=== PATIENT | female | born 1970 | race Caucasian/White ===

== ENCOUNTER 2016-09-27 13:03 | Emergency (ER) | payer MEDICAID, OTHER ==
[~2016-09-27] VITALS: Ht 180.3 cm; Wt 100.0 kg
[~2016-09-27 13:03] MED LIST: ATOM10 PO; BETH5 PO; CEPH500 PO; LEVE250T55 PO; LEVO25TA9 PO; LURA40 PO; MUPI22O TP; OXCA300T PO; PROP10 PO; QUET300T2 PO; VITAD50000 PO
[2016-09-27 14:31] LABS: BASOPHILS # (AUTO) 0.06 K/uL (0.00-0.20); BASOPHILS % (AUTO) 0.6 % (0.0-2.0); EOSINOPHILS # (AUTO) 0.15 K/uL (0.00-0.70); EOSINOPHILS % (AUTO) 1.42 % (1.0-6.0); HEMATOCRIT 40.9 % (36-46); HEMOGLOBIN 13.5 g/dL (12.0-16.0); LYMPHOCYTES # (AUTO) 2.3 K/uL (1.0-4.8); MEAN CORPUSCULAR HEMOGLOBIN 29.5 pg (26.0-34.0); MEAN CORPUSCULAR VOLUME 89 fL (80-100); MONOCYTES % (AUTO) 8.7 % (2.0-9.0); NEUTROPHILS # (AUTO) 7.4 K/uL (1.8-7.7); NEUTROPHILS % (AUTO) 68.3 % (40.0-70.0); PLATELET COUNT (AUTO) 396 K/uL (150-450); RED BLOOD CELL COUNT(AUTO) 4.57 MIL/uL (4.00-5.20); RED CELL DISTRIBUTION WIDTH 13.7 % (11.5-14.5); WHITE BLOOD COUNT (AUTO) 10.9 K/uL (4.5-11.0)
[2016-09-27 14:37] LABS: ANION GAP 12 mmol/L (8-16); CALCIUM, TOTAL 9.2 mg/dL (8.8-10.5); CARBON DIOXIDE 24 mmol/L (22-29); CHLORIDE 105 mmol/L (98-107); CREATININE 1.05 mg/dL (0.60-1.30); GLOMERULAR FILTR. RATE CALC 57 mL/min (>60); POTASSIUM 3.3 mmol/L (3.5-5.1); SODIUM SERUM 141 mmol/L (136-145); UREA NITROGEN, BLOOD 9 mg/dL (7-18)
[2016-09-27 14:43] LABS: ALANINE AMINOTRANSFERASE 38 U/L (12-78); ALBUMIN 3.6 g/dL (3.4-5.0); ASPARTATE AMINOTRANSFERASE 37 U/L (15-37); BILIRUBIN,TOTAL 0.3 mg/dL (0.1-1.0); TOTAL PROTEIN, SERUM 7.7 g/dL (6.4-8.2)
[2016-09-27] MEDS ORDERED: LORazepam 1 MG TABLET PO ONE (16:30)
[2016-09-27 16:40] VITALS: BP 138/90
[2016-09-30] MEDS ORDERED: PARO20TA24 PO (13:42)
[2016-09-30] MEDS ORDERED: TRAZ150 PO (13:42)
[2016-09-30] MEDS ORDERED: VENL50TA44 PO (13:42)
[2016-09-30] MEDS ORDERED: PROP10 PO (13:42)
[2016-09-30] MEDS ORDERED: MIRT15 PO (13:42)
[2016-09-30] MEDS ORDERED: IBUP-2070 PO (13:42)
== END 2016-09-27 18:22 | disposition home or self-care (01) ==
LOC: EMS 13:05 → EEVIPCON 13:05 → EMS 18:22
DX: F20.0 Paranoid schizophrenia (principal); E78.00 Pure hypercholesterolemia, unspecified; F17.210 Nicotine dependence, cigarettes, uncomplicated; F31.9 Bipolar disorder, unspecified; Z88.8 Allergy status to other drugs, medicaments and biological substances
CPT/HCPCS: 36415; 80053; 80307; 85025; 99284; G0480

== ENCOUNTER 2016-11-13 10:05 | Inpatient (IN) | payer MEDICAID ==
[~2016-11-13] VITALS: Ht 177.8 cm; Wt 97.2 kg
[~2016-11-13 10:05] MED LIST changes: -ATOM10 PO; -BETH5 PO; -CEPH500 PO; +CHOL200016 PO; +DOCU250C91 PO; -LEVE250T55 PO; -LEVO25TA9 PO; +LITH300C3 PO; -LURA40 PO; -MUPI22O TP; +MVITFE PO; -OXCA300T PO; +PARO20TA24 PO; -PROP10 PO; -QUET300T2 PO; +RISP1 PO; +SIMV-261 PO; -VITAD50000 PO
[2016-11-13 10:39] LABS: BASOPHILS % (AUTO) 0.5 % (0.0-2.0); EOSINOPHILS % (AUTO) 0.8 % (1.0-6.0); HEMATOCRIT 38.5 % (36-46); HEMOGLOBIN 13.1 g/dL (12.0-16.0); LYMPHOCYTES # (AUTO) 1.9 K/uL (1.0-4.8); LYMPHOCYTES % (AUTO) 18.8 % (22.0-44.0); MEAN CORPUSCULAR HEMOGLOBIN 30.1 pg (26.0-34.0); MEAN CORPUSCULAR HGB CONC 34.1 G/dL (31.0-37.0); MEAN CORPUSCULAR VOLUME 88 fL (80-100); MONOCYTES # (AUTO) 0.6 K/uL (0.1-1.0); MONOCYTES % (AUTO) 6.5 % (2.0-9.0); NEUTROPHILS # (AUTO) 7.3 K/uL (1.8-7.7); NEUTROPHILS % (AUTO) 73.4 % (40.0-70.0); PLATELET COUNT (AUTO) 390 K/uL (150-450); RED BLOOD CELL COUNT(AUTO) 4.36 MIL/uL (4.00-5.20); RED CELL DISTRIBUTION WIDTH 13.9 % (11.5-14.5); WHITE BLOOD COUNT (AUTO) 9.9 K/uL (4.5-11.0)
[2016-11-13] MEDS ORDERED: BACITRACIN 0.9 GM PACKET OINTMENT TP ONE (10:45)
[2016-11-13 10:50] LABS: ANION GAP 10 mmol/L (8-16); CARBON DIOXIDE 27 mmol/L (22-29); CHLORIDE 104 mmol/L (98-107); GLOMERULAR FILTR. RATE CALC > 60 mL/min (>60); POTASSIUM 3.9 mmol/L (3.5-5.1); SODIUM SERUM 141 mmol/L (136-145); UREA NITROGEN, BLOOD 16 mg/dL (7-18)
[2016-11-13 10:56] LABS: ALANINE AMINOTRANSFERASE 86 U/L (12-78); ALBUMIN 3.4 g/dL (3.4-5.0); ASPARTATE AMINOTRANSFERASE 43 U/L (15-37); BILIRUBIN,TOTAL 0.2 mg/dL (0.1-1.0); TOTAL PROTEIN, SERUM 7.6 g/dL (6.4-8.2)
[2016-11-13] MEDS ORDERED: LORazepam 2 MG/ML VIAL IM ONE (11:00)
[2016-11-13] MEDS ORDERED: DiphenhydrAMINE HCL 50 MG/ML VIAL IM ONE (11:00)
[2016-11-13] MEDS ORDERED: HALOPERIDOL LACTATE 5 MG/ML VIAL IM ONE (11:00)
[2016-11-13] MEDS: RisperiDONE 1 MG TABLET PO SCH (21:31)
[2016-11-13] MEDS: PARoxetine HCL 20 MG TABLET PO SCH (21:31)
[2016-11-14 00:28] VITALS: BP 136/83
[2016-11-14] MEDS ORDERED: -PHARMACY VACCINE NOTE- MISC ONE ×2 (01:00)
[2016-11-14] MEDS ORDERED: PNEUMOCOCCAL VACCINE POLYVALENT 0.5 ML VIAL [PPSV23] IM ONE (01:00)
[2016-11-14 08:00] VITALS: BP 131/84
[2016-11-14] MEDS: LORazepam 2 MG TABLET PO PRN ×2 (08:02→14:55)
[2016-11-14] MEDS: RisperiDONE 1 MG TABLET PO SCH ×2 (08:03→09:00)
[2016-11-14] MEDS: PARoxetine HCL 20 MG TABLET PO SCH ×2 (08:03→17:00)
[2016-11-14] MEDS: HALOPERIDOL 5 MG TABLET PO PRN ×2 (10:15→14:54)
[2016-11-14 16:30] VITALS: BP 119/76
[2016-11-14] MEDS: ZOLPIDEM TARTRATE 10 MG TABLET PO PRN (21:13)
[2016-11-15 08:16] VITALS: BP 112/58
[2016-11-15] MEDS: PARoxetine HCL 20 MG TABLET PO SCH ×2 (08:42→16:14)
[2016-11-15] MEDS: RisperiDONE 1 MG TABLET PO SCH (08:42)
[2016-11-15] MEDS: LORazepam 2 MG TABLET PO PRN ×2 (09:00→13:15)
[2016-11-15] MEDS: HALOPERIDOL 5 MG TABLET PO PRN ×2 (09:00→13:15)
[2016-11-15 16:44] VITALS: BP 117/70
[2016-11-15] MEDS: OLANZapine 7.5 MG TABLET PO SCH (21:25)
[2016-11-15] MEDS: ZOLPIDEM TARTRATE 10 MG TABLET PO PRN (21:26)
[2016-11-16 08:34] VITALS: BP 124/63
[2016-11-16] MEDS: PARoxetine HCL 20 MG TABLET PO SCH ×2 (08:34→16:06)
[2016-11-16] MEDS: MUPIROCIN CALCIUM 2% 22 GM OINTMENT NASAL SCH (08:35)
[2016-11-16] MEDS: LORazepam 2 MG TABLET PO PRN ×2 (11:45→15:53)
[2016-11-16] MEDS: HALOPERIDOL 5 MG TABLET PO PRN (11:45)
[2016-11-16] MEDS: NICOTINE 21 MG/24 HOUR PATCH TD SCH (12:17)
[2016-11-16 17:31] VITALS: BP 130/83
[2016-11-16] MEDS: ZOLPIDEM TARTRATE 10 MG TABLET PO PRN (20:14)
[2016-11-16] MEDS: OLANZapine 7.5 MG TABLET PO SCH (20:14)
[2016-11-17 08:05] VITALS: BP 112/63
[2016-11-17] MEDS: PARoxetine HCL 20 MG TABLET PO SCH ×2 (09:00→16:00)
[2016-11-17] MEDS: CHOLECALCIFEROL (VIT D3) 1,000 UNITS TABLET PO SCH (09:00)
[2016-11-17] MEDS: NICOTINE 21 MG/24 HOUR PATCH TD SCH (09:00)
[2016-11-17] MEDS: MUPIROCIN CALCIUM 2% 22 GM OINTMENT NASAL SCH (09:01)
[2016-11-17] MEDS: MUPIROCIN CALCIUM 2% 15 GM CREAM TP SCH (09:26)
[2016-11-17 16:00] VITALS: BP 116/70
[2016-11-17] MEDS: LORazepam 2 MG TABLET PO PRN (16:00)
[2016-11-17] MEDS: HALOPERIDOL 5 MG TABLET PO PRN (16:00)
[2016-11-17] MEDS: OLANZapine 7.5 MG TABLET PO SCH (22:45)
[2016-11-18 08:00] VITALS: BP 118/76
[2016-11-18] MEDS: MUPIROCIN CALCIUM 2% 22 GM OINTMENT NASAL SCH (09:12)
[2016-11-18] MEDS: MUPIROCIN CALCIUM 2% 15 GM CREAM TP SCH (09:13)
[2016-11-18] MEDS: NICOTINE 21 MG/24 HOUR PATCH TD SCH (09:15)
[2016-11-18] MEDS: LORazepam 2 MG TABLET PO PRN ×2 (09:16→14:43)
[2016-11-18] MEDS: CHOLECALCIFEROL (VIT D3) 1,000 UNITS TABLET PO SCH (09:16)
[2016-11-18] MEDS: PARoxetine HCL 20 MG TABLET PO SCH ×2 (09:16→17:38)
[2016-11-18] MEDS: HALOPERIDOL 5 MG TABLET PO PRN ×2 (09:17→14:43)
[2016-11-18 16:12] VITALS: BP 115/71
[2016-11-18] MEDS: OLANZapine 7.5 MG TABLET PO SCH (20:14)
[2016-11-18] MEDS: ZOLPIDEM TARTRATE 10 MG TABLET PO PRN (20:15)
[2016-11-19 08:00] VITALS: BP 116/60
[2016-11-19] MEDS ORDERED: PARoxetine HCL 20 MG TABLET PO SCH (09:00)
[2016-11-19] MEDS: HALOPERIDOL 5 MG TABLET PO PRN ×2 (10:18→14:21)
[2016-11-19] MEDS: LORazepam 2 MG TABLET PO PRN ×2 (10:18→14:21)
[2016-11-19] MEDS: CHOLECALCIFEROL (VIT D3) 1,000 UNITS TABLET PO SCH (10:19)
[2016-11-19] MEDS: NICOTINE 21 MG/24 HOUR PATCH TD SCH (10:20)
[2016-11-19] MEDS: MUPIROCIN CALCIUM 2% 22 GM OINTMENT NASAL SCH (10:32)
[2016-11-19] MEDS: MUPIROCIN CALCIUM 2% 15 GM CREAM TP SCH (10:33)
[2016-11-19] MEDS ORDERED: HALOPERIDOL LACTATE 5 MG/ML VIAL IM ONE (16:45)
[2016-11-19] MEDS ORDERED: LORazepam 2 MG/ML VIAL IM ONE (16:45)
[2016-11-19] MEDS: OLANZapine 7.5 MG TABLET PO SCH (20:59)
[2016-11-19] MEDS: PARoxetine HCL 20 MG TABLET PO SCH (20:59)
[2016-11-19 21:15] VITALS: BP 128/77
[2016-11-20 08:00] VITALS: BP 119/75
[2016-11-20] MEDS: HALOPERIDOL 5 MG TABLET PO PRN ×2 (10:03→15:33)
[2016-11-20] MEDS: CHOLECALCIFEROL (VIT D3) 1,000 UNITS TABLET PO SCH (10:03)
[2016-11-20] MEDS: LORazepam 2 MG TABLET PO PRN ×2 (10:03→15:33)
[2016-11-20] MEDS: MUPIROCIN CALCIUM 2% 22 GM OINTMENT NASAL SCH (10:08)
[2016-11-20] MEDS: MUPIROCIN CALCIUM 2% 15 GM CREAM TP SCH (10:08)
[2016-11-20] MEDS: NICOTINE 21 MG/24 HOUR PATCH TD SCH (10:08)
[2016-11-20 16:25] VITALS: BP 148/90
[2016-11-20] MEDS: OLANZapine 7.5 MG TABLET PO SCH (20:13)
[2016-11-20] MEDS: PARoxetine HCL 20 MG TABLET PO SCH (20:15)
[2016-11-20] MEDS: ZOLPIDEM TARTRATE 10 MG TABLET PO PRN (20:26)
[2016-11-21 08:05] VITALS: BP 119/68
[2016-11-21] MEDS: CHOLECALCIFEROL (VIT D3) 1,000 UNITS TABLET PO SCH (11:21)
[2016-11-21] MEDS: MUPIROCIN CALCIUM 2% 15 GM CREAM TP SCH (11:22)
[2016-11-21] MEDS: NICOTINE 21 MG/24 HOUR PATCH TD SCH (11:22)
[2016-11-21] MEDS: MUPIROCIN CALCIUM 2% 22 GM OINTMENT NASAL SCH (11:23)
[2016-11-21] MEDS: LORazepam 2 MG TABLET PO PRN ×2 (12:30→17:17)
[2016-11-21] MEDS: HALOPERIDOL 5 MG TABLET PO PRN ×2 (12:30→17:17)
[2016-11-21 17:13] VITALS: BP 124/86
[2016-11-21] MEDS: OLANZapine 7.5 MG TABLET PO SCH (20:05)
[2016-11-21] MEDS: PARoxetine HCL 20 MG TABLET PO SCH (20:05)
[2016-11-21] MEDS: ZOLPIDEM TARTRATE 10 MG TABLET PO PRN (20:05)
[2016-11-22 08:00] VITALS: BP 115/59
[2016-11-22] MEDS: LORazepam 2 MG TABLET PO PRN ×2 (11:31→15:41)
[2016-11-22] MEDS: HALOPERIDOL 5 MG TABLET PO PRN ×2 (11:31→15:41)
[2016-11-22] MEDS: CHOLECALCIFEROL (VIT D3) 1,000 UNITS TABLET PO SCH (11:34)
[2016-11-22] MEDS: NICOTINE 21 MG/24 HOUR PATCH TD SCH (11:35)
[2016-11-22] MEDS: MUPIROCIN CALCIUM 2% 15 GM CREAM TP SCH (11:36)
[2016-11-22 17:14] VITALS: BP 121/60
[2016-11-22] MEDS: PARoxetine HCL 20 MG TABLET PO SCH (20:02)
[2016-11-22] MEDS: OLANZapine 7.5 MG TABLET PO SCH (20:02)
[2016-11-22] MEDS: ZOLPIDEM TARTRATE 10 MG TABLET PO PRN (20:25)
[2016-11-23 08:27] VITALS: BP 132/88
[2016-11-23] MEDS: CHOLECALCIFEROL (VIT D3) 1,000 UNITS TABLET PO SCH (09:46)
[2016-11-23] MEDS: NICOTINE 21 MG/24 HOUR PATCH TD SCH (09:46)
[2016-11-23] MEDS: MUPIROCIN CALCIUM 2% 15 GM CREAM TP SCH (09:47)
[2016-11-23] MEDS ORDERED: MUPI1OIN5 TP (10:32)
[2016-11-23] MEDS ORDERED: NICO-650 TD (10:32)
[2016-11-23] MEDS: LORazepam 2 MG TABLET PO PRN (11:10)
[2016-11-23] MEDS ORDERED: OLAN7.5T2 PO (11:24)
== END 2016-11-23 13:45 | disposition home or self-care (01) | DRG 750 ==
LOC: EMS 10:07 → 3EC 23:20
PROVIDERS: ADMIT Psychiatry & Neurology Psychiatry; ATTEND Psychiatry & Neurology Psychiatry
DX: F25.9 Schizoaffective disorder, unspecified (principal); R45.851 Suicidal ideations; Z78.1 Physical restraint status; F22 Delusional disorders; F17.200 Nicotine dependence, unspecified, uncomplicated; E78.00 Pure hypercholesterolemia, unspecified; F41.9 Anxiety disorder, unspecified; T22.012A Burn of unspecified degree of left forearm, initial encounter; Z88.1 Allergy status to other antibiotic agents; Z28.21 Immunization not carried out because of patient refusal
CPT/HCPCS: 87081; 96372; 99285; G0480; J1200; J1630; J2060

== ENCOUNTER 2017-01-02 13:00 | Inpatient (IN) | payer MEDICAID, OTHER ==
[~2017-01-02] VITALS: Ht 177.8 cm; Wt 95.2 kg
[~2017-01-02 13:00] MED LIST changes: -DOCU250C91 PO; -LITH300C3 PO; +MUPI1OIN5 TP; -MVITFE PO; +NICO-650 TD; +OLAN7.5T2 PO; -RISP1 PO; -SIMV-261 PO
[2017-01-02] MEDS ORDERED: SODIUM CHLORIDE 0.9% 1,000 ML IV ONE (13:45)
[2017-01-02] MEDS ORDERED: CHLO100T24 PO (13:50)
[2017-01-02] MEDS ORDERED: DIVA500T35 PO (13:50)
[2017-01-02 14:05] LABS: BASOPHILS # (AUTO) 0.06 K/uL (0.00-0.20); BASOPHILS % (AUTO) 0.4 % (0.0-2.0); EOSINOPHILS # (AUTO) 0.03 K/uL (0.00-0.70); HEMATOCRIT 40.8 % (36-46); HEMOGLOBIN 13.1 g/dL (12.0-16.0); MEAN CORPUSCULAR HEMOGLOBIN 28.8 pg (26.0-34.0); MEAN CORPUSCULAR HGB CONC 32.1 G/dL (31.0-37.0); MEAN CORPUSCULAR VOLUME 90 fL (80-100); MONOCYTES # (AUTO) 0.9 K/uL (0.1-1.0); MONOCYTES % (AUTO) 6.9 % (2.0-9.0); NEUTROPHILS # (AUTO) 11.6 K/uL (1.8-7.7); NEUTROPHILS % (AUTO) 85.4 % (40.0-70.0); PLATELET COUNT (AUTO) 327 K/uL (150-450); RED BLOOD CELL COUNT(AUTO) 4.54 MIL/uL (4.00-5.20); RED CELL DISTRIBUTION WIDTH 14.4 % (11.5-14.5); WHITE BLOOD COUNT (AUTO) 13.6 K/uL (4.5-11.0)
[2017-01-02 14:28] LABS: SALICYLATE 6.3 mg/dL (2.8-20.0)
[2017-01-02 14:30] LABS: ALANINE AMINOTRANSFERASE 47 U/L (12-78); ALBUMIN 3.7 g/dL (3.4-5.0); ANION GAP 12 mmol/L (8-16); ASPARTATE AMINOTRANSFERASE 42 U/L (15-37); BILIRUBIN,TOTAL 0.4 mg/dL (0.1-1.0); CALCIUM, TOTAL 10.4 mg/dL (8.8-10.5); CARBON DIOXIDE 21 mmol/L (22-29); CHLORIDE 102 mmol/L (98-107); CREATININE 1.09 mg/dL (0.60-1.30); GLOMERULAR FILTR. RATE CALC 54 mL/min (>60); SODIUM SERUM 135 mmol/L (136-145); TOTAL PROTEIN, SERUM 7.4 g/dL (6.4-8.2); UREA NITROGEN, BLOOD 8 mg/dL (7-18)
[2017-01-02 14:32] LABS: POTASSIUM 2.5 mmol/L (3.5-5.1)
[2017-01-02 15:48] LABS: ACETAMINOPHEN < 2 mcg/mL (10-30)
[2017-01-02] MEDS ORDERED: NICO-704 TD (16:24)
[2017-01-02] MEDS ORDERED: POTASSIUM CHLORIDE 20 MEQ ER TABLET PO ONE (16:30)
[2017-01-02] MEDS ORDERED: LORazepam 2 MG/ML VIAL IM ONE (17:00)
[2017-01-02] MEDS ORDERED: HALOPERIDOL LACTATE 5 MG/ML VIAL IM ONE (17:00)
[2017-01-02] MEDS ORDERED: DiphenhydrAMINE HCL 50 MG/ML VIAL IM ONE (17:00)
[2017-01-02] MEDS ORDERED: ZOLPIDEM TARTRATE 10 MG TABLET PO PRN (17:30)
[2017-01-02] MEDS ORDERED: POTASSIUM CHL 10 MEQ/WATER 50 ML IV ONE (21:01)
[2017-01-02] MEDS: POTASSIUM CHL 10 MEQ/WATER 50 ML IV SCH ×3 (21:09→23:09)
[2017-01-03] MEDS: POTASSIUM CHL 10 MEQ/WATER 50 ML IV SCH (00:06)
[2017-01-03 04:00] VITALS: BP 112/72
[2017-01-03 06:27] LABS: BASOPHILS % (AUTO) 0.4 % (0.0-2.0); EOSINOPHILS % (AUTO) 1.8 % (1.0-6.0); HEMATOCRIT 34.1 % (36-46); HEMOGLOBIN 11.5 g/dL (12.0-16.0); LYMPHOCYTES % (AUTO) 21.7 % (22.0-44.0); MEAN CORPUSCULAR HEMOGLOBIN 30.1 pg (26.0-34.0); MEAN CORPUSCULAR HGB CONC 33.8 G/dL (31.0-37.0); MEAN CORPUSCULAR VOLUME 89 fL (80-100); MONOCYTES # (AUTO) 0.8 K/uL (0.1-1.0); MONOCYTES % (AUTO) 8.2 % (2.0-9.0); NEUTROPHILS # (AUTO) 6.2 K/uL (1.8-7.7); NEUTROPHILS % (AUTO) 67.9 % (40.0-70.0); PLATELET COUNT (AUTO) 301 K/uL (150-450); RED BLOOD CELL COUNT(AUTO) 3.84 MIL/uL (4.00-5.20); RED CELL DISTRIBUTION WIDTH 14.3 % (11.5-14.5); WHITE BLOOD COUNT (AUTO) 9.2 K/uL (4.5-11.0)
[2017-01-03 06:45] LABS: ALBUMIN 3.1 g/dL (3.4-5.0); BILIRUBIN,TOTAL 0.3 mg/dL (0.1-1.0); CALCIUM, TOTAL 7.8 mg/dL (8.8-10.5); CREATININE 1.03 mg/dL (0.60-1.30); POTASSIUM 3.2 mmol/L (3.5-5.1); THYROID STIMULATING HORMONE 3.22 uIU/mL (0.36-3.74); TOTAL PROTEIN, SERUM 6.2 g/dL (6.4-8.2)
[2017-01-03] MEDS ORDERED: POTASSIUM CHLORIDE 20 MEQ ER TABLET PO ONE (07:30)
[2017-01-03] MEDS: LORazepam 2 MG TABLET PO PRN (08:10)
[2017-01-03] MEDS: HALOPERIDOL 5 MG TABLET PO PRN (08:10)
[2017-01-03] MEDS: DIVALPROEX SODIUM 500 MG DR TABLET PO SCH ×2 (09:00→17:00)
[2017-01-03] MEDS: ChlorproMAZINE HCL 100 MG TABLET PO SCH ×2 (09:00→21:04)
[2017-01-03] MEDS ORDERED: LOPERAMIDE HCL 2 MG CAPSULE PO PRN (09:30)
[2017-01-03 09:59] VITALS: BP 121/73
[2017-01-03] MEDS ORDERED: DIPHENOXYLATE/ATROP 2.5-0.025 MG TABLET PO PRN (10:30)
[2017-01-03 16:42] LABS: ANION GAP 6 mmol/L (8-16); CALCIUM, TOTAL 7.9 mg/dL (8.8-10.5); CARBON DIOXIDE 22 mmol/L (22-29); CHLORIDE 112 mmol/L (98-107); CREATININE 1.11 mg/dL (0.60-1.30); GLOMERULAR FILTR. RATE CALC 53 mL/min (>60); SODIUM SERUM 140 mmol/L (136-145); UREA NITROGEN, BLOOD 7 mg/dL (7-18)
[2017-01-03 16:59] LABS: VALPROIC ACID < 3 mcg/mL (50-100)
[2017-01-03] MEDS: OLANZapine 7.5 MG TABLET PO SCH (21:00)
[2017-01-03] MEDS: PARoxetine HCL 20 MG TABLET PO SCH (21:03)
[2017-01-03 21:16] VITALS: BP 130/78
[2017-01-04 04:40] VITALS: BP 127/71
[2017-01-04] MEDS: LORazepam 2 MG TABLET PO PRN ×3 (04:43→16:33)
[2017-01-04 07:00] LABS: ALBUMIN 2.8 g/dL (3.4-5.0); BILIRUBIN,TOTAL 0.2 mg/dL (0.1-1.0); CALCIUM, TOTAL 7.7 mg/dL (8.8-10.5); CREATININE 1.17 mg/dL (0.60-1.30); POTASSIUM 3.4 mmol/L (3.5-5.1); TOTAL PROTEIN, SERUM 5.6 g/dL (6.4-8.2)
[2017-01-04] MEDS: ATORVASTATIN CALCIUM 20 MG TABLET PO SCH (09:00)
[2017-01-04] MEDS: DIVALPROEX SODIUM 500 MG DR TABLET PO SCH ×3 (09:00→17:00)
[2017-01-04] MEDS: ChlorproMAZINE HCL 100 MG TABLET PO SCH ×2 (09:42→22:09)
[2017-01-04] MEDS: CHOLECALCIFEROL (VIT D3) 1,000 UNITS TABLET PO SCH (09:43)
[2017-01-04 09:56] VITALS: BP 124/88
[2017-01-04 18:30] VITALS: BP 143/74
[2017-01-04] MEDS: OLANZapine 7.5 MG TABLET PO SCH (21:00)
[2017-01-04] MEDS: PARoxetine HCL 20 MG TABLET PO SCH (22:10)
[2017-01-05] MEDS: LORazepam 2 MG TABLET PO PRN (08:15)
[2017-01-05] MEDS: ATORVASTATIN CALCIUM 20 MG TABLET PO SCH (08:15)
[2017-01-05] MEDS: HALOPERIDOL 5 MG TABLET PO PRN (08:15)
[2017-01-05] MEDS: DIVALPROEX SODIUM 500 MG DR TABLET PO SCH (08:15)
[2017-01-05] MEDS: CHOLECALCIFEROL (VIT D3) 1,000 UNITS TABLET PO SCH (08:15)
[2017-01-05] MEDS: ChlorproMAZINE HCL 100 MG TABLET PO SCH (08:15)
[2017-01-05 10:09] VITALS: BP 93/61
[2017-01-05] MEDS ORDERED: ATOR20TA86 PO (12:18)
== END 2017-01-05 16:20 | disposition home or self-care (01) | DRG 750 ==
LOC: EMS 13:00 → UNDOADMIN 22:01 → B3A 22:01 → 3EI 01-03 02:18
PROVIDERS: ADMIT Psychiatry & Neurology Child & Adolescent Psychiatry; ATTEND Psychiatry & Neurology Child & Adolescent Psychiatry
DX: F20.0 Paranoid schizophrenia (principal); F17.200 Nicotine dependence, unspecified, uncomplicated; K52.9 Noninfective gastroenteritis and colitis, unspecified; Z88.1 Allergy status to other antibiotic agents; Z90.49 Acquired absence of other specified parts of digestive tract; E78.00 Pure hypercholesterolemia, unspecified; T43.3X1A Poisoning by phenothiazine antipsychotics and neuroleptics, accidental (unintentional), initial encounter
CPT/HCPCS: 82306; 84132; 84439; 84443; 87081; 93005; 96360; 96361; 96372; 99285; G0480; G0481; J1200; J1630; J2060; J3480; J7030

== ENCOUNTER 2017-03-08 13:26 | Emergency (ER) | payer MEDICAID, OTHER ==
[~2017-03-08] VITALS: Ht 172.7 cm; Wt 99.0 kg
[~2017-03-08 13:26] MED LIST changes: +ATOR20TA86 PO; +CHLO100T24 PO; +DIVA500T35 PO; -MUPI1OIN5 TP; -NICO-650 TD
[2017-03-08] MEDS ORDERED: ATOM25 PO (13:44)
[2017-03-08] MEDS ORDERED: KETOROLAC TROMETHAMINE 60 MG/2 ML VIAL IM ONE (14:30)
[2017-03-08] MEDS ORDERED: AZITHROMYCIN 250 MG TABLET PO ONE (15:45)
[2017-03-08 15:49] VITALS: BP 123/64
== END 2017-03-08 15:56 | disposition home or self-care (01) ==
LOC: EMS 13:29
DX: J18.9 Pneumonia, unspecified organism (principal); E78.00 Pure hypercholesterolemia, unspecified; F17.210 Nicotine dependence, cigarettes, uncomplicated; Z88.8 Allergy status to other drugs, medicaments and biological substances
CPT/HCPCS: 71046; 96372; 99284; 99406; J1885

== ENCOUNTER 2017-03-14 16:01 | Emergency (ER) | payer OTHER ==
[~2017-03-14] VITALS: Ht 180.3 cm; Wt 100.0 kg
[~2017-03-14 16:01] MED LIST changes: +ATOM25 PO
[2017-03-14] MEDS ORDERED: 0.9% SODIUM CHLORIDE 10 ML SYRINGE IVP PRN (16:45)
[2017-03-14] MEDS ORDERED: LEVOFLOXACIN 500 MG/D5% WATER 100 ML IV ONE (16:45)
[2017-03-14] MEDS ORDERED: ALBUTEROL SULFATE 2.5 MG/0.5 ML NEB SOLUTION NEB ONE (16:45)
[2017-03-14 17:20] LABS: BASOPHILS # (AUTO) 0.08 K/uL (0.00-0.20); BASOPHILS % (AUTO) 1.2 % (0.0-2.0); EOSINOPHILS # (AUTO) 0.15 K/uL (0.00-0.70); EOSINOPHILS % (AUTO) 2.07 % (1.0-6.0); HEMATOCRIT 36.4 % (36-46); HEMOGLOBIN 11.8 g/dL (12.0-16.0); LYMPHOCYTES # (AUTO) 1.7 K/uL (1.0-4.8); LYMPHOCYTES % (AUTO) 23.5 % (22.0-44.0); MEAN CORPUSCULAR HEMOGLOBIN 28.2 pg (26.0-34.0); MEAN CORPUSCULAR HGB CONC 32.4 G/dL (31.0-37.0); MEAN CORPUSCULAR VOLUME 87 fL (80-100); MONOCYTES # (AUTO) 0.4 K/uL (0.1-1.0); MONOCYTES % (AUTO) 5.2 % (2.0-9.0); NEUTROPHILS # (AUTO) 4.9 K/uL (1.8-7.7); PLATELET COUNT (AUTO) 624 K/uL (150-450); RED CELL DISTRIBUTION WIDTH 16.4 % (11.5-14.5)
[2017-03-14 17:30] LABS: CALCIUM, TOTAL 9.3 mg/dL (8.8-10.5); CREATININE 1.06 mg/dL (0.60-1.30); POTASSIUM 3.5 mmol/L (3.5-5.1)
[2017-03-14 17:38] LABS: LACTIC ACID 1.6 mmol/L (0.4-2.0)
[2017-03-14 17:47] LABS: ALBUMIN 3.1 g/dL (3.4-5.0); BILIRUBIN,TOTAL 0.2 mg/dL (0.1-1.0); TOTAL PROTEIN, SERUM 8.1 g/dL (6.4-8.2)
[2017-03-14] MEDS ORDERED: LORazepam 2 MG/ML VIAL IVP ONE (18:15)
[2017-03-14 18:37] VITALS: BP 122/80
== END 2017-03-14 19:14 | disposition home or self-care (01) ==
LOC: EMS 16:04
DX: J18.9 Pneumonia, unspecified organism (principal); E78.00 Pure hypercholesterolemia, unspecified; F17.210 Nicotine dependence, cigarettes, uncomplicated; Z88.8 Allergy status to other drugs, medicaments and biological substances
CPT/HCPCS: 36415; 71046; 80053; 83605; 85025; 87040; 94640; 96374; 99285; J1956; J7613

== ENCOUNTER 2017-04-26 12:18 | Inpatient (IN) | payer OTHER ==
[~2017-04-26] VITALS: Ht 177.8 cm; Wt 93.0 kg
[2017-04-26] MEDS ORDERED: ZIPR60CA2 PO (13:43)
[2017-04-26] MEDS ORDERED: ATOM40 PO (13:43)
[2017-04-26] MEDS ORDERED: SODIUM CHLORIDE 0.9% 1,000 ML IV ONE ×2 (14:15→16:00)
[2017-04-26 14:18] LABS: BASOPHILS % (AUTO) 1.1 % (0.0-2.0); EOSINOPHILS % (AUTO) 0.6 % (1.0-6.0); HEMATOCRIT 40.1 % (36-46); HEMOGLOBIN 13.5 g/dL (12.0-16.0); LYMPHOCYTES # (AUTO) 2.9 K/uL (1.0-4.8); LYMPHOCYTES % (AUTO) 26.7 % (22.0-44.0); MEAN CORPUSCULAR HEMOGLOBIN 28.8 pg (26.0-34.0); MEAN CORPUSCULAR HGB CONC 33.7 G/dL (31.0-37.0); MEAN CORPUSCULAR VOLUME 85 fL (80-100); MONOCYTES # (AUTO) 0.8 K/uL (0.1-1.0); MONOCYTES % (AUTO) 7.5 % (2.0-9.0); NEUTROPHILS # (AUTO) 6.9 K/uL (1.8-7.7); NEUTROPHILS % (AUTO) 64.1 % (40.0-70.0); PLATELET COUNT (AUTO) 333 K/uL (150-450); RED BLOOD CELL COUNT(AUTO) 4.69 MIL/uL (4.00-5.20); RED CELL DISTRIBUTION WIDTH 17.1 % (11.5-14.5)
[2017-04-26 14:23] LABS: ANION GAP 9 mmol/L (8-16); CALCIUM, TOTAL 8.9 mg/dL (8.8-10.5); CARBON DIOXIDE 29 mmol/L (22-29); CHLORIDE 101 mmol/L (98-107); CREATININE 0.81 mg/dL (0.60-1.30); GLOMERULAR FILTR. RATE CALC > 60 mL/min (>60); GLUCOSE,RANDOM 89 mg/dL (70-110); POTASSIUM 3.4 mmol/L (3.5-5.1); SODIUM SERUM 139 mmol/L (136-145); UREA NITROGEN, BLOOD 7 mg/dL (7-18)
[2017-04-26] MEDS ORDERED: LORazepam 2 MG/ML VIAL IM ONE (14:30)
[2017-04-26] MEDS ORDERED: DiphenhydrAMINE HCL 50 MG/ML VIAL IM ONE (14:30)
[2017-04-26] MEDS ORDERED: HALOPERIDOL LACTATE 5 MG/ML VIAL IM ONE (14:30)
[2017-04-26 14:32] LABS: SALICYLATE 3.2 mg/dL (2.8-20.0)
[2017-04-26 14:48] LABS: AMPHET/METH SCREEN,URINE POSITIVE (NEGATIVE); BARBITURATE SCREEN, URINE NEGATIVE (NEGATIVE); BENZODIAZEPINES SCREEN,URINE NEGATIVE (NEGATIVE); CANNABINOID SCREEN,URINE NEGATIVE (NEGATIVE); COCAINE SCREEN,URINE NEGATIVE (NEGATIVE); METHADONE SCREEN, URINE NEGATIVE (NEGATIVE); OPIATE SCREEN,URINE NEGATIVE (NEGATIVE); PHENCYCLIDINE SCREEN,URINE NEGATIVE (NEGATIVE)
[2017-04-26 14:48] LABS: ALANINE AMINOTRANSFERASE 23 U/L (12-78); ALBUMIN 3.7 g/dL (3.4-5.0); ALKALINE PHOSPHATASE 71 U/L (46-116); ASPARTATE AMINOTRANSFERASE 19 U/L (15-37); BILIRUBIN,TOTAL 0.2 mg/dL (0.1-1.0); TOTAL PROTEIN, SERUM 7.5 g/dL (6.4-8.2)
[2017-04-26 14:50] LABS: ACETAMINOPHEN < 2 mcg/mL (10-30); VALPROIC ACID 189 mcg/mL (50-100)
[2017-04-26] MEDS ORDERED: PROMETHAZINE HCL 25 MG TABLET PO PRN (15:45)
[2017-04-26] MEDS ORDERED: OLANZapine 5 MG RAPDIS TABLET PO PRN (15:45)
[2017-04-26] MEDS ORDERED: GuaiFENesin/D-METHORPHAN [SUGAR-FREE] 200-20MG/10 ML SYRUP UDCUP PO PRN (15:45)
[2017-04-26] MEDS ORDERED: TUBERCULIN, PURIFIED PROTEIN DERIVATIVE 5 TU/0.1 ML SYG ID ONE (15:45)
[2017-04-26] MEDS ORDERED: HydrOXYzine PAMOATE 50 MG CAPSULE PO PRN (15:45)
[2017-04-26] MEDS ORDERED: 0.9% SODIUM CHLORIDE 10 ML SYRINGE IVP PRN (16:00)
[2017-04-26] MEDS ORDERED: ONDANSETRON HCL 4 MG/2 ML VIAL IVP PRN ×2 (16:00→18:45)
[2017-04-26] MEDS ORDERED: ACETAMINOPHEN 325 MG TABLET PO PRN ×2 (16:00→18:45)
[2017-04-26 16:48] LABS: APPEARANCE,URINE CLOUDY (CLEAR); BILIRUBIN,URINE NEGATIVE (NEGATIVE); GLUCOSE, URINE (UA) NEGATIVE (NEGATIVE); KETONES,URINE NEGATIVE (NEGATIVE); LEUKOCYTE ESTERASE ,URINE NEGATIVE (NEGATIVE); NITRATE,URINE NEGATIVE (NEGATIVE); OCCULT BLOOD,URINE NEGATIVE (NEGATIVE); PROTEIN,URINE NEGATIVE (NEGATIVE); UROBILINOGEN,URINE 0.2 mg/dL (<=1.0)
[2017-04-26] MEDS ORDERED: IPRATROPIUM BROMIDE 0.5 MG/2.5 ML NEB SOLUTION NEB PRN (18:45)
[2017-04-26] MEDS ORDERED: ALBUTEROL SULFATE 2.5 MG/0.5 ML NEB SOLUTION NEB PRN (18:45)
[2017-04-26] MEDS ORDERED: MAGNESIUM HYDROXIDE SUSPENSION 30 ML UDCUP PO PRN (18:45)
[2017-04-26] MEDS ORDERED: BISACODYL 10 MG RECTAL RECTAL SUPPOSITORY PR PRN (18:45)
[2017-04-26 20:00] VITALS: BP 118/72
[2017-04-26] MEDS: OLANZapine 5 MG RAPDIS TABLET PO SCH (21:00)
[2017-04-26] MEDS: THIAMINE HCL 100 MG TABLET PO SCH (21:00)
[2017-04-26] MEDS: DIVALPROEX SODIUM 500 MG ER TABLET PO SCH (21:00)
[2017-04-26] MEDS: DOCUSATE SODIUM 100 MG CAPSULE PO SCH (21:00)
[2017-04-26] MEDS ORDERED: PEG 3350/NA SULF,BICARB,CL/KCL 4000 ML SOLUTION PO ONE (22:00)
[2017-04-26] MEDS: HEPARIN SODIUM,PORCINE 5,000 UNITS/ML VIAL SQ SCH (23:47)
[2017-04-27] VITALS: BP 126/84
[2017-04-27] MEDS ORDERED: LevOCARNitine 200 MG/ML 5 ML VIAL IV ONE (01:15)
[2017-04-27] MEDS ORDERED: LevOCARNitine 200 MG/ML 5 ML VIAL IV SCH (02:00)
[2017-04-27] MEDS ORDERED: LEVOCARNITINE IV ONE (03:00)
[2017-04-27] MEDS ORDERED: SODIUM CHLORIDE 0.9% IV ONE (03:00)
[2017-04-27 04:00] VITALS: BP 125/74
[2017-04-27] MEDS ORDERED: PEG 3350/NA SULF,BICARB,CL/KCL 4000 ML SOLUTION PO ONE (07:15)
[2017-04-27 08:00] VITALS: BP 133/67
[2017-04-27] MEDS: HEPARIN SODIUM,PORCINE 5,000 UNITS/ML VIAL SQ SCH ×3 (09:04→23:35)
[2017-04-27] MEDS: PANTOPRAZOLE SODIUM 40 MG/VIAL IVP SCH (09:04)
[2017-04-27] MEDS: THIAMINE HCL 100 MG TABLET PO SCH ×3 (09:05→21:00)
[2017-04-27] MEDS: MULTIVITAMINS WITH MINERALS, THERAPEUTIC TABLET PO SCH (09:05)
[2017-04-27] MEDS: FLUoxetine HCL 20 MG CAPSULE PO SCH (09:05)
[2017-04-27] MEDS: DOCUSATE SODIUM 100 MG CAPSULE PO SCH ×3 (09:05→21:00)
[2017-04-27] MEDS: FOLIC ACID 1 MG TABLET PO SCH (09:05)
[2017-04-27 10:06] LABS: BASOPHILS % (AUTO) 0.9 % (0.0-2.0); EOSINOPHILS % (AUTO) 0.1 % (1.0-6.0); HEMATOCRIT 37.7 % (36-46); HEMOGLOBIN 12.5 g/dL (12.0-16.0); LYMPHOCYTES # (AUTO) 1.9 K/uL (1.0-4.8); LYMPHOCYTES % (AUTO) 22.4 % (22.0-44.0); MEAN CORPUSCULAR HEMOGLOBIN 28.4 pg (26.0-34.0); MEAN CORPUSCULAR HGB CONC 33.1 G/dL (31.0-37.0); MEAN CORPUSCULAR VOLUME 86 fL (80-100); MONOCYTES # (AUTO) 0.2 K/uL (0.1-1.0); MONOCYTES % (AUTO) 2.4 % (2.0-9.0); NEUTROPHILS # (AUTO) 6.3 K/uL (1.8-7.7); NEUTROPHILS % (AUTO) 74.2 % (40.0-70.0); PLATELET COUNT (AUTO) 301 K/uL (150-450); RED BLOOD CELL COUNT(AUTO) 4.39 MIL/uL (4.00-5.20); RED CELL DISTRIBUTION WIDTH 17.6 % (11.5-14.5)
[2017-04-27 10:19] LABS: HEMOGLOBIN A1C 5.6 % (4.5-6.2)
[2017-04-27 10:37] LABS: ALANINE AMINOTRANSFERASE 24 U/L (12-78); ALBUMIN 2.9 g/dL (3.4-5.0); ALKALINE PHOSPHATASE 59 U/L (46-116); ANION GAP 8 mmol/L (8-16); ASPARTATE AMINOTRANSFERASE 24 U/L (15-37); BILIRUBIN,TOTAL 0.3 mg/dL (0.1-1.0); CALCIUM, TOTAL 7.5 mg/dL (8.8-10.5); CARBON DIOXIDE 28 mmol/L (22-29); CHLORIDE 105 mmol/L (98-107); CHOL/HDL RATIO 2.8 (3.9-5.7); CHOLESTEROL 127 mg/dL (131-200); GLOMERULAR FILTR. RATE CALC > 60 mL/min (>60); GLUCOSE,RANDOM 104 mg/dL (70-110); HCG,QUANTITATIVE < 1 mIU/mL (0-6); HDL CHOLESTEROL 45 mg/dL (40-60); LDL CHOL (CALC.) 75 mg/dL (0-130); POTASSIUM 3.5 mmol/L (3.5-5.1); SODIUM SERUM 141 mmol/L (136-145); THYROID STIMULATING HORMONE 1.57 uIU/mL (0.36-3.74); TOTAL PROTEIN, SERUM 6.2 g/dL (6.4-8.2); TRIGLYCERIDES 35 mg/dL (15-150); UREA NITROGEN, BLOOD 6 mg/dL (7-18)
[2017-04-27 10:49] LABS: VALPROIC ACID 193 mcg/mL (50-100)
[2017-04-27] MEDS ORDERED: SODIUM CHLORIDE 0.9% 250 ML IV ONE (11:40)
[2017-04-27 12:00] VITALS: BP 140/83
[2017-04-27 16:09] VITALS: BP 121/74
[2017-04-27 19:32] VITALS: BP 140/69
[2017-04-27] MEDS: DIVALPROEX SODIUM 500 MG ER TABLET PO SCH (20:21)
[2017-04-27] MEDS: OLANZapine 5 MG RAPDIS TABLET PO SCH (20:22)
[2017-04-28 00:04] VITALS: BP 138/76
[2017-04-28 04:00] VITALS: BP 140/64
[2017-04-28 07:21] VITALS: BP 141/82
[2017-04-28] MEDS: HEPARIN SODIUM,PORCINE 5,000 UNITS/ML VIAL SQ SCH ×3 (07:35→23:16)
[2017-04-28] MEDS: MULTIVITAMINS WITH MINERALS, THERAPEUTIC TABLET PO SCH (07:42)
[2017-04-28] MEDS: THIAMINE HCL 100 MG TABLET PO SCH ×2 (07:42→20:49)
[2017-04-28] MEDS: PANTOPRAZOLE SODIUM 40 MG/VIAL IVP SCH (07:43)
[2017-04-28] MEDS: FLUoxetine HCL 20 MG CAPSULE PO SCH (07:43)
[2017-04-28] MEDS: FOLIC ACID 1 MG TABLET PO SCH (07:43)
[2017-04-28] MEDS: DOCUSATE SODIUM 100 MG CAPSULE PO SCH ×2 (07:54→20:49)
[2017-04-28 11:36] VITALS: BP 146/92
[2017-04-28 15:07] VITALS: BP 136/88
[2017-04-28 20:00] VITALS: BP 122/75
[2017-04-28] MEDS: OLANZapine 5 MG RAPDIS TABLET PO SCH (21:00)
[2017-04-28] MEDS: DIVALPROEX SODIUM 500 MG ER TABLET PO SCH (21:00)
[2017-04-28] MEDS: ZOLPIDEM TARTRATE 5 MG TABLET PO PRN (21:14)
[2017-04-29] VITALS (7 sets, daily range): BP systolic 120–134; BP diastolic 66–83
[2017-04-29] MEDS: HEPARIN SODIUM,PORCINE 5,000 UNITS/ML VIAL SQ SCH ×2 (08:00→16:00)
[2017-04-29] MEDS: MULTIVITAMINS WITH MINERALS, THERAPEUTIC TABLET PO SCH (08:04)
[2017-04-29] MEDS: PANTOPRAZOLE SODIUM 40 MG/VIAL IVP SCH (08:04)
[2017-04-29] MEDS: DOCUSATE SODIUM 100 MG CAPSULE PO SCH ×2 (08:05→20:05)
[2017-04-29] MEDS: THIAMINE HCL 100 MG TABLET PO SCH ×2 (08:05→20:05)
[2017-04-29] MEDS: FOLIC ACID 1 MG TABLET PO SCH (08:05)
[2017-04-29] MEDS: FLUoxetine HCL 20 MG CAPSULE PO SCH (08:20)
[2017-04-29] MEDS ORDERED: FLUO-191 PO (09:36)
[2017-04-29] MEDS ORDERED: FOLI1 PO (09:37)
[2017-04-29] MEDS ORDERED: MULT-723 PO (09:38)
[2017-04-29] MEDS ORDERED: THIA100 PO (09:39)
[2017-04-29] MEDS ORDERED: ACET-2247 PO (09:39)
[2017-04-29] MEDS: OLANZapine 5 MG RAPDIS TABLET PO SCH (20:05)
[2017-04-29] MEDS: DIVALPROEX SODIUM 500 MG ER TABLET PO SCH (20:09)
[2017-04-29] MEDS: ZOLPIDEM TARTRATE 5 MG TABLET PO PRN (21:29)
[2017-04-30 04:22] VITALS: BP 113/70
[2017-04-30 08:00] VITALS: BP 103/79
[2017-04-30] MEDS: HEPARIN SODIUM,PORCINE 5,000 UNITS/ML VIAL SQ SCH ×4 (08:00→23:44)
[2017-04-30] MEDS: MULTIVITAMINS WITH MINERALS, THERAPEUTIC TABLET PO SCH (08:25)
[2017-04-30] MEDS: FOLIC ACID 1 MG TABLET PO SCH (08:25)
[2017-04-30] MEDS: FLUoxetine HCL 20 MG CAPSULE PO SCH (08:26)
[2017-04-30] MEDS: THIAMINE HCL 100 MG TABLET PO SCH ×2 (08:26→20:44)
[2017-04-30] MEDS: PANTOPRAZOLE SODIUM 40 MG/VIAL IVP SCH (08:30)
[2017-04-30] MEDS: DOCUSATE SODIUM 100 MG CAPSULE PO SCH ×2 (08:43→20:44)
[2017-04-30 11:36] VITALS: BP 112/70
[2017-04-30 19:49] VITALS: BP 112/69
[2017-04-30] MEDS: OLANZapine 5 MG RAPDIS TABLET PO SCH (20:44)
[2017-04-30] MEDS: ZOLPIDEM TARTRATE 5 MG TABLET PO PRN (20:44)
[2017-04-30] MEDS: DIVALPROEX SODIUM 500 MG ER TABLET PO SCH (20:44)
[2017-04-30 23:31] VITALS: BP 117/58
[2017-05-01 04:38] VITALS: BP 112/67
[2017-05-01 07:30] VITALS: BP 120/71
[2017-05-01] MEDS: HEPARIN SODIUM,PORCINE 5,000 UNITS/ML VIAL SQ SCH ×3 (08:00→23:01)
[2017-05-01] MEDS: PANTOPRAZOLE SODIUM 40 MG/VIAL IVP SCH (09:00)
[2017-05-01] MEDS: DOCUSATE SODIUM 100 MG CAPSULE PO SCH ×3 (09:00→21:02)
[2017-05-01] MEDS: MULTIVITAMINS WITH MINERALS, THERAPEUTIC TABLET PO SCH (09:11)
[2017-05-01] MEDS: FOLIC ACID 1 MG TABLET PO SCH (09:11)
[2017-05-01] MEDS: FLUoxetine HCL 20 MG CAPSULE PO SCH (09:11)
[2017-05-01] MEDS: THIAMINE HCL 100 MG TABLET PO SCH ×2 (09:12→21:30)
[2017-05-01 11:45] VITALS: BP 135/77
[2017-05-01 15:22] VITALS: BP 135/80
[2017-05-01 19:29] VITALS: BP 107/58
[2017-05-01 20:58] VITALS: BP 111/72
[2017-05-01] MEDS: DIVALPROEX SODIUM 500 MG ER TABLET PO SCH (21:00)
[2017-05-01] MEDS: ZOLPIDEM TARTRATE 5 MG TABLET PO PRN (21:02)
[2017-05-01] MEDS: OLANZapine 5 MG RAPDIS TABLET PO SCH (21:04)
[2017-05-02 00:18] VITALS: BP 116/73
[2017-05-02 05:40] VITALS: BP 116/65
[2017-05-02 07:16] VITALS: BP 92/54
[2017-05-02] MEDS: HEPARIN SODIUM,PORCINE 5,000 UNITS/ML VIAL SQ SCH ×3 (08:00→23:29)
[2017-05-02] MEDS: PANTOPRAZOLE SODIUM 40 MG/VIAL IVP SCH (08:48)
[2017-05-02] MEDS: FLUoxetine HCL 20 MG CAPSULE PO SCH (08:48)
[2017-05-02] MEDS: FOLIC ACID 1 MG TABLET PO SCH (08:49)
[2017-05-02] MEDS: MULTIVITAMINS WITH MINERALS, THERAPEUTIC TABLET PO SCH (08:49)
[2017-05-02] MEDS: DOCUSATE SODIUM 100 MG CAPSULE PO SCH ×2 (08:49→19:56)
[2017-05-02] MEDS: THIAMINE HCL 100 MG TABLET PO SCH ×2 (08:49→19:53)
[2017-05-02 11:27] VITALS: BP 119/78
[2017-05-02 16:10] VITALS: BP 103/58
[2017-05-02 19:45] VITALS: BP 105/63
[2017-05-02] MEDS: OLANZapine 5 MG RAPDIS TABLET PO SCH (19:53)
[2017-05-02] MEDS: DIVALPROEX SODIUM 500 MG ER TABLET PO SCH (19:56)
[2017-05-02] MEDS: ZOLPIDEM TARTRATE 5 MG TABLET PO PRN (20:48)
[2017-05-03 00:06] VITALS: BP 106/65
[2017-05-03 05:00] VITALS: BP 121/62
[2017-05-03 07:54] VITALS: BP 101/59
[2017-05-03] MEDS: HEPARIN SODIUM,PORCINE 5,000 UNITS/ML VIAL SQ SCH ×2 (08:00→16:00)
[2017-05-03] MEDS: DOCUSATE SODIUM 100 MG CAPSULE PO SCH ×2 (09:00→20:09)
[2017-05-03] MEDS: PANTOPRAZOLE SODIUM 40 MG/VIAL IVP SCH (09:00)
[2017-05-03] MEDS: FOLIC ACID 1 MG TABLET PO SCH (09:19)
[2017-05-03] MEDS: FLUoxetine HCL 20 MG CAPSULE PO SCH (09:20)
[2017-05-03] MEDS: MULTIVITAMINS WITH MINERALS, THERAPEUTIC TABLET PO SCH (09:20)
[2017-05-03] MEDS: THIAMINE HCL 100 MG TABLET PO SCH ×2 (09:20→20:10)
[2017-05-03 11:32] VITALS: BP 112/70
[2017-05-03 15:39] VITALS: BP 118/74
[2017-05-03] MEDS ORDERED: QUEtiapine FUMARATE 100 MG TABLET PO PRN (18:00)
[2017-05-03] MEDS ORDERED: QUEtiapine FUMARATE 100 MG TABLET PO ONE (18:00)
[2017-05-03 19:40] VITALS: BP 111/66
[2017-05-03] MEDS: DIVALPROEX SODIUM 500 MG ER TABLET PO SCH (20:09)
[2017-05-03] MEDS: ZOLPIDEM TARTRATE 5 MG TABLET PO PRN (20:11)
[2017-05-03] MEDS ORDERED: QUEtiapine FUMARATE 200 MG TABLET PO SCH (21:00)
[2017-05-04 05:55] VITALS: BP 106/68
[2017-05-04 07:47] VITALS: BP 114/71
[2017-05-04] MEDS: DOCUSATE SODIUM 100 MG CAPSULE PO SCH (08:39)
[2017-05-04] MEDS: PANTOPRAZOLE SODIUM 40 MG/VIAL IVP SCH (08:39)
[2017-05-04] MEDS: FOLIC ACID 1 MG TABLET PO SCH (08:39)
[2017-05-04] MEDS: THIAMINE HCL 100 MG TABLET PO SCH (08:39)
[2017-05-04] MEDS: MULTIVITAMINS WITH MINERALS, THERAPEUTIC TABLET PO SCH (08:39)
[2017-05-04] MEDS: HEPARIN SODIUM,PORCINE 5,000 UNITS/ML VIAL SQ SCH ×2 (08:40)
[2017-05-04] MEDS ORDERED: OLAN5TAB40 PO (12:20)
[2017-05-04 12:27] VITALS: BP 116/94
== END 2017-05-04 13:12 | disposition home or self-care (01) | DRG 812 ==
LOC: EMS 12:20 → ICU 15:54 → 5N 04-27 09:54 → 4E 05-01 20:51
PROVIDERS: ADMIT Hospitalist; ATTEND Hospitalist
DX: T42.6X1A Poisoning by other antiepileptic and sedative-hypnotic drugs, accidental (unintentional), initial encounter (principal); R45.851 Suicidal ideations; F20.0 Paranoid schizophrenia; E78.5 Hyperlipidemia, unspecified; F31.9 Bipolar disorder, unspecified; E78.00 Pure hypercholesterolemia, unspecified; F17.210 Nicotine dependence, cigarettes, uncomplicated; F60.3 Borderline personality disorder; G40.909 Epilepsy, unspecified, not intractable, without status epilepticus; G89.29 Other chronic pain; Z90.49 Acquired absence of other specified parts of digestive tract; Z91.14 Patient's other noncompliance with medication regimen; Z88.8 Allergy status to other drugs, medicaments and biological substances; Y92.89 Other specified places as the place of occurrence of the external cause
CPT/HCPCS: 83036; 84439; 84443; 86592; 87081; 93005; 96360; 96372; 99291; C9113; G0480; G0481; J1200; J1630; J1644; J1955; J2060; J7030; J7040; J7050

== ENCOUNTER 2017-05-28 17:30 | Inpatient (IN) | payer MEDICAID ==
[~2017-05-28] VITALS: Ht 177.8 cm; Wt 95.3 kg
[~2017-05-28 17:30] MED LIST changes: +ACET-2247 PO; -ATOM25 PO; -ATOR20TA86 PO; +AUD NEB; +BISA10S PR; -CHLO100T24 PO; -CHOL200016 PO; +ENOX40DI9 SQ; +FLUO-191 PO; +FOLI1 PO; +HALO5 PO; +IBUP-1506 PO; +IPRNEB IH; +LORA2TAB2 PO; +MULT-723 PO; +OLAN5TAB40 PO; -OLAN7.5T2 PO; +ONDA4 PO; +PANT40TA25 PO; -PARO20TA24 PO; +THIA100 PO; +ZOLP10TA7 PO
[2017-05-28 18:55] VITALS: BP 138/97
[2017-05-28] MEDS: ZOLPIDEM TARTRATE 10 MG TABLET PO PRN (20:21)
[2017-05-28] MEDS ORDERED: MIRTAZAPINE 30 MG TABLET PO SCH (21:00)
[2017-05-29] MEDS ORDERED: LOPERAMIDE HCL 2 MG CAPSULE PO PRN (09:00)
[2017-05-29] MEDS ORDERED: MAG HYDROX/AL HYDROX/SIMETH ES 30 ML SUSPENSION UDCUP PO PRN (09:00)
[2017-05-29] MEDS ORDERED: IBUPROFEN 600 MG TABLET PO PRN (09:00)
[2017-05-29] MEDS ORDERED: ONDANSETRON HCL 4 MG TABLET PO PRN (09:00)
[2017-05-29] MEDS ORDERED: ARIPiprazole 10 MG TABLET PO SCH (09:00)
[2017-05-29] MEDS ORDERED: MAGNESIUM HYDROXIDE SUSPENSION 30 ML UDCUP PO PRN (09:00)
[2017-05-29] MEDS ORDERED: ACETAMINOPHEN 325 MG TABLET PO PRN (09:00)
[2017-05-29] MEDS ORDERED: CloNIDine HCL 0.1 MG TABLET PO PRN (09:00)
[2017-05-29] MEDS ORDERED: BENZOCAINE/MENTHOL LOZENGE [8 LOZENGES/PACKET] MM PRN (09:00)
[2017-05-29] MEDS ORDERED: BACITRACIN 28.4 GM OINTMENT TP PRN (09:00)
[2017-05-29] MEDS ORDERED: ALBUTEROL SULFATE HFA 90 MCG/PUFF 8 GM INHALER IH PRN (09:00)
[2017-05-29] MEDS ORDERED: PETROLATUM,WHITE 71 GM JELLY TP PRN (09:00)
[2017-05-29 09:03] VITALS: BP 116/58
[2017-05-29] MEDS: CHLORHEXIDINE GLUCONATE 0.12% 15 ML UDCUP ORAL RINSE PO SCH ×2 (10:23→16:19)
[2017-05-29] MEDS: OMEGA-3/DHA/EPA/FISH OIL 1,000 MG CAPSULE PO SCH (10:23)
[2017-05-29] MEDS: FOLIC ACID 1 MG TABLET PO SCH (10:25)
[2017-05-29] MEDS: NICOTINE 21 MG/24 HOUR PATCH TD SCH (10:25)
[2017-05-29] MEDS: MULTIVITAMINS, THERAPEUTIC TABLET PO SCH (10:26)
[2017-05-29] MEDS: CHOLECALCIFEROL (VIT D3) 1,000 UNITS TABLET PO SCH (10:26)
[2017-05-29] MEDS: DIVALPROEX SODIUM 500 MG DR TABLET PO SCH (10:26)
[2017-05-29] MEDS: PANTOPRAZOLE SODIUM 40 MG DR TABLET PO SCH (10:26)
[2017-05-29] MEDS: THIAMINE HCL 100 MG TABLET PO SCH (10:26)
[2017-05-29] MEDS: HALOPERIDOL 5 MG TABLET PO PRN ×2 (10:29→16:21)
[2017-05-29] MEDS: LORazepam 2 MG TABLET PO PRN ×2 (10:30→16:21)
[2017-05-29] MEDS: MIRTAZAPINE 30 MG TABLET PO SCH (20:48)
[2017-05-30 06:42] LABS: BASOPHILS % (AUTO) 0.8 % (0.0-2.0); EOSINOPHILS % (AUTO) 3.2 % (1.0-6.0); HEMATOCRIT 35.2 % (36-46); LYMPHOCYTES # (AUTO) 1.7 K/uL (1.0-4.8); LYMPHOCYTES % (AUTO) 25.5 % (22.0-44.0); MEAN CORPUSCULAR HEMOGLOBIN 29.6 pg (26.0-34.0); MEAN CORPUSCULAR VOLUME 87 fL (80-100); MONOCYTES # (AUTO) 0.6 K/uL (0.1-1.0); NEUTROPHILS % (AUTO) 61.5 % (40.0-70.0); PLATELET COUNT (AUTO) 389 K/uL (150-450); RED BLOOD CELL COUNT(AUTO) 4.04 MIL/uL (4.00-5.20); RED CELL DISTRIBUTION WIDTH 16.2 % (11.5-14.5)
[2017-05-30 07:13] LABS: ALANINE AMINOTRANSFERASE 30 U/L (12-78); ALBUMIN 2.7 g/dL (3.4-5.0); ANION GAP 6 mmol/L (8-16); ASPARTATE AMINOTRANSFERASE 19 U/L (15-37); BILIRUBIN,TOTAL 0.2 mg/dL (0.1-1.0); CALCIUM, TOTAL 8.6 mg/dL (8.8-10.5); CARBON DIOXIDE 30 mmol/L (22-29); CHLORIDE 105 mmol/L (98-107); CREATININE 0.68 mg/dL (0.60-1.30); GLOMERULAR FILTR. RATE CALC > 60 mL/min (>60); GLUCOSE,RANDOM 97 mg/dL (70-110); POTASSIUM 3.8 mmol/L (3.5-5.1); SODIUM SERUM 141 mmol/L (136-145); TOTAL PROTEIN, SERUM 6.5 g/dL (6.4-8.2); UREA NITROGEN, BLOOD 15 mg/dL (7-18)
[2017-05-30 07:38] LABS: ALKALINE PHOSPHATASE 58 U/L (46-116)
[2017-05-30] MEDS: PANTOPRAZOLE SODIUM 40 MG DR TABLET PO SCH (09:03)
[2017-05-30] MEDS: CHOLECALCIFEROL (VIT D3) 1,000 UNITS TABLET PO SCH (09:03)
[2017-05-30] MEDS: DIVALPROEX SODIUM 500 MG DR TABLET PO SCH (09:03)
[2017-05-30] MEDS: THIAMINE HCL 100 MG TABLET PO SCH ×2 (09:03→09:06)
[2017-05-30] MEDS: ARIPiprazole 15 MG TABLET PO SCH (09:03)
[2017-05-30] MEDS: FOLIC ACID 1 MG TABLET PO SCH (09:03)
[2017-05-30] MEDS: CHLORHEXIDINE GLUCONATE 0.12% 15 ML UDCUP ORAL RINSE PO SCH ×2 (09:04→17:06)
[2017-05-30] MEDS: OMEGA-3/DHA/EPA/FISH OIL 1,000 MG CAPSULE PO SCH (09:04)
[2017-05-30] MEDS: NICOTINE 21 MG/24 HOUR PATCH TD SCH (09:04)
[2017-05-30] MEDS: LORazepam 2 MG TABLET PO PRN ×2 (09:07→13:34)
[2017-05-30] MEDS: MULTIVITAMINS, THERAPEUTIC TABLET PO SCH (09:08)
[2017-05-30] MEDS: HALOPERIDOL 5 MG TABLET PO PRN (09:08)
[2017-05-30 10:19] VITALS: BP 139/75
[2017-05-30] MEDS: MIRTAZAPINE 30 MG TABLET PO SCH (20:55)
[2017-05-31 05:06] VITALS: BP 104/65
[2017-05-31] MEDS: LORazepam 2 MG TABLET PO PRN ×3 (07:00→15:19)
[2017-05-31] MEDS: FOLIC ACID 1 MG TABLET PO SCH (09:33)
[2017-05-31] MEDS: PANTOPRAZOLE SODIUM 40 MG DR TABLET PO SCH (09:33)
[2017-05-31] MEDS: MULTIVITAMINS, THERAPEUTIC TABLET PO SCH (09:33)
[2017-05-31] MEDS: DIVALPROEX SODIUM 500 MG DR TABLET PO SCH (09:34)
[2017-05-31] MEDS: OMEGA-3/DHA/EPA/FISH OIL 1,000 MG CAPSULE PO SCH (09:34)
[2017-05-31] MEDS: ARIPiprazole 15 MG TABLET PO SCH (09:34)
[2017-05-31] MEDS: CHLORHEXIDINE GLUCONATE 0.12% 15 ML UDCUP ORAL RINSE PO SCH ×2 (09:35→15:58)
[2017-05-31] MEDS: CHOLECALCIFEROL (VIT D3) 1,000 UNITS TABLET PO SCH (09:35)
[2017-05-31] MEDS: THIAMINE HCL 100 MG TABLET PO SCH (09:35)
[2017-05-31] MEDS: NICOTINE 21 MG/24 HOUR PATCH TD SCH (09:36)
[2017-05-31 09:44] VITALS: BP 120/74
[2017-05-31] MEDS: HALOPERIDOL 5 MG TABLET PO PRN ×2 (11:18→16:16)
[2017-05-31 17:16] VITALS: BP 130/81
[2017-05-31] MEDS: MIRTAZAPINE 30 MG TABLET PO SCH (20:24)
[2017-05-31] MEDS: ZOLPIDEM TARTRATE 10 MG TABLET PO PRN (20:37)
[2017-06-01 06:04] VITALS: BP 113/83
[2017-06-01] MEDS: LORazepam 2 MG TABLET PO PRN ×3 (06:24→15:15)
[2017-06-01 09:02] VITALS: BP 101/67
[2017-06-01] MEDS: FOLIC ACID 1 MG TABLET PO SCH (09:02)
[2017-06-01] MEDS: DIVALPROEX SODIUM 500 MG DR TABLET PO SCH (09:02)
[2017-06-01] MEDS: ARIPiprazole 15 MG TABLET PO SCH (09:03)
[2017-06-01] MEDS: MULTIVITAMINS, THERAPEUTIC TABLET PO SCH (09:03)
[2017-06-01] MEDS: THIAMINE HCL 100 MG TABLET PO SCH (09:03)
[2017-06-01] MEDS: OMEGA-3/DHA/EPA/FISH OIL 1,000 MG CAPSULE PO SCH (09:03)
[2017-06-01] MEDS: PANTOPRAZOLE SODIUM 40 MG DR TABLET PO SCH (09:03)
[2017-06-01] MEDS: CHOLECALCIFEROL (VIT D3) 1,000 UNITS TABLET PO SCH (09:03)
[2017-06-01] MEDS: CHLORHEXIDINE GLUCONATE 0.12% 15 ML UDCUP ORAL RINSE PO SCH ×2 (09:05→17:00)
[2017-06-01] MEDS: NICOTINE 21 MG/24 HOUR PATCH TD SCH (09:05)
[2017-06-01] MEDS: HALOPERIDOL 5 MG TABLET PO PRN (17:45)
[2017-06-01] MEDS: ZOLPIDEM TARTRATE 10 MG TABLET PO PRN (20:33)
[2017-06-01] MEDS: MIRTAZAPINE 30 MG TABLET PO SCH (20:33)
[2017-06-02] MEDS: LORazepam 2 MG TABLET PO PRN ×4 (06:21→19:30)
[2017-06-02] MEDS: HALOPERIDOL 5 MG TABLET PO PRN ×3 (06:21→14:22)
[2017-06-02 08:34] VITALS: BP 119/63
[2017-06-02] MEDS: CHOLECALCIFEROL (VIT D3) 1,000 UNITS TABLET PO SCH (09:04)
[2017-06-02] MEDS: FOLIC ACID 1 MG TABLET PO SCH (09:04)
[2017-06-02] MEDS: OMEGA-3/DHA/EPA/FISH OIL 1,000 MG CAPSULE PO SCH (09:05)
[2017-06-02] MEDS: DIVALPROEX SODIUM 500 MG DR TABLET PO SCH (09:05)
[2017-06-02] MEDS: MULTIVITAMINS, THERAPEUTIC TABLET PO SCH (09:05)
[2017-06-02] MEDS: NICOTINE 21 MG/24 HOUR PATCH TD SCH (09:05)
[2017-06-02] MEDS: ARIPiprazole 15 MG TABLET PO SCH (09:05)
[2017-06-02] MEDS: THIAMINE HCL 100 MG TABLET PO SCH (09:05)
[2017-06-02] MEDS: CHLORHEXIDINE GLUCONATE 0.12% 15 ML UDCUP ORAL RINSE PO SCH ×2 (09:05→16:05)
[2017-06-02] MEDS: PANTOPRAZOLE SODIUM 40 MG DR TABLET PO SCH (09:06)
[2017-06-02] MEDS ORDERED: HALOPERIDOL LACTATE 5 MG/ML VIAL ONE (14:16)
[2017-06-02] MEDS ORDERED: DiphenhydrAMINE HCL 50 MG/ML VIAL ONE (14:16)
[2017-06-02] MEDS ORDERED: DiphenhydrAMINE HCL 50 MG/ML VIAL IM ONE (14:45)
[2017-06-02] MEDS ORDERED: HALOPERIDOL LACTATE 5 MG/ML VIAL IM ONE (14:45)
[2017-06-02 17:35] VITALS: BP 105/67
[2017-06-02] MEDS: MIRTAZAPINE 30 MG TABLET PO SCH (20:08)
[2017-06-03] MEDS: LORazepam 2 MG TABLET PO PRN ×4 (06:24→17:08)
[2017-06-03 08:59] VITALS: BP 124/94
[2017-06-03] MEDS: CHOLECALCIFEROL (VIT D3) 1,000 UNITS TABLET PO SCH (08:59)
[2017-06-03] MEDS: OMEGA-3/DHA/EPA/FISH OIL 1,000 MG CAPSULE PO SCH (08:59)
[2017-06-03] MEDS: DIVALPROEX SODIUM 500 MG DR TABLET PO SCH (08:59)
[2017-06-03] MEDS: MULTIVITAMINS, THERAPEUTIC TABLET PO SCH (08:59)
[2017-06-03] MEDS: ARIPiprazole 15 MG TABLET PO SCH (08:59)
[2017-06-03] MEDS: FOLIC ACID 1 MG TABLET PO SCH (08:59)
[2017-06-03] MEDS: THIAMINE HCL 100 MG TABLET PO SCH (08:59)
[2017-06-03] MEDS: CHLORHEXIDINE GLUCONATE 0.12% 15 ML UDCUP ORAL RINSE PO SCH ×2 (09:00→16:23)
[2017-06-03] MEDS: PANTOPRAZOLE SODIUM 40 MG DR TABLET PO SCH (09:00)
[2017-06-03] MEDS: NICOTINE 21 MG/24 HOUR PATCH TD SCH (09:01)
[2017-06-03] MEDS: HALOPERIDOL 5 MG TABLET PO PRN ×2 (10:27→14:30)
[2017-06-03] MEDS ORDERED: HALOPERIDOL LACTATE 5 MG/ML VIAL IM ONE (17:15)
[2017-06-03] MEDS ORDERED: DiphenhydrAMINE HCL 50 MG/ML VIAL IM ONE (17:15)
[2017-06-03 19:37] VITALS: BP 121/75
[2017-06-03] MEDS: MIRTAZAPINE 30 MG TABLET PO SCH (20:30)
[2017-06-03] MEDS ORDERED: DiphenhydrAMINE HCL 25 MG CAPSULE PO SCH (21:00)
[2017-06-03] MEDS: ZOLPIDEM TARTRATE 10 MG TABLET PO PRN (21:15)
[2017-06-04] MEDS: HALOPERIDOL 5 MG TABLET PO PRN (07:24)
[2017-06-04] MEDS: CHLORHEXIDINE GLUCONATE 0.12% 15 ML UDCUP ORAL RINSE PO SCH (07:24)
[2017-06-04] MEDS: THIAMINE HCL 100 MG TABLET PO SCH (07:24)
[2017-06-04] MEDS: NICOTINE 21 MG/24 HOUR PATCH TD SCH (07:24)
[2017-06-04] MEDS: MULTIVITAMINS, THERAPEUTIC TABLET PO SCH (07:24)
[2017-06-04] MEDS: CHOLECALCIFEROL (VIT D3) 1,000 UNITS TABLET PO SCH (07:24)
[2017-06-04] MEDS: FOLIC ACID 1 MG TABLET PO SCH (07:25)
[2017-06-04] MEDS: OMEGA-3/DHA/EPA/FISH OIL 1,000 MG CAPSULE PO SCH (07:25)
[2017-06-04] MEDS: LORazepam 2 MG TABLET PO PRN (07:25)
[2017-06-04] MEDS: PANTOPRAZOLE SODIUM 40 MG DR TABLET PO SCH (07:25)
[2017-06-04] MEDS: DIVALPROEX SODIUM 500 MG DR TABLET PO SCH (07:25)
[2017-06-04] MEDS ORDERED: ARIP10TA8 PO (08:37)
[2017-06-04] MEDS ORDERED: MIRT15 PO (08:37)
[2017-06-04] MEDS ORDERED: PANT40TA25 PO (08:45)
[2017-06-04] MEDS ORDERED: OMEG-135 PO (08:45)
[2017-06-04] MEDS ORDERED: VITAD1000 PO (08:45)
[2017-06-04 09:00] VITALS: BP 124/77
[2017-06-04] MEDS ORDERED: ARIPiprazole 10 MG TABLET PO SCH (09:00)
[2017-06-04] MEDS ORDERED: DIPH50 PO (09:13)
== END 2017-06-04 10:00 | disposition home or self-care (01) | DRG 751 ==
LOC: 3EI 17:30 → 3EC 06-01 16:30
PROVIDERS: ADMIT Psychiatry & Neurology Psychiatry; ATTEND Psychiatry & Neurology Psychiatry
DX: F33.2 Major depressive disorder, recurrent severe without psychotic features (principal); E43 Unspecified severe protein-calorie malnutrition; R45.851 Suicidal ideations; F60.3 Borderline personality disorder; D64.9 Anemia, unspecified; E78.5 Hyperlipidemia, unspecified; G40.909 Epilepsy, unspecified, not intractable, without status epilepticus; F15.90 Other stimulant use, unspecified, uncomplicated; R45.87 Impulsiveness; F17.200 Nicotine dependence, unspecified, uncomplicated; Z91.19 Patient's noncompliance with other medical treatment and regimen; Z79.899 Other long term (current) drug therapy; Z88.8 Allergy status to other drugs, medicaments and biological substances; Z91.5 Personal history of self-harm; Z68.30 Body mass index [BMI] 30.0-30.9, adult; Z71.6 Tobacco abuse counseling
CPT/HCPCS: 87081; J1200; J1630

== ENCOUNTER 2017-09-25 15:56 | Inpatient (IN) | payer MEDICAID, OTHER ==
[~2017-09-25] VITALS: Ht 180.3 cm; Wt 89.0 kg
[~2017-09-25 15:56] MED LIST changes: -ACET-2247 PO; +ARIP10TA8 PO; -AUD NEB; -BISA10S PR; +DIPH50 PO; +DIVA-78 PO; -DIVA500T35 PO; -ENOX40DI9 SQ; -FLUO-191 PO; -HALO5 PO; -IBUP-1506 PO; -IPRNEB IH; -LORA2TAB2 PO; +MIRT15 PO; -OLAN5TAB40 PO; +OMEG-135 PO; -ONDA4 PO; -THIA100 PO; +THIA100T67 PO; +VITAD1000 PO; -ZOLP10TA7 PO
[2017-09-25 18:34] LABS: BASOPHILS % (AUTO) 1.4 % (0.0-2.0); EOSINOPHILS % (AUTO) 0.7 % (1.0-6.0); HEMATOCRIT 46.8 % (36-46); HEMOGLOBIN 15.7 g/dL (12.0-16.0); LYMPHOCYTES # (AUTO) 2.5 K/uL (1.0-4.8); LYMPHOCYTES % (AUTO) 26.9 % (22.0-44.0); MEAN CORPUSCULAR HEMOGLOBIN 30.3 pg (26.0-34.0); MEAN CORPUSCULAR HGB CONC 33.5 G/dL (31.0-37.0); MEAN CORPUSCULAR VOLUME 90 fL (80-100); MONOCYTES # (AUTO) 0.4 K/uL (0.1-1.0); MONOCYTES % (AUTO) 4.6 % (2.0-9.0); NEUTROPHILS # (AUTO) 6.2 K/uL (1.8-7.7); NEUTROPHILS % (AUTO) 66.4 % (40.0-70.0); PLATELET COUNT (AUTO) 426 K/uL (150-450); RED BLOOD CELL COUNT(AUTO) 5.18 MIL/uL (4.00-5.20); RED CELL DISTRIBUTION WIDTH 15.1 % (11.5-14.5)
[2017-09-25 18:41] LABS: ANION GAP 10 mmol/L (8-16); CALCIUM, TOTAL 9.6 mg/dL (8.8-10.5); CARBON DIOXIDE 28 mmol/L (22-29); CHLORIDE 105 mmol/L (98-107); CREATININE 0.87 mg/dL (0.60-1.30); GLOMERULAR FILTR. RATE CALC > 60 mL/min (>60); GLUCOSE,RANDOM 88 mg/dL (70-110); POTASSIUM 3.6 mmol/L (3.5-5.1); SODIUM SERUM 143 mmol/L (136-145); UREA NITROGEN, BLOOD 11 mg/dL (7-18)
[2017-09-25 18:47] LABS: ALANINE AMINOTRANSFERASE 28 U/L (12-78); ALBUMIN 3.7 g/dL (3.4-5.0); ALKALINE PHOSPHATASE 102 U/L (46-116); ASPARTATE AMINOTRANSFERASE 21 U/L (15-37); BILIRUBIN,TOTAL 0.2 mg/dL (0.1-1.0); TOTAL PROTEIN, SERUM 8.2 g/dL (6.4-8.2); VALPROIC ACID < 3 mcg/mL (50-100)
[2017-09-25 18:48] LABS: ACETAMINOPHEN < 2 mcg/mL (10-30)
[2017-09-25 18:50] LABS: AMPHET/METH SCREEN,URINE NEGATIVE (NEGATIVE); BARBITURATE SCREEN, URINE NEGATIVE (NEGATIVE); BENZODIAZEPINES SCREEN,URINE NEGATIVE (NEGATIVE); CANNABINOID SCREEN,URINE NEGATIVE (NEGATIVE); COCAINE SCREEN,URINE NEGATIVE (NEGATIVE); METHADONE SCREEN, URINE NEGATIVE (NEGATIVE); OPIATE SCREEN,URINE NEGATIVE (NEGATIVE); PHENCYCLIDINE SCREEN,URINE NEGATIVE (NEGATIVE)
[2017-09-25 18:53] LABS: SALICYLATE 4.2 mg/dL (2.8-20.0)
[2017-09-25] MEDS ORDERED: HALOPERIDOL 5 MG TABLET PO ONE (20:15)
[2017-09-25] MEDS ORDERED: LORazepam 2 MG TABLET PO ONE (20:15)
[2017-09-25] MEDS ORDERED: DiphenhydrAMINE HCL 25 MG CAPSULE PO ONE (20:15)
[2017-09-25 22:17] VITALS: BP 140/79
[2017-09-25 22:30] VITALS: BP 140/79
[2017-09-25] MEDS ORDERED: IBUPROFEN 400 MG TABLET PO PRN (22:30)
[2017-09-25] MEDS ORDERED: ACETAMINOPHEN 325 MG TABLET PO PRN (22:30)
[2017-09-25] MEDS ORDERED: ONDANSETRON HCL 4 MG TABLET PO PRN (22:30)
[2017-09-25] MEDS ORDERED: LOPERAMIDE HCL 2 MG CAPSULE PO PRN (22:30)
[2017-09-25] MEDS ORDERED: DOCUSATE SODIUM 100 MG CAPSULE PO PRN (22:30)
[2017-09-25] MEDS ORDERED: CloNIDine HCL 0.1 MG TABLET PO PRN (22:30)
[2017-09-25] MEDS ORDERED: MAGNESIUM HYDROXIDE SUSPENSION 30 ML UDCUP PO PRN (22:30)
[2017-09-25] MEDS ORDERED: ALBUTEROL SULFATE HFA 90 MCG/PUFF 8 GM INHALER IH PRN (22:30)
[2017-09-25] MEDS ORDERED: PETROLATUM,WHITE 71 GM JELLY TP PRN (22:30)
[2017-09-25] MEDS ORDERED: MAG HYDROX/AL HYDROX/SIMETH ES 30 ML SUSPENSION UDCUP PO PRN (22:30)
[2017-09-25] MEDS: ZOLPIDEM TARTRATE 10 MG TABLET PO PRN (22:34)
[2017-09-26] VITALS (10 sets, daily range): BP systolic 107–136; BP diastolic 60–90
[2017-09-26] MEDS: NICOTINE 14 MG/24 HOUR PATCH TD SCH (08:49)
[2017-09-26] MEDS: LORazepam 2 MG TABLET PO PRN ×2 (08:49→15:47)
[2017-09-26] MEDS: HALOPERIDOL 5 MG TABLET PO PRN (16:40)
[2017-09-26] MEDS: MIRTAZAPINE 15 MG TABLET PO SCH (21:07)
[2017-09-27] VITALS (10 sets, daily range): BP systolic 108–134; BP diastolic 63–81
[2017-09-27] MEDS: LORazepam 2 MG TABLET PO PRN (08:32)
[2017-09-27] MEDS: ARIPiprazole 10 MG TABLET PO SCH (08:32)
[2017-09-27] MEDS: NICOTINE 14 MG/24 HOUR PATCH TD SCH (08:33)
[2017-09-27] MEDS: HALOPERIDOL 5 MG TABLET PO PRN ×2 (10:49→16:44)
[2017-09-27] MEDS ORDERED: ChlordiazePOXIDE HCL 25 MG CAPSULE PO PRN (12:15)
[2017-09-27] MEDS: ChlordiazePOXIDE HCL 25 MG CAPSULE PO SCH ×3 (13:06→20:44)
[2017-09-27] MEDS ORDERED: HALOPERIDOL LACTATE 5 MG/ML VIAL IM ONE (17:30)
[2017-09-27] MEDS: ZOLPIDEM TARTRATE 10 MG TABLET PO PRN (20:44)
[2017-09-27] MEDS: MIRTAZAPINE 15 MG TABLET PO SCH (20:44)
[2017-09-28] MEDS: ARIPiprazole 10 MG TABLET PO SCH (08:01)
[2017-09-28] MEDS: ChlordiazePOXIDE HCL 25 MG CAPSULE PO SCH ×4 (08:01→20:19)
[2017-09-28 08:33] VITALS: BP 116/81
[2017-09-28] MEDS: NICOTINE 14 MG/24 HOUR PATCH TD SCH (09:14)
[2017-09-28] MEDS ORDERED: HALOPERIDOL LACTATE 5 MG/ML VIAL ONE ×2 (10:33→10:35)
[2017-09-28] MEDS ORDERED: LORazepam 2 MG/ML VIAL ONE ×2 (10:35→10:36)
[2017-09-28] MEDS ORDERED: DiphenhydrAMINE HCL 50 MG/ML VIAL ONE (10:35)
[2017-09-28] MEDS ORDERED: DiphenhydrAMINE HCL 50 MG/ML VIAL IM ONE ×2 (10:45→18:15)
[2017-09-28] MEDS ORDERED: HALOPERIDOL LACTATE 5 MG/ML VIAL IM ONE ×2 (10:45→18:15)
[2017-09-28] MEDS ORDERED: LORazepam 2 MG/ML VIAL IM ONE (10:45)
[2017-09-28 16:43] VITALS: BP 102/60
[2017-09-28] MEDS: HALOPERIDOL 5 MG TABLET PO PRN (16:48)
[2017-09-28] MEDS: ZOLPIDEM TARTRATE 10 MG TABLET PO PRN (20:19)
[2017-09-28] MEDS: MIRTAZAPINE 15 MG TABLET PO SCH (20:19)
[2017-09-29] MEDS ORDERED: ChlordiazePOXIDE HCL 10 MG CAPSULE PO PRN (07:00)
[2017-09-29 08:45] VITALS: BP 124/82
[2017-09-29] MEDS: ChlordiazePOXIDE HCL 10 MG CAPSULE PO SCH ×4 (09:20→20:22)
[2017-09-29] MEDS: ARIPiprazole 15 MG TABLET PO SCH (09:20)
[2017-09-29] MEDS: NICOTINE 14 MG/24 HOUR PATCH TD SCH (09:20)
[2017-09-29] MEDS ORDERED: HALOPERIDOL LACTATE 5 MG/ML VIAL IM ONE ×2 (10:45→17:00)
[2017-09-29] MEDS ORDERED: DiphenhydrAMINE HCL 50 MG/ML VIAL IM ONE ×2 (10:45→17:00)
[2017-09-29] MEDS ORDERED: DiphenhydrAMINE HCL 50 MG/ML VIAL ONE (10:45)
[2017-09-29 12:00] VITALS: BP 115/61
[2017-09-29 16:09] VITALS: BP 134/70
[2017-09-29 20:20] VITALS: BP 130/72
[2017-09-29] MEDS: ZOLPIDEM TARTRATE 10 MG TABLET PO PRN (21:25)
[2017-09-30 04:59] VITALS: BP 125/68
[2017-09-30 05:01] VITALS: BP 125/60
[2017-09-30] MEDS: ChlordiazePOXIDE HCL 10 MG CAPSULE PO PRN ×3 (07:07→20:05)
[2017-09-30] MEDS: ARIPiprazole 15 MG TABLET PO SCH (09:05)
[2017-09-30] MEDS: FLUoxetine HCL 20 MG CAPSULE PO SCH (09:05)
[2017-09-30] MEDS: NICOTINE 14 MG/24 HOUR PATCH TD SCH (09:06)
[2017-09-30] MEDS ORDERED: HALOPERIDOL LACTATE 5 MG/ML VIAL IM ONE ×2 (10:30→17:45)
[2017-09-30] MEDS ORDERED: LORazepam 2 MG/ML VIAL IM ONE ×2 (10:30→17:45)
[2017-09-30] MEDS ORDERED: DiphenhydrAMINE HCL 50 MG/ML VIAL IM ONE ×2 (10:30→17:45)
[2017-09-30 16:00] VITALS: BP 111/68
[2017-09-30 18:45] VITALS: BP 114/72
[2017-09-30] MEDS: ZOLPIDEM TARTRATE 10 MG TABLET PO PRN (20:05)
[2017-10-01] MEDS: ARIPiprazole 15 MG TABLET PO SCH (08:32)
[2017-10-01] MEDS: FLUoxetine HCL 20 MG CAPSULE PO SCH (08:32)
[2017-10-01] MEDS: NICOTINE 14 MG/24 HOUR PATCH TD SCH (08:33)
[2017-10-01] MEDS: DIVALPROEX SODIUM 500 MG DR TABLET PO SCH ×2 (09:30→20:50)
[2017-10-01] MEDS: DiphenhydrAMINE HCL 25 MG CAPSULE PO PRN (14:35)
[2017-10-01 16:00] VITALS: BP 177/80
[2017-10-01 16:03] VITALS: BP 117/80
[2017-10-01] MEDS: HALOPERIDOL 5 MG TABLET PO PRN (16:03)
[2017-10-02] MEDS: HALOPERIDOL 5 MG TABLET PO PRN ×2 (07:13→16:13)
[2017-10-02] MEDS: DiphenhydrAMINE HCL 25 MG CAPSULE PO PRN ×2 (07:13→16:13)
[2017-10-02 08:07] VITALS: BP 126/81
[2017-10-02] MEDS: NICOTINE 14 MG/24 HOUR PATCH TD SCH (08:57)
[2017-10-02] MEDS: FLUoxetine HCL 20 MG CAPSULE PO SCH (08:58)
[2017-10-02] MEDS: ARIPiprazole 15 MG TABLET PO SCH (08:58)
[2017-10-02] MEDS: DIVALPROEX SODIUM 500 MG DR TABLET PO SCH ×2 (08:58→20:42)
[2017-10-02 16:03] VITALS: BP 111/90
[2017-10-02] MEDS: ZOLPIDEM TARTRATE 10 MG TABLET PO PRN (20:41)
[2017-10-03 07:16] VITALS: BP 123/68
[2017-10-03] MEDS: HALOPERIDOL 5 MG TABLET PO PRN ×2 (07:16→14:40)
[2017-10-03] MEDS: DiphenhydrAMINE HCL 25 MG CAPSULE PO PRN ×2 (07:16→14:40)
[2017-10-03] MEDS: DIVALPROEX SODIUM 500 MG DR TABLET PO SCH ×2 (08:48→20:14)
[2017-10-03] MEDS: FLUoxetine HCL 20 MG CAPSULE PO SCH (08:49)
[2017-10-03] MEDS: NICOTINE 14 MG/24 HOUR PATCH TD SCH (08:49)
[2017-10-03] MEDS: ARIPiprazole 15 MG TABLET PO SCH (08:49)
[2017-10-03 17:19] VITALS: BP 110/82
[2017-10-03] MEDS: ZOLPIDEM TARTRATE 10 MG TABLET PO PRN (20:20)
[2017-10-04 06:47] VITALS: BP 102/60
[2017-10-04] MEDS: ARIPiprazole 15 MG TABLET PO SCH (09:47)
[2017-10-04] MEDS: DIVALPROEX SODIUM 500 MG DR TABLET PO SCH ×2 (09:47→20:40)
[2017-10-04] MEDS: FLUoxetine HCL 20 MG CAPSULE PO SCH (09:47)
[2017-10-04] MEDS: NICOTINE 14 MG/24 HOUR PATCH TD SCH (09:48)
[2017-10-04] MEDS: HALOPERIDOL 5 MG TABLET PO PRN (12:25)
[2017-10-04] MEDS: DiphenhydrAMINE HCL 25 MG CAPSULE PO PRN (12:25)
[2017-10-04] MEDS ORDERED: DiphenhydrAMINE HCL 50 MG/ML VIAL IM ONE (13:45)
[2017-10-04] MEDS ORDERED: HALOPERIDOL LACTATE 5 MG/ML VIAL IM ONE (13:45)
[2017-10-04 16:00] VITALS: BP 108/65
[2017-10-04] MEDS: ZOLPIDEM TARTRATE 10 MG TABLET PO PRN (21:14)
[2017-10-05 06:27] VITALS: BP 125/61
[2017-10-05] MEDS: DiphenhydrAMINE HCL 25 MG CAPSULE PO PRN (07:23)
[2017-10-05] MEDS: HALOPERIDOL 5 MG TABLET PO PRN (07:23)
[2017-10-05] MEDS: FLUoxetine HCL 20 MG CAPSULE PO SCH (08:08)
[2017-10-05] MEDS: NICOTINE 14 MG/24 HOUR PATCH TD SCH (08:08)
[2017-10-05] MEDS: DIVALPROEX SODIUM 500 MG DR TABLET PO SCH (08:08)
[2017-10-05] MEDS: ARIPiprazole 15 MG TABLET PO SCH (08:09)
[2017-10-05 08:12] VITALS: BP 103/56
== END 2017-10-05 13:25 | disposition home or self-care (01) | DRG 750 ==
LOC: EMS 15:57 → B3A 20:30
PROVIDERS: ADMIT Psychiatry & Neurology Psychiatry; ATTEND Psychiatry & Neurology Psychiatry
DX: F25.0 Schizoaffective disorder, bipolar type (principal); R45.851 Suicidal ideations; G40.909 Epilepsy, unspecified, not intractable, without status epilepticus; Z91.19 Patient's noncompliance with other medical treatment and regimen; E03.9 Hypothyroidism, unspecified; E55.9 Vitamin D deficiency, unspecified; E78.00 Pure hypercholesterolemia, unspecified; F15.90 Other stimulant use, unspecified, uncomplicated; J44.9 Chronic obstructive pulmonary disease, unspecified; K21.9 Gastro-esophageal reflux disease without esophagitis; F17.210 Nicotine dependence, cigarettes, uncomplicated; F41.9 Anxiety disorder, unspecified; F60.3 Borderline personality disorder; F10.20 Alcohol dependence, uncomplicated; Z88.8 Allergy status to other drugs, medicaments and biological substances; Z71.41 Alcohol abuse counseling and surveillance of alcoholic; Z76.5 Malingerer [conscious simulation]; Z91.5 Personal history of self-harm; Z90.49 Acquired absence of other specified parts of digestive tract
CPT/HCPCS: 99285; G0480; G0481; J1200; J1630; J2060

== ENCOUNTER 2017-11-22 15:28 | Inpatient (IN) | payer MEDICAID, OTHER ==
[~2017-11-22] VITALS: Ht 180.3 cm; Wt 88.0 kg
[~2017-11-22 15:28] MED LIST changes: -ARIP10TA8 PO; +ARIP15TA2 PO; -DIPH50 PO; -DIVA-78 PO; +FLUO40CA7 PO; -FOLI1 PO; +LEVE500T53 PO; +LITH450CRT PO; -MIRT15 PO; -MULT-723 PO; -OMEG-135 PO; -PANT40TA25 PO; -THIA100T67 PO; -VITAD1000 PO
[2017-11-22] MEDS ORDERED: [UNRECOGNIZED DRUG - OTHER] PO (15:43)
[2017-11-22] MEDS ORDERED: HALO1 PO (15:43)
[2017-11-22] MEDS ORDERED: SERT50TA12 PO (15:43)
[2017-11-22] MEDS ORDERED: DIPH50CA35 PO (15:43)
[2017-11-22] MEDS ORDERED: RISP2 PO (15:43)
[2017-11-22] MEDS ORDERED: ACTIVATED CHARCOAL 50 GM/240 ML SUSPENSION PO ONE (16:00)
[2017-11-22 16:05] LABS: AMPHET/METH SCREEN,URINE NEGATIVE (NEGATIVE); BARBITURATE SCREEN, URINE NEGATIVE (NEGATIVE); BENZODIAZEPINES SCREEN,URINE POSITIVE (NEGATIVE); CANNABINOID SCREEN,URINE NEGATIVE (NEGATIVE); COCAINE SCREEN,URINE NEGATIVE (NEGATIVE); METHADONE SCREEN, URINE NEGATIVE (NEGATIVE); OPIATE SCREEN,URINE NEGATIVE (NEGATIVE); PHENCYCLIDINE SCREEN,URINE NEGATIVE (NEGATIVE)
[2017-11-22 16:06] LABS: BASOPHILS % (AUTO) 1.1 % (0.0-2.0); EOSINOPHILS % (AUTO) 0.6 % (1.0-6.0); HEMATOCRIT 36.7 % (36-46); HEMOGLOBIN 12.2 g/dL (12.0-16.0); LYMPHOCYTES # (AUTO) 1.5 K/uL (1.0-4.8); LYMPHOCYTES % (AUTO) 24.9 % (22.0-44.0); MEAN CORPUSCULAR HEMOGLOBIN 29.6 pg (26.0-34.0); MEAN CORPUSCULAR HGB CONC 33.3 G/dL (31.0-37.0); MEAN CORPUSCULAR VOLUME 89 fL (80-100); MONOCYTES # (AUTO) 0.5 K/uL (0.1-1.0); MONOCYTES % (AUTO) 8.5 % (2.0-9.0); NEUTROPHILS % (AUTO) 64.9 % (40.0-70.0); PLATELET COUNT (AUTO) 299 K/uL (150-450); RED BLOOD CELL COUNT(AUTO) 4.12 MIL/uL (4.00-5.20); RED CELL DISTRIBUTION WIDTH 13.7 % (11.5-14.5)
[2017-11-22 16:07] LABS: APPEARANCE,URINE CLOUDY (CLEAR); BILIRUBIN,URINE NEGATIVE (NEGATIVE); GLUCOSE, URINE (UA) NEGATIVE (NEGATIVE); KETONES,URINE NEGATIVE (NEGATIVE); LEUKOCYTE ESTERASE ,URINE TRACE (NEGATIVE); NITRATE,URINE NEGATIVE (NEGATIVE); OCCULT BLOOD,URINE TRACE (NEGATIVE); PH,URINE 6.5 (5.0-8.0); PROTEIN,URINE NEGATIVE (NEGATIVE); UROBILINOGEN,URINE 0.2 mg/dL (<=1.0)
[2017-11-22 16:26] LABS: RBC,URINE 0-2 /HPF (0-2)
[2017-11-22 16:26] LABS: ANION GAP 6 mmol/L (8-16); CALCIUM, TOTAL 8.4 mg/dL (8.8-10.5); CARBON DIOXIDE 28 mmol/L (22-29); CHLORIDE 108 mmol/L (98-107); CREATININE 0.85 mg/dL (0.60-1.30); GLOMERULAR FILTR. RATE CALC > 60 mL/min (>60); GLUCOSE,RANDOM 80 mg/dL (70-110); POTASSIUM 3.6 mmol/L (3.5-5.1); SODIUM SERUM 142 mmol/L (136-145); UREA NITROGEN, BLOOD 10 mg/dL (7-18)
[2017-11-22 16:27] LABS: BACTERIA,URINE Many /HPF (None Seen); SQUAMOUS EPITHELIAL CELL,UR Few /LPF (None Seen); WBC,URINE 0-2 /HPF (0-5)
[2017-11-22 16:32] LABS: ALANINE AMINOTRANSFERASE 36 U/L (12-78); ALBUMIN 3.1 g/dL (3.4-5.0); ALKALINE PHOSPHATASE 74 U/L (46-116); ASPARTATE AMINOTRANSFERASE 24 U/L (15-37); BILIRUBIN,TOTAL 0.1 mg/dL (0.1-1.0); LIPASE 326 U/L (73-393); TOTAL PROTEIN, SERUM 6.8 g/dL (6.4-8.2)
[2017-11-22 16:35] LABS: SALICYLATE 3.5 mg/dL (2.8-20.0)
[2017-11-22 16:50] LABS: ACETAMINOPHEN < 2 mcg/mL (10-30)
[2017-11-22] MEDS ORDERED: SODIUM CHLORIDE 0.9% 1,000 ML IV ONE (17:00)
[2017-11-22] MEDS ORDERED: ONDANSETRON HCL 4 MG/2 ML VIAL IVP ONE (20:15)
[2017-11-22] MEDS ORDERED: ONDANSETRON HCL 4 MG/2 ML VIAL IM ONE (20:30)
[2017-11-22 21:38] VITALS: BP 122/78
[2017-11-22 21:47] VITALS: BP 122/78
[2017-11-22] MEDS ORDERED: GuaiFENesin/D-METHORPHAN [SUGAR-FREE] 200-20MG/10 ML SYRUP UDCUP PO PRN (22:15)
[2017-11-22] MEDS ORDERED: DOCUSATE SODIUM 100 MG CAPSULE PO PRN (22:15)
[2017-11-22] MEDS ORDERED: MAGNESIUM HYDROXIDE SUSPENSION 30 ML UDCUP PO PRN (22:15)
[2017-11-22] MEDS ORDERED: PETROLATUM,WHITE 71 GM JELLY TP PRN (22:15)
[2017-11-22] MEDS ORDERED: CloNIDine HCL 0.1 MG TABLET PO PRN (22:15)
[2017-11-22] MEDS ORDERED: MAG HYDROX/AL HYDROX/SIMETH ES 30 ML SUSPENSION UDCUP PO PRN (22:15)
[2017-11-22] MEDS ORDERED: ACETAMINOPHEN 325 MG TABLET PO PRN (22:15)
[2017-11-22] MEDS ORDERED: ALBUTEROL SULFATE HFA 90 MCG/PUFF 8 GM INHALER IH PRN (22:15)
[2017-11-22 22:30] VITALS: BP 128/74
[2017-11-22] MEDS: LOPERAMIDE HCL 2 MG CAPSULE PO PRN (22:39)
[2017-11-22 23:30] VITALS: BP 126/76
[2017-11-23] VITALS (7 sets, daily range): BP systolic 119–126; BP diastolic 71–78
[2017-11-23] MEDS: ONDANSETRON HCL 4 MG TABLET PO PRN ×2 (06:12→12:37)
[2017-11-23] MEDS: LORazepam 2 MG TABLET PO PRN ×3 (06:12→17:08)
[2017-11-23] MEDS: LevETIRAcetam 500 MG TABLET PO SCH ×2 (08:32→17:07)
[2017-11-23] MEDS: LOPERAMIDE HCL 2 MG CAPSULE PO PRN ×2 (08:32→16:24)
[2017-11-23] MEDS: IBUPROFEN 400 MG TABLET PO PRN (12:37)
[2017-11-23] MEDS: LITHIUM CARBONATE 300 MG TABLET PO SCH (17:00)
[2017-11-24 05:46] VITALS: BP 110/72
[2017-11-24 05:47] VITALS: BP 110/72
[2017-11-24 08:10] VITALS: BP 105/64
[2017-11-24] MEDS: LevETIRAcetam 500 MG TABLET PO SCH ×2 (08:34→18:46)
[2017-11-24] MEDS: LITHIUM CARBONATE 300 MG TABLET PO SCH ×2 (08:34→18:46)
[2017-11-24] MEDS: ARIPiprazole 15 MG TABLET PO SCH (08:34)
[2017-11-24] MEDS: FLUoxetine HCL 20 MG CAPSULE PO SCH (08:36)
[2017-11-24] MEDS: LORazepam 2 MG TABLET PO PRN ×3 (08:40→18:50)
[2017-11-24] MEDS: LOPERAMIDE HCL 2 MG CAPSULE PO PRN (09:26)
[2017-11-24] MEDS: ONDANSETRON HCL 4 MG TABLET PO PRN (09:26)
[2017-11-24 14:00] VITALS: BP 120/74
[2017-11-24 18:46] VITALS: BP 118/80
[2017-11-24 18:47] VITALS: BP 118/83
[2017-11-25 02:25] VITALS: BP 123/74
[2017-11-25 08:00] VITALS: BP 105/60
[2017-11-25 08:14] VITALS: BP 102/56
[2017-11-25] MEDS: LevETIRAcetam 500 MG TABLET PO SCH ×2 (08:33→16:38)
[2017-11-25] MEDS: ARIPiprazole 15 MG TABLET PO SCH (08:33)
[2017-11-25] MEDS: FLUoxetine HCL 20 MG CAPSULE PO SCH (08:34)
[2017-11-25] MEDS: LITHIUM CARBONATE 300 MG TABLET PO SCH ×2 (08:35→16:41)
[2017-11-25] MEDS: LORazepam 2 MG TABLET PO PRN ×3 (08:37→17:12)
[2017-11-25] MEDS: ONDANSETRON HCL 4 MG TABLET PO PRN (13:22)
[2017-11-25 16:20] VITALS: BP 105/71
[2017-11-25 17:21] VITALS: BP 105/71
[2017-11-25] MEDS: IBUPROFEN 400 MG TABLET PO PRN (19:30)
[2017-11-25] MEDS: ZOLPIDEM TARTRATE 10 MG TABLET PO PRN (21:39)
[2017-11-26 07:03] VITALS: BP 110/62
[2017-11-26] MEDS: LORazepam 2 MG TABLET PO PRN ×3 (08:37→17:16)
[2017-11-26] MEDS: FLUoxetine HCL 20 MG CAPSULE PO SCH (08:37)
[2017-11-26] MEDS: ARIPiprazole 15 MG TABLET PO SCH (08:37)
[2017-11-26] MEDS: LevETIRAcetam 500 MG TABLET PO SCH ×2 (08:37→16:11)
[2017-11-26] MEDS: LITHIUM CARBONATE 300 MG TABLET PO SCH ×3 (08:39→16:11)
[2017-11-26 13:17] VITALS: BP 125/99
[2017-11-26 18:00] VITALS: BP 118/95
[2017-11-26] MEDS: ZOLPIDEM TARTRATE 10 MG TABLET PO PRN (21:30)
[2017-11-27] MEDS: LORazepam 2 MG TABLET PO PRN ×3 (07:16→16:19)
[2017-11-27 08:11] VITALS: BP 146/76
[2017-11-27] MEDS: LITHIUM CARBONATE 450 MG ER TABLET PO SCH ×2 (08:16→16:21)
[2017-11-27] MEDS: ARIPiprazole 15 MG TABLET PO SCH (08:16)
[2017-11-27] MEDS: LevETIRAcetam 500 MG TABLET PO SCH ×2 (08:16→16:19)
[2017-11-27] MEDS: FLUoxetine HCL 20 MG CAPSULE PO SCH (08:16)
[2017-11-27] MEDS: ONDANSETRON HCL 4 MG TABLET PO PRN (10:38)
[2017-11-27 16:17] VITALS: BP 114/80
[2017-11-27] MEDS: HALOPERIDOL 5 MG TABLET PO PRN (16:19)
[2017-11-27] MEDS: ZOLPIDEM TARTRATE 10 MG TABLET PO PRN (20:44)
[2017-11-27 20:56] VITALS: BP 136/82
[2017-11-28 00:43] VITALS: BP 124/92
[2017-11-28] MEDS: ARIPiprazole 15 MG TABLET PO SCH (08:51)
[2017-11-28] MEDS: LevETIRAcetam 500 MG TABLET PO SCH ×2 (08:51→16:13)
[2017-11-28] MEDS: LITHIUM CARBONATE 450 MG ER TABLET PO SCH ×2 (08:52→16:13)
[2017-11-28] MEDS: FLUoxetine HCL 20 MG CAPSULE PO SCH (08:52)
[2017-11-28] MEDS: LORazepam 2 MG TABLET PO PRN ×2 (08:55→14:01)
[2017-11-28 16:05] VITALS: BP 123/76
[2017-11-28] MEDS ORDERED: DiphenhydrAMINE HCL 50 MG/ML VIAL IM ONE (16:30)
[2017-11-28] MEDS: ZOLPIDEM TARTRATE 10 MG TABLET PO PRN (20:11)
[2017-11-29] MEDS: LITHIUM CARBONATE 450 MG ER TABLET PO SCH ×2 (08:30→17:34)
[2017-11-29] MEDS: LORazepam 2 MG TABLET PO PRN ×2 (08:31→16:00)
[2017-11-29] MEDS: HALOPERIDOL 5 MG TABLET PO PRN (08:31)
[2017-11-29] MEDS: FLUoxetine HCL 20 MG CAPSULE PO SCH (08:31)
[2017-11-29] MEDS: LevETIRAcetam 500 MG TABLET PO SCH ×2 (08:31→17:34)
[2017-11-29] MEDS: ARIPiprazole 15 MG TABLET PO SCH (08:31)
[2017-11-29 08:36] VITALS: BP 136/72
[2017-11-29 16:08] VITALS: BP 112/69
[2017-11-29] MEDS: NICOTINE 14 MG/24 HOUR PATCH TD PRN (18:03)
[2017-11-29] MEDS: ZOLPIDEM TARTRATE 10 MG TABLET PO PRN (21:29)
[2017-11-30 06:09] VITALS: BP 128/79
[2017-11-30] MEDS: LORazepam 2 MG TABLET PO PRN ×2 (09:39→14:55)
[2017-11-30] MEDS: LevETIRAcetam 500 MG TABLET PO SCH ×2 (09:39→16:40)
[2017-11-30] MEDS: ARIPiprazole 15 MG TABLET PO SCH (09:39)
[2017-11-30] MEDS: LITHIUM CARBONATE 450 MG ER TABLET PO SCH ×2 (09:40→16:40)
[2017-11-30] MEDS: FLUoxetine HCL 20 MG CAPSULE PO SCH (09:40)
[2017-11-30 16:21] VITALS: BP 110/72
[2017-12-01 06:48] VITALS: BP 104/73
[2017-12-01] MEDS: LevETIRAcetam 500 MG TABLET PO SCH ×2 (08:32→16:04)
[2017-12-01] MEDS: ARIPiprazole 15 MG TABLET PO SCH (08:32)
[2017-12-01] MEDS: FLUoxetine HCL 20 MG CAPSULE PO SCH (08:32)
[2017-12-01] MEDS: LITHIUM CARBONATE 450 MG ER TABLET PO SCH ×2 (08:34→16:04)
[2017-12-01] MEDS: LORazepam 2 MG TABLET PO PRN (14:09)
[2017-12-01 16:18] VITALS: BP 116/63
[2017-12-02 07:00] VITALS: BP 125/72
[2017-12-02] MEDS: ARIPiprazole 15 MG TABLET PO SCH (08:16)
[2017-12-02] MEDS: LITHIUM CARBONATE 450 MG ER TABLET PO SCH ×2 (08:17→16:12)
[2017-12-02] MEDS: FLUoxetine HCL 20 MG CAPSULE PO SCH (08:17)
[2017-12-02] MEDS: LevETIRAcetam 500 MG TABLET PO SCH ×2 (08:18→16:12)
[2017-12-02] MEDS: LORazepam 2 MG TABLET PO PRN ×2 (10:27→15:10)
[2017-12-02] MEDS ORDERED: TUBERCULIN, PURIFIED PROTEIN DERIVATIVE 5 TU/0.1 ML SYG ID ONE (13:00)
[2017-12-02] MEDS: HALOPERIDOL 5 MG TABLET PO PRN (13:24)
[2017-12-02 16:05] VITALS: BP 109/67
[2017-12-02] MEDS ORDERED: LORazepam 2 MG/ML VIAL IM PRN (19:15)
[2017-12-02] MEDS: ZOLPIDEM TARTRATE 10 MG TABLET PO PRN (20:10)
[2017-12-03 06:01] VITALS: BP 117/72
[2017-12-03] MEDS: LevETIRAcetam 500 MG TABLET PO SCH ×2 (08:26→16:00)
[2017-12-03] MEDS: ARIPiprazole 15 MG TABLET PO SCH (08:26)
[2017-12-03] MEDS: FLUoxetine HCL 20 MG CAPSULE PO SCH (08:26)
[2017-12-03] MEDS: LITHIUM CARBONATE 450 MG ER TABLET PO SCH ×2 (08:26→16:00)
[2017-12-03 08:57] VITALS: BP 106/61
[2017-12-03] MEDS: HALOPERIDOL 5 MG TABLET PO PRN ×2 (11:09→15:23)
[2017-12-03] MEDS: LORazepam 2 MG TABLET PO PRN ×2 (11:09→15:23)
[2017-12-03 16:31] VITALS: BP 108/59
[2017-12-04 06:14] VITALS: BP 107/66
[2017-12-04] MEDS: LORazepam 2 MG TABLET PO PRN ×3 (06:55→15:41)
[2017-12-04 08:32] VITALS: BP 104/59
[2017-12-04] MEDS: ARIPiprazole 15 MG TABLET PO SCH (09:44)
[2017-12-04] MEDS: FLUoxetine HCL 20 MG CAPSULE PO SCH (09:45)
[2017-12-04] MEDS: LITHIUM CARBONATE 450 MG ER TABLET PO SCH (09:46)
[2017-12-04] MEDS: LevETIRAcetam 500 MG TABLET PO SCH ×2 (09:47→16:00)
[2017-12-04] MEDS: NICOTINE 14 MG/24 HOUR PATCH TD PRN (11:42)
[2017-12-04] MEDS: LITHIUM CARBONATE 300 MG ER TABLET PO SCH (16:00)
[2017-12-04 16:09] VITALS: BP 112/61
[2017-12-04] MEDS: HALOPERIDOL 5 MG TABLET PO PRN (16:22)
[2017-12-05 06:46] VITALS: BP 114/62
[2017-12-05] MEDS: LORazepam 2 MG TABLET PO PRN ×3 (06:51→17:09)
[2017-12-05 08:13] VITALS: BP 110/61
[2017-12-05] MEDS: LevETIRAcetam 500 MG TABLET PO SCH ×2 (08:32→17:09)
[2017-12-05] MEDS: FLUoxetine HCL 20 MG CAPSULE PO SCH (08:32)
[2017-12-05] MEDS: LITHIUM CARBONATE 300 MG ER TABLET PO SCH ×2 (08:32→17:09)
[2017-12-05] MEDS: ARIPiprazole 15 MG TABLET PO SCH (08:33)
[2017-12-05] MEDS: HALOPERIDOL 5 MG TABLET PO PRN ×2 (10:16→17:09)
[2017-12-05 16:12] VITALS: BP 105/63
[2017-12-05] MEDS: ZOLPIDEM TARTRATE 10 MG TABLET PO PRN (20:53)
[2017-12-06 06:18] VITALS: BP 108/68
[2017-12-06] MEDS: LORazepam 2 MG TABLET PO PRN ×3 (07:02→15:06)
[2017-12-06 08:21] VITALS: BP 100/66
[2017-12-06] MEDS: FLUoxetine HCL 20 MG CAPSULE PO SCH (08:27)
[2017-12-06] MEDS: LevETIRAcetam 500 MG TABLET PO SCH ×2 (08:27→16:09)
[2017-12-06] MEDS: ARIPiprazole 15 MG TABLET PO SCH (08:28)
[2017-12-06] MEDS: LITHIUM CARBONATE 300 MG ER TABLET PO SCH ×2 (08:28→16:09)
[2017-12-06] MEDS ORDERED: TUBERCULIN, PURIFIED PROTEIN DERIVATIVE 5 TU/0.1 ML SYG ID ONE (11:30)
[2017-12-06] MEDS: HALOPERIDOL 5 MG TABLET PO PRN (12:32)
[2017-12-06 16:25] VITALS: BP 116/72
[2017-12-07 01:27] VITALS: BP 119/71
[2017-12-07 08:00] VITALS: BP 100/65
[2017-12-07] MEDS: LORazepam 2 MG TABLET PO PRN ×3 (08:09→20:39)
[2017-12-07] MEDS: ARIPiprazole 15 MG TABLET PO SCH (08:09)
[2017-12-07] MEDS: FLUoxetine HCL 20 MG CAPSULE PO SCH (08:10)
[2017-12-07] MEDS: LITHIUM CARBONATE 300 MG ER TABLET PO SCH ×2 (08:10→16:18)
[2017-12-07] MEDS: LevETIRAcetam 500 MG TABLET PO SCH ×2 (08:10→16:18)
[2017-12-07] MEDS: HALOPERIDOL 5 MG TABLET PO PRN (10:41)
[2017-12-07] MEDS: NICOTINE 14 MG/24 HOUR PATCH TD PRN (16:18)
[2017-12-07 16:27] VITALS: BP 107/70
[2017-12-07] MEDS: ZOLPIDEM TARTRATE 10 MG TABLET PO PRN (20:39)
[2017-12-08 00:55] VITALS: BP 100/59
[2017-12-08] MEDS: LevETIRAcetam 500 MG TABLET PO SCH ×2 (08:06→16:14)
[2017-12-08] MEDS: ARIPiprazole 15 MG TABLET PO SCH (08:06)
[2017-12-08] MEDS: FLUoxetine HCL 20 MG CAPSULE PO SCH (08:07)
[2017-12-08] MEDS: LITHIUM CARBONATE 300 MG ER TABLET PO SCH ×2 (08:07→16:14)
[2017-12-08] MEDS: LORazepam 2 MG TABLET PO PRN ×2 (08:08→14:40)
[2017-12-08 08:18] VITALS: BP 104/62
[2017-12-08] MEDS: HALOPERIDOL 5 MG TABLET PO PRN ×2 (10:51→17:03)
[2017-12-08 16:00] VITALS: BP 110/66
[2017-12-09] MEDS: ARIPiprazole 15 MG TABLET PO SCH (08:01)
[2017-12-09] MEDS: FLUoxetine HCL 20 MG CAPSULE PO SCH (08:01)
[2017-12-09] MEDS: LITHIUM CARBONATE 300 MG ER TABLET PO SCH ×2 (08:01→17:12)
[2017-12-09] MEDS: LevETIRAcetam 500 MG TABLET PO SCH ×2 (08:01→17:12)
[2017-12-09] MEDS: NICOTINE 14 MG/24 HOUR PATCH TD PRN (08:15)
[2017-12-09 08:16] VITALS: BP 116/70
[2017-12-09] MEDS: HALOPERIDOL 5 MG TABLET PO PRN (09:02)
[2017-12-09] MEDS: LORazepam 2 MG TABLET PO PRN ×2 (09:02→14:50)
[2017-12-09 16:45] VITALS: BP 110/64
[2017-12-10 06:39] VITALS: BP 102/66
[2017-12-10] MEDS: LORazepam 2 MG TABLET PO PRN ×3 (07:18→16:59)
[2017-12-10 08:11] VITALS: BP 120/71
[2017-12-10] MEDS: FLUoxetine HCL 20 MG CAPSULE PO SCH (08:39)
[2017-12-10] MEDS: LevETIRAcetam 500 MG TABLET PO SCH ×2 (08:39→16:59)
[2017-12-10] MEDS: ARIPiprazole 15 MG TABLET PO SCH (08:39)
[2017-12-10] MEDS: LITHIUM CARBONATE 300 MG ER TABLET PO SCH ×2 (08:41→16:59)
[2017-12-10] MEDS: HALOPERIDOL 5 MG TABLET PO PRN ×2 (09:26→16:59)
[2017-12-10] MEDS: NICOTINE 14 MG/24 HOUR PATCH TD PRN (09:57)
[2017-12-10] MEDS: IBUPROFEN 400 MG TABLET PO PRN (10:08)
[2017-12-10 16:00] VITALS: BP 107/70
[2017-12-10] MEDS: ZOLPIDEM TARTRATE 10 MG TABLET PO PRN (21:29)
[2017-12-11 06:34] VITALS: BP 112/66
[2017-12-11 08:09] VITALS: BP 113/83
[2017-12-11] MEDS: ARIPiprazole 15 MG TABLET PO SCH (09:18)
[2017-12-11] MEDS: FLUoxetine HCL 20 MG CAPSULE PO SCH (09:18)
[2017-12-11] MEDS: LITHIUM CARBONATE 300 MG ER TABLET PO SCH ×2 (09:18→16:42)
[2017-12-11] MEDS: LORazepam 2 MG TABLET PO PRN ×2 (09:19→14:17)
[2017-12-11] MEDS: LevETIRAcetam 500 MG TABLET PO SCH ×2 (09:19→16:42)
[2017-12-11] MEDS: HALOPERIDOL 5 MG TABLET PO PRN (14:17)
[2017-12-11 16:26] VITALS: BP 104/60
[2017-12-12 05:11] VITALS: BP 116/67
[2017-12-12] MEDS: LORazepam 2 MG TABLET PO PRN ×3 (06:19→16:39)
[2017-12-12] MEDS: FLUoxetine HCL 20 MG CAPSULE PO SCH (08:14)
[2017-12-12] MEDS: ARIPiprazole 15 MG TABLET PO SCH (08:14)
[2017-12-12] MEDS: LevETIRAcetam 500 MG TABLET PO SCH ×2 (08:14→16:38)
[2017-12-12] MEDS: LITHIUM CARBONATE 300 MG ER TABLET PO SCH ×2 (08:14→16:38)
[2017-12-12 08:18] VITALS: BP 104/70
[2017-12-12] MEDS: NICOTINE 14 MG/24 HOUR PATCH TD PRN (09:56)
[2017-12-12 16:20] VITALS: BP 111/68
[2017-12-13 05:03] VITALS: BP 105/67
[2017-12-13] MEDS: LORazepam 2 MG TABLET PO PRN ×3 (07:16→17:37)
[2017-12-13 08:07] VITALS: BP 131/81
[2017-12-13] MEDS: FLUoxetine HCL 20 MG CAPSULE PO SCH (09:09)
[2017-12-13] MEDS: LITHIUM CARBONATE 300 MG ER TABLET PO SCH ×2 (09:10→16:37)
[2017-12-13] MEDS: ARIPiprazole 15 MG TABLET PO SCH (09:10)
[2017-12-13] MEDS: LevETIRAcetam 500 MG TABLET PO SCH ×2 (09:10→16:37)
[2017-12-13] MEDS: HALOPERIDOL 5 MG TABLET PO PRN (12:46)
[2017-12-13 16:08] VITALS: BP 109/69
[2017-12-14 06:02] VITALS: BP 115/75
[2017-12-14] MEDS: LORazepam 2 MG TABLET PO PRN ×3 (06:13→15:03)
[2017-12-14 08:27] VITALS: BP 111/71
[2017-12-14] MEDS: ARIPiprazole 15 MG TABLET PO SCH (08:53)
[2017-12-14] MEDS: HALOPERIDOL 5 MG TABLET PO PRN ×2 (08:53→16:21)
[2017-12-14] MEDS: FLUoxetine HCL 20 MG CAPSULE PO SCH (08:53)
[2017-12-14] MEDS: LITHIUM CARBONATE 300 MG ER TABLET PO SCH ×2 (08:53→16:21)
[2017-12-14] MEDS: LevETIRAcetam 500 MG TABLET PO SCH ×2 (08:53→16:21)
[2017-12-14] MEDS: NICOTINE 14 MG/24 HOUR PATCH TD PRN (10:12)
[2017-12-14 16:20] VITALS: BP 116/68
[2017-12-15 06:34] VITALS: BP 126/72
[2017-12-15] MEDS: LORazepam 2 MG TABLET PO PRN ×3 (07:03→17:28)
[2017-12-15] MEDS: ARIPiprazole 15 MG TABLET PO SCH (08:21)
[2017-12-15] MEDS: LevETIRAcetam 500 MG TABLET PO SCH ×2 (08:21→16:25)
[2017-12-15] MEDS: FLUoxetine HCL 20 MG CAPSULE PO SCH (08:21)
[2017-12-15] MEDS: LITHIUM CARBONATE 300 MG ER TABLET PO SCH ×2 (08:22→16:27)
[2017-12-15] MEDS: NICOTINE 14 MG/24 HOUR PATCH TD PRN (08:24)
[2017-12-15 08:31] VITALS: BP 108/62
[2017-12-15] MEDS: HALOPERIDOL 5 MG TABLET PO PRN (09:57)
[2017-12-15 16:13] VITALS: BP 103/64
[2017-12-16 06:15] VITALS: BP 102/77
[2017-12-16] MEDS: LORazepam 2 MG TABLET PO PRN ×4 (06:59→20:33)
[2017-12-16] MEDS: ARIPiprazole 15 MG TABLET PO SCH (08:05)
[2017-12-16] MEDS: FLUoxetine HCL 20 MG CAPSULE PO SCH (08:05)
[2017-12-16] MEDS: LevETIRAcetam 500 MG TABLET PO SCH ×2 (08:05→16:40)
[2017-12-16] MEDS: LITHIUM CARBONATE 300 MG ER TABLET PO SCH ×2 (08:05→16:39)
[2017-12-16 08:22] VITALS: BP 110/76
[2017-12-16] MEDS: NICOTINE 14 MG/24 HOUR PATCH TD PRN (10:18)
[2017-12-16] MEDS: HALOPERIDOL 5 MG TABLET PO PRN (16:39)
[2017-12-16 17:15] VITALS: BP 113/64
[2017-12-16] MEDS: ZOLPIDEM TARTRATE 10 MG TABLET PO PRN (21:49)
[2017-12-17 06:38] VITALS: BP 122/75
[2017-12-17] MEDS: LORazepam 2 MG TABLET PO PRN ×3 (06:40→16:43)
[2017-12-17] MEDS: ARIPiprazole 15 MG TABLET PO SCH (08:23)
[2017-12-17] MEDS: FLUoxetine HCL 20 MG CAPSULE PO SCH (08:24)
[2017-12-17] MEDS: LevETIRAcetam 500 MG TABLET PO SCH ×2 (08:24→16:15)
[2017-12-17] MEDS: LITHIUM CARBONATE 300 MG ER TABLET PO SCH ×2 (08:24→16:15)
[2017-12-17 08:45] VITALS: BP 113/82
[2017-12-17] MEDS: NICOTINE 14 MG/24 HOUR PATCH TD PRN (09:32)
[2017-12-17] MEDS: HALOPERIDOL 5 MG TABLET PO PRN ×2 (12:28→16:43)
[2017-12-17 16:48] VITALS: BP 121/73
[2017-12-17] MEDS: ZOLPIDEM TARTRATE 10 MG TABLET PO PRN (21:05)
[2017-12-18 06:17] VITALS: BP 103/64
[2017-12-18] MEDS: ARIPiprazole 15 MG TABLET PO SCH (08:16)
[2017-12-18] MEDS: FLUoxetine HCL 20 MG CAPSULE PO SCH (08:16)
[2017-12-18] MEDS: LevETIRAcetam 500 MG TABLET PO SCH ×2 (08:16→16:23)
[2017-12-18] MEDS: LORazepam 2 MG TABLET PO PRN ×3 (08:17→16:23)
[2017-12-18] MEDS: LITHIUM CARBONATE 300 MG ER TABLET PO SCH ×2 (08:17→16:23)
[2017-12-18 08:25] VITALS: BP 108/65
[2017-12-18] MEDS: NICOTINE 14 MG/24 HOUR PATCH TD PRN (10:56)
[2017-12-18] MEDS: HALOPERIDOL 5 MG TABLET PO PRN ×2 (12:21→16:23)
[2017-12-18 16:12] VITALS: BP 110/75
[2017-12-18] MEDS: ZOLPIDEM TARTRATE 10 MG TABLET PO PRN (20:56)
[2017-12-19] MEDS: LORazepam 2 MG TABLET PO PRN ×3 (07:18→16:55)
[2017-12-19] MEDS: ARIPiprazole 15 MG TABLET PO SCH (08:26)
[2017-12-19] MEDS: HALOPERIDOL 5 MG TABLET PO PRN ×2 (08:29→17:34)
[2017-12-19] MEDS: LITHIUM CARBONATE 300 MG ER TABLET PO SCH ×2 (08:29→16:39)
[2017-12-19] MEDS: FLUoxetine HCL 20 MG CAPSULE PO SCH (08:29)
[2017-12-19] MEDS: LevETIRAcetam 500 MG TABLET PO SCH ×2 (08:29→16:39)
[2017-12-19 08:35] VITALS: BP 111/71
[2017-12-19] MEDS: NICOTINE 14 MG/24 HOUR PATCH TD PRN (09:43)
[2017-12-19 16:08] VITALS: BP 116/64
[2017-12-19] MEDS: ZOLPIDEM TARTRATE 10 MG TABLET PO PRN (21:21)
[2017-12-20 06:40] VITALS: BP 123/83
[2017-12-20] MEDS: LORazepam 2 MG TABLET PO PRN ×3 (07:04→16:19)
[2017-12-20] MEDS: FLUoxetine HCL 20 MG CAPSULE PO SCH (08:05)
[2017-12-20] MEDS: LITHIUM CARBONATE 300 MG ER TABLET PO SCH ×2 (08:05→16:18)
[2017-12-20] MEDS: LevETIRAcetam 500 MG TABLET PO SCH ×2 (08:06→16:18)
[2017-12-20] MEDS: ARIPiprazole 15 MG TABLET PO SCH (08:06)
[2017-12-20 08:12] VITALS: BP 114/70
[2017-12-20] MEDS: HALOPERIDOL 5 MG TABLET PO PRN ×2 (09:28→16:19)
[2017-12-20 16:00] VITALS: BP 116/70
[2017-12-21 06:03] VITALS: BP 109/68
[2017-12-21] MEDS: LORazepam 2 MG TABLET PO PRN ×3 (07:01→16:08)
[2017-12-21] MEDS: LevETIRAcetam 500 MG TABLET PO SCH ×2 (08:28→16:09)
[2017-12-21] MEDS: FLUoxetine HCL 20 MG CAPSULE PO SCH (08:28)
[2017-12-21] MEDS: ARIPiprazole 15 MG TABLET PO SCH (08:28)
[2017-12-21] MEDS: LITHIUM CARBONATE 300 MG ER TABLET PO SCH ×2 (08:29→16:09)
[2017-12-21] MEDS: NICOTINE 14 MG/24 HOUR PATCH TD PRN (08:37)
[2017-12-21 08:43] VITALS: BP 125/72
[2017-12-21 16:00] VITALS: BP 114/70
[2017-12-21] MEDS: ZOLPIDEM TARTRATE 10 MG TABLET PO PRN (21:28)
[2017-12-22 06:29] VITALS: BP 130/70
[2017-12-22] MEDS: LORazepam 2 MG TABLET PO PRN ×3 (06:42→16:50)
[2017-12-22 08:15] VITALS: BP 120/88
[2017-12-22] MEDS: NICOTINE 14 MG/24 HOUR PATCH TD PRN (08:18)
[2017-12-22] MEDS: ARIPiprazole 15 MG TABLET PO SCH (08:18)
[2017-12-22] MEDS: LevETIRAcetam 500 MG TABLET PO SCH ×2 (08:19→16:50)
[2017-12-22] MEDS: FLUoxetine HCL 20 MG CAPSULE PO SCH (08:19)
[2017-12-22] MEDS: LITHIUM CARBONATE 300 MG ER TABLET PO SCH ×2 (08:19→16:50)
[2017-12-22] MEDS: HALOPERIDOL 5 MG TABLET PO PRN ×2 (09:36→15:04)
[2017-12-22 16:34] VITALS: BP 111/68
[2017-12-22] MEDS: ZOLPIDEM TARTRATE 10 MG TABLET PO PRN (20:56)
[2017-12-23 07:00] VITALS: BP 122/90
[2017-12-23] MEDS: LORazepam 2 MG TABLET PO PRN ×2 (08:03→12:16)
[2017-12-23] MEDS: LITHIUM CARBONATE 300 MG ER TABLET PO SCH ×2 (08:03→16:05)
[2017-12-23] MEDS: LevETIRAcetam 500 MG TABLET PO SCH ×2 (08:03→16:04)
[2017-12-23] MEDS: ARIPiprazole 15 MG TABLET PO SCH (08:03)
[2017-12-23] MEDS: FLUoxetine HCL 20 MG CAPSULE PO SCH (08:04)
[2017-12-23 08:37] VITALS: BP 125/69
[2017-12-23] MEDS: NICOTINE 14 MG/24 HOUR PATCH TD PRN (08:44)
[2017-12-23] MEDS: HALOPERIDOL 5 MG TABLET PO PRN ×2 (09:36→14:51)
[2017-12-23 16:05] VITALS: BP 129/73
[2017-12-23] MEDS: ZOLPIDEM TARTRATE 10 MG TABLET PO PRN (21:24)
[2017-12-24 06:19] VITALS: BP 104/63
[2017-12-24] MEDS: LORazepam 2 MG TABLET PO PRN ×3 (06:38→17:03)
[2017-12-24 08:19] VITALS: BP 121/75
[2017-12-24] MEDS: LITHIUM CARBONATE 300 MG ER TABLET PO SCH ×2 (08:23→17:03)
[2017-12-24] MEDS: LevETIRAcetam 500 MG TABLET PO SCH ×2 (08:23→17:03)
[2017-12-24] MEDS: FLUoxetine HCL 20 MG CAPSULE PO SCH (08:24)
[2017-12-24] MEDS: ARIPiprazole 15 MG TABLET PO SCH (08:24)
[2017-12-24] MEDS: HALOPERIDOL 5 MG TABLET PO PRN (17:03)
[2017-12-24 17:55] VITALS: BP 128/92
[2017-12-25 05:51] VITALS: BP 122/75
[2017-12-25] MEDS: LORazepam 2 MG TABLET PO PRN ×3 (06:41→16:05)
[2017-12-25] MEDS: LevETIRAcetam 500 MG TABLET PO SCH ×2 (08:08→16:05)
[2017-12-25] MEDS: LITHIUM CARBONATE 300 MG ER TABLET PO SCH ×2 (08:08→16:05)
[2017-12-25] MEDS: FLUoxetine HCL 20 MG CAPSULE PO SCH (08:08)
[2017-12-25] MEDS: ARIPiprazole 15 MG TABLET PO SCH (08:14)
[2017-12-25 08:28] VITALS: BP 113/72
[2017-12-25 16:07] VITALS: BP 109/68
[2017-12-25] MEDS: ZOLPIDEM TARTRATE 10 MG TABLET PO PRN (21:34)
[2017-12-26 05:42] VITALS: BP 110/72
[2017-12-26 08:00] VITALS: BP 134/85
[2017-12-26] MEDS: LITHIUM CARBONATE 300 MG ER TABLET PO SCH ×2 (08:34→16:56)
[2017-12-26] MEDS: LevETIRAcetam 500 MG TABLET PO SCH ×2 (08:34→16:56)
[2017-12-26] MEDS: FLUoxetine HCL 20 MG CAPSULE PO SCH (08:34)
[2017-12-26] MEDS: LORazepam 2 MG TABLET PO PRN ×2 (08:34→12:25)
[2017-12-26] MEDS: ARIPiprazole 15 MG TABLET PO SCH (08:34)
[2017-12-26] MEDS: HALOPERIDOL 5 MG TABLET PO PRN (09:42)
[2017-12-26 17:02] VITALS: BP 105/64
[2017-12-27 05:41] VITALS: BP 120/72
[2017-12-27] MEDS: LORazepam 2 MG TABLET PO PRN ×3 (05:41→21:03)
[2017-12-27] MEDS: LITHIUM CARBONATE 300 MG ER TABLET PO SCH ×2 (08:17→17:14)
[2017-12-27] MEDS: LevETIRAcetam 500 MG TABLET PO SCH ×2 (08:18→17:14)
[2017-12-27] MEDS: FLUoxetine HCL 20 MG CAPSULE PO SCH (08:18)
[2017-12-27] MEDS: ARIPiprazole 15 MG TABLET PO SCH (08:18)
[2017-12-27] MEDS: NICOTINE 14 MG/24 HOUR PATCH TD PRN (08:20)
[2017-12-27 08:30] VITALS: BP 105/65
[2017-12-27 16:28] VITALS: BP 118/80
[2017-12-27] MEDS: HALOPERIDOL 5 MG TABLET PO PRN (17:15)
[2017-12-27] MEDS: ZOLPIDEM TARTRATE 10 MG TABLET PO PRN (21:03)
[2017-12-28 05:25] VITALS: BP 109/74
[2017-12-28] MEDS: LORazepam 2 MG TABLET PO PRN ×3 (05:26→14:43)
[2017-12-28] MEDS: HALOPERIDOL 5 MG TABLET PO PRN ×3 (05:52→14:42)
[2017-12-28] MEDS: NICOTINE 14 MG/24 HOUR PATCH TD PRN (07:59)
[2017-12-28] MEDS: LITHIUM CARBONATE 300 MG ER TABLET PO SCH ×2 (08:00→16:54)
[2017-12-28] MEDS: FLUoxetine HCL 20 MG CAPSULE PO SCH (08:00)
[2017-12-28] MEDS: ARIPiprazole 15 MG TABLET PO SCH (08:00)
[2017-12-28] MEDS: LevETIRAcetam 500 MG TABLET PO SCH ×2 (08:00→16:55)
[2017-12-28 08:12] VITALS: BP 114/65
[2017-12-28 16:20] VITALS: BP 126/72
[2017-12-28] MEDS: ZOLPIDEM TARTRATE 10 MG TABLET PO PRN (20:45)
[2017-12-29 05:33] VITALS: BP 110/88
[2017-12-29] MEDS: LORazepam 2 MG TABLET PO PRN ×3 (05:47→14:42)
[2017-12-29] MEDS: HALOPERIDOL 5 MG TABLET PO PRN ×2 (05:47→11:41)
[2017-12-29] MEDS: NICOTINE 14 MG/24 HOUR PATCH TD PRN (08:16)
[2017-12-29] MEDS: ARIPiprazole 15 MG TABLET PO SCH (08:17)
[2017-12-29] MEDS: FLUoxetine HCL 20 MG CAPSULE PO SCH (08:17)
[2017-12-29] MEDS: LITHIUM CARBONATE 300 MG ER TABLET PO SCH ×2 (08:17→16:40)
[2017-12-29] MEDS: LevETIRAcetam 500 MG TABLET PO SCH ×2 (08:17→16:40)
[2017-12-29 08:29] VITALS: BP 108/87
[2017-12-29] MEDS: BuPROPion HCL XL 150 MG ER TABLET PO SCH (10:26)
[2017-12-29 16:26] VITALS: BP 118/67
[2017-12-29] MEDS: ZOLPIDEM TARTRATE 10 MG TABLET PO PRN (21:15)
[2017-12-30] MEDS: LORazepam 2 MG TABLET PO PRN ×3 (06:00→17:18)
[2017-12-30 06:10] VITALS: BP 116/71
[2017-12-30 08:18] VITALS: BP 110/81
[2017-12-30] MEDS: BuPROPion HCL XL 150 MG ER TABLET PO SCH (08:24)
[2017-12-30] MEDS: ARIPiprazole 15 MG TABLET PO SCH (08:24)
[2017-12-30] MEDS: LevETIRAcetam 500 MG TABLET PO SCH ×2 (08:24→17:18)
[2017-12-30] MEDS: LITHIUM CARBONATE 300 MG ER TABLET PO SCH (08:24)
[2017-12-30] MEDS: FLUoxetine HCL 20 MG CAPSULE PO SCH (08:24)
[2017-12-30] MEDS: NICOTINE 14 MG/24 HOUR PATCH TD PRN (08:25)
[2017-12-30 16:19] VITALS: BP 117/71
[2017-12-30] MEDS: HALOPERIDOL 5 MG TABLET PO PRN (17:18)
[2017-12-30] MEDS: LITHIUM CARBONATE 450 MG ER TABLET PO SCH (17:18)
[2017-12-30] MEDS: ZOLPIDEM TARTRATE 10 MG TABLET PO PRN (20:47)
[2017-12-31 05:18] VITALS: BP 109/78
[2017-12-31] MEDS: HALOPERIDOL 5 MG TABLET PO PRN ×2 (05:24→05:25)
[2017-12-31] MEDS: LORazepam 2 MG TABLET PO PRN ×2 (05:25→16:33)
[2017-12-31 08:15] VITALS: BP 100/61
[2017-12-31] MEDS: ARIPiprazole 15 MG TABLET PO SCH ×2 (09:18→09:33)
[2017-12-31] MEDS: LevETIRAcetam 500 MG TABLET PO SCH ×2 (09:19→09:32)
[2017-12-31] MEDS: LITHIUM CARBONATE 450 MG ER TABLET PO SCH ×2 (09:31→16:32)
[2017-12-31] MEDS: BuPROPion HCL XL 150 MG ER TABLET PO SCH (09:32)
[2017-12-31] MEDS: FLUoxetine HCL 20 MG CAPSULE PO SCH (09:32)
[2017-12-31] MEDS ORDERED: ZOLPIDEM TARTRATE 10 MG TABLET PO PRN (12:00)
[2017-12-31 16:09] VITALS: BP 113/64
[2018-01-01 05:22] VITALS: BP 110/73
[2018-01-01] MEDS: LORazepam 2 MG TABLET PO PRN ×2 (07:18→11:38)
[2018-01-01] MEDS: LITHIUM CARBONATE 450 MG ER TABLET PO SCH (08:11)
[2018-01-01] MEDS: LevETIRAcetam 500 MG TABLET PO SCH (08:12)
[2018-01-01] MEDS: FLUoxetine HCL 20 MG CAPSULE PO SCH (08:13)
[2018-01-01] MEDS: BuPROPion HCL XL 150 MG ER TABLET PO SCH (08:14)
[2018-01-01 08:16] VITALS: BP 131/93
[2018-01-01] MEDS: NICOTINE 14 MG/24 HOUR PATCH TD PRN (08:16)
[2018-01-01] MEDS ORDERED: BUPR-93 PO (13:17)
[2018-01-01] MEDS ORDERED: LITH450CRT PO (13:17)
== END 2018-01-01 14:05 | disposition home or self-care (01) | DRG 751 ==
LOC: EMS 15:33 → B3A 19:07
PROVIDERS: ADMIT Psychiatry & Neurology Psychiatry; ATTEND Psychiatry & Neurology Psychiatry
DX: F33.3 Major depressive disorder, recurrent, severe with psychotic symptoms (principal); G40.909 Epilepsy, unspecified, not intractable, without status epilepticus; E03.9 Hypothyroidism, unspecified; E78.00 Pure hypercholesterolemia, unspecified; E78.5 Hyperlipidemia, unspecified; F10.10 Alcohol abuse, uncomplicated; F14.10 Cocaine abuse, uncomplicated; F15.90 Other stimulant use, unspecified, uncomplicated; F17.200 Nicotine dependence, unspecified, uncomplicated; F19.20 Other psychoactive substance dependence, uncomplicated; R19.7 Diarrhea, unspecified; F41.9 Anxiety disorder, unspecified; F60.3 Borderline personality disorder; I10 Essential (primary) hypertension; J44.9 Chronic obstructive pulmonary disease, unspecified; K21.9 Gastro-esophageal reflux disease without esophagitis; Z59.0 Homelessness; Z91.19 Patient's noncompliance with other medical treatment and regimen; Z91.5 Personal history of self-harm; Z90.49 Acquired absence of other specified parts of digestive tract; Z79.899 Other long term (current) drug therapy; Z71.6 Tobacco abuse counseling; Z71.41 Alcohol abuse counseling and surveillance of alcoholic; Z71.51 Drug abuse counseling and surveillance of drug abuser; Z88.8 Allergy status to other drugs, medicaments and biological substances; Z28.21 Immunization not carried out because of patient refusal
CPT/HCPCS: 70450; 82948; 83735; 87081; 87086; 90686; 93005; 96360; G0480; G0481; J1200; J2405; J3230; J7030; Q0162

== ENCOUNTER 2017-11-24 16:54 | Emergency (ER) | payer MEDICAID, OTHER ==
[~2017-11-24] VITALS: Ht 177.8 cm; Wt 90.9 kg
[~2017-11-24 16:54] MED LIST changes: +DIPH50CA35 PO; +HALO1 PO; +RISP2 PO; +SERT50TA12 PO; +[UNRECOGNIZED DRUG - OTHER] PO
[2017-11-24 17:48] VITALS: BP 118/62
== END 2017-11-24 19:01 | disposition other institution (70) ==
LOC: EMS 16:55
DX: H57.02 Anisocoria (principal); R11.10 Vomiting, unspecified; R19.7 Diarrhea, unspecified; F31.9 Bipolar disorder, unspecified; E78.00 Pure hypercholesterolemia, unspecified; F20.9 Schizophrenia, unspecified; F17.210 Nicotine dependence, cigarettes, uncomplicated; Z90.49 Acquired absence of other specified parts of digestive tract; Z88.8 Allergy status to other drugs, medicaments and biological substances
CPT/HCPCS: 99285

== ENCOUNTER 2018-02-25 22:51 | Inpatient (IN) | payer MEDICAID, OTHER ==
[~2018-02-25] VITALS: Ht 177.8 cm; Wt 84.8 kg
[~2018-02-25 22:51] MED LIST changes: +BUPR-93 PO; -DIPH50CA35 PO; -HALO1 PO; -RISP2 PO; -SERT50TA12 PO; -[UNRECOGNIZED DRUG - OTHER] PO
[2018-02-26] VITALS (7 sets, daily range): BP systolic 109–156; BP diastolic 55–68
[2018-02-26 00:29] LABS: BASOPHILS % (AUTO) 0.6 % (0.0-2.0); EOSINOPHILS % (AUTO) 0.1 % (1.0-6.0); HEMATOCRIT 34.5 % (36-46); HEMOGLOBIN 11.7 g/dL (12.0-16.0); LYMPHOCYTES # (AUTO) 1.1 K/uL (1.0-4.8); LYMPHOCYTES % (AUTO) 10.6 % (22.0-44.0); MEAN CORPUSCULAR HEMOGLOBIN 29.9 pg (26.0-34.0); MEAN CORPUSCULAR VOLUME 88 fL (80-100); MONOCYTES # (AUTO) 1.3 K/uL (0.1-1.0); MONOCYTES % (AUTO) 12.4 % (2.0-9.0); NEUTROPHILS # (AUTO) 7.7 K/uL (1.8-7.7); NEUTROPHILS % (AUTO) 76.3 % (40.0-70.0); PLATELET COUNT (AUTO) 281 K/uL (150-450); RED BLOOD CELL COUNT(AUTO) 3.91 MIL/uL (4.00-5.20); RED CELL DISTRIBUTION WIDTH 13.8 % (11.5-14.5)
[2018-02-26 00:41] LABS: ANION GAP 8 mmol/L (8-16); CALCIUM, TOTAL 8.3 mg/dL (8.8-10.5); CARBON DIOXIDE 28 mmol/L (22-29); CHLORIDE 95 mmol/L (98-107); GLOMERULAR FILTR. RATE CALC 53 mL/min (>60); GLUCOSE,RANDOM 95 mg/dL (70-110); POTASSIUM 3.1 mmol/L (3.5-5.1); SODIUM SERUM 131 mmol/L (136-145); UREA NITROGEN, BLOOD 18 mg/dL (7-18)
[2018-02-26 00:52] LABS: ALANINE AMINOTRANSFERASE 260 U/L (12-78); ALBUMIN 3.5 g/dL (3.4-5.0); ALKALINE PHOSPHATASE 81 U/L (46-116); ASPARTATE AMINOTRANSFERASE 680 U/L (15-37); BILIRUBIN,TOTAL 0.3 mg/dL (0.1-1.0); HCG,QUANTITATIVE < 1 mIU/mL (0-6); TOTAL PROTEIN, SERUM 6.9 g/dL (6.4-8.2)
[2018-02-26] MEDS ORDERED: LORazepam 2 MG TABLET PO ONE (04:30)
[2018-02-26] MEDS ORDERED: POTASSIUM CHLORIDE 10% 40 MEQ/30 ML LIQUID UDCUP PO ONE (04:30)
[2018-02-26] MEDS ORDERED: DiphenhydrAMINE HCL 25 MG CAPSULE PO ONE (04:30)
[2018-02-26] MEDS ORDERED: HALOPERIDOL 5 MG TABLET PO ONE (04:30)
[2018-02-26] MEDS ORDERED: IBUPROFEN 400 MG TABLET PO PRN (12:30)
[2018-02-26] MEDS ORDERED: PETROLATUM,WHITE 71 GM JELLY TP PRN (12:30)
[2018-02-26] MEDS ORDERED: ONDANSETRON HCL 4 MG TABLET PO PRN (12:30)
[2018-02-26] MEDS ORDERED: NICOTINE 14 MG/24 HOUR PATCH TD PRN (12:30)
[2018-02-26] MEDS ORDERED: MAG HYDROX/AL HYDROX/SIMETH ES 30 ML SUSPENSION UDCUP PO PRN (12:30)
[2018-02-26] MEDS ORDERED: CloNIDine HCL 0.1 MG TABLET PO PRN (12:30)
[2018-02-26] MEDS ORDERED: LOPERAMIDE HCL 2 MG CAPSULE PO PRN (12:30)
[2018-02-26] MEDS ORDERED: MAGNESIUM HYDROXIDE SUSPENSION 30 ML UDCUP PO PRN (12:30)
[2018-02-26] MEDS ORDERED: DOCUSATE SODIUM 100 MG CAPSULE PO PRN (12:30)
[2018-02-26] MEDS ORDERED: POTASSIUM CHLORIDE 20 MEQ ER TABLET PO ONE (13:00)
[2018-02-26] MEDS: ACETAMINOPHEN 325 MG TABLET PO PRN (13:39)
[2018-02-26] MEDS: GuaiFENesin/D-METHORPHAN [SUGAR-FREE] 200-20MG/10 ML SYRUP UDCUP PO PRN (13:40)
[2018-02-26 14:31] LABS: AMPHET/METH SCREEN,URINE POSITIVE (NEGATIVE); BARBITURATE SCREEN, URINE NEGATIVE (NEGATIVE); BENZODIAZEPINES SCREEN,URINE NEGATIVE (NEGATIVE); CANNABINOID SCREEN,URINE NEGATIVE (NEGATIVE); COCAINE SCREEN,URINE NEGATIVE (NEGATIVE); METHADONE SCREEN, URINE NEGATIVE (NEGATIVE); OPIATE SCREEN,URINE POSITIVE (NEGATIVE); PHENCYCLIDINE SCREEN,URINE NEGATIVE (NEGATIVE)
[2018-02-26] MEDS: LITHIUM CARBONATE 300 MG CAPSULE PO SCH (16:14)
[2018-02-26] MEDS: LEVOFLOXACIN 250 MG TABLET PO SCH (16:14)
[2018-02-26] MEDS: IBUPROFEN 400 MG TABLET PO PRN (21:17)
[2018-02-26] MEDS: LORazepam 2 MG TABLET PO PRN (21:17)
[2018-02-26] MEDS: ZOLPIDEM TARTRATE 10 MG TABLET PO PRN (21:17)
[2018-02-27 03:31] VITALS: BP 128/80
[2018-02-27 08:10] VITALS: BP 102/56
[2018-02-27] MEDS: LITHIUM CARBONATE 300 MG CAPSULE PO SCH ×2 (08:35→16:37)
[2018-02-27] MEDS: FLUoxetine HCL 20 MG CAPSULE PO SCH (08:36)
[2018-02-27] MEDS: ARIPiprazole 15 MG TABLET PO SCH (08:36)
[2018-02-27] MEDS: BuPROPion HCL XL 150 MG ER TABLET PO SCH (08:36)
[2018-02-27] MEDS: OSELTAMIVIR PHOSPHATE 75 MG CAPSULE PO SCH ×2 (08:37→16:16)
[2018-02-27] MEDS: LEVOFLOXACIN 250 MG TABLET PO SCH (08:38)
[2018-02-27 16:00] VITALS: BP 100/60
[2018-02-27] MEDS: BENZONATATE 100 MG CAPSULE PO SCH (16:16)
[2018-02-27] MEDS: LevETIRAcetam 500 MG TABLET PO SCH (16:37)
[2018-02-27 18:44] VITALS: BP 102/65
[2018-02-27] MEDS: ACETAMINOPHEN 325 MG TABLET PO PRN (18:44)
[2018-02-28 03:50] VITALS: BP 111/65
[2018-02-28] MEDS: LORazepam 2 MG TABLET PO PRN ×3 (06:24→20:14)
[2018-02-28] MEDS: IBUPROFEN 400 MG TABLET PO PRN (06:24)
[2018-02-28] MEDS: GuaiFENesin/D-METHORPHAN [SUGAR-FREE] 200-20MG/10 ML SYRUP UDCUP PO PRN ×3 (06:24→20:14)
[2018-02-28 08:00] VITALS: BP 119/78
[2018-02-28 08:38] LABS: APPEARANCE,URINE CLEAR (CLEAR); BILIRUBIN,URINE NEGATIVE (NEGATIVE); GLUCOSE, URINE (UA) NEGATIVE (NEGATIVE); KETONES,URINE NEGATIVE (NEGATIVE); LEUKOCYTE ESTERASE ,URINE NEGATIVE (NEGATIVE); NITRATE,URINE NEGATIVE (NEGATIVE); OCCULT BLOOD,URINE NEGATIVE (NEGATIVE); PROTEIN,URINE NEGATIVE (NEGATIVE); UROBILINOGEN,URINE 0.2 mg/dL (<=1.0)
[2018-02-28 08:45] LABS: AMPHET/METH SCREEN,URINE NEGATIVE (NEGATIVE); BARBITURATE SCREEN, URINE NEGATIVE (NEGATIVE); BENZODIAZEPINES SCREEN,URINE NEGATIVE (NEGATIVE); CANNABINOID SCREEN,URINE NEGATIVE (NEGATIVE); COCAINE SCREEN,URINE NEGATIVE (NEGATIVE); METHADONE SCREEN, URINE NEGATIVE (NEGATIVE); OPIATE SCREEN,URINE NEGATIVE (NEGATIVE)
[2018-02-28 08:47] LABS: PHENCYCLIDINE SCREEN,URINE NEGATIVE (NEGATIVE)
[2018-02-28] MEDS: LevETIRAcetam 500 MG TABLET PO SCH ×2 (09:01→16:01)
[2018-02-28] MEDS: BuPROPion HCL XL 150 MG ER TABLET PO SCH (09:02)
[2018-02-28] MEDS: ARIPiprazole 15 MG TABLET PO SCH (09:03)
[2018-02-28] MEDS: FLUoxetine HCL 20 MG CAPSULE PO SCH (09:03)
[2018-02-28] MEDS: LITHIUM CARBONATE 300 MG CAPSULE PO SCH ×2 (09:03→16:01)
[2018-02-28] MEDS: BENZONATATE 100 MG CAPSULE PO SCH ×2 (09:04→16:02)
[2018-02-28] MEDS: OSELTAMIVIR PHOSPHATE 75 MG CAPSULE PO SCH ×2 (09:04→16:01)
[2018-02-28] MEDS: LEVOFLOXACIN 250 MG TABLET PO SCH (09:04)
[2018-02-28 12:52] LABS: BACTERIA,URINE Rare /HPF (None Seen); RBC,URINE None Seen /HPF (0-2); SQUAMOUS EPITHELIAL CELL,UR Few /LPF (None Seen); WBC,URINE 0-2 /HPF (0-5)
[2018-02-28 16:00] VITALS: BP 106/62
[2018-02-28] MEDS: PARoxetine HCL 20 MG TABLET PO SCH (20:15)
[2018-02-28] MEDS: ZOLPIDEM TARTRATE 10 MG TABLET PO PRN (23:06)
[2018-03-01 00:22] VITALS: BP 105/66
[2018-03-01] MEDS: BENZOCAINE 20% 11.9 GM GEL TP PRN ×2 (06:54→11:39)
[2018-03-01 08:09] VITALS: BP 123/61
[2018-03-01] MEDS: LITHIUM CARBONATE 300 MG CAPSULE PO SCH ×2 (08:36→16:47)
[2018-03-01] MEDS: BuPROPion HCL XL 150 MG ER TABLET PO SCH (08:37)
[2018-03-01] MEDS: ARIPiprazole 15 MG TABLET PO SCH (08:37)
[2018-03-01] MEDS: LevETIRAcetam 500 MG TABLET PO SCH ×2 (08:37→16:46)
[2018-03-01] MEDS: LEVOFLOXACIN 250 MG TABLET PO SCH (08:37)
[2018-03-01] MEDS: OSELTAMIVIR PHOSPHATE 75 MG CAPSULE PO SCH ×2 (08:40→16:46)
[2018-03-01] MEDS: BENZONATATE 100 MG CAPSULE PO SCH ×2 (08:42→16:46)
[2018-03-01] MEDS: GuaiFENesin/D-METHORPHAN [SUGAR-FREE] 200-20MG/10 ML SYRUP UDCUP PO PRN (08:48)
[2018-03-01] MEDS: LORazepam 2 MG TABLET PO PRN ×2 (08:48→16:47)
[2018-03-01] MEDS: IBUPROFEN 400 MG TABLET PO PRN ×2 (08:49→16:47)
[2018-03-01 16:45] VITALS: BP 109/67
[2018-03-01] MEDS: ZOLPIDEM TARTRATE 10 MG TABLET PO PRN (20:17)
[2018-03-01] MEDS: PARoxetine HCL 20 MG TABLET PO SCH (20:17)
[2018-03-02 00:19] VITALS: BP 119/73
[2018-03-02] MEDS: BENZOCAINE 20% 11.9 GM GEL TP PRN ×2 (06:52→10:54)
[2018-03-02] MEDS: ARIPiprazole 15 MG TABLET PO SCH (08:16)
[2018-03-02] MEDS: LITHIUM CARBONATE 300 MG CAPSULE PO SCH ×2 (08:16→16:14)
[2018-03-02] MEDS: LevETIRAcetam 500 MG TABLET PO SCH ×2 (08:16→16:14)
[2018-03-02] MEDS: BENZONATATE 100 MG CAPSULE PO SCH ×2 (08:16→16:14)
[2018-03-02] MEDS: BuPROPion HCL XL 150 MG ER TABLET PO SCH (08:16)
[2018-03-02] MEDS: LEVOFLOXACIN 250 MG TABLET PO SCH (08:17)
[2018-03-02] MEDS: OSELTAMIVIR PHOSPHATE 75 MG CAPSULE PO SCH ×2 (08:17→16:14)
[2018-03-02] MEDS: GuaiFENesin/D-METHORPHAN [SUGAR-FREE] 200-20MG/10 ML SYRUP UDCUP PO PRN (08:18)
[2018-03-02] MEDS: LORazepam 2 MG TABLET PO PRN ×3 (08:24→22:45)
[2018-03-02 08:37] VITALS: BP 121/64
[2018-03-02] MEDS: ALBUTEROL SULFATE HFA 90 MCG/PUFF 8 GM INHALER IH PRN (10:54)
[2018-03-02 16:28] VITALS: BP 113/64
[2018-03-02] MEDS: PARoxetine HCL 20 MG TABLET PO SCH (20:16)
[2018-03-02] MEDS: ZOLPIDEM TARTRATE 10 MG TABLET PO PRN (21:15)
[2018-03-03 08:32] VITALS: BP 109/59
[2018-03-03] MEDS: LEVOFLOXACIN 250 MG TABLET PO SCH (08:44)
[2018-03-03] MEDS: LevETIRAcetam 500 MG TABLET PO SCH ×2 (08:44→17:23)
[2018-03-03] MEDS: OSELTAMIVIR PHOSPHATE 75 MG CAPSULE PO SCH ×2 (08:44→17:24)
[2018-03-03] MEDS: BuPROPion HCL XL 150 MG ER TABLET PO SCH (08:44)
[2018-03-03] MEDS: BENZONATATE 100 MG CAPSULE PO SCH ×2 (08:44→17:24)
[2018-03-03] MEDS: ARIPiprazole 15 MG TABLET PO SCH (08:45)
[2018-03-03] MEDS: LITHIUM CARBONATE 300 MG CAPSULE PO SCH ×2 (08:46→17:23)
[2018-03-03] MEDS: LORazepam 2 MG TABLET PO PRN ×2 (08:50→13:37)
[2018-03-03] MEDS: ALBUTEROL SULFATE HFA 90 MCG/PUFF 8 GM INHALER IH PRN (08:51)
[2018-03-03] MEDS ORDERED: BACITRACIN 28.4 GM OINTMENT TP PRN (10:15)
[2018-03-03] MEDS: GuaiFENesin/D-METHORPHAN [SUGAR-FREE] 200-20MG/10 ML SYRUP UDCUP PO PRN (10:44)
[2018-03-03] MEDS: IBUPROFEN 400 MG TABLET PO PRN (13:37)
[2018-03-03 16:04] VITALS: BP 109/68
[2018-03-03 17:05] VITALS: BP 125/72
[2018-03-03] MEDS: ZOLPIDEM TARTRATE 10 MG TABLET PO PRN (20:50)
[2018-03-03] MEDS: PARoxetine HCL 20 MG TABLET PO SCH (20:50)
[2018-03-04 04:46] VITALS: BP 128/70
[2018-03-04 08:11] VITALS: BP 100/57
[2018-03-04] MEDS: LITHIUM CARBONATE 600 MG CAPSULE PO SCH ×2 (08:36→16:21)
[2018-03-04] MEDS: BENZONATATE 100 MG CAPSULE PO SCH ×2 (08:36→16:22)
[2018-03-04] MEDS: LEVOFLOXACIN 250 MG TABLET PO SCH (08:36)
[2018-03-04] MEDS: LevETIRAcetam 500 MG TABLET PO SCH ×2 (08:36→16:21)
[2018-03-04] MEDS: ARIPiprazole 15 MG TABLET PO SCH (08:37)
[2018-03-04] MEDS: BuPROPion HCL XL 150 MG ER TABLET PO SCH (08:37)
[2018-03-04 09:30] VITALS: BP 110/72
[2018-03-04] MEDS: ALBUTEROL SULFATE HFA 90 MCG/PUFF 8 GM INHALER IH PRN (09:39)
[2018-03-04] MEDS: LORazepam 2 MG TABLET PO PRN ×2 (09:39→16:22)
[2018-03-04] MEDS: GuaiFENesin/D-METHORPHAN [SUGAR-FREE] 200-20MG/10 ML SYRUP UDCUP PO PRN ×2 (09:39→20:12)
[2018-03-04 17:22] VITALS: BP 106/72
[2018-03-04] MEDS: PARoxetine HCL 20 MG TABLET PO SCH (20:05)
[2018-03-04] MEDS: ZOLPIDEM TARTRATE 10 MG TABLET PO PRN (20:33)
[2018-03-05] MEDS: LORazepam 2 MG TABLET PO PRN ×2 (07:00→17:32)
[2018-03-05 07:18] VITALS: BP 110/80
[2018-03-05 08:09] VITALS: BP 100/61
[2018-03-05 08:48] LABS: LITHIUM 0.67 mmol/L (0.60-1.20)
[2018-03-05] MEDS: LITHIUM CARBONATE 600 MG CAPSULE PO SCH ×2 (08:48→17:32)
[2018-03-05] MEDS: BuPROPion HCL XL 150 MG ER TABLET PO SCH (08:48)
[2018-03-05] MEDS: ARIPiprazole 15 MG TABLET PO SCH (08:48)
[2018-03-05] MEDS: LevETIRAcetam 500 MG TABLET PO SCH ×2 (08:48→17:32)
[2018-03-05 08:50] LABS: ALANINE AMINOTRANSFERASE 101 U/L (12-78); ALBUMIN 3.1 g/dL (3.4-5.0); ALKALINE PHOSPHATASE 60 U/L (46-116); ANION GAP 7 mmol/L (8-16); ASPARTATE AMINOTRANSFERASE 40 U/L (15-37); BILIRUBIN,TOTAL 0.2 mg/dL (0.1-1.0); CARBON DIOXIDE 27 mmol/L (22-29); CHLORIDE 107 mmol/L (98-107); CHOL/HDL RATIO 7.1 (3.9-5.7); CHOLESTEROL 177 mg/dL (131-200); CREATININE 0.81 mg/dL (0.60-1.30); GLOMERULAR FILTR. RATE CALC > 60 mL/min (>60); GLUCOSE,RANDOM 89 mg/dL (70-110); HDL CHOLESTEROL 25 mg/dL (40-60); LDL CHOL (CALC.) 103 mg/dL (0-130); POTASSIUM 4.1 mmol/L (3.5-5.1); SODIUM SERUM 141 mmol/L (136-145); THYROID STIMULATING HORMONE 3.56 uIU/mL (0.36-3.74); TOTAL PROTEIN, SERUM 6.5 g/dL (6.4-8.2); TRIGLYCERIDES 247 mg/dL (15-150); UREA NITROGEN, BLOOD 12 mg/dL (7-18)
[2018-03-05] MEDS: BENZONATATE 100 MG CAPSULE PO SCH ×2 (08:51→17:32)
[2018-03-05] MEDS: LEVOFLOXACIN 250 MG TABLET PO SCH (08:51)
[2018-03-05] MEDS: GuaiFENesin/D-METHORPHAN [SUGAR-FREE] 200-20MG/10 ML SYRUP UDCUP PO PRN (10:00)
[2018-03-05] MEDS: HALOPERIDOL 5 MG TABLET PO PRN (17:32)
[2018-03-05 18:58] VITALS: BP 100/68
[2018-03-05] MEDS: PARoxetine HCL 20 MG TABLET PO SCH (20:51)
[2018-03-05] MEDS: ZOLPIDEM TARTRATE 10 MG TABLET PO PRN (23:03)
[2018-03-06 03:59] VITALS: BP 114/78
[2018-03-06 08:54] VITALS: BP 103/70
[2018-03-06] MEDS: BuPROPion HCL XL 150 MG ER TABLET PO SCH (09:01)
[2018-03-06] MEDS: LevETIRAcetam 500 MG TABLET PO SCH ×2 (09:01→16:41)
[2018-03-06] MEDS: LITHIUM CARBONATE 600 MG CAPSULE PO SCH ×2 (09:01→16:42)
[2018-03-06] MEDS: ARIPiprazole 15 MG TABLET PO SCH (09:02)
[2018-03-06] MEDS: LEVOFLOXACIN 250 MG TABLET PO SCH (09:02)
[2018-03-06] MEDS: BENZONATATE 100 MG CAPSULE PO SCH ×2 (09:02→16:41)
[2018-03-06] MEDS: GuaiFENesin/D-METHORPHAN [SUGAR-FREE] 200-20MG/10 ML SYRUP UDCUP PO PRN (09:42)
[2018-03-06] MEDS: LORazepam 2 MG TABLET PO PRN ×2 (09:42→16:41)
[2018-03-06] MEDS: ALBUTEROL SULFATE HFA 90 MCG/PUFF 8 GM INHALER IH PRN (09:43)
[2018-03-06] MEDS: IBUPROFEN 400 MG TABLET PO PRN (12:28)
[2018-03-06] MEDS: HALOPERIDOL 5 MG TABLET PO PRN (16:41)
[2018-03-06 18:51] VITALS: BP 123/90
[2018-03-06] MEDS: PARoxetine HCL 20 MG TABLET PO SCH (20:25)
[2018-03-06] MEDS: ZOLPIDEM TARTRATE 10 MG TABLET PO PRN (20:30)
[2018-03-07 00:07] VITALS: BP 136/92
[2018-03-07] MEDS: IBUPROFEN 400 MG TABLET PO PRN ×2 (00:11→15:12)
[2018-03-07] MEDS: GuaiFENesin/D-METHORPHAN [SUGAR-FREE] 200-20MG/10 ML SYRUP UDCUP PO PRN (04:04)
[2018-03-07] MEDS: LORazepam 2 MG TABLET PO PRN ×3 (04:19→13:30)
[2018-03-07 08:14] VITALS: BP 127/84
[2018-03-07] MEDS: BENZONATATE 100 MG CAPSULE PO SCH ×2 (08:53→17:17)
[2018-03-07] MEDS: LEVOFLOXACIN 250 MG TABLET PO SCH (08:54)
[2018-03-07] MEDS: LevETIRAcetam 500 MG TABLET PO SCH ×2 (08:54→16:23)
[2018-03-07] MEDS: LITHIUM CARBONATE 600 MG CAPSULE PO SCH ×2 (08:55→16:22)
[2018-03-07] MEDS: ARIPiprazole 15 MG TABLET PO SCH (08:55)
[2018-03-07] MEDS: HALOPERIDOL 5 MG TABLET PO PRN ×2 (09:28→13:04)
[2018-03-07] MEDS: BuPROPion HCL XL 150 MG ER TABLET PO SCH (09:36)
[2018-03-07 15:00] VITALS: BP 125/85
[2018-03-07 16:00] VITALS: BP 109/69
[2018-03-07] MEDS: CYPROHEPTADINE HCL 4 MG TABLET PO SCH ×2 (16:22→20:09)
[2018-03-07] MEDS: PARoxetine HCL 20 MG TABLET PO SCH (20:09)
[2018-03-07] MEDS: ZOLPIDEM TARTRATE 10 MG TABLET PO PRN (21:08)
[2018-03-08 05:46] VITALS: BP 112/71
[2018-03-08 08:18] VITALS: BP 106/57
[2018-03-08] MEDS: BENZONATATE 100 MG CAPSULE PO SCH ×2 (08:39→16:37)
[2018-03-08] MEDS: LITHIUM CARBONATE 600 MG CAPSULE PO SCH ×2 (08:39→16:38)
[2018-03-08] MEDS: CYPROHEPTADINE HCL 4 MG TABLET PO SCH ×4 (08:39→21:06)
[2018-03-08] MEDS: ARIPiprazole 15 MG TABLET PO SCH (08:40)
[2018-03-08] MEDS: LevETIRAcetam 500 MG TABLET PO SCH ×2 (08:40→16:37)
[2018-03-08] MEDS: OMEGA-3/DHA/EPA/FISH OIL 1,000 MG CAPSULE PO SCH (08:40)
[2018-03-08] MEDS: BuPROPion HCL XL 150 MG ER TABLET PO SCH (08:40)
[2018-03-08 16:30] VITALS: BP 110/62
[2018-03-08] MEDS: PARoxetine HCL 20 MG TABLET PO SCH (20:56)
[2018-03-08] MEDS ORDERED: ZOLPIDEM TARTRATE 10 MG TABLET PO SCH (21:00)
[2018-03-08] MEDS ORDERED: ZOLPIDEM TARTRATE 10 MG TABLET PO PRN (21:15)
[2018-03-08] MEDS: LORazepam 2 MG TABLET PO PRN (21:31)
[2018-03-09 05:40] VITALS: BP 112/69
[2018-03-09 08:17] VITALS: BP 100/70
[2018-03-09] MEDS: BENZONATATE 100 MG CAPSULE PO SCH ×2 (08:48→16:56)
[2018-03-09] MEDS: LevETIRAcetam 500 MG TABLET PO SCH ×2 (08:48→16:55)
[2018-03-09] MEDS: LITHIUM CARBONATE 600 MG CAPSULE PO SCH ×2 (08:48→16:55)
[2018-03-09] MEDS: ARIPiprazole 15 MG TABLET PO SCH (08:48)
[2018-03-09] MEDS: CYPROHEPTADINE HCL 4 MG TABLET PO SCH ×4 (08:48→20:54)
[2018-03-09] MEDS: OMEGA-3/DHA/EPA/FISH OIL 1,000 MG CAPSULE PO SCH (08:48)
[2018-03-09] MEDS: BuPROPion HCL XL 150 MG ER TABLET PO SCH (08:48)
[2018-03-09] MEDS: LORazepam 2 MG TABLET PO PRN ×2 (08:49→16:56)
[2018-03-09 17:31] VITALS: BP 109/63
[2018-03-09] MEDS: PARoxetine HCL 20 MG TABLET PO SCH (20:54)
[2018-03-10 06:16] VITALS: BP 104/68
[2018-03-10 08:18] VITALS: BP 110/58
[2018-03-10] MEDS: CYPROHEPTADINE HCL 4 MG TABLET PO SCH ×4 (08:30→21:00)
[2018-03-10] MEDS: LITHIUM CARBONATE 600 MG CAPSULE PO SCH ×2 (08:30→16:47)
[2018-03-10] MEDS: ARIPiprazole 15 MG TABLET PO SCH (08:30)
[2018-03-10] MEDS: BuPROPion HCL XL 150 MG ER TABLET PO SCH (08:30)
[2018-03-10] MEDS: BENZONATATE 100 MG CAPSULE PO SCH ×2 (08:30→16:49)
[2018-03-10] MEDS: OMEGA-3/DHA/EPA/FISH OIL 1,000 MG CAPSULE PO SCH (08:31)
[2018-03-10] MEDS: LevETIRAcetam 500 MG TABLET PO SCH ×2 (08:31→16:48)
[2018-03-10] MEDS: LORazepam 2 MG TABLET PO PRN (09:45)
[2018-03-10 17:03] VITALS: BP 112/63
[2018-03-10] MEDS: PARoxetine HCL 20 MG TABLET PO SCH (20:59)
[2018-03-11 06:45] VITALS: BP 109/65
[2018-03-11 08:00] VITALS: BP 109/65
[2018-03-11] MEDS ORDERED: LITH600 PO (08:17)
[2018-03-11] MEDS ORDERED: PARO20TA24 PO (08:19)
[2018-03-11] MEDS ORDERED: BENZ-51 PO (08:19)
[2018-03-11] MEDS ORDERED: OMEG-135 PO (08:21)
[2018-03-11] MEDS: LITHIUM CARBONATE 600 MG CAPSULE PO SCH (09:03)
[2018-03-11] MEDS: CYPROHEPTADINE HCL 4 MG TABLET PO SCH ×2 (09:03→12:42)
[2018-03-11] MEDS: ARIPiprazole 15 MG TABLET PO SCH (09:03)
[2018-03-11] MEDS: LevETIRAcetam 500 MG TABLET PO SCH (09:04)
[2018-03-11] MEDS: OMEGA-3/DHA/EPA/FISH OIL 1,000 MG CAPSULE PO SCH (09:04)
[2018-03-11] MEDS: BuPROPion HCL XL 150 MG ER TABLET PO SCH (09:04)
[2018-03-11] MEDS: BENZONATATE 100 MG CAPSULE PO SCH (09:07)
== END 2018-03-11 13:00 | disposition home or self-care (01) | DRG 750 ==
LOC: EMS 22:52 → B3A 02-26 05:24
PROVIDERS: ADMIT Psychiatry & Neurology Psychiatry; ATTEND Psychiatry & Neurology Psychiatry
DX: F25.1 Schizoaffective disorder, depressive type (principal); R45.851 Suicidal ideations; E87.1 Hypo-osmolality and hyponatremia; D64.9 Anemia, unspecified; D72.819 Decreased white blood cell count, unspecified; E03.9 Hypothyroidism, unspecified; E78.00 Pure hypercholesterolemia, unspecified; E78.5 Hyperlipidemia, unspecified; E87.6 Hypokalemia; F15.10 Other stimulant abuse, uncomplicated; F41.9 Anxiety disorder, unspecified; G40.909 Epilepsy, unspecified, not intractable, without status epilepticus; I10 Essential (primary) hypertension; J44.9 Chronic obstructive pulmonary disease, unspecified; F17.210 Nicotine dependence, cigarettes, uncomplicated; K21.9 Gastro-esophageal reflux disease without esophagitis; Z71.6 Tobacco abuse counseling; Z86.73 Personal history of transient ischemic attack (TIA), and cerebral infarction without residual deficits; Z91.19 Patient's noncompliance with other medical treatment and regimen; Z91.5 Personal history of self-harm; Z88.8 Allergy status to other drugs, medicaments and biological substances
CPT/HCPCS: 72040; 80074; 80307; 84443; 87081; 90686; G0480; J3535

== ENCOUNTER 2018-03-30 22:59 | Inpatient (IN) | payer MEDICAID ==
[~2018-03-30] VITALS: Ht 175.3 cm; Wt 81.6 kg
[~2018-03-30 22:59] MED LIST changes: +BENZ-51 PO; -FLUO40CA7 PO; -LITH450CRT PO; +LITH600 PO; +OMEG-135 PO; +PARO20TA24 PO
[2018-03-30 23:28] LABS: EOSINOPHILS % (AUTO) 2.4 % (1.0-6.0); HEMATOCRIT 29.7 % (36-46); HEMOGLOBIN 10.2 g/dL (12.0-16.0); LYMPHOCYTES # (AUTO) 1.7 K/uL (1.0-4.8); LYMPHOCYTES % (AUTO) 24.9 % (22.0-44.0); MEAN CORPUSCULAR HEMOGLOBIN 30.4 pg (26.0-34.0); MEAN CORPUSCULAR HGB CONC 34.3 G/dL (31.0-37.0); MEAN CORPUSCULAR VOLUME 89 fL (80-100); MONOCYTES # (AUTO) 0.7 K/uL (0.1-1.0); MONOCYTES % (AUTO) 10.5 % (2.0-9.0); NEUTROPHILS # (AUTO) 4.2 K/uL (1.8-7.7); NEUTROPHILS % (AUTO) 61.2 % (40.0-70.0); PLATELET COUNT (AUTO) 228 K/uL (150-450); RED BLOOD CELL COUNT(AUTO) 3.36 MIL/uL (4.00-5.20); RED CELL DISTRIBUTION WIDTH 14.1 % (11.5-14.5)
[2018-03-30 23:36] LABS: ANION GAP 10 mmol/L (8-16); CALCIUM, TOTAL 8.8 mg/dL (8.8-10.5); CARBON DIOXIDE 27 mmol/L (22-29); CHLORIDE 104 mmol/L (98-107); CREATININE 0.85 mg/dL (0.60-1.30); GLOMERULAR FILTR. RATE CALC > 60 mL/min (>60); GLUCOSE,RANDOM 87 mg/dL (70-110); POTASSIUM 3.1 mmol/L (3.5-5.1); SODIUM SERUM 141 mmol/L (136-145); UREA NITROGEN, BLOOD 9 mg/dL (7-18)
[2018-03-30 23:48] LABS: ALANINE AMINOTRANSFERASE 29 U/L (12-78); ALKALINE PHOSPHATASE 65 U/L (46-116); ASPARTATE AMINOTRANSFERASE 32 U/L (15-37); BILIRUBIN,TOTAL 0.4 mg/dL (0.1-1.0); HCG,QUANTITATIVE < 1 mIU/mL (0-6); TOTAL PROTEIN, SERUM 6.2 g/dL (6.4-8.2)
[2018-03-30 23:53] LABS: LITHIUM < 0.20 mmol/L (0.60-1.20)
[2018-03-31] MEDS ORDERED: LORazepam 2 MG/ML VIAL IM ONE
[2018-03-31] MEDS ORDERED: DiphenhydrAMINE HCL 50 MG/ML VIAL IM ONE
[2018-03-31 00:19] LABS: AMPHET/METH SCREEN,URINE POSITIVE (NEGATIVE); BARBITURATE SCREEN, URINE NEGATIVE (NEGATIVE); BENZODIAZEPINES SCREEN,URINE NEGATIVE (NEGATIVE); CANNABINOID SCREEN,URINE NEGATIVE (NEGATIVE); COCAINE SCREEN,URINE NEGATIVE (NEGATIVE); METHADONE SCREEN, URINE NEGATIVE (NEGATIVE); OPIATE SCREEN,URINE NEGATIVE (NEGATIVE); PHENCYCLIDINE SCREEN,URINE NEGATIVE (NEGATIVE)
[2018-03-31] MEDS ORDERED: POTASSIUM CHLORIDE 20 MEQ ER TABLET PO ONE (01:00)
[2018-03-31] MEDS ORDERED: CloNIDine HCL 0.1 MG TABLET PO PRN (07:00)
[2018-03-31] MEDS ORDERED: DOCUSATE SODIUM 100 MG CAPSULE PO PRN (07:00)
[2018-03-31] MEDS ORDERED: LOPERAMIDE HCL 2 MG CAPSULE PO PRN (07:00)
[2018-03-31] MEDS ORDERED: NICOTINE 14 MG/24 HOUR PATCH TD PRN (07:00)
[2018-03-31] MEDS ORDERED: ALBUTEROL SULFATE HFA 90 MCG/PUFF 8 GM INHALER IH PRN (07:00)
[2018-03-31] MEDS ORDERED: ONDANSETRON HCL 4 MG TABLET PO PRN (07:00)
[2018-03-31] MEDS ORDERED: PETROLATUM,WHITE 71 GM JELLY TP PRN (07:00)
[2018-03-31] MEDS ORDERED: IBUPROFEN 400 MG TABLET PO PRN (07:00)
[2018-03-31] MEDS ORDERED: MAG HYDROX/AL HYDROX/SIMETH ES 30 ML SUSPENSION UDCUP PO PRN (07:00)
[2018-03-31] MEDS ORDERED: MAGNESIUM HYDROXIDE SUSPENSION 30 ML UDCUP PO PRN (07:00)
[2018-03-31 08:04] VITALS: BP 106/61
[2018-03-31 12:10] VITALS: BP 110/70
[2018-03-31] MEDS: LORazepam 2 MG TABLET PO PRN ×2 (12:12→16:22)
[2018-03-31 16:09] VITALS: BP 107/64
[2018-03-31] MEDS: LITHIUM CARBONATE 300 MG CAPSULE PO SCH (16:21)
[2018-03-31] MEDS: HALOPERIDOL 5 MG TABLET PO PRN (16:22)
[2018-03-31] MEDS ORDERED: LITHIUM CARBONATE 600 MG CAPSULE PO SCH (17:00)
[2018-03-31] MEDS ORDERED: LITHIUM CARBONATE 300 MG CAPSULE PO SCH (17:00)
[2018-04-01 00:35] VITALS: BP 111/66
[2018-04-01] MEDS: ZOLPIDEM TARTRATE 10 MG TABLET PO PRN (00:35)
[2018-04-01] MEDS: LORazepam 2 MG TABLET PO PRN ×3 (00:53→16:58)
[2018-04-01 02:28] VITALS: BP 109/66
[2018-04-01 08:06] VITALS: BP 109/57
[2018-04-01] MEDS: PARoxetine HCL 20 MG TABLET PO SCH (08:21)
[2018-04-01] MEDS: LITHIUM CARBONATE 300 MG CAPSULE PO SCH ×2 (08:30→16:58)
[2018-04-01] MEDS: BuPROPion HCL XL 150 MG ER TABLET PO SCH (08:30)
[2018-04-01] MEDS: ARIPiprazole 15 MG TABLET PO SCH (08:30)
[2018-04-01] MEDS: HALOPERIDOL 5 MG TABLET PO PRN ×2 (10:34→16:58)
[2018-04-01] MEDS: FERROUS SULFATE 325 MG EC TABLET PO SCH ×2 (13:05→16:58)
[2018-04-02 05:52] VITALS: BP 108/70
[2018-04-02] MEDS: LORazepam 2 MG TABLET PO PRN ×3 (06:29→16:46)
[2018-04-02] MEDS: FERROUS SULFATE 325 MG EC TABLET PO SCH ×3 (06:57→16:47)
[2018-04-02 07:50] LABS: BASOPHILS % (AUTO) 0.5 % (0.0-2.0); EOSINOPHILS % (AUTO) 2.2 % (1.0-6.0); HEMATOCRIT 35.2 % (36-46); HEMOGLOBIN 11.7 g/dL (12.0-16.0); LYMPHOCYTES # (AUTO) 1.4 K/uL (1.0-4.8); LYMPHOCYTES % (AUTO) 15.1 % (22.0-44.0); MEAN CORPUSCULAR HEMOGLOBIN 29.9 pg (26.0-34.0); MEAN CORPUSCULAR HGB CONC 33.2 G/dL (31.0-37.0); MEAN CORPUSCULAR VOLUME 90 fL (80-100); MONOCYTES # (AUTO) 0.9 K/uL (0.1-1.0); MONOCYTES % (AUTO) 9.3 % (2.0-9.0); NEUTROPHILS # (AUTO) 6.8 K/uL (1.8-7.7); NEUTROPHILS % (AUTO) 72.9 % (40.0-70.0); PLATELET COUNT (AUTO) 328 K/uL (150-450); RED BLOOD CELL COUNT(AUTO) 3.92 MIL/uL (4.00-5.20); RED CELL DISTRIBUTION WIDTH 14.4 % (11.5-14.5)
[2018-04-02] MEDS: LITHIUM CARBONATE 300 MG CAPSULE PO SCH ×2 (08:03→16:47)
[2018-04-02] MEDS: BuPROPion HCL XL 150 MG ER TABLET PO SCH (08:04)
[2018-04-02] MEDS: PARoxetine HCL 20 MG TABLET PO SCH (08:04)
[2018-04-02] MEDS: ARIPiprazole 15 MG TABLET PO SCH (08:04)
[2018-04-02 08:33] LABS: ALANINE AMINOTRANSFERASE 24 U/L (12-78); ALBUMIN 3.2 g/dL (3.4-5.0); ALKALINE PHOSPHATASE 61 U/L (46-116); ANION GAP 7 mmol/L (8-16); ASPARTATE AMINOTRANSFERASE 18 U/L (15-37); BILIRUBIN,TOTAL 0.2 mg/dL (0.1-1.0); CALCIUM, TOTAL 9.4 mg/dL (8.8-10.5); CARBON DIOXIDE 27 mmol/L (22-29); CHLORIDE 104 mmol/L (98-107); CHOL/HDL RATIO 3.9 (3.9-5.7); CHOLESTEROL 170 mg/dL (131-200); CREATININE 0.97 mg/dL (0.60-1.30); GLOMERULAR FILTR. RATE CALC > 60 mL/min (>60); GLUCOSE,RANDOM 77 mg/dL (70-110); HDL CHOLESTEROL 44 mg/dL (40-60); LDL CHOL (CALC.) 103 mg/dL (0-130); POTASSIUM 4.2 mmol/L (3.5-5.1); SODIUM SERUM 138 mmol/L (136-145); THYROID STIMULATING HORMONE 0.87 uIU/mL (0.36-3.74); TOTAL PROTEIN, SERUM 6.6 g/dL (6.4-8.2); TRIGLYCERIDES 116 mg/dL (15-150); UREA NITROGEN, BLOOD 15 mg/dL (7-18)
[2018-04-02 08:35] LABS: HEMOGLOBIN A1C 5.5 % (4.5-6.2)
[2018-04-02] MEDS: HALOPERIDOL 5 MG TABLET PO PRN (10:48)
[2018-04-02 16:01] VITALS: BP 118/72
[2018-04-03 01:52] VITALS: BP 117/69
[2018-04-03 05:15] VITALS: BP 119/69
[2018-04-03] MEDS: LORazepam 2 MG TABLET PO PRN ×2 (05:15→09:48)
[2018-04-03] MEDS: ACETAMINOPHEN 325 MG TABLET PO PRN (05:22)
[2018-04-03] MEDS: GuaiFENesin/D-METHORPHAN [SUGAR-FREE] 200-20MG/10 ML SYRUP UDCUP PO PRN ×2 (05:22→16:54)
[2018-04-03] MEDS: FERROUS SULFATE 325 MG EC TABLET PO SCH ×3 (06:49→16:21)
[2018-04-03 08:00] VITALS: BP 98/70
[2018-04-03] MEDS: LITHIUM CARBONATE 300 MG CAPSULE PO SCH ×2 (08:18→16:21)
[2018-04-03] MEDS: BuPROPion HCL XL 150 MG ER TABLET PO SCH (08:18)
[2018-04-03] MEDS: ARIPiprazole 15 MG TABLET PO SCH (08:18)
[2018-04-03] MEDS: PARoxetine HCL 20 MG TABLET PO SCH (08:19)
[2018-04-03 16:01] VITALS: BP 112/63
[2018-04-04] MEDS: GuaiFENesin/D-METHORPHAN [SUGAR-FREE] 200-20MG/10 ML SYRUP UDCUP PO PRN ×2 (05:14→15:07)
[2018-04-04] MEDS: LORazepam 2 MG TABLET PO PRN ×3 (05:14→16:00)
[2018-04-04 05:17] VITALS: BP 120/80
[2018-04-04] MEDS: FERROUS SULFATE 325 MG EC TABLET PO SCH ×3 (06:37→16:00)
[2018-04-04 08:11] VITALS: BP 126/74
[2018-04-04] MEDS: BuPROPion HCL XL 150 MG ER TABLET PO SCH (08:17)
[2018-04-04] MEDS: PARoxetine HCL 20 MG TABLET PO SCH (08:17)
[2018-04-04] MEDS: LITHIUM CARBONATE 300 MG CAPSULE PO SCH ×2 (08:17→16:00)
[2018-04-04] MEDS: ARIPiprazole 15 MG TABLET PO SCH (08:17)
[2018-04-04 16:01] VITALS: BP 133/85
[2018-04-04] MEDS: ZOLPIDEM TARTRATE 10 MG TABLET PO PRN (20:07)
[2018-04-05] MEDS: LORazepam 2 MG TABLET PO PRN ×3 (02:55→16:00)
[2018-04-05 03:38] VITALS: BP 119/85
[2018-04-05] MEDS: GuaiFENesin/D-METHORPHAN [SUGAR-FREE] 200-20MG/10 ML SYRUP UDCUP PO PRN (06:17)
[2018-04-05] MEDS: FERROUS SULFATE 325 MG EC TABLET PO SCH ×3 (06:45→16:30)
[2018-04-05 08:07] VITALS: BP 115/64
[2018-04-05] MEDS: ARIPiprazole 15 MG TABLET PO SCH (09:05)
[2018-04-05] MEDS: LITHIUM CARBONATE 300 MG CAPSULE PO SCH ×2 (09:06→16:30)
[2018-04-05] MEDS: PARoxetine HCL 20 MG TABLET PO SCH (09:07)
[2018-04-05] MEDS: BuPROPion HCL XL 150 MG ER TABLET PO SCH (09:08)
[2018-04-05 16:00] VITALS: BP 119/73
[2018-04-05] MEDS: HALOPERIDOL 5 MG TABLET PO PRN (16:00)
[2018-04-06 04:43] VITALS: BP 121/90
[2018-04-06] MEDS: LORazepam 2 MG TABLET PO PRN ×2 (04:45→09:40)
[2018-04-06] MEDS: ACETAMINOPHEN 325 MG TABLET PO PRN (04:46)
[2018-04-06] MEDS: GuaiFENesin/D-METHORPHAN [SUGAR-FREE] 200-20MG/10 ML SYRUP UDCUP PO PRN (04:46)
[2018-04-06] MEDS: FERROUS SULFATE 325 MG EC TABLET PO SCH ×2 (06:44→12:52)
[2018-04-06 08:02] VITALS: BP 100/59
[2018-04-06 09:00] VITALS: BP 124/72
[2018-04-06] MEDS: BuPROPion HCL XL 150 MG ER TABLET PO SCH (09:06)
[2018-04-06] MEDS: LITHIUM CARBONATE 300 MG CAPSULE PO SCH (09:06)
[2018-04-06] MEDS: PARoxetine HCL 20 MG TABLET PO SCH (09:06)
[2018-04-06] MEDS: ARIPiprazole 15 MG TABLET PO SCH (09:07)
[2018-04-06] MEDS ORDERED: LITH300C3 PO (13:30)
[2018-04-06] MEDS ORDERED: FERR-89 PO (13:49)
[2018-04-06] MEDS ORDERED: LEVE500T53 PO (13:49)
== END 2018-04-06 14:15 | disposition home or self-care (01) | DRG 750 ==
LOC: EMS 23:01 → B3A 03-31 00:30
PROVIDERS: ADMIT Psychiatry & Neurology Psychiatry; ATTEND Psychiatry & Neurology Psychiatry
DX: F25.1 Schizoaffective disorder, depressive type (principal); G40.909 Epilepsy, unspecified, not intractable, without status epilepticus; R45.851 Suicidal ideations; D64.9 Anemia, unspecified; F41.9 Anxiety disorder, unspecified; I10 Essential (primary) hypertension; J44.9 Chronic obstructive pulmonary disease, unspecified; K21.9 Gastro-esophageal reflux disease without esophagitis; E03.9 Hypothyroidism, unspecified; R74.0 Nonspecific elevation of levels of transaminase and lactic acid dehydrogenase [LDH]; E78.00 Pure hypercholesterolemia, unspecified; E78.5 Hyperlipidemia, unspecified; E87.6 Hypokalemia; F15.90 Other stimulant use, unspecified, uncomplicated; F17.210 Nicotine dependence, cigarettes, uncomplicated; Z71.6 Tobacco abuse counseling; Z79.899 Other long term (current) drug therapy; Z79.890 Hormone replacement therapy; Z86.73 Personal history of transient ischemic attack (TIA), and cerebral infarction without residual deficits; Z91.19 Patient's noncompliance with other medical treatment and regimen; Z91.5 Personal history of self-harm; Z88.8 Allergy status to other drugs, medicaments and biological substances; Z90.49 Acquired absence of other specified parts of digestive tract; Z71.41 Alcohol abuse counseling and surveillance of alcoholic; Z71.51 Drug abuse counseling and surveillance of drug abuser
CPT/HCPCS: 83036; 84443; 87081; 96372; G0480; J1200; J2060

== ENCOUNTER 2018-04-11 01:13 | Inpatient (IN) | payer MEDICAID ==
[~2018-04-11] VITALS: Ht 177.8 cm; Wt 86.7 kg
[~2018-04-11 01:13] MED LIST changes: -BENZ-51 PO; +FERR-89 PO; +LITH300C3 PO; -LITH600 PO; -OMEG-135 PO
[2018-04-11 02:43] LABS: BASOPHILS % (AUTO) 0.6 % (0.0-2.0); EOSINOPHILS % (AUTO) 2.3 % (1.0-6.0); HEMATOCRIT 39.2 % (36-46); HEMOGLOBIN 12.9 g/dL (12.0-16.0); LYMPHOCYTES # (AUTO) 2.2 K/uL (1.0-4.8); MEAN CORPUSCULAR HEMOGLOBIN 29.5 pg (26.0-34.0); MEAN CORPUSCULAR VOLUME 89 fL (80-100); MONOCYTES # (AUTO) 0.7 K/uL (0.1-1.0); MONOCYTES % (AUTO) 7.7 % (2.0-9.0); NEUTROPHILS # (AUTO) 6.3 K/uL (1.8-7.7); NEUTROPHILS % (AUTO) 66.4 % (40.0-70.0); PLATELET COUNT (AUTO) 486 K/uL (150-450); RED BLOOD CELL COUNT(AUTO) 4.39 MIL/uL (4.00-5.20)
[2018-04-11 02:50] LABS: AMPHET/METH SCREEN,URINE POSITIVE (NEGATIVE); BARBITURATE SCREEN, URINE NEGATIVE (NEGATIVE); BENZODIAZEPINES SCREEN,URINE NEGATIVE (NEGATIVE); CANNABINOID SCREEN,URINE NEGATIVE (NEGATIVE); COCAINE SCREEN,URINE NEGATIVE (NEGATIVE); METHADONE SCREEN, URINE NEGATIVE (NEGATIVE); OPIATE SCREEN,URINE NEGATIVE (NEGATIVE)
[2018-04-11 02:52] LABS: PHENCYCLIDINE SCREEN,URINE NEGATIVE (NEGATIVE)
[2018-04-11] MEDS ORDERED: DiphenhydrAMINE HCL 50 MG/ML VIAL IM ONE (03:00)
[2018-04-11] MEDS ORDERED: LORazepam 2 MG/ML VIAL IM ONE (03:00)
[2018-04-11 03:05] LABS: LITHIUM < 0.20 mmol/L (0.60-1.20)
[2018-04-11 03:08] LABS: ALANINE AMINOTRANSFERASE 22 U/L (12-78); ALBUMIN 3.7 g/dL (3.4-5.0); ALKALINE PHOSPHATASE 85 U/L (46-116); ANION GAP 7 mmol/L (8-16); ASPARTATE AMINOTRANSFERASE 21 U/L (15-37); BILIRUBIN,TOTAL 0.6 mg/dL (0.1-1.0); CARBON DIOXIDE 28 mmol/L (22-29); CHLORIDE 104 mmol/L (98-107); CREATININE 0.96 mg/dL (0.60-1.30); GLOMERULAR FILTR. RATE CALC > 60 mL/min (>60); GLUCOSE,RANDOM 90 mg/dL (70-110); HCG,QUANTITATIVE < 1 mIU/mL (0-6); SODIUM SERUM 139 mmol/L (136-145); TOTAL PROTEIN, SERUM 7.6 g/dL (6.4-8.2); UREA NITROGEN, BLOOD 14 mg/dL (7-18)
[2018-04-11 03:09] LABS: POTASSIUM 2.8 mmol/L (3.5-5.1)
[2018-04-11] MEDS ORDERED: POTASSIUM CHLORIDE 20 MEQ ER TABLET PO ONE (03:15)
[2018-04-11 16:25] VITALS: BP 133/89
[2018-04-11] MEDS ORDERED: ACETAMINOPHEN 325 MG TABLET PO PRN (17:30)
[2018-04-11] MEDS ORDERED: ALBUTEROL SULFATE HFA 90 MCG/PUFF 8 GM INHALER IH PRN (17:30)
[2018-04-11] MEDS ORDERED: ONDANSETRON HCL 4 MG TABLET PO PRN (17:30)
[2018-04-11] MEDS ORDERED: MAGNESIUM HYDROXIDE SUSPENSION 30 ML UDCUP PO PRN (17:30)
[2018-04-11] MEDS ORDERED: LOPERAMIDE HCL 2 MG CAPSULE PO PRN (17:30)
[2018-04-11] MEDS ORDERED: PETROLATUM,WHITE 71 GM JELLY TP PRN (17:30)
[2018-04-11] MEDS ORDERED: MAG HYDROX/AL HYDROX/SIMETH ES 30 ML SUSPENSION UDCUP PO PRN (17:30)
[2018-04-11] MEDS ORDERED: IBUPROFEN 400 MG TABLET PO PRN (17:30)
[2018-04-11] MEDS ORDERED: CloNIDine HCL 0.1 MG TABLET PO PRN (17:30)
[2018-04-11] MEDS: LORazepam 2 MG TABLET PO PRN (17:32)
[2018-04-11] MEDS: LevETIRAcetam 500 MG TABLET PO SCH (18:52)
[2018-04-12 05:12] VITALS: BP 127/77
[2018-04-12] MEDS: LORazepam 2 MG TABLET PO PRN ×3 (07:19→17:47)
[2018-04-12 08:14] LABS: CHOL/HDL RATIO 4.1 (3.9-5.7); POTASSIUM 4.1 mmol/L (3.5-5.1)
[2018-04-12 08:19] VITALS: BP 95/63
[2018-04-12] MEDS: LevETIRAcetam 500 MG TABLET PO SCH ×2 (09:04→16:41)
[2018-04-12] MEDS: BuPROPion HCL XL 150 MG ER TABLET PO SCH (13:06)
[2018-04-12] MEDS: HALOPERIDOL 5 MG TABLET PO PRN ×2 (13:07→17:47)
[2018-04-12] MEDS: GuaiFENesin/D-METHORPHAN [SUGAR-FREE] 200-20MG/10 ML SYRUP UDCUP PO PRN (15:38)
[2018-04-12 16:15] VITALS: BP 130/82
[2018-04-12 16:41] VITALS: BP 130/82
[2018-04-12] MEDS: LITHIUM CARBONATE 300 MG CAPSULE PO SCH (16:42)
[2018-04-12] MEDS: ARIPiprazole 15 MG TABLET PO SCH (20:39)
[2018-04-12] MEDS ORDERED: PARoxetine HCL 20 MG TABLET PO SCH (21:00)
[2018-04-13 06:08] VITALS: BP 128/79
[2018-04-13 06:09] VITALS: BP 125/75
[2018-04-13] MEDS: LORazepam 2 MG TABLET PO PRN ×3 (07:02→16:47)
[2018-04-13 08:35] VITALS: BP 109/72
[2018-04-13] MEDS: BuPROPion HCL XL 150 MG ER TABLET PO SCH (09:22)
[2018-04-13] MEDS: LevETIRAcetam 500 MG TABLET PO SCH ×2 (09:22→16:38)
[2018-04-13] MEDS: LITHIUM CARBONATE 300 MG CAPSULE PO SCH ×2 (09:22→16:38)
[2018-04-13] MEDS: HALOPERIDOL 5 MG TABLET PO PRN (11:04)
[2018-04-13] MEDS: GuaiFENesin/D-METHORPHAN [SUGAR-FREE] 200-20MG/10 ML SYRUP UDCUP PO PRN (11:05)
[2018-04-13 16:31] VITALS: BP 102/90
[2018-04-13] MEDS: ARIPiprazole 15 MG TABLET PO SCH (21:28)
[2018-04-13] MEDS: PARoxetine HCL 20 MG TABLET PO SCH (21:28)
[2018-04-13] MEDS: ZOLPIDEM TARTRATE 10 MG TABLET PO PRN (21:50)
[2018-04-14] MEDS: LORazepam 2 MG TABLET PO PRN ×3 (05:54→16:21)
[2018-04-14 06:34] VITALS: BP 115/70
[2018-04-14 08:36] VITALS: BP 115/70
[2018-04-14] MEDS: LevETIRAcetam 500 MG TABLET PO SCH ×2 (08:50→17:04)
[2018-04-14] MEDS: BuPROPion HCL XL 150 MG ER TABLET PO SCH (08:50)
[2018-04-14] MEDS: LITHIUM CARBONATE 300 MG CAPSULE PO SCH ×2 (08:51→17:04)
[2018-04-14] MEDS: HALOPERIDOL 5 MG TABLET PO PRN ×2 (09:57→16:21)
[2018-04-14 16:23] VITALS: BP 100/78
[2018-04-14] MEDS: PARoxetine HCL 20 MG TABLET PO SCH (20:56)
[2018-04-14] MEDS: ARIPiprazole 15 MG TABLET PO SCH (20:56)
[2018-04-14] MEDS: ZOLPIDEM TARTRATE 10 MG TABLET PO PRN (21:18)
[2018-04-15 06:50] VITALS: BP 110/72
[2018-04-15] MEDS: LORazepam 2 MG TABLET PO PRN ×3 (06:51→16:55)
[2018-04-15] MEDS: LITHIUM CARBONATE 300 MG CAPSULE PO SCH ×3 (09:00→16:54)
[2018-04-15] MEDS: LevETIRAcetam 500 MG TABLET PO SCH ×3 (09:00→16:55)
[2018-04-15] MEDS: BuPROPion HCL XL 150 MG ER TABLET PO SCH ×2 (09:00→12:32)
[2018-04-15 14:23] VITALS: BP 122/78
[2018-04-15 16:33] VITALS: BP 106/61
[2018-04-15] MEDS: HALOPERIDOL 5 MG TABLET PO PRN (16:55)
[2018-04-15] MEDS: ZOLPIDEM TARTRATE 10 MG TABLET PO PRN (20:42)
[2018-04-15] MEDS: PARoxetine HCL 20 MG TABLET PO SCH (20:42)
[2018-04-15] MEDS: ARIPiprazole 15 MG TABLET PO SCH (20:42)
[2018-04-16 06:34] VITALS: BP 111/69
[2018-04-16 08:25] VITALS: BP 106/63
[2018-04-16] MEDS: LITHIUM CARBONATE 300 MG CAPSULE PO SCH ×2 (09:08→16:24)
[2018-04-16] MEDS: LevETIRAcetam 500 MG TABLET PO SCH ×2 (09:08→16:23)
[2018-04-16] MEDS: HALOPERIDOL 5 MG TABLET PO PRN (09:09)
[2018-04-16] MEDS: NICOTINE 14 MG/24 HOUR PATCH TD PRN (09:09)
[2018-04-16] MEDS: BuPROPion HCL XL 150 MG ER TABLET PO SCH (09:09)
[2018-04-16] MEDS: LORazepam 2 MG TABLET PO PRN ×2 (09:09→16:26)
[2018-04-16 16:11] VITALS: BP 116/72
[2018-04-16] MEDS: PARoxetine HCL 20 MG TABLET PO SCH (20:38)
[2018-04-16] MEDS: ARIPiprazole 15 MG TABLET PO SCH (20:39)
[2018-04-17 02:16] VITALS: BP 134/84
[2018-04-17 08:22] VITALS: BP 102/60
[2018-04-17] MEDS: LORazepam 2 MG TABLET PO PRN ×2 (08:39→17:55)
[2018-04-17] MEDS: HALOPERIDOL 5 MG TABLET PO PRN ×2 (08:39→17:56)
[2018-04-17] MEDS: NICOTINE 14 MG/24 HOUR PATCH TD PRN (08:39)
[2018-04-17] MEDS: LevETIRAcetam 500 MG TABLET PO SCH ×2 (08:41→17:56)
[2018-04-17] MEDS: BuPROPion HCL XL 150 MG ER TABLET PO SCH (08:41)
[2018-04-17] MEDS: LITHIUM CARBONATE 300 MG CAPSULE PO SCH ×2 (08:41→17:55)
[2018-04-17 16:35] VITALS: BP 113/70
[2018-04-17] MEDS: PARoxetine HCL 20 MG TABLET PO SCH (20:12)
[2018-04-17] MEDS: ARIPiprazole 15 MG TABLET PO SCH (20:12)
[2018-04-18 06:13] VITALS: BP 128/60
[2018-04-18] MEDS: LORazepam 2 MG TABLET PO PRN (06:47)
[2018-04-18] MEDS: HALOPERIDOL 5 MG TABLET PO PRN (06:47)
[2018-04-18 08:35] VITALS: BP 118/62
[2018-04-18] MEDS: BuPROPion HCL XL 150 MG ER TABLET PO SCH (08:39)
[2018-04-18] MEDS: LITHIUM CARBONATE 300 MG CAPSULE PO SCH ×2 (08:39→16:45)
[2018-04-18] MEDS: LevETIRAcetam 500 MG TABLET PO SCH ×2 (08:39→16:46)
[2018-04-18 16:10] VITALS: BP 110/58
[2018-04-18] MEDS: ZOLPIDEM TARTRATE 10 MG TABLET PO PRN (20:27)
[2018-04-18] MEDS: ARIPiprazole 15 MG TABLET PO SCH (20:27)
[2018-04-18] MEDS: PARoxetine HCL 20 MG TABLET PO SCH (20:27)
[2018-04-19 01:15] VITALS: BP 116/82
[2018-04-19] MEDS: LORazepam 2 MG TABLET PO PRN ×2 (05:59→15:15)
[2018-04-19 08:23] VITALS: BP 117/75
[2018-04-19] MEDS: LITHIUM CARBONATE 300 MG CAPSULE PO SCH ×2 (09:13→16:14)
[2018-04-19] MEDS: LevETIRAcetam 500 MG TABLET PO SCH ×2 (09:13→16:13)
[2018-04-19] MEDS: BuPROPion HCL XL 150 MG ER TABLET PO SCH (09:13)
[2018-04-19] MEDS: NICOTINE 14 MG/24 HOUR PATCH TD PRN (13:57)
[2018-04-19] MEDS: HALOPERIDOL 5 MG TABLET PO PRN (15:15)
[2018-04-19 16:34] VITALS: BP 116/75
[2018-04-19] MEDS: PARoxetine HCL 20 MG TABLET PO SCH (20:53)
[2018-04-19] MEDS: ARIPiprazole 15 MG TABLET PO SCH (20:53)
[2018-04-19] MEDS: ZOLPIDEM TARTRATE 10 MG TABLET PO PRN (21:37)
[2018-04-20] MEDS: LORazepam 2 MG TABLET PO PRN ×3 (06:32→16:57)
[2018-04-20] MEDS: HALOPERIDOL 5 MG TABLET PO PRN ×2 (06:32→16:57)
[2018-04-20 06:45] VITALS: BP 118/62
[2018-04-20 08:24] VITALS: BP 108/61
[2018-04-20] MEDS: LevETIRAcetam 500 MG TABLET PO SCH ×2 (08:45→16:56)
[2018-04-20] MEDS: LITHIUM CARBONATE 300 MG CAPSULE PO SCH ×2 (08:45→16:56)
[2018-04-20] MEDS: BuPROPion HCL XL 150 MG ER TABLET PO SCH (08:47)
[2018-04-20] MEDS: DOCUSATE SODIUM 100 MG CAPSULE PO PRN (10:18)
[2018-04-20 16:44] VITALS: BP 120/64
[2018-04-20] MEDS: ARIPiprazole 15 MG TABLET PO SCH (20:58)
[2018-04-20] MEDS: PARoxetine HCL 20 MG TABLET PO SCH (20:58)
[2018-04-20] MEDS: ZOLPIDEM TARTRATE 10 MG TABLET PO PRN (20:58)
[2018-04-21 00:11] VITALS: BP 104/60
[2018-04-21] MEDS: LORazepam 2 MG TABLET PO PRN ×3 (06:23→17:33)
[2018-04-21 08:20] VITALS: BP 100/59
[2018-04-21] MEDS: LITHIUM CARBONATE 300 MG CAPSULE PO SCH ×2 (08:49→16:41)
[2018-04-21] MEDS: BuPROPion HCL XL 150 MG ER TABLET PO SCH (08:49)
[2018-04-21] MEDS: LevETIRAcetam 500 MG TABLET PO SCH ×2 (08:49→16:41)
[2018-04-21] MEDS: NICOTINE 14 MG/24 HOUR PATCH TD PRN (09:50)
[2018-04-21] MEDS: HALOPERIDOL 5 MG TABLET PO PRN (16:41)
[2018-04-21 16:46] VITALS: BP 119/64
[2018-04-21] MEDS: PARoxetine HCL 20 MG TABLET PO SCH (20:12)
[2018-04-21] MEDS: ZOLPIDEM TARTRATE 10 MG TABLET PO PRN (20:13)
[2018-04-21] MEDS: ARIPiprazole 15 MG TABLET PO SCH (20:13)
[2018-04-22 06:37] VITALS: BP 116/70
[2018-04-22 08:12] VITALS: BP 102/53
[2018-04-22] MEDS: BuPROPion HCL XL 150 MG ER TABLET PO SCH (09:09)
[2018-04-22] MEDS: LevETIRAcetam 500 MG TABLET PO SCH ×2 (09:09→16:13)
[2018-04-22] MEDS: LORazepam 2 MG TABLET PO PRN ×2 (09:09→16:12)
[2018-04-22] MEDS: LITHIUM CARBONATE 300 MG CAPSULE PO SCH ×2 (09:09→16:13)
[2018-04-22 16:11] VITALS: BP 107/77
[2018-04-22] MEDS: PARoxetine HCL 20 MG TABLET PO SCH (16:12)
[2018-04-22] MEDS: ARIPiprazole 15 MG TABLET PO SCH (16:12)
[2018-04-23 06:17] VITALS: BP 106/67
[2018-04-23 08:31] VITALS: BP 102/58
[2018-04-23] MEDS: LevETIRAcetam 500 MG TABLET PO SCH ×2 (08:40→18:09)
[2018-04-23] MEDS: LORazepam 2 MG TABLET PO PRN ×2 (08:40→13:35)
[2018-04-23] MEDS: BuPROPion HCL XL 150 MG ER TABLET PO SCH (08:40)
[2018-04-23] MEDS: LITHIUM CARBONATE 300 MG CAPSULE PO SCH ×2 (08:41→18:08)
[2018-04-23 16:23] VITALS: BP 113/62
[2018-04-23] MEDS: ARIPiprazole 15 MG TABLET PO SCH (20:52)
[2018-04-23] MEDS: PARoxetine HCL 20 MG TABLET PO SCH (20:52)
[2018-04-23] MEDS: ZOLPIDEM TARTRATE 10 MG TABLET PO PRN (20:53)
[2018-04-24 06:26] VITALS: BP 123/76
[2018-04-24 08:09] VITALS: BP 123/72
[2018-04-24] MEDS: LITHIUM CARBONATE 300 MG CAPSULE PO SCH ×2 (08:43→17:05)
[2018-04-24] MEDS: BuPROPion HCL XL 150 MG ER TABLET PO SCH (08:43)
[2018-04-24] MEDS: LevETIRAcetam 500 MG TABLET PO SCH ×2 (08:44→17:04)
[2018-04-24] MEDS: NICOTINE 14 MG/24 HOUR PATCH TD PRN (09:16)
[2018-04-24] MEDS: LORazepam 2 MG TABLET PO PRN ×2 (09:16→16:08)
[2018-04-24] MEDS: HALOPERIDOL 5 MG TABLET PO PRN ×2 (09:16→16:08)
[2018-04-24 16:51] VITALS: BP 112/71
[2018-04-24] MEDS: ARIPiprazole 15 MG TABLET PO SCH (20:17)
[2018-04-24] MEDS: PARoxetine HCL 20 MG TABLET PO SCH (20:17)
[2018-04-24] MEDS: ZOLPIDEM TARTRATE 10 MG TABLET PO PRN (21:04)
[2018-04-25 06:25] VITALS: BP 109/67
[2018-04-25] MEDS: BuPROPion HCL XL 150 MG ER TABLET PO SCH (08:05)
[2018-04-25] MEDS: LevETIRAcetam 500 MG TABLET PO SCH ×2 (08:05→16:43)
[2018-04-25] MEDS: LITHIUM CARBONATE 300 MG CAPSULE PO SCH ×2 (08:06→16:43)
[2018-04-25 08:30] VITALS: BP 122/70
[2018-04-25] MEDS: LORazepam 2 MG TABLET PO PRN ×2 (08:31→14:33)
[2018-04-25 08:36] VITALS: BP 105/61
[2018-04-25 16:09] VITALS: BP 105/66
[2018-04-25] MEDS: ARIPiprazole 15 MG TABLET PO SCH (20:23)
[2018-04-25] MEDS: PARoxetine HCL 20 MG TABLET PO SCH (20:23)
[2018-04-25] MEDS: ZOLPIDEM TARTRATE 10 MG TABLET PO PRN (21:10)
[2018-04-26 07:10] VITALS: BP 119/70
[2018-04-26] MEDS: LORazepam 2 MG TABLET PO PRN ×2 (07:19→14:53)
[2018-04-26 08:18] VITALS: BP 107/60
[2018-04-26] MEDS: HALOPERIDOL 5 MG TABLET PO PRN ×2 (09:31→14:53)
[2018-04-26] MEDS: LITHIUM CARBONATE 300 MG CAPSULE PO SCH ×2 (09:31→16:36)
[2018-04-26] MEDS: BuPROPion HCL XL 150 MG ER TABLET PO SCH (09:31)
[2018-04-26] MEDS: LevETIRAcetam 500 MG TABLET PO SCH ×2 (09:32→16:36)
[2018-04-26 16:12] VITALS: BP 111/61
[2018-04-26] MEDS: DOCUSATE SODIUM 100 MG CAPSULE PO PRN (16:36)
[2018-04-26] MEDS: PARoxetine HCL 20 MG TABLET PO SCH (20:19)
[2018-04-26] MEDS: ARIPiprazole 15 MG TABLET PO SCH (20:19)
[2018-04-26] MEDS: ZOLPIDEM TARTRATE 10 MG TABLET PO PRN (21:10)
[2018-04-27 04:08] VITALS: BP 128/76
[2018-04-27 08:09] VITALS: BP 98/60
[2018-04-27] MEDS: LITHIUM CARBONATE 300 MG CAPSULE PO SCH ×2 (08:14→16:08)
[2018-04-27] MEDS: BuPROPion HCL XL 150 MG ER TABLET PO SCH (08:15)
[2018-04-27] MEDS: LevETIRAcetam 500 MG TABLET PO SCH ×2 (08:15→16:08)
[2018-04-27] MEDS: HALOPERIDOL 5 MG TABLET PO PRN (08:15)
[2018-04-27 08:30] VITALS: BP 108/68
[2018-04-27] MEDS: LORazepam 2 MG TABLET PO PRN ×2 (08:32→14:57)
[2018-04-27] MEDS: NICOTINE 14 MG/24 HOUR PATCH TD PRN (09:23)
[2018-04-27 15:54] VITALS: BP 113/66
[2018-04-27 16:59] VITALS: BP 113/66
[2018-04-27] MEDS: ARIPiprazole 15 MG TABLET PO SCH (20:20)
[2018-04-27] MEDS: PARoxetine HCL 20 MG TABLET PO SCH (20:22)
[2018-04-27] MEDS: ZOLPIDEM TARTRATE 10 MG TABLET PO PRN (21:14)
[2018-04-28 05:39] VITALS: BP 107/86
[2018-04-28 08:00] VITALS: BP 114/76
[2018-04-28] MEDS: LITHIUM CARBONATE 300 MG CAPSULE PO SCH ×2 (08:42→16:56)
[2018-04-28] MEDS: LevETIRAcetam 500 MG TABLET PO SCH ×2 (08:42→16:56)
[2018-04-28] MEDS: BuPROPion HCL XL 150 MG ER TABLET PO SCH (08:42)
[2018-04-28] MEDS: LORazepam 2 MG TABLET PO PRN ×2 (08:43→16:00)
[2018-04-28] MEDS: NICOTINE 14 MG/24 HOUR PATCH TD PRN (09:30)
[2018-04-28] MEDS: DOCUSATE SODIUM 100 MG CAPSULE PO PRN (14:12)
[2018-04-28 16:00] VITALS: BP 112/68
[2018-04-28] MEDS: ARIPiprazole 15 MG TABLET PO SCH (20:40)
[2018-04-28] MEDS: PARoxetine HCL 20 MG TABLET PO SCH (20:40)
[2018-04-28] MEDS: ZOLPIDEM TARTRATE 10 MG TABLET PO PRN (21:34)
[2018-04-29] MEDS: LORazepam 2 MG TABLET PO PRN (05:54)
[2018-04-29 05:56] VITALS: BP 110/67
[2018-04-29 08:15] VITALS: BP 111/63
[2018-04-29] MEDS: BuPROPion HCL XL 150 MG ER TABLET PO SCH (08:20)
[2018-04-29] MEDS: NICOTINE 14 MG/24 HOUR PATCH TD PRN (08:21)
[2018-04-29] MEDS: LITHIUM CARBONATE 300 MG CAPSULE PO SCH (08:21)
[2018-04-29] MEDS: LevETIRAcetam 500 MG TABLET PO SCH (08:21)
== END 2018-04-29 10:00 | disposition home or self-care (01) | DRG 750 ==
LOC: EMS 01:14 → B3A 14:56 → UNDOADMIN 14:56 → B3A 04-12 08:49
PROVIDERS: ATTEND Psychiatry & Neurology Psychiatry
DX: F25.1 Schizoaffective disorder, depressive type (principal); G40.909 Epilepsy, unspecified, not intractable, without status epilepticus; D64.9 Anemia, unspecified; E78.00 Pure hypercholesterolemia, unspecified; E03.9 Hypothyroidism, unspecified; G47.00 Insomnia, unspecified; K21.9 Gastro-esophageal reflux disease without esophagitis; I10 Essential (primary) hypertension; F17.200 Nicotine dependence, unspecified, uncomplicated; E87.6 Hypokalemia; S00.31XA Abrasion of nose, initial encounter; S00.81XA Abrasion of other part of head, initial encounter; J44.9 Chronic obstructive pulmonary disease, unspecified; F41.9 Anxiety disorder, unspecified; F19.90 Other psychoactive substance use, unspecified, uncomplicated; E78.5 Hyperlipidemia, unspecified; Z91.14 Patient's other noncompliance with medication regimen; Z86.73 Personal history of transient ischemic attack (TIA), and cerebral infarction without residual deficits; Z59.0 Homelessness; X58.XXXA Exposure to other specified factors, initial encounter; Y93.89 Activity, other specified; Y92.89 Other specified places as the place of occurrence of the external cause; Y99.8 Other external cause status
CPT/HCPCS: 84132; 87081; G0480; Q0162

== ENCOUNTER 2018-05-24 17:15 | Emergency (ER) | payer MEDICAID, OTHER ==
[~2018-05-24] VITALS: Ht 180.3 cm; Wt 90.9 kg
[~2018-05-24 17:15] MED LIST changes: -FERR-89 PO
[2018-05-24 20:56] LABS: APPEARANCE,URINE CLOUDY (CLEAR); BILIRUBIN,URINE NEGATIVE (NEGATIVE); GLUCOSE, URINE (UA) NEGATIVE (NEGATIVE); KETONES,URINE NEGATIVE (NEGATIVE); LEUKOCYTE ESTERASE ,URINE LARGE (NEGATIVE); NITRATE,URINE NEGATIVE (NEGATIVE); OCCULT BLOOD,URINE MODERATE (NEGATIVE); PH,URINE 6.5 (5.0-8.0); PROTEIN,URINE SEE CONFIRM (NEGATIVE); UROBILINOGEN,URINE 0.2 mg/dL (<=1.0)
[2018-05-24 20:57] LABS: BASOPHILS % (AUTO) 0.3 % (0.0-2.0); EOSINOPHILS % (AUTO) 0.5 % (1.0-6.0); HEMATOCRIT 32.8 % (36-46); HEMOGLOBIN 10.7 g/dL (12.0-16.0); LYMPHOCYTES # (AUTO) 1.4 K/uL (1.0-4.8); LYMPHOCYTES % (AUTO) 10.6 % (22.0-44.0); MEAN CORPUSCULAR HGB CONC 32.6 G/dL (31.0-37.0); MEAN CORPUSCULAR VOLUME 89 fL (80-100); MONOCYTES # (AUTO) 1.8 K/uL (0.1-1.0); MONOCYTES % (AUTO) 13.8 % (2.0-9.0); NEUTROPHILS # (AUTO) 9.9 K/uL (1.8-7.7); NEUTROPHILS % (AUTO) 74.8 % (40.0-70.0); PLATELET COUNT (AUTO) 389 K/uL (150-450)
[2018-05-24 20:59] LABS: SULFOSALICYLIC ACID,URINE 2+ (Negative)
[2018-05-24 21:00] LABS: BACTERIA,URINE Many /HPF (None Seen); SQUAMOUS EPITHELIAL CELL,UR Many /LPF (None Seen); WBC,URINE 26-50 /HPF (0-5)
[2018-05-24 21:29] LABS: ALANINE AMINOTRANSFERASE 15 U/L (12-78); ALBUMIN 2.4 g/dL (3.4-5.0); ALKALINE PHOSPHATASE 79 U/L (46-116); ANION GAP 11 mmol/L (8-16); ASPARTATE AMINOTRANSFERASE 13 U/L (15-37); BILIRUBIN,TOTAL 0.2 mg/dL (0.1-1.0); CALCIUM, TOTAL 9.2 mg/dL (8.8-10.5); CARBON DIOXIDE 27 mmol/L (22-29); CHLORIDE 99 mmol/L (98-107); CREATININE 0.97 mg/dL (0.60-1.30); GLOMERULAR FILTR. RATE CALC > 60 mL/min (>60); GLUCOSE,RANDOM 85 mg/dL (70-110); SODIUM SERUM 137 mmol/L (136-145); TOTAL PROTEIN, SERUM 7.2 g/dL (6.4-8.2); UREA NITROGEN, BLOOD 6 mg/dL (7-18)
[2018-05-24 21:36] LABS: POTASSIUM 2.8 mmol/L (3.5-5.1)
[2018-05-24] MEDS ORDERED: CEPHALEXIN MONOHYDRATE 500 MG CAPSULE PO ONE (21:45)
[2018-05-24] MEDS ORDERED: POTASSIUM CHLORIDE 20 MEQ ER TABLET PO ONE (21:45)
[2018-05-24 22:34] VITALS: BP 121/70
== END 2018-05-24 22:39 | disposition home or self-care (01) ==
LOC: EMS 17:17
DX: N39.0 Urinary tract infection, site not specified (principal); E87.6 Hypokalemia; F31.9 Bipolar disorder, unspecified; E78.00 Pure hypercholesterolemia, unspecified; F20.9 Schizophrenia, unspecified; F17.210 Nicotine dependence, cigarettes, uncomplicated; Z90.49 Acquired absence of other specified parts of digestive tract; Z88.8 Allergy status to other drugs, medicaments and biological substances
CPT/HCPCS: 87086

== ENCOUNTER 2018-07-17 13:00 | Emergency (ER) | payer OTHER ==
[~2018-07-17] VITALS: Ht 175.3 cm; Wt 89.0 kg
[2018-07-17] MEDS ORDERED: MIRT15 PO (14:31)
[2018-07-17] MEDS ORDERED: DIVA125T32 PO (14:31)
[2018-07-17] MEDS ORDERED: CLON1 PO (14:31)
[2018-07-17] MEDS ORDERED: QUET100T PO (14:31)
[2018-07-17 15:14] LABS: EOSINOPHILS % (AUTO) 1.8 % (1.0-6.0); HEMATOCRIT 36.2 % (36-46); HEMOGLOBIN 11.9 g/dL (12.0-16.0); LYMPHOCYTES # (AUTO) 1.7 K/uL (1.0-4.8); LYMPHOCYTES % (AUTO) 22.5 % (22.0-44.0); MEAN CORPUSCULAR HEMOGLOBIN 28.9 pg (26.0-34.0); MEAN CORPUSCULAR HGB CONC 32.8 G/dL (31.0-37.0); MEAN CORPUSCULAR VOLUME 88 fL (80-100); MONOCYTES # (AUTO) 0.7 K/uL (0.1-1.0); MONOCYTES % (AUTO) 9.3 % (2.0-9.0); NEUTROPHILS # (AUTO) 4.9 K/uL (1.8-7.7); NEUTROPHILS % (AUTO) 65.4 % (40.0-70.0); PLATELET COUNT (AUTO) 494 K/uL (150-450); RED BLOOD CELL COUNT(AUTO) 4.11 MIL/uL (4.00-5.20); RED CELL DISTRIBUTION WIDTH 15.9 % (11.5-14.5)
[2018-07-17 15:30] LABS: ANION GAP 8 mmol/L (8-16); CALCIUM, TOTAL 8.9 mg/dL (8.8-10.5); CARBON DIOXIDE 29 mmol/L (22-29); CHLORIDE 106 mmol/L (98-107); CREATININE 0.98 mg/dL (0.60-1.30); GLOMERULAR FILTR. RATE CALC > 60 mL/min (>60); POTASSIUM 3.5 mmol/L (3.5-5.1); SODIUM SERUM 143 mmol/L (136-145); UREA NITROGEN, BLOOD 12 mg/dL (7-18)
[2018-07-17 15:36] LABS: ALANINE AMINOTRANSFERASE 46 U/L (12-78); ALKALINE PHOSPHATASE 88 U/L (46-116); ASPARTATE AMINOTRANSFERASE 66 U/L (15-37); BILIRUBIN,TOTAL 0.2 mg/dL (0.1-1.0)
[2018-07-17 15:38] LABS: SALICYLATE < 2.8 mg/dL (2.8-20.0)
[2018-07-17 15:53] LABS: GLUCOSE,RANDOM 105 mg/dL (70-110)
[2018-07-17 15:56] LABS: ACETAMINOPHEN < 2 mcg/mL (10-30); VALPROIC ACID < 3 mcg/mL (50-100)
[2018-07-17 16:00] VITALS: BP 133/73
== END 2018-07-17 16:30 | disposition home or self-care (01) ==
LOC: EMS 13:02
DX: F31.9 Bipolar disorder, unspecified (principal); J40 Bronchitis, not specified as acute or chronic; E78.00 Pure hypercholesterolemia, unspecified; F20.9 Schizophrenia, unspecified; F17.210 Nicotine dependence, cigarettes, uncomplicated; Z88.8 Allergy status to other drugs, medicaments and biological substances; Z79.899 Other long term (current) drug therapy
CPT/HCPCS: 36415; 71045; 80053; 80164; 85025; 99284; 99406; G0480 ×2; G0481

== ENCOUNTER 2018-07-18 12:48 | Inpatient (IN) | payer MEDICAID, OTHER ==
[~2018-07-18] VITALS: Ht 180.3 cm; Wt 84.1 kg
[~2018-07-18 12:48] MED LIST changes: -ARIP15TA2 PO; -BUPR-93 PO; +CLON1 PO; +DIVA125T32 PO; -LEVE500T53 PO; -LITH300C3 PO; +MIRT15 PO; +QUET100T PO
[2018-07-18] MEDS ORDERED: LORazepam 2 MG/ML VIAL ONE (12:52)
[2018-07-18] MEDS ORDERED: DiphenhydrAMINE HCL 50 MG/ML VIAL ONE (12:53)
[2018-07-18] MEDS ORDERED: HALOPERIDOL LACTATE 5 MG/ML VIAL ONE (12:53)
[2018-07-18] MEDS ORDERED: LORazepam 2 MG/ML VIAL IM ONE (13:00)
[2018-07-18] MEDS ORDERED: DiphenhydrAMINE HCL 50 MG/ML VIAL IM ONE (13:00)
[2018-07-18] MEDS ORDERED: HALOPERIDOL LACTATE 5 MG/ML VIAL IM ONE (13:00)
[2018-07-18 13:46] LABS: BASOPHILS % (AUTO) 1.1 % (0.0-2.0); EOSINOPHILS % (AUTO) 1.3 % (1.0-6.0); HEMATOCRIT 36.7 % (36-46); LYMPHOCYTES # (AUTO) 1.7 K/uL (1.0-4.8); LYMPHOCYTES % (AUTO) 29.7 % (22.0-44.0); MEAN CORPUSCULAR HEMOGLOBIN 29.2 pg (26.0-34.0); MEAN CORPUSCULAR HGB CONC 32.8 G/dL (31.0-37.0); MEAN CORPUSCULAR VOLUME 89 fL (80-100); MONOCYTES # (AUTO) 0.4 K/uL (0.1-1.0); MONOCYTES % (AUTO) 7.5 % (2.0-9.0); NEUTROPHILS # (AUTO) 3.5 K/uL (1.8-7.7); NEUTROPHILS % (AUTO) 60.4 % (40.0-70.0); PLATELET COUNT (AUTO) 514 K/uL (150-450); RED BLOOD CELL COUNT(AUTO) 4.13 MIL/uL (4.00-5.20); RED CELL DISTRIBUTION WIDTH 16.3 % (11.5-14.5)
[2018-07-18 14:00] LABS: ANION GAP 14 mmol/L (8-16); CALCIUM, TOTAL 8.8 mg/dL (8.8-10.5); CARBON DIOXIDE 25 mmol/L (22-29); CHLORIDE 105 mmol/L (98-107); CREATININE 1.11 mg/dL (0.60-1.30); GLOMERULAR FILTR. RATE CALC 53 mL/min (>60); GLUCOSE,RANDOM 103 mg/dL (70-110); POTASSIUM 3.5 mmol/L (3.5-5.1); SODIUM SERUM 144 mmol/L (136-145); UREA NITROGEN, BLOOD 11 mg/dL (7-18)
[2018-07-18 14:04] LABS: ALANINE AMINOTRANSFERASE 41 U/L (12-78); ALBUMIN 2.9 g/dL (3.4-5.0); ALKALINE PHOSPHATASE 85 U/L (46-116); ASPARTATE AMINOTRANSFERASE 52 U/L (15-37); BILIRUBIN,TOTAL 0.2 mg/dL (0.1-1.0)
[2018-07-18 14:07] LABS: VALPROIC ACID < 3 mcg/mL (50-100)
[2018-07-18] MEDS ORDERED: ZOLPIDEM TARTRATE 10 MG TABLET PO PRN (16:30)
[2018-07-19] MEDS ORDERED: PNEUMOCOCCAL VACCINE POLYVALENT 0.5 ML VIAL [PPSV23] IM ONE (02:45)
[2018-07-19] MEDS: LORazepam 2 MG TABLET PO PRN (10:28)
[2018-07-19] MEDS: HALOPERIDOL 5 MG TABLET PO PRN (10:28)
[2018-07-19] MEDS ORDERED: PETROLATUM,WHITE 28 GM JELLY TP PRN (10:45)
[2018-07-19] MEDS ORDERED: GuaiFENesin/D-METHORPHAN [SUGAR-FREE] 200-20MG/10 ML SYRUP UDCUP PO PRN (10:45)
[2018-07-19] MEDS ORDERED: LOPERAMIDE HCL 2 MG CAPSULE PO PRN (10:45)
[2018-07-19] MEDS ORDERED: ACETAMINOPHEN 325 MG TABLET PO PRN (10:45)
[2018-07-19] MEDS ORDERED: CloNIDine HCL 0.1 MG TABLET PO PRN (10:45)
[2018-07-19] MEDS ORDERED: MAG HYDROX/AL HYDROX/SIMETH ES 30 ML SUSPENSION UDCUP PO PRN (10:45)
[2018-07-19] MEDS ORDERED: MAGNESIUM HYDROXIDE SUSPENSION 30 ML UDCUP PO PRN (10:45)
[2018-07-19] MEDS ORDERED: DOCUSATE SODIUM 100 MG CAPSULE PO PRN (10:45)
[2018-07-19] MEDS ORDERED: ONDANSETRON HCL 4 MG TABLET PO PRN (10:45)
[2018-07-19] MEDS ORDERED: NICOTINE 14 MG/24 HOUR PATCH TD PRN (10:45)
[2018-07-19] MEDS ORDERED: ALBUTEROL SULFATE HFA 90 MCG/PUFF 8 GM INHALER IH PRN (10:45)
[2018-07-19 10:51] VITALS: BP 129/86
[2018-07-19] MEDS: IBUPROFEN 400 MG TABLET PO PRN (10:51)
[2018-07-19] MEDS: LITHIUM CARBONATE 300 MG CAPSULE PO SCH ×2 (17:13→20:55)
[2018-07-20] MEDS: BuPROPion HCL XL 150 MG ER TABLET PO SCH (07:39)
[2018-07-20] MEDS: PARoxetine HCL 20 MG TABLET PO SCH (07:39)
[2018-07-20 07:40] VITALS: BP 116/96
[2018-07-20] MEDS: DIVALPROEX SODIUM 125 MG DR TABLET PO SCH (07:40)
[2018-07-20] MEDS: ARIPiprazole 15 MG TABLET PO SCH (07:40)
[2018-07-20] MEDS: LORazepam 2 MG TABLET PO PRN ×2 (07:40→17:33)
[2018-07-20] MEDS: LITHIUM CARBONATE 300 MG CAPSULE PO SCH ×2 (07:40→17:33)
[2018-07-20] MEDS: HALOPERIDOL 5 MG TABLET PO PRN (07:40)
[2018-07-20] MEDS: IBUPROFEN 400 MG TABLET PO PRN (07:40)
[2018-07-20 10:08] VITALS: BP 116/96
[2018-07-21 08:15] VITALS: BP 125/66
[2018-07-21] MEDS: BuPROPion HCL XL 150 MG ER TABLET PO SCH (08:34)
[2018-07-21] MEDS: ARIPiprazole 15 MG TABLET PO SCH (08:34)
[2018-07-21] MEDS: LITHIUM CARBONATE 300 MG CAPSULE PO SCH ×2 (08:34→16:38)
[2018-07-21] MEDS: PARoxetine HCL 20 MG TABLET PO SCH (08:34)
[2018-07-21] MEDS: DIVALPROEX SODIUM 125 MG DR TABLET PO SCH (08:35)
[2018-07-21] MEDS: LORazepam 2 MG TABLET PO PRN ×2 (10:38→16:38)
[2018-07-21] MEDS: HALOPERIDOL 5 MG TABLET PO PRN (10:38)
[2018-07-21 17:17] VITALS: BP 127/84
[2018-07-22] MEDS: DIVALPROEX SODIUM 125 MG DR TABLET PO SCH (08:42)
[2018-07-22] MEDS: ARIPiprazole 15 MG TABLET PO SCH (08:42)
[2018-07-22] MEDS: PARoxetine HCL 20 MG TABLET PO SCH (08:42)
[2018-07-22] MEDS: LITHIUM CARBONATE 300 MG CAPSULE PO SCH ×2 (08:42→16:19)
[2018-07-22] MEDS: BuPROPion HCL XL 150 MG ER TABLET PO SCH (08:42)
[2018-07-22 08:45] VITALS: BP 118/77
[2018-07-22] MEDS: LORazepam 2 MG TABLET PO PRN ×2 (09:23→16:20)
[2018-07-22 17:45] VITALS: BP 122/78
[2018-07-23 06:26] LABS: BASOPHILS % (AUTO) 0.6 % (0.0-2.0); EOSINOPHILS % (AUTO) 2.2 % (1.0-6.0); HEMOGLOBIN 13.7 g/dL (12.0-16.0); LYMPHOCYTES # (AUTO) 1.8 K/uL (1.0-4.8); LYMPHOCYTES % (AUTO) 21.3 % (22.0-44.0); MEAN CORPUSCULAR HEMOGLOBIN 28.5 pg (26.0-34.0); MEAN CORPUSCULAR HGB CONC 32.5 G/dL (31.0-37.0); MEAN CORPUSCULAR VOLUME 88 fL (80-100); MONOCYTES # (AUTO) 0.6 K/uL (0.1-1.0); MONOCYTES % (AUTO) 7.3 % (2.0-9.0); NEUTROPHILS # (AUTO) 5.8 K/uL (1.8-7.7); NEUTROPHILS % (AUTO) 68.6 % (40.0-70.0); PLATELET COUNT (AUTO) 487 K/uL (150-450); RED CELL DISTRIBUTION WIDTH 15.9 % (11.5-14.5)
[2018-07-23 06:52] LABS: ALANINE AMINOTRANSFERASE 36 U/L (12-78); ALBUMIN 3.1 g/dL (3.4-5.0); ALKALINE PHOSPHATASE 82 U/L (46-116); ANION GAP 8 mmol/L (8-16); ASPARTATE AMINOTRANSFERASE 21 U/L (15-37); BILIRUBIN,TOTAL 0.3 mg/dL (0.1-1.0); CALCIUM, TOTAL 9.2 mg/dL (8.8-10.5); CARBON DIOXIDE 28 mmol/L (22-29); CHLORIDE 104 mmol/L (98-107); CREATININE 0.91 mg/dL (0.60-1.30); GLOMERULAR FILTR. RATE CALC > 60 mL/min (>60); GLUCOSE,RANDOM 91 mg/dL (70-110); POTASSIUM 3.9 mmol/L (3.5-5.1); SODIUM SERUM 140 mmol/L (136-145); THYROID STIMULATING HORMONE 3.75 uIU/mL (0.36-3.74); TOTAL PROTEIN, SERUM 7.2 g/dL (6.4-8.2)
[2018-07-23 06:57] LABS: UREA NITROGEN, BLOOD 15 mg/dL (7-18)
[2018-07-23 08:00] VITALS: BP 120/86
[2018-07-23] MEDS: ARIPiprazole 15 MG TABLET PO SCH (09:17)
[2018-07-23] MEDS: PARoxetine HCL 20 MG TABLET PO SCH (09:17)
[2018-07-23] MEDS: DIVALPROEX SODIUM 125 MG DR TABLET PO SCH (09:18)
[2018-07-23] MEDS: LITHIUM CARBONATE 300 MG CAPSULE PO SCH (09:18)
[2018-07-23] MEDS: BuPROPion HCL XL 150 MG ER TABLET PO SCH (09:18)
[2018-07-23] MEDS: LORazepam 2 MG TABLET PO PRN (09:18)
[2018-07-23] MEDS ORDERED: ARIP15TA2 PO (11:27)
[2018-07-23] MEDS ORDERED: BUPR-93 PO (11:27)
[2018-07-23] MEDS ORDERED: LITH300C3 PO (11:27)
== END 2018-07-23 12:40 | disposition home or self-care (01) | DRG 750 ==
LOC: EMS 12:48 → 3EC 17:03
PROVIDERS: ADMIT Psychiatry & Neurology Psychiatry; ATTEND Psychiatry & Neurology Psychiatry
PROC: 3E0234Z Introduction of Serum, Toxoid and Vaccine into Muscle, Percutaneous Approach (ICD-10-PCS; principal; 2018-07-19)
DX: F25.0 Schizoaffective disorder, bipolar type (principal); R45.851 Suicidal ideations; G40.909 Epilepsy, unspecified, not intractable, without status epilepticus; E78.00 Pure hypercholesterolemia, unspecified; Z23 Encounter for immunization; Z88.8 Allergy status to other drugs, medicaments and biological substances; Z90.49 Acquired absence of other specified parts of digestive tract; F17.210 Nicotine dependence, cigarettes, uncomplicated; F60.3 Borderline personality disorder; E78.5 Hyperlipidemia, unspecified; F15.90 Other stimulant use, unspecified, uncomplicated; F41.9 Anxiety disorder, unspecified; I10 Essential (primary) hypertension; J44.9 Chronic obstructive pulmonary disease, unspecified; Z91.19 Patient's noncompliance with other medical treatment and regimen; Z91.5 Personal history of self-harm; M54.5 Low back pain
CPT/HCPCS: 84443; 87081; 90732; 96372; 99291; G0480; J1200; J1630; J2060

== ENCOUNTER 2018-07-26 09:35 | Inpatient (IN) | payer MEDICAID, OTHER ==
[~2018-07-26] VITALS: Ht 180.3 cm; Wt 87.1 kg
[~2018-07-26 09:35] MED LIST changes: +ARIP15TA2 PO; +BUPR-93 PO; -CLON1 PO; +LITH300C3 PO; -MIRT15 PO; -QUET100T PO
[2018-07-26] MEDS ORDERED: QUET50TA15 PO (10:17)
[2018-07-26 10:24] LABS: EOSINOPHILS % (AUTO) 1.1 % (1.0-6.0); HEMATOCRIT 40.6 % (36-46); HEMOGLOBIN 13.1 g/dL (12.0-16.0); LYMPHOCYTES # (AUTO) 1.4 K/uL (1.0-4.8); LYMPHOCYTES % (AUTO) 19.4 % (22.0-44.0); MEAN CORPUSCULAR HEMOGLOBIN 28.7 pg (26.0-34.0); MEAN CORPUSCULAR HGB CONC 32.2 G/dL (31.0-37.0); MEAN CORPUSCULAR VOLUME 89 fL (80-100); MONOCYTES # (AUTO) 0.6 K/uL (0.1-1.0); MONOCYTES % (AUTO) 8.5 % (2.0-9.0); NEUTROPHILS # (AUTO) 5.1 K/uL (1.8-7.7); PLATELET COUNT (AUTO) 467 K/uL (150-450); RED BLOOD CELL COUNT(AUTO) 4.55 MIL/uL (4.00-5.20); RED CELL DISTRIBUTION WIDTH 15.9 % (11.5-14.5)
[2018-07-26 10:34] LABS: ANION GAP 10 mmol/L (8-16); CALCIUM, TOTAL 8.9 mg/dL (8.8-10.5); CARBON DIOXIDE 25 mmol/L (22-29); CHLORIDE 105 mmol/L (98-107); CREATININE 0.88 mg/dL (0.60-1.30); GLOMERULAR FILTR. RATE CALC > 60 mL/min (>60); GLUCOSE,RANDOM 105 mg/dL (70-110); POTASSIUM 3.4 mmol/L (3.5-5.1); SODIUM SERUM 140 mmol/L (136-145); UREA NITROGEN, BLOOD 11 mg/dL (7-18)
[2018-07-26 10:43] LABS: ALANINE AMINOTRANSFERASE 29 U/L (12-78); ALBUMIN 3.3 g/dL (3.4-5.0); ALKALINE PHOSPHATASE 90 U/L (46-116); ASPARTATE AMINOTRANSFERASE 17 U/L (15-37); BILIRUBIN,TOTAL 0.2 mg/dL (0.1-1.0); TOTAL PROTEIN, SERUM 7.4 g/dL (6.4-8.2)
[2018-07-26 10:45] LABS: ACETAMINOPHEN < 2 mcg/mL (10-30); VALPROIC ACID < 3 mcg/mL (50-100)
[2018-07-26 10:49] LABS: SALICYLATE 2.2 mg/dL (2.8-20.0)
[2018-07-26 11:03] LABS: AMPHET/METH SCREEN,URINE POSITIVE (NEGATIVE); BARBITURATE SCREEN, URINE NEGATIVE (NEGATIVE); BENZODIAZEPINES SCREEN,URINE NEGATIVE (NEGATIVE); CANNABINOID SCREEN,URINE NEGATIVE (NEGATIVE); COCAINE SCREEN,URINE NEGATIVE (NEGATIVE); METHADONE SCREEN, URINE NEGATIVE (NEGATIVE); OPIATE SCREEN,URINE NEGATIVE (NEGATIVE)
[2018-07-26 11:04] LABS: PHENCYCLIDINE SCREEN,URINE NEGATIVE (NEGATIVE)
[2018-07-26] MEDS ORDERED: HALOPERIDOL LACTATE 5 MG/ML VIAL IM ONE (11:15)
[2018-07-26] MEDS ORDERED: LORazepam 2 MG/ML VIAL IM ONE (11:15)
[2018-07-26] MEDS ORDERED: DiphenhydrAMINE HCL 50 MG/ML VIAL IM ONE (11:15)
[2018-07-26 11:23] LABS: LITHIUM < 0.20 mmol/L (0.60-1.20)
[2018-07-26 19:31] VITALS: BP 116/71
[2018-07-26] MEDS ORDERED: POTASSIUM CHLORIDE 20 MEQ ER TABLET PO ONE (21:30)
[2018-07-26] MEDS ORDERED: LOPERAMIDE HCL 2 MG CAPSULE PO PRN (21:30)
[2018-07-26] MEDS ORDERED: ACETAMINOPHEN 325 MG TABLET PO PRN (21:30)
[2018-07-26] MEDS ORDERED: MAGNESIUM HYDROXIDE SUSPENSION 30 ML UDCUP PO PRN (21:30)
[2018-07-26] MEDS ORDERED: NICOTINE 14 MG/24 HOUR PATCH TD PRN (21:30)
[2018-07-26] MEDS ORDERED: ONDANSETRON HCL 4 MG TABLET PO PRN (21:30)
[2018-07-26] MEDS ORDERED: ALBUTEROL SULFATE HFA 90 MCG/PUFF 8 GM INHALER IH PRN (21:30)
[2018-07-26] MEDS ORDERED: IBUPROFEN 400 MG TABLET PO PRN (21:30)
[2018-07-26] MEDS ORDERED: GuaiFENesin/D-METHORPHAN [SUGAR-FREE] 200-20MG/10 ML SYRUP UDCUP PO PRN (21:30)
[2018-07-26] MEDS ORDERED: PETROLATUM,WHITE 28 GM JELLY TP PRN (21:30)
[2018-07-26] MEDS ORDERED: CloNIDine HCL 0.1 MG TABLET PO PRN (21:30)
[2018-07-26] MEDS ORDERED: DOCUSATE SODIUM 100 MG CAPSULE PO PRN (21:30)
[2018-07-26] MEDS ORDERED: MAG HYDROX/AL HYDROX/SIMETH ES 30 ML SUSPENSION UDCUP PO PRN (21:30)
[2018-07-26] MEDS ORDERED: -PHARMACY VACCINE NOTE- MISC ONE (21:45)
[2018-07-27 04:24] VITALS: BP 125/76
[2018-07-27 08:15] VITALS: BP 118/74
[2018-07-27] MEDS: DIVALPROEX SODIUM 125 MG DR TABLET PO SCH (08:57)
[2018-07-27] MEDS: LORazepam 2 MG TABLET PO PRN ×2 (09:02→16:42)
[2018-07-27 16:27] VITALS: BP 114/66
[2018-07-27] MEDS: HALOPERIDOL 5 MG TABLET PO PRN (16:42)
[2018-07-27] MEDS: LITHIUM CARBONATE 300 MG CAPSULE PO SCH (16:42)
[2018-07-27] MEDS: ZOLPIDEM TARTRATE 10 MG TABLET PO PRN (20:43)
[2018-07-27] MEDS: PARoxetine HCL 20 MG TABLET PO SCH (20:43)
[2018-07-28 00:10] VITALS: BP 122/70
[2018-07-28 08:26] VITALS: BP 114/56
[2018-07-28] MEDS: DIVALPROEX SODIUM 125 MG DR TABLET PO SCH (08:55)
[2018-07-28] MEDS: LORazepam 2 MG TABLET PO PRN ×2 (08:55→16:47)
[2018-07-28] MEDS: ARIPiprazole 15 MG TABLET PO SCH (08:55)
[2018-07-28] MEDS: LITHIUM CARBONATE 300 MG CAPSULE PO SCH ×2 (08:55→16:47)
[2018-07-28] MEDS: BuPROPion HCL XL 150 MG ER TABLET PO SCH (08:55)
[2018-07-28] MEDS ORDERED: ARIPiprazole LAUROXIL ER SUSPENSION 882 MG/3.2 ML SYRINGE IM SCH (15:00)
[2018-07-28] MEDS: HALOPERIDOL 5 MG TABLET PO PRN (16:47)
[2018-07-28 17:06] VITALS: BP 99/68
[2018-07-28] MEDS: ZOLPIDEM TARTRATE 10 MG TABLET PO PRN (20:40)
[2018-07-28] MEDS: PARoxetine HCL 20 MG TABLET PO SCH (20:40)
[2018-07-29 01:53] VITALS: BP 103/66
[2018-07-29 08:17] VITALS: BP 107/54
[2018-07-29] MEDS: DIVALPROEX SODIUM 125 MG DR TABLET PO SCH (08:47)
[2018-07-29] MEDS: ARIPiprazole 15 MG TABLET PO SCH (08:47)
[2018-07-29] MEDS: LORazepam 2 MG TABLET PO PRN ×2 (08:47→16:31)
[2018-07-29] MEDS: LITHIUM CARBONATE 300 MG CAPSULE PO SCH ×2 (08:47→18:40)
[2018-07-29] MEDS: BuPROPion HCL XL 150 MG ER TABLET PO SCH (08:47)
[2018-07-29 16:13] VITALS: BP 123/71
[2018-07-29] MEDS: PARoxetine HCL 20 MG TABLET PO SCH (20:38)
[2018-07-29] MEDS: ZOLPIDEM TARTRATE 10 MG TABLET PO PRN (21:22)
[2018-07-30 00:43] VITALS: BP 117/74
[2018-07-30 08:17] VITALS: BP 105/60
[2018-07-30] MEDS: LITHIUM CARBONATE 300 MG CAPSULE PO SCH ×2 (10:03→17:00)
[2018-07-30] MEDS: LORazepam 2 MG TABLET PO PRN ×2 (10:03→17:04)
[2018-07-30] MEDS: ARIPiprazole 15 MG TABLET PO SCH (10:04)
[2018-07-30] MEDS: DIVALPROEX SODIUM 125 MG DR TABLET PO SCH (10:04)
[2018-07-30] MEDS: BuPROPion HCL XL 150 MG ER TABLET PO SCH (10:05)
[2018-07-30 16:31] VITALS: BP 103/74
[2018-07-30] MEDS: PARoxetine HCL 20 MG TABLET PO SCH (20:54)
[2018-07-31 05:38] VITALS: BP 112/68
[2018-07-31] MEDS: LITHIUM CARBONATE 300 MG CAPSULE PO SCH ×2 (08:41→16:13)
[2018-07-31] MEDS: ARIPiprazole 15 MG TABLET PO SCH (08:41)
[2018-07-31] MEDS: DIVALPROEX SODIUM 125 MG DR TABLET PO SCH (08:41)
[2018-07-31] MEDS: BuPROPion HCL XL 150 MG ER TABLET PO SCH (08:41)
[2018-07-31] MEDS: LORazepam 2 MG TABLET PO PRN ×2 (08:42→14:34)
[2018-07-31 08:49] VITALS: BP 112/65
[2018-07-31 16:28] VITALS: BP 118/72
[2018-07-31] MEDS: PARoxetine HCL 20 MG TABLET PO SCH (20:30)
[2018-08-01 05:08] VITALS: BP 115/70
[2018-08-01 08:24] VITALS: BP 118/64
[2018-08-01] MEDS: LITHIUM CARBONATE 300 MG CAPSULE PO SCH ×2 (08:24→16:40)
[2018-08-01] MEDS: ARIPiprazole 15 MG TABLET PO SCH (08:24)
[2018-08-01] MEDS: DIVALPROEX SODIUM 125 MG DR TABLET PO SCH (08:24)
[2018-08-01] MEDS: BuPROPion HCL XL 150 MG ER TABLET PO SCH (08:24)
[2018-08-01] MEDS: LORazepam 2 MG TABLET PO PRN ×3 (08:25→20:39)
[2018-08-01] MEDS: HALOPERIDOL 5 MG TABLET PO PRN (16:40)
[2018-08-01 16:41] VITALS: BP 119/68
[2018-08-01] MEDS: ZOLPIDEM TARTRATE 10 MG TABLET PO PRN (20:39)
[2018-08-01] MEDS: PARoxetine HCL 20 MG TABLET PO SCH (20:39)
[2018-08-02 01:36] VITALS: BP 98/63
[2018-08-02 03:35] VITALS: BP 118/64
[2018-08-02 08:19] VITALS: BP 122/67
[2018-08-02] MEDS: LITHIUM CARBONATE 300 MG CAPSULE PO SCH ×2 (08:50→16:43)
[2018-08-02] MEDS: DIVALPROEX SODIUM 125 MG DR TABLET PO SCH (08:50)
[2018-08-02] MEDS: BuPROPion HCL XL 150 MG ER TABLET PO SCH (08:50)
[2018-08-02] MEDS: ARIPiprazole 15 MG TABLET PO SCH (08:50)
[2018-08-02] MEDS: LORazepam 2 MG TABLET PO PRN ×2 (10:28→16:43)
[2018-08-02 16:18] VITALS: BP 105/60
[2018-08-02] MEDS: HALOPERIDOL 5 MG TABLET PO PRN (16:43)
[2018-08-02] MEDS: PARoxetine HCL 20 MG TABLET PO SCH (20:41)
[2018-08-02] MEDS: ZOLPIDEM TARTRATE 10 MG TABLET PO PRN (20:41)
[2018-08-03 07:04] VITALS: BP 110/72
[2018-08-03] MEDS ORDERED: ARIP882S IM (07:51)
[2018-08-03] MEDS: LORazepam 2 MG TABLET PO PRN (08:28)
[2018-08-03] MEDS: BuPROPion HCL XL 150 MG ER TABLET PO SCH (08:29)
[2018-08-03] MEDS: LITHIUM CARBONATE 300 MG CAPSULE PO SCH (08:29)
[2018-08-03] MEDS: DIVALPROEX SODIUM 125 MG DR TABLET PO SCH (08:29)
[2018-08-03 09:03] VITALS: BP 104/55
[2018-08-27] MEDS ORDERED: ARIPiprazole LAUROXIL ER SUSPENSION 882 MG/3.2 ML SYRINGE IM SCH (09:00)
== END 2018-08-03 13:45 | disposition home or self-care (01) | DRG 750 ==
LOC: EMS 09:38 → B3A 17:02
PROVIDERS: ADMIT Psychiatry & Neurology Psychiatry; ATTEND Psychiatry & Neurology Psychiatry
DX: F25.1 Schizoaffective disorder, depressive type (principal); G40.909 Epilepsy, unspecified, not intractable, without status epilepticus; R45.851 Suicidal ideations; E03.9 Hypothyroidism, unspecified; E78.00 Pure hypercholesterolemia, unspecified; E78.5 Hyperlipidemia, unspecified; E87.6 Hypokalemia; F10.20 Alcohol dependence, uncomplicated; F60.3 Borderline personality disorder; F19.20 Other psychoactive substance dependence, uncomplicated; F17.200 Nicotine dependence, unspecified, uncomplicated; F41.9 Anxiety disorder, unspecified; J44.9 Chronic obstructive pulmonary disease, unspecified; Z91.19 Patient's noncompliance with other medical treatment and regimen; Z91.5 Personal history of self-harm; Z90.49 Acquired absence of other specified parts of digestive tract
CPT/HCPCS: 99291; G0480; G0481; J1200; J1630; J2060

== ENCOUNTER 2018-08-05 12:50 | Inpatient (IN) | payer MEDICAID, OTHER ==
[~2018-08-05] VITALS: Ht 180.3 cm; Wt 84.2 kg
[~2018-08-05 12:50] MED LIST changes: -ARIP15TA2 PO; +ARIP882S IM
[2018-08-05 13:24] LABS: BASOPHILS % (AUTO) 1.2 % (0.0-2.0); EOSINOPHILS % (AUTO) 1.8 % (1.0-6.0); HEMATOCRIT 39.5 % (36-46); HEMOGLOBIN 12.8 g/dL (12.0-16.0); LYMPHOCYTES # (AUTO) 1.7 K/uL (1.0-4.8); LYMPHOCYTES % (AUTO) 29.5 % (22.0-44.0); MEAN CORPUSCULAR HEMOGLOBIN 28.9 pg (26.0-34.0); MEAN CORPUSCULAR HGB CONC 32.4 G/dL (31.0-37.0); MEAN CORPUSCULAR VOLUME 89 fL (80-100); MONOCYTES # (AUTO) 0.5 K/uL (0.1-1.0); MONOCYTES % (AUTO) 8.5 % (2.0-9.0); NEUTROPHILS # (AUTO) 3.4 K/uL (1.8-7.7); PLATELET COUNT (AUTO) 312 K/uL (150-450); RED BLOOD CELL COUNT(AUTO) 4.43 MIL/uL (4.00-5.20); RED CELL DISTRIBUTION WIDTH 15.9 % (11.5-14.5)
[2018-08-05 13:34] LABS: ANION GAP 13 mmol/L (8-16); CALCIUM, TOTAL 8.6 mg/dL (8.8-10.5); CARBON DIOXIDE 22 mmol/L (22-29); CHLORIDE 107 mmol/L (98-107); CREATININE 0.99 mg/dL (0.60-1.30); GLOMERULAR FILTR. RATE CALC 60 mL/min (>60); GLUCOSE,RANDOM 84 mg/dL (70-110); SODIUM SERUM 142 mmol/L (136-145); UREA NITROGEN, BLOOD 10 mg/dL (7-18)
[2018-08-05 13:45] LABS: ALANINE AMINOTRANSFERASE 23 U/L (12-78); ALBUMIN 3.3 g/dL (3.4-5.0); ALKALINE PHOSPHATASE 82 U/L (46-116); ASPARTATE AMINOTRANSFERASE 18 U/L (15-37); BILIRUBIN,TOTAL 0.2 mg/dL (0.1-1.0); HCG,QUANTITATIVE < 1 mIU/mL (0-6); TOTAL PROTEIN, SERUM 7.3 g/dL (6.4-8.2)
[2018-08-05 13:46] LABS: ACETAMINOPHEN < 2 mcg/mL (10-30)
[2018-08-05 13:55] LABS: SALICYLATE 2.1 mg/dL (2.8-20.0)
[2018-08-05] MEDS ORDERED: POTASSIUM CHLORIDE 20 MEQ ER TABLET PO ONE (15:30)
[2018-08-05] MEDS ORDERED: SODIUM CHLORIDE 0.9% 1,000 ML IV ONE (15:30)
[2018-08-05] MEDS ORDERED: MORPHINE SULFATE 2 MG/ML SYRINGE IVP PRN (15:45)
[2018-08-05] MEDS ORDERED: ZOLPIDEM TARTRATE 5 MG TABLET PO PRN (15:45)
[2018-08-05] MEDS ORDERED: ONDANSETRON HCL 4 MG/2 ML VIAL IVP PRN (15:45)
[2018-08-05] MEDS ORDERED: MAGNESIUM HYDROXIDE SUSPENSION 30 ML UDCUP PO PRN (15:45)
[2018-08-05] MEDS ORDERED: BISACODYL 10 MG RECTAL RECTAL SUPPOSITORY PR PRN (15:45)
[2018-08-05] MEDS ORDERED: MAGNESIUM SULFATE 2 GM, MVI, ADULT NO.1 WITH VIT K 10 ML, THIAMINE HCL 100 MG, FOLIC AC... IV ONE ×5 (15:45)
[2018-08-05] MEDS ORDERED: HYDROCODONE/ACETAMINOPHEN 5-325 MG TABLET PO PRN (15:45)
[2018-08-05 15:49] LABS: VALPROIC ACID < 3 mcg/mL (50-100)
[2018-08-05 16:19] LABS: LITHIUM 0.22 mmol/L (0.60-1.20)
[2018-08-05] MEDS: HEPARIN SODIUM,PORCINE 5,000 UNITS/ML VIAL SQ SCH ×2 (16:29→23:58)
[2018-08-05 16:39] LABS: AMPHET/METH SCREEN,URINE POSITIVE (NEGATIVE); BARBITURATE SCREEN, URINE NEGATIVE (NEGATIVE); BENZODIAZEPINES SCREEN,URINE NEGATIVE (NEGATIVE); CANNABINOID SCREEN,URINE NEGATIVE (NEGATIVE); COCAINE SCREEN,URINE NEGATIVE (NEGATIVE); METHADONE SCREEN, URINE NEGATIVE (NEGATIVE); OPIATE SCREEN,URINE NEGATIVE (NEGATIVE); PHENCYCLIDINE SCREEN,URINE NEGATIVE (NEGATIVE)
[2018-08-05] MEDS ORDERED: BENZTROPINE MESYLATE 1 MG/ML 2 ML VIAL IVP ONE (17:45)
[2018-08-05] MEDS ORDERED: DiphenhydrAMINE HCL 50 MG/ML VIAL ONE (17:48)
[2018-08-05] MEDS ORDERED: LORazepam 2 MG/ML VIAL ONE (17:58)
[2018-08-05] MEDS ORDERED: DiphenhydrAMINE HCL 50 MG/ML VIAL IVP ONE (18:00)
[2018-08-05] MEDS ORDERED: LORazepam 2 MG/ML VIAL IVP ONE (18:30)
[2018-08-05] MEDS ORDERED: PROPOFOL 1000 MG/ISO-OSM 100 ML IV PRN (19:47)
[2018-08-05 19:49] LABS: GLUCOSE,POINT OF CARE 92 MG/DL (70-110)
[2018-08-05 19:59] LABS: ANION GAP 9 mmol/L (8-16); CARBON DIOXIDE 26 mmol/L (22-29); CHLORIDE 108 mmol/L (98-107); CREATININE 0.99 mg/dL (0.60-1.30); GLOMERULAR FILTR. RATE CALC 60 mL/min (>60); GLUCOSE,RANDOM 86 mg/dL (70-110); POTASSIUM 4.7 mmol/L (3.5-5.1); SODIUM SERUM 143 mmol/L (136-145); UREA NITROGEN, BLOOD 11 mg/dL (7-18)
[2018-08-05] MEDS ORDERED: SUCCINYLCHOLINE CHLORIDE 20 MG/ML 10 ML VIAL IVP ONE (20:00)
[2018-08-05] MEDS ORDERED: ETOMIDATE 2 MG/ML 10 ML VIAL IVP ONE (20:00)
[2018-08-05 20:05] LABS: ALANINE AMINOTRANSFERASE 21 U/L (12-78); ALBUMIN 2.8 g/dL (3.4-5.0); ALKALINE PHOSPHATASE 71 U/L (46-116); ASPARTATE AMINOTRANSFERASE 29 U/L (15-37); BILIRUBIN,TOTAL 0.3 mg/dL (0.1-1.0); CREATINE KINASE, TOTAL ONLY 75 U/L (26-192); TOTAL PROTEIN, SERUM 6.5 g/dL (6.4-8.2)
[2018-08-05 20:10] LABS: LITHIUM < 0.20 mmol/L (0.60-1.20)
[2018-08-05 20:21] LABS: VALPROIC ACID < 3 mcg/mL (50-100)
[2018-08-05 20:30] LABS: LACTATE DEHYDROGENASE 347 U/L (81-234)
[2018-08-05 20:34] LABS: ABG A-A DIFF O2 59.4 mmHg (10-20.0); ABG BASE EXCESS -2.2 mmol/L (-2.0-3.0); ABG CARBOXYHEMOGLOBIN 0.9 % (0.0-1.5); ABG HCO3 22.7 mmol/L (22.0-26.0); ABG METHEMOGLOBIN 0.1 % (0.0-1.5); ABG OXYGEN CONTENT 17.8 mL/dL (15.0-23.0); ABG OXYGEN SATURATION 98.9 % (95.0-98.0); ABG OXYHEMOGLOBIN 97.9 % (94.0-100.0); ABG PCO2 43 mmHg (35-45); ABG PH 7.352 (7.35-7.450); ABG TOTAL HEMOGLOBIN 12.7 G/dL (12.0-18.0); O2 DEVICE,BLOOD GAS VENTILATOR (ROOM AIR); PEEP,BG 5 cm H2O; PO2, ARTERIAL BG 176.1 mmHg (88.0-96.0); SITE, BLOOD GAS RT RADIAL; SOURCE, BLOOD GAS ARTERIAL; TEMPERATURE, FAHRENHEIT, BG 98.6 FAHREN (96.0-98.6); VT, ABG 500 ml
[2018-08-05] MEDS: DOCUSATE SODIUM 100 MG CAPSULE PO SCH (21:00)
[2018-08-05 22:00] VITALS: BP 130/84
[2018-08-06] VITALS: BP 102/67
[2018-08-06 04:00] VITALS: BP 99/66
[2018-08-06] MEDS ORDERED: -PHARMACY VACCINE NOTE- MISC ONE (04:30)
[2018-08-06] MEDS: PROPOFOL 1000 MG/ISO-OSM 100 ML IV PRN ×5 (04:48→23:00)
[2018-08-06 05:02] LABS: BASOPHILS % (AUTO) 0.7 % (0.0-2.0); HEMATOCRIT 35.4 % (36-46); HEMOGLOBIN 11.6 g/dL (12.0-16.0); LYMPHOCYTES # (AUTO) 1.9 K/uL (1.0-4.8); MEAN CORPUSCULAR HEMOGLOBIN 29.3 pg (26.0-34.0); MEAN CORPUSCULAR HGB CONC 32.7 G/dL (31.0-37.0); MEAN CORPUSCULAR VOLUME 90 fL (80-100); MONOCYTES # (AUTO) 0.9 K/uL (0.1-1.0); MONOCYTES % (AUTO) 10.5 % (2.0-9.0); NEUTROPHILS # (AUTO) 5.3 K/uL (1.8-7.7); NEUTROPHILS % (AUTO) 63.8 % (40.0-70.0); PLATELET COUNT (AUTO) 296 K/uL (150-450); RED BLOOD CELL COUNT(AUTO) 3.95 MIL/uL (4.00-5.20); RED CELL DISTRIBUTION WIDTH 16.5 % (11.5-14.5)
[2018-08-06 05:12] LABS: CALCIUM, TOTAL 8.4 mg/dL (8.8-10.5); CREATININE 1.02 mg/dL (0.60-1.30); POTASSIUM 3.4 mmol/L (3.5-5.1)
[2018-08-06 08:00] VITALS: BP 116/75
[2018-08-06] MEDS ORDERED: POTASSIUM CHLORIDE 10% 40 MEQ/30 ML LIQUID UDCUP NG PRN (08:00)
[2018-08-06] MEDS ORDERED: POTASSIUM CHLORIDE 20 MEQ ER TABLET PO PRN (08:00)
[2018-08-06] MEDS ORDERED: POTASSIUM CHL 10 MEQ/WATER 50 ML IV PRN (08:00)
[2018-08-06] MEDS: DOCUSATE SODIUM 100 MG CAPSULE PO SCH ×2 (08:22→20:44)
[2018-08-06] MEDS: HEPARIN SODIUM,PORCINE 5,000 UNITS/ML VIAL SQ SCH ×2 (08:22→15:27)
[2018-08-06] MEDS ORDERED: PANTOPRAZOLE SODIUM 40 MG DR TABLET PO SCH (09:00)
[2018-08-06] MEDS ORDERED: FAMOTIDINE 10 MG/ML 2 ML VIAL IVP SCH (09:00)
[2018-08-06] MEDS: FAMOTIDINE 10 MG/ML 2 ML VIAL IVP SCH (09:33)
[2018-08-06 12:00] VITALS: BP 92/57
[2018-08-06 16:00] VITALS: BP 107/67
[2018-08-06] MEDS ORDERED: MAGNESIUM SULFATE 2 GM, MVI, ADULT NO.1 WITH VIT K 10 ML, THIAMINE HCL 100 MG, FOLIC AC... IV ONE ×10 (17:00→18:30)
[2018-08-06 20:00] VITALS: BP 112/69
[2018-08-07] VITALS (8 sets, daily range): BP systolic 90–127; BP diastolic 56–95
[2018-08-07] MEDS: HEPARIN SODIUM,PORCINE 5,000 UNITS/ML VIAL SQ SCH ×4 (00:17→23:52)
[2018-08-07] MEDS: PROPOFOL 1000 MG/ISO-OSM 100 ML IV PRN ×2 (02:41→06:32)
[2018-08-07 04:56] LABS: BASOPHILS % (AUTO) 1.2 % (0.0-2.0); EOSINOPHILS % (AUTO) 3.5 % (1.0-6.0); HEMATOCRIT 34.9 % (36-46); HEMOGLOBIN 11.3 g/dL (12.0-16.0); LYMPHOCYTES # (AUTO) 1.3 K/uL (1.0-4.8); MEAN CORPUSCULAR HEMOGLOBIN 29.2 pg (26.0-34.0); MEAN CORPUSCULAR HGB CONC 32.3 G/dL (31.0-37.0); MEAN CORPUSCULAR VOLUME 90 fL (80-100); MONOCYTES # (AUTO) 0.8 K/uL (0.1-1.0); MONOCYTES % (AUTO) 10.5 % (2.0-9.0); NEUTROPHILS # (AUTO) 4.8 K/uL (1.8-7.7); NEUTROPHILS % (AUTO) 66.8 % (40.0-70.0); PLATELET COUNT (AUTO) 290 K/uL (150-450); RED BLOOD CELL COUNT(AUTO) 3.87 MIL/uL (4.00-5.20); RED CELL DISTRIBUTION WIDTH 16.7 % (11.5-14.5)
[2018-08-07 05:13] LABS: CALCIUM, TOTAL 8.2 mg/dL (8.8-10.5); CREATININE 1.18 mg/dL (0.60-1.30); POTASSIUM 3.6 mmol/L (3.5-5.1)
[2018-08-07] MEDS: DOCUSATE SODIUM 100 MG CAPSULE PO SCH ×2 (08:44→21:25)
[2018-08-07] MEDS: FAMOTIDINE 10 MG/ML 2 ML VIAL IVP SCH (08:44)
[2018-08-07] MEDS ORDERED: HALOPERIDOL LACTATE 5 MG/ML VIAL IVP ONE (10:30)
[2018-08-07] MEDS ORDERED: SODIUM CHLORIDE 0.45% 1,000 ML IV ONE (12:15)
[2018-08-07] MEDS: ACETAMINOPHEN 325 MG TABLET PO PRN (14:15)
[2018-08-07] MEDS: HALOPERIDOL LACTATE 5 MG/ML VIAL IVP PRN (16:34)
[2018-08-07] MEDS ORDERED: MAGNESIUM SULFATE 2 GM, MVI, ADULT NO.1 WITH VIT K 10 ML, THIAMINE HCL 100 MG, FOLIC AC... IV SCH ×5 (19:00)
[2018-08-08 05:44] VITALS: BP 115/74
[2018-08-08 08:03] VITALS: BP 101/57
[2018-08-08 08:04] LABS: EOSINOPHILS % (AUTO) 6.2 % (1.0-6.0); HEMATOCRIT 36.2 % (36-46); HEMOGLOBIN 11.9 g/dL (12.0-16.0); LYMPHOCYTES # (AUTO) 1.4 K/uL (1.0-4.8); MEAN CORPUSCULAR HEMOGLOBIN 29.1 pg (26.0-34.0); MEAN CORPUSCULAR HGB CONC 32.8 G/dL (31.0-37.0); MEAN CORPUSCULAR VOLUME 89 fL (80-100); MONOCYTES # (AUTO) 0.5 K/uL (0.1-1.0); MONOCYTES % (AUTO) 7.4 % (2.0-9.0); NEUTROPHILS # (AUTO) 4.1 K/uL (1.8-7.7); NEUTROPHILS % (AUTO) 63.4 % (40.0-70.0); PLATELET COUNT (AUTO) 299 K/uL (150-450); RED BLOOD CELL COUNT(AUTO) 4.07 MIL/uL (4.00-5.20); RED CELL DISTRIBUTION WIDTH 16.1 % (11.5-14.5)
[2018-08-08 08:21] LABS: CALCIUM, TOTAL 8.2 mg/dL (8.8-10.5); CREATININE 1.05 mg/dL (0.60-1.30); POTASSIUM 3.9 mmol/L (3.5-5.1)
[2018-08-08] MEDS: DOCUSATE SODIUM 100 MG CAPSULE PO SCH ×2 (09:12→21:05)
[2018-08-08] MEDS: HEPARIN SODIUM,PORCINE 5,000 UNITS/ML VIAL SQ SCH ×3 (09:12→23:49)
[2018-08-08] MEDS: FAMOTIDINE 10 MG/ML 2 ML VIAL IVP SCH (09:12)
[2018-08-08 12:07] VITALS: BP 111/56
[2018-08-08 16:00] VITALS: BP 102/47
[2018-08-08] MEDS: ACETAMINOPHEN 325 MG TABLET PO PRN (16:38)
[2018-08-08 20:01] VITALS: BP 102/59
[2018-08-08] MEDS ORDERED: PARoxetine HCL 20 MG TABLET PO SCH (21:00)
[2018-08-08] MEDS: LITHIUM CARBONATE 300 MG CAPSULE PO SCH (21:06)
[2018-08-08 23:53] VITALS: BP 127/53
[2018-08-09 04:57] VITALS: BP 116/72
[2018-08-09 07:36] VITALS: BP 115/69
[2018-08-09] MEDS: HEPARIN SODIUM,PORCINE 5,000 UNITS/ML VIAL SQ SCH ×2 (08:00→15:41)
[2018-08-09] MEDS: LITHIUM CARBONATE 300 MG CAPSULE PO SCH (08:06)
[2018-08-09] MEDS: FAMOTIDINE 10 MG/ML 2 ML VIAL IVP SCH (08:06)
[2018-08-09] MEDS: DOCUSATE SODIUM 100 MG CAPSULE PO SCH (08:06)
[2018-08-09] MEDS ORDERED: BuPROPion HCL XL 150 MG ER TABLET PO SCH (09:00)
[2018-08-09] MEDS: HALOPERIDOL LACTATE 5 MG/ML VIAL IVP PRN ×2 (09:34→14:44)
[2018-08-09 12:08] VITALS: BP 111/74
[2018-08-09] MEDS ORDERED: DSS100 PO (15:12)
[2018-08-09 16:07] VITALS: BP 118/70
== END 2018-08-09 18:28 | DRG 817 ==
LOC: EMS 12:54 → ICU 20:38 → 5N 08-07 19:48 → 5S 08-07 21:09
PROVIDERS: ADMIT Internal Medicine; ATTEND Internal Medicine
PROC: 5A1945Z Respiratory Ventilation, 24-96 Consecutive Hours (ICD-10-PCS; principal; 2018-08-05)
PROC: 0BH17EZ Insertion of Endotracheal Airway into Trachea, Via Natural or Artificial Opening (ICD-10-PCS; 2018-08-05)
DX: T43.592A Poisoning by other antipsychotics and neuroleptics, intentional self-harm, initial encounter (principal); J96.00 Acute respiratory failure, unspecified whether with hypoxia or hypercapnia; E43 Unspecified severe protein-calorie malnutrition; G92 Toxic encephalopathy; E87.6 Hypokalemia; E78.00 Pure hypercholesterolemia, unspecified; F15.10 Other stimulant abuse, uncomplicated; F17.210 Nicotine dependence, cigarettes, uncomplicated; F33.2 Major depressive disorder, recurrent severe without psychotic features; F41.9 Anxiety disorder, unspecified; F25.1 Schizoaffective disorder, depressive type; Z91.5 Personal history of self-harm; Y92.89 Other specified places as the place of occurrence of the external cause; Z68.25 Body mass index [BMI] 25.0-25.9, adult
CPT/HCPCS: 31500; 36600; 51701; 70450; 82805; 83615; 84132; 87070; 87081; 87205; 93005; 94002; 94003; 96365; 96375; 99291; G0378; G0480; G0481; J0515; J1200; J1630; J1644; J2060; J2704; J3411; J3475; J3490; J7030

== ENCOUNTER 2018-08-30 16:49 | Inpatient (IN) | payer MEDICAID, OTHER ==
[~2018-08-30] VITALS: Ht 177.8 cm; Wt 81.0 kg
[~2018-08-30 16:49] MED LIST changes: -ARIP882S IM; -DIVA125T32 PO
[2018-08-30 17:59] LABS: BASOPHILS % (AUTO) 1.1 % (0.0-2.0); EOSINOPHILS % (AUTO) 4.5 % (1.0-6.0); HEMATOCRIT 36.1 % (36-46); HEMOGLOBIN 11.8 g/dL (12.0-16.0); LYMPHOCYTES # (AUTO) 2.2 K/uL (1.0-4.8); LYMPHOCYTES % (AUTO) 43.8 % (22.0-44.0); MEAN CORPUSCULAR HEMOGLOBIN 29.7 pg (26.0-34.0); MEAN CORPUSCULAR HGB CONC 32.7 G/dL (31.0-37.0); MEAN CORPUSCULAR VOLUME 91 fL (80-100); MONOCYTES # (AUTO) 0.3 K/uL (0.1-1.0); NEUTROPHILS # (AUTO) 2.2 K/uL (1.8-7.7); NEUTROPHILS % (AUTO) 44.6 % (40.0-70.0); PLATELET COUNT (AUTO) 339 K/uL (150-450); RED BLOOD CELL COUNT(AUTO) 3.97 MIL/uL (4.00-5.20); RED CELL DISTRIBUTION WIDTH 16.1 % (11.5-14.5)
[2018-08-30 18:12] LABS: ANION GAP 9 mmol/L (8-16); CALCIUM, TOTAL 8.7 mg/dL (8.8-10.5); CARBON DIOXIDE 29 mmol/L (22-29); CHLORIDE 105 mmol/L (98-107); CREATININE 1.22 mg/dL (0.60-1.30); GLOMERULAR FILTR. RATE CALC 47 mL/min (>60); GLUCOSE,RANDOM 77 mg/dL (70-110); POTASSIUM 3.3 mmol/L (3.5-5.1); SODIUM SERUM 143 mmol/L (136-145); UREA NITROGEN, BLOOD 9 mg/dL (7-18)
[2018-08-30] MEDS ORDERED: LORazepam 2 MG/ML VIAL IM ONE (18:15)
[2018-08-30] MEDS ORDERED: DiphenhydrAMINE HCL 50 MG/ML VIAL IM ONE (18:15)
[2018-08-30] MEDS ORDERED: HALOPERIDOL LACTATE 5 MG/ML VIAL IM ONE (18:15)
[2018-08-30 18:17] LABS: ALANINE AMINOTRANSFERASE 43 U/L (12-78); ALBUMIN 3.1 g/dL (3.4-5.0); ALKALINE PHOSPHATASE 74 U/L (46-116); ASPARTATE AMINOTRANSFERASE 27 U/L (15-37); BILIRUBIN,TOTAL 0.1 mg/dL (0.1-1.0); TOTAL PROTEIN, SERUM 6.9 g/dL (6.4-8.2)
[2018-08-30 18:58] LABS: LITHIUM < 0.20 mmol/L (0.60-1.20)
[2018-08-30 20:56] VITALS: BP 130/94
[2018-08-30] MEDS ORDERED: ALBUTEROL SULFATE HFA 90 MCG/PUFF 8 GM INHALER IH PRN (21:15)
[2018-08-30] MEDS ORDERED: ONDANSETRON HCL 4 MG TABLET PO PRN (21:15)
[2018-08-30] MEDS ORDERED: LOPERAMIDE HCL 2 MG CAPSULE PO PRN (21:15)
[2018-08-30] MEDS ORDERED: MAG HYDROX/AL HYDROX/SIMETH ES 30 ML SUSPENSION UDCUP PO PRN (21:15)
[2018-08-30] MEDS ORDERED: CloNIDine HCL 0.1 MG TABLET PO PRN (21:15)
[2018-08-30] MEDS ORDERED: MAGNESIUM HYDROXIDE SUSPENSION 30 ML UDCUP PO PRN (21:15)
[2018-08-30] MEDS ORDERED: GuaiFENesin/D-METHORPHAN [SUGAR-FREE] 200-20MG/10 ML SYRUP UDCUP PO PRN (21:15)
[2018-08-30] MEDS ORDERED: DOCUSATE SODIUM 100 MG CAPSULE PO PRN (21:15)
[2018-08-30] MEDS ORDERED: PETROLATUM,WHITE 28 GM JELLY TP PRN (21:15)
[2018-08-30] MEDS ORDERED: -PHARMACY VACCINE NOTE- MISC ONE (23:00)
[2018-08-31] MEDS: HALOPERIDOL 5 MG TABLET PO PRN ×2 (09:59→16:43)
[2018-08-31] MEDS: LORazepam 2 MG TABLET PO PRN ×2 (09:59→16:43)
[2018-08-31] MEDS: NICOTINE 14 MG/24 HOUR PATCH TD PRN (10:00)
[2018-08-31] MEDS: LITHIUM CARBONATE 300 MG CAPSULE PO SCH (16:46)
[2018-08-31] MEDS: PARoxetine HCL 20 MG TABLET PO SCH (21:04)
[2018-09-01 06:00] VITALS: BP 108/72
[2018-09-01] MEDS: HALOPERIDOL 5 MG TABLET PO PRN ×2 (06:06→10:31)
[2018-09-01] MEDS: LORazepam 2 MG TABLET PO PRN ×5 (06:06→19:37)
[2018-09-01 08:00] VITALS: BP 132/91
[2018-09-01] MEDS: BuPROPion HCL XL 150 MG ER TABLET PO SCH (10:29)
[2018-09-01] MEDS: LITHIUM CARBONATE 300 MG CAPSULE PO SCH ×2 (10:29→16:15)
[2018-09-01 14:39] VITALS: BP 148/105
[2018-09-01 16:00] VITALS: BP 139/88
[2018-09-01] MEDS: ACETAMINOPHEN 325 MG TABLET PO PRN (16:00)
[2018-09-01] MEDS: PARoxetine HCL 20 MG TABLET PO SCH (20:01)
[2018-09-01] MEDS: IBUPROFEN 400 MG TABLET PO PRN (20:16)
[2018-09-01 20:17] VITALS: BP 131/62
[2018-09-01 23:00] VITALS: BP 121/74
[2018-09-02] MEDS: LORazepam 2 MG TABLET PO PRN ×2 (00:02→10:05)
[2018-09-02] MEDS: ZOLPIDEM TARTRATE 10 MG TABLET PO PRN ×2 (00:03→21:42)
[2018-09-02] MEDS: ACETAMINOPHEN 325 MG TABLET PO PRN (00:57)
[2018-09-02] MEDS ORDERED: LORazepam 2 MG TABLET PO PRN (07:00)
[2018-09-02] MEDS: HALOPERIDOL 5 MG TABLET PO PRN ×2 (07:56→12:51)
[2018-09-02] MEDS: BuPROPion HCL XL 150 MG ER TABLET PO SCH (07:56)
[2018-09-02] MEDS: PARoxetine HCL 20 MG TABLET PO SCH (07:56)
[2018-09-02] MEDS: LITHIUM CARBONATE 300 MG CAPSULE PO SCH ×2 (07:57→16:30)
[2018-09-02] MEDS: LORazepam 2 MG TABLET PO SCH ×4 (07:57→20:46)
[2018-09-02 08:01] VITALS: BP 106/70
[2018-09-02] MEDS: IBUPROFEN 400 MG TABLET PO PRN (10:05)
[2018-09-02 12:00] VITALS: BP 111/69
[2018-09-02 16:00] VITALS: BP 132/88
[2018-09-03 10:02] VITALS: BP 125/76
[2018-09-03] MEDS: BuPROPion HCL XL 150 MG ER TABLET PO SCH (11:19)
[2018-09-03] MEDS: LITHIUM CARBONATE 300 MG CAPSULE PO SCH ×2 (11:19→16:21)
[2018-09-03] MEDS: LORazepam 2 MG TABLET PO SCH ×4 (11:19→20:22)
[2018-09-03 16:50] VITALS: BP 126/80
[2018-09-03] MEDS: PARoxetine HCL 20 MG TABLET PO SCH (20:22)
[2018-09-04] MEDS ORDERED: LORazepam 1 MG TABLET PO PRN (07:00)
[2018-09-04] MEDS: LORazepam 1 MG TABLET PO SCH ×4 (10:25→21:28)
[2018-09-04] MEDS: BuPROPion HCL XL 150 MG ER TABLET PO SCH (10:26)
[2018-09-04] MEDS: LITHIUM CARBONATE 300 MG CAPSULE PO SCH ×2 (10:26→16:53)
[2018-09-04 12:36] VITALS: BP 113/67
[2018-09-04] MEDS: LORazepam 2 MG TABLET PO PRN ×2 (14:22→14:23)
[2018-09-04 16:00] VITALS: BP 113/69
[2018-09-04] MEDS: ZOLPIDEM TARTRATE 10 MG TABLET PO PRN (21:28)
[2018-09-04] MEDS: PARoxetine HCL 20 MG TABLET PO SCH (21:28)
[2018-09-05] MEDS ORDERED: LORazepam 1 MG TABLET PO PRN (07:00)
[2018-09-05] MEDS: BuPROPion HCL XL 150 MG ER TABLET PO SCH (09:09)
[2018-09-05] MEDS: LITHIUM CARBONATE 300 MG CAPSULE PO SCH (09:09)
[2018-09-05] MEDS: LORazepam 2 MG TABLET PO PRN (09:16)
[2018-09-05] MEDS: HALOPERIDOL 5 MG TABLET PO PRN (09:16)
[2018-09-05 09:32] VITALS: BP 117/70
[2018-09-05] MEDS: NICOTINE 14 MG/24 HOUR PATCH TD PRN (09:40)
== END 2018-09-05 13:35 | disposition home or self-care (01) | DRG 750 ==
LOC: EMS 16:51 → 3EC 19:57
PROVIDERS: ADMIT Psychiatry & Neurology Child & Adolescent Psychiatry; ATTEND Psychiatry & Neurology Psychiatry
DX: F25.9 Schizoaffective disorder, unspecified (principal); R45.851 Suicidal ideations; G40.909 Epilepsy, unspecified, not intractable, without status epilepticus; F31.9 Bipolar disorder, unspecified; E78.00 Pure hypercholesterolemia, unspecified; Z88.8 Allergy status to other drugs, medicaments and biological substances; F17.210 Nicotine dependence, cigarettes, uncomplicated; Z90.49 Acquired absence of other specified parts of digestive tract; M54.5 Low back pain; J44.9 Chronic obstructive pulmonary disease, unspecified; I10 Essential (primary) hypertension; E03.9 Hypothyroidism, unspecified; E55.9 Vitamin D deficiency, unspecified; E78.5 Hyperlipidemia, unspecified; E87.6 Hypokalemia; F10.10 Alcohol abuse, uncomplicated; Y90.6 Blood alcohol level of 120-199 mg/100 ml; F11.90 Opioid use, unspecified, uncomplicated; F12.90 Cannabis use, unspecified, uncomplicated
CPT/HCPCS: 87081; G0480; J1200; J1630; J2060

== ENCOUNTER 2018-09-08 05:57 | Inpatient (IN) | payer MEDICAID, OTHER ==
[~2018-09-08] VITALS: Ht 177.8 cm; Wt 82.2 kg
[2018-09-08 06:47] LABS: BASOPHILS % (AUTO) 1.2 % (0.0-2.0); EOSINOPHILS % (AUTO) 3.8 % (1.0-6.0); HEMATOCRIT 40.4 % (36-46); HEMOGLOBIN 13.4 g/dL (12.0-16.0); LYMPHOCYTES # (AUTO) 2.8 K/uL (1.0-4.8); LYMPHOCYTES % (AUTO) 33.4 % (22.0-44.0); MEAN CORPUSCULAR HEMOGLOBIN 29.9 pg (26.0-34.0); MEAN CORPUSCULAR VOLUME 91 fL (80-100); MONOCYTES # (AUTO) 0.8 K/uL (0.1-1.0); MONOCYTES % (AUTO) 9.3 % (2.0-9.0); NEUTROPHILS # (AUTO) 4.3 K/uL (1.8-7.7); NEUTROPHILS % (AUTO) 52.3 % (40.0-70.0); PLATELET COUNT (AUTO) 461 K/uL (150-450); RED BLOOD CELL COUNT(AUTO) 4.47 MIL/uL (4.00-5.20); RED CELL DISTRIBUTION WIDTH 15.7 % (11.5-14.5)
[2018-09-08 07:01] LABS: AMPHET/METH SCREEN,URINE POSITIVE (NEGATIVE); BARBITURATE SCREEN, URINE NEGATIVE (NEGATIVE); BENZODIAZEPINES SCREEN,URINE NEGATIVE (NEGATIVE); CANNABINOID SCREEN,URINE NEGATIVE (NEGATIVE); COCAINE SCREEN,URINE NEGATIVE (NEGATIVE); METHADONE SCREEN, URINE NEGATIVE (NEGATIVE); OPIATE SCREEN,URINE POSITIVE (NEGATIVE)
[2018-09-08 07:02] LABS: PHENCYCLIDINE SCREEN,URINE NEGATIVE (NEGATIVE)
[2018-09-08 07:07] LABS: LITHIUM 0.24 mmol/L (0.60-1.20)
[2018-09-08 07:11] LABS: ALANINE AMINOTRANSFERASE 52 U/L (12-78); ALBUMIN 3.8 g/dL (3.4-5.0); ALKALINE PHOSPHATASE 115 U/L (46-116); ANION GAP 11 mmol/L (8-16); ASPARTATE AMINOTRANSFERASE 32 U/L (15-37); BILIRUBIN,TOTAL 0.4 mg/dL (0.1-1.0); CALCIUM, TOTAL 9.4 mg/dL (8.8-10.5); CARBON DIOXIDE 28 mmol/L (22-29); CHLORIDE 101 mmol/L (98-107); CREATININE 0.97 mg/dL (0.60-1.30); GLOMERULAR FILTR. RATE CALC > 60 mL/min (>60); GLUCOSE,RANDOM 101 mg/dL (70-110); HCG,QUANTITATIVE < 1 mIU/mL (0-6); SODIUM SERUM 140 mmol/L (136-145); TOTAL PROTEIN, SERUM 8.2 g/dL (6.4-8.2); UREA NITROGEN, BLOOD 7 mg/dL (7-18)
[2018-09-08 07:12] LABS: POTASSIUM 2.9 mmol/L (3.5-5.1)
[2018-09-08 07:13] LABS: SALICYLATE 3.2 mg/dL (2.8-20.0)
[2018-09-08] MEDS ORDERED: POTASSIUM CHLORIDE 20 MEQ ER TABLET PO ONE (07:15)
[2018-09-08 07:32] LABS: ACETAMINOPHEN < 2 mcg/mL (10-30)
[2018-09-08] MEDS ORDERED: HALOPERIDOL 5 MG TABLET PO ONE (08:15)
[2018-09-08] MEDS ORDERED: LORazepam 1 MG TABLET PO ONE (09:15)
[2018-09-08] MEDS ORDERED: DiphenhydrAMINE HCL 25 MG CAPSULE PO ONE (09:15)
[2018-09-08] MEDS: LORazepam 2 MG TABLET PO PRN (16:22)
[2018-09-08] MEDS: HALOPERIDOL 5 MG TABLET PO PRN (16:22)
[2018-09-08] MEDS ORDERED: MAGNESIUM HYDROXIDE SUSPENSION 30 ML UDCUP PO PRN (19:30)
[2018-09-08] MEDS ORDERED: IBUPROFEN 400 MG TABLET PO PRN (19:30)
[2018-09-08] MEDS ORDERED: PETROLATUM,WHITE 28 GM JELLY TP PRN (19:30)
[2018-09-08] MEDS ORDERED: LOPERAMIDE HCL 2 MG CAPSULE PO PRN (19:30)
[2018-09-08] MEDS ORDERED: NICOTINE 14 MG/24 HOUR PATCH TD PRN (19:30)
[2018-09-08] MEDS ORDERED: ALBUTEROL SULFATE HFA 90 MCG/PUFF 8 GM INHALER IH PRN (19:30)
[2018-09-08] MEDS ORDERED: GuaiFENesin/D-METHORPHAN [SUGAR-FREE] 200-20MG/10 ML SYRUP UDCUP PO PRN (19:30)
[2018-09-08] MEDS ORDERED: DOCUSATE SODIUM 100 MG CAPSULE PO PRN (19:30)
[2018-09-08] MEDS ORDERED: ACETAMINOPHEN 325 MG TABLET PO PRN (19:30)
[2018-09-08] MEDS ORDERED: ONDANSETRON HCL 4 MG TABLET PO PRN (19:30)
[2018-09-08] MEDS ORDERED: MAG HYDROX/AL HYDROX/SIMETH ES 30 ML SUSPENSION UDCUP PO PRN (19:30)
[2018-09-08] MEDS ORDERED: CloNIDine HCL 0.1 MG TABLET PO PRN (19:30)
[2018-09-08 19:57] VITALS: BP 102/68
[2018-09-08] MEDS ORDERED: PNEUMOCOCCAL VACCINE POLYVALENT 0.5 ML VIAL [PPSV23] IM ONE (20:15)
[2018-09-08] MEDS: ZOLPIDEM TARTRATE 10 MG TABLET PO PRN (20:30)
[2018-09-09 08:08] VITALS: BP 130/74
[2018-09-09] MEDS ORDERED: ARIPiprazole LAUROXIL ER SUSPENSION 882 MG/3.2 ML SYRINGE IM ONE (10:30)
[2018-09-09] MEDS ORDERED: POTASSIUM CHLORIDE 20 MEQ ER TABLET PO ONE (11:15)
[2018-09-09] MEDS: HALOPERIDOL 5 MG TABLET PO PRN (11:55)
[2018-09-09] MEDS: LORazepam 2 MG TABLET PO PRN ×2 (11:55→16:54)
[2018-09-09 16:15] VITALS: BP 117/71
[2018-09-09] MEDS: LITHIUM CARBONATE 300 MG CAPSULE PO SCH (16:54)
[2018-09-09] MEDS: PARoxetine HCL 20 MG TABLET PO SCH (20:10)
[2018-09-09] MEDS: ZOLPIDEM TARTRATE 10 MG TABLET PO PRN (21:17)
[2018-09-10 06:44] VITALS: BP 120/76
[2018-09-10 08:19] VITALS: BP 108/58
[2018-09-10] MEDS: BuPROPion HCL XL 150 MG ER TABLET PO SCH (08:24)
[2018-09-10] MEDS: LITHIUM CARBONATE 300 MG CAPSULE PO SCH ×2 (08:24→16:39)
[2018-09-10 08:25] VITALS: BP 112/70
[2018-09-10] MEDS: LORazepam 2 MG TABLET PO PRN ×2 (08:28→13:35)
[2018-09-10] MEDS: HALOPERIDOL 5 MG TABLET PO PRN ×2 (08:28→13:35)
[2018-09-10 16:17] VITALS: BP 125/74
[2018-09-10] MEDS: PARoxetine HCL 20 MG TABLET PO SCH (20:12)
[2018-09-10] MEDS: ZOLPIDEM TARTRATE 10 MG TABLET PO PRN (20:50)
[2018-09-11 06:05] VITALS: BP 106/72
[2018-09-11] MEDS: BuPROPion HCL XL 150 MG ER TABLET PO SCH (08:44)
[2018-09-11] MEDS: LITHIUM CARBONATE 300 MG CAPSULE PO SCH ×2 (08:44→16:09)
[2018-09-11] MEDS: LORazepam 2 MG TABLET PO PRN (09:20)
[2018-09-11] MEDS: HALOPERIDOL 5 MG TABLET PO PRN (09:20)
[2018-09-11] MEDS ORDERED: ARIP882S IM (14:37)
[2018-09-11 16:29] VITALS: BP 124/81
== END 2018-09-11 16:40 | disposition home or self-care (01) | DRG 750 ==
LOC: EMS 06:00 → B3A 17:00
PROVIDERS: ADMIT Psychiatry & Neurology Psychiatry; ATTEND Psychiatry & Neurology Psychiatry
DX: F25.0 Schizoaffective disorder, bipolar type (principal); G40.909 Epilepsy, unspecified, not intractable, without status epilepticus; R45.851 Suicidal ideations; E03.9 Hypothyroidism, unspecified; E78.00 Pure hypercholesterolemia, unspecified; E78.5 Hyperlipidemia, unspecified; E87.6 Hypokalemia; F60.3 Borderline personality disorder; F19.90 Other psychoactive substance use, unspecified, uncomplicated; F17.210 Nicotine dependence, cigarettes, uncomplicated; F41.9 Anxiety disorder, unspecified; I10 Essential (primary) hypertension; J44.9 Chronic obstructive pulmonary disease, unspecified; Z91.19 Patient's noncompliance with other medical treatment and regimen; Z91.5 Personal history of self-harm
CPT/HCPCS: 87081; G0480; G0481

== ENCOUNTER 2019-02-27 10:49 | Emergency (ER) | payer MEDICAID, OTHER ==
[~2019-02-27] VITALS: Ht 180.3 cm; Wt 77.2 kg
[~2019-02-27 10:49] MED LIST changes: +ARIP882S IM
[2019-02-27 13:06] LABS: BASOPHILS % (AUTO) 0.6 % (0.0-2.0); EOSINOPHILS % (AUTO) 1.3 % (1.0-6.0); HEMATOCRIT 39.5 % (36-46); HEMOGLOBIN 13.3 g/dL (12.0-16.0); LYMPHOCYTES # (AUTO) 1.6 K/uL (1.0-4.8); LYMPHOCYTES % (AUTO) 21.2 % (22.0-44.0); MEAN CORPUSCULAR HEMOGLOBIN 32.1 pg (26.0-34.0); MEAN CORPUSCULAR HGB CONC 33.6 G/dL (31.0-37.0); MEAN CORPUSCULAR VOLUME 96 fL (80-100); MONOCYTES % (AUTO) 12.5 % (2.0-9.0); NEUTROPHILS % (AUTO) 64.4 % (40.0-70.0); PLATELET COUNT (AUTO) 228 K/uL (150-450); RED BLOOD CELL COUNT(AUTO) 4.13 MIL/uL (4.00-5.20); RED CELL DISTRIBUTION WIDTH 14.8 % (11.5-14.5)
[2019-02-27 13:29] LABS: ALANINE AMINOTRANSFERASE 32 U/L (12-78); ALBUMIN 3.2 g/dL (3.4-5.0); ALKALINE PHOSPHATASE 92 U/L (46-116); ANION GAP 11 mmol/L (8-16); ASPARTATE AMINOTRANSFERASE 32 U/L (15-37); BILIRUBIN,TOTAL 0.1 mg/dL (0.1-1.0); CARBON DIOXIDE 26 mmol/L (22-29); CHLORIDE 100 mmol/L (98-107); CREATININE 0.94 mg/dL (0.60-1.30); GLOMERULAR FILTR. RATE CALC > 60 mL/min (>60); GLUCOSE,RANDOM 84 mg/dL (70-110); HCG,QUANTITATIVE < 1 mIU/mL (0-6); LIPASE 141 U/L (73-393); POTASSIUM 3.8 mmol/L (3.5-5.1); SODIUM SERUM 137 mmol/L (136-145); TOTAL PROTEIN, SERUM 7.1 g/dL (6.4-8.2); UREA NITROGEN, BLOOD 13 mg/dL (7-18)
[2019-02-27] MEDS ORDERED: DIPHENOXYLATE/ATROP 2.5-0.025 MG TABLET PO ONE (13:30)
[2019-02-27 13:32] LABS: CALCIUM, TOTAL 8.9 mg/dL (8.8-10.5)
[2019-02-27 14:30] VITALS: BP 111/75
== END 2019-02-27 14:30 | disposition home or self-care (01) ==
LOC: EMS 10:53
DX: K52.9 Noninfective gastroenteritis and colitis, unspecified (principal); F31.9 Bipolar disorder, unspecified; F20.9 Schizophrenia, unspecified; E78.00 Pure hypercholesterolemia, unspecified; F17.210 Nicotine dependence, cigarettes, uncomplicated; F11.90 Opioid use, unspecified, uncomplicated; F12.90 Cannabis use, unspecified, uncomplicated; F19.90 Other psychoactive substance use, unspecified, uncomplicated; Z90.89 Acquired absence of other organs; Z88.8 Allergy status to other drugs, medicaments and biological substances

== ENCOUNTER 2021-01-31 14:34 | Inpatient (IN) | payer MEDICAID, OTHER ==
[~2021-01-31] VITALS: Ht 180.3 cm; Wt 85.3 kg
[~2021-01-31 14:34] MED LIST changes: +PARO-38 PO; -PARO20TA24 PO
[2021-01-31 16:50] LABS: COVID AG,FIA SOURCE NASOPHARYNGEAL
[2021-01-31] MEDS ORDERED: ACETAMINOPHEN 500 MG TABLET PO ONE (20:15)
[2021-01-31 22:11] VITALS: BP 129/69
[2021-01-31] MEDS ORDERED: INFLUENZA VIRUS VACCINE QVS 2021-22 (6MO+)/PF 60 MCG/0.5 ML SYRINGE IM. ONE (22:15)
[2021-02-01 00:59] VITALS: BP 116/62
[2021-02-01] MEDS: LORazepam 2 MG TABLET PO PRN ×3 (03:33→14:01)
[2021-02-01] MEDS ORDERED: MAGNESIUM HYDROXIDE SUSPENSION 30 ML UDCUP PO PRN (06:45)
[2021-02-01] MEDS ORDERED: ONDANSETRON HCL 4 MG TABLET PO PRN (06:45)
[2021-02-01] MEDS ORDERED: MAG HYDROX/AL HYDROX/SIMETH ES 30 ML SUSPENSION UDCUP PO PRN (06:45)
[2021-02-01] MEDS ORDERED: DOCUSATE SODIUM 100 MG CAPSULE PO PRN (06:45)
[2021-02-01] MEDS ORDERED: PETROLATUM,WHITE 28 GM JELLY TP PRN (06:45)
[2021-02-01] MEDS ORDERED: CloNIDine HCL 0.1 MG TABLET PO PRN (06:45)
[2021-02-01] MEDS ORDERED: ACETAMINOPHEN 325 MG TABLET PO PRN (06:45)
[2021-02-01] MEDS ORDERED: GuaiFENesin/D-METHORPHAN [SUGAR-FREE] 200-20MG/10 ML SYRUP UDCUP PO PRN (06:45)
[2021-02-01] MEDS ORDERED: ALBUTEROL SULFATE HFA 90 MCG/PUFF 8 GM INHALER IH PRN (06:45)
[2021-02-01] MEDS ORDERED: LOPERAMIDE HCL 2 MG CAPSULE PO PRN (06:45)
[2021-02-01] MEDS ORDERED: NICOTINE 14 MG/24 HOUR PATCH TD PRN (06:45)
[2021-02-01] MEDS: IBUPROFEN 400 MG TABLET PO PRN (07:00)
[2021-02-01 08:00] VITALS: BP 126/83
[2021-02-01 08:08] VITALS: BP 126/83
[2021-02-01] MEDS: ARIPiprazole 10 MG TABLET PO SCH (12:23)
[2021-02-01] MEDS: BuPROPion HCL XL 150 MG ER TABLET PO SCH (12:24)
[2021-02-01 16:19] VITALS: BP 126/91
[2021-02-01] MEDS: PARoxetine HCL 20 MG TABLET PO SCH (20:32)
[2021-02-01] MEDS: ZOLPIDEM TARTRATE 10 MG TABLET PO PRN (20:33)
[2021-02-02 06:08] VITALS: BP 138/82
[2021-02-02] MEDS: BuPROPion HCL XL 150 MG ER TABLET PO SCH (08:25)
[2021-02-02] MEDS: LORazepam 2 MG TABLET PO PRN ×2 (08:25→16:16)
[2021-02-02] MEDS: ARIPiprazole 10 MG TABLET PO SCH (08:25)
[2021-02-02] MEDS: LITHIUM CARBONATE 300 MG CAPSULE PO SCH ×2 (08:25→16:16)
[2021-02-02 16:30] VITALS: BP 129/81
[2021-02-02] MEDS: ZOLPIDEM TARTRATE 10 MG TABLET PO PRN (20:26)
[2021-02-02] MEDS: PARoxetine HCL 20 MG TABLET PO SCH (20:26)
[2021-02-03 05:26] VITALS: BP 140/91
[2021-02-03 08:04] VITALS: BP 126/82
[2021-02-03] MEDS: ARIPiprazole 10 MG TABLET PO SCH (08:26)
[2021-02-03] MEDS: LITHIUM CARBONATE 300 MG CAPSULE PO SCH ×2 (08:26→15:55)
[2021-02-03] MEDS: BuPROPion HCL XL 150 MG ER TABLET PO SCH (08:26)
[2021-02-03] MEDS: LORazepam 2 MG TABLET PO PRN (08:29)
[2021-02-03] MEDS: MUPIROCIN CALCIUM 2% 22 GM OINTMENT TP SCH (15:55)
[2021-02-03 16:10] VITALS: BP 129/89
[2021-02-03] MEDS: PARoxetine HCL 20 MG TABLET PO SCH (20:50)
[2021-02-04 07:18] LABS: EOSINOPHILS % (AUTO) 4.4 % (1.0-6.0); HEMATOCRIT 45.9 % (36-46); HEMOGLOBIN 15.7 g/dL (12.0-16.0); LYMPHOCYTES # (AUTO) 1.7 K/uL (1.0-4.8); LYMPHOCYTES % (AUTO) 27.7 % (22.0-44.0); MEAN CORPUSCULAR HEMOGLOBIN 32.3 pg (26.0-34.0); MEAN CORPUSCULAR HGB CONC 34.3 G/dL (31.0-37.0); MEAN CORPUSCULAR VOLUME 94 fL (80-100); MONOCYTES # (AUTO) 0.5 K/uL (0.1-1.0); MONOCYTES % (AUTO) 8.8 % (2.0-9.0); NEUTROPHILS # (AUTO) 3.6 K/uL (1.8-7.7); NEUTROPHILS % (AUTO) 58.1 % (40.0-70.0); PLATELET COUNT (AUTO) 338 K/uL (150-450); RED BLOOD CELL COUNT(AUTO) 4.87 MIL/uL (4.00-5.20); RED CELL DISTRIBUTION WIDTH 13.7 % (11.5-14.5)
[2021-02-04 07:30] LABS: LITHIUM 0.88 mmol/L (0.60-1.20)
[2021-02-04 07:31] LABS: HEMOGLOBIN A1C 5.3 % (3.8-5.6)
[2021-02-04 07:39] LABS: ALANINE AMINOTRANSFERASE 33 U/L (12-78); ALBUMIN 3.4 g/dL (3.4-5.0); ALKALINE PHOSPHATASE 119 U/L (46-116); ANION GAP 3 mmol/L (8-16); ASPARTATE AMINOTRANSFERASE 16 U/L (15-37); BILIRUBIN,TOTAL 0.1 mg/dL (0.1-1.0); CALCIUM, TOTAL 9.7 mg/dL (8.8-10.5); CARBON DIOXIDE 30 mmol/L (22-29); CHLORIDE 108 mmol/L (98-107); CHOL/HDL RATIO 6.2 (3.9-5.7); CHOLESTEROL 271 mg/dL (131-200); CREATININE 0.82 mg/dL (0.60-1.30); FREE T4 (FREE THYROXINE) 0.88 ng/dL (0.76-1.46); GLOMERULAR FILTR. RATE CALC > 60 mL/min (>60); GLUCOSE,RANDOM 107 mg/dL (70-110); HDL CHOLESTEROL 44 mg/dL (40-60); LDL CHOL (CALC.) 173 mg/dL (0-130); POTASSIUM 4.1 mmol/L (3.5-5.1); SODIUM SERUM 141 mmol/L (136-145); THYROID STIMULATING HORMONE 2.21 uIU/mL (0.36-3.74); TOTAL PROTEIN, SERUM 7.7 g/dL (6.4-8.2); TRIGLYCERIDES 268 mg/dL (15-150); UREA NITROGEN, BLOOD 16 mg/dL (7-18)
[2021-02-04 08:21] VITALS: BP 129/81
[2021-02-04] MEDS: MUPIROCIN CALCIUM 2% 22 GM OINTMENT TP SCH ×2 (08:41→16:36)
[2021-02-04] MEDS: LORazepam 2 MG TABLET PO PRN (08:41)
[2021-02-04] MEDS: BuPROPion HCL XL 150 MG ER TABLET PO SCH (08:41)
[2021-02-04] MEDS: ARIPiprazole 10 MG TABLET PO SCH (08:41)
[2021-02-04] MEDS: LITHIUM CARBONATE 300 MG CAPSULE PO SCH ×2 (08:41→16:36)
[2021-02-04] MEDS ORDERED: ARIPiprazole LAUROXIL ER SUSPENSION 882 MG/3.2 ML SYRINGE IM ONE (12:45)
[2021-02-04 16:04] VITALS: BP 120/84
[2021-02-04] MEDS: SIMVASTATIN 10 MG TABLET PO SCH (20:03)
[2021-02-04] MEDS: PARoxetine HCL 20 MG TABLET PO SCH (20:03)
[2021-02-05 01:00] VITALS: BP 116/70
[2021-02-05 08:24] VITALS: BP 109/74
[2021-02-05] MEDS: MUPIROCIN CALCIUM 2% 22 GM OINTMENT TP SCH ×2 (08:41→15:59)
[2021-02-05] MEDS: LITHIUM CARBONATE 300 MG CAPSULE PO SCH ×2 (08:42→15:59)
[2021-02-05] MEDS: LORazepam 2 MG TABLET PO PRN (08:43)
[2021-02-05] MEDS: BuPROPion HCL XL 150 MG ER TABLET PO SCH (08:43)
[2021-02-05 16:07] VITALS: BP 120/74
[2021-02-05] MEDS: ZOLPIDEM TARTRATE 10 MG TABLET PO PRN (20:56)
[2021-02-05] MEDS: SIMVASTATIN 10 MG TABLET PO SCH (20:56)
[2021-02-05] MEDS: PARoxetine HCL 20 MG TABLET PO SCH (20:57)
[2021-02-06 01:20] VITALS: BP 114/78
[2021-02-06 06:48] VITALS: BP 136/84
[2021-02-06] MEDS: LORazepam 2 MG TABLET PO PRN (06:51)
[2021-02-06] MEDS: MUPIROCIN CALCIUM 2% 22 GM OINTMENT TP SCH ×2 (08:05→16:34)
[2021-02-06] MEDS: LITHIUM CARBONATE 300 MG CAPSULE PO SCH ×2 (08:06→16:08)
[2021-02-06] MEDS: BuPROPion HCL XL 150 MG ER TABLET PO SCH (08:06)
[2021-02-06] MEDS: IBUPROFEN 400 MG TABLET PO PRN (08:07)
[2021-02-06] MEDS: OMEGA-3/DHA/EPA/FISH OIL 1,000 MG CAPSULE PO SCH (08:08)
[2021-02-06 08:12] VITALS: BP 118/74
[2021-02-06 17:09] VITALS: BP 112/65
[2021-02-06] MEDS: PARoxetine HCL 20 MG TABLET PO SCH (20:12)
[2021-02-06] MEDS: SIMVASTATIN 10 MG TABLET PO SCH (20:12)
[2021-02-06] MEDS: ZOLPIDEM TARTRATE 10 MG TABLET PO PRN (20:12)
[2021-02-07 04:50] VITALS: BP 110/72
[2021-02-07 08:12] VITALS: BP 131/73
[2021-02-07] MEDS: LITHIUM CARBONATE 300 MG CAPSULE PO SCH ×2 (08:42→16:28)
[2021-02-07] MEDS: OMEGA-3/DHA/EPA/FISH OIL 1,000 MG CAPSULE PO SCH (08:42)
[2021-02-07] MEDS: BuPROPion HCL XL 150 MG ER TABLET PO SCH (08:42)
[2021-02-07] MEDS: MUPIROCIN CALCIUM 2% 22 GM OINTMENT TP SCH ×2 (08:43→16:31)
[2021-02-07] MEDS: LORazepam 2 MG TABLET PO PRN ×2 (08:49→13:47)
[2021-02-07] MEDS: HALOPERIDOL 5 MG TABLET PO PRN (13:46)
[2021-02-07 16:07] VITALS: BP 126/78
[2021-02-07] MEDS: SIMVASTATIN 10 MG TABLET PO SCH (20:21)
[2021-02-07] MEDS: PARoxetine HCL 20 MG TABLET PO SCH (20:21)
[2021-02-07] MEDS: ZOLPIDEM TARTRATE 10 MG TABLET PO PRN (20:47)
[2021-02-08 00:42] VITALS: BP 118/72
[2021-02-08 08:22] VITALS: BP 108/62
[2021-02-08] MEDS: LITHIUM CARBONATE 300 MG CAPSULE PO SCH ×2 (08:54→16:39)
[2021-02-08] MEDS: BuPROPion HCL XL 150 MG ER TABLET PO SCH (08:54)
[2021-02-08] MEDS: LORazepam 2 MG TABLET PO PRN ×2 (08:55→14:04)
[2021-02-08] MEDS: OMEGA-3/DHA/EPA/FISH OIL 1,000 MG CAPSULE PO SCH (08:55)
[2021-02-08] MEDS: MUPIROCIN CALCIUM 2% 22 GM OINTMENT TP SCH (08:55)
[2021-02-08] MEDS: HALOPERIDOL 5 MG TABLET PO PRN (14:04)
[2021-02-08] MEDS: IBUPROFEN 400 MG TABLET PO PRN (15:22)
[2021-02-08 16:39] VITALS: BP 119/77
[2021-02-08] MEDS: SIMVASTATIN 10 MG TABLET PO SCH (20:52)
[2021-02-08] MEDS: PARoxetine HCL 20 MG TABLET PO SCH (20:55)
[2021-02-08] MEDS: ZOLPIDEM TARTRATE 10 MG TABLET PO PRN (20:59)
[2021-02-09 00:13] VITALS: BP 112/68
[2021-02-09] MEDS: BuPROPion HCL XL 150 MG ER TABLET PO SCH (08:57)
[2021-02-09] MEDS: OMEGA-3/DHA/EPA/FISH OIL 1,000 MG CAPSULE PO SCH (08:57)
[2021-02-09] MEDS: LITHIUM CARBONATE 300 MG CAPSULE PO SCH ×2 (08:57→16:53)
[2021-02-09] MEDS: LORazepam 2 MG TABLET PO PRN ×2 (08:57→16:53)
[2021-02-09] MEDS: HALOPERIDOL 5 MG TABLET PO PRN ×2 (09:18→16:53)
[2021-02-09 09:20] VITALS: BP 121/76
[2021-02-09 16:01] VITALS: BP 110/66
[2021-02-09] MEDS: PARoxetine HCL 20 MG TABLET PO SCH (20:04)
[2021-02-09] MEDS: SIMVASTATIN 10 MG TABLET PO SCH (20:04)
[2021-02-09] MEDS: ZOLPIDEM TARTRATE 10 MG TABLET PO PRN (20:05)
[2021-02-10 00:09] VITALS: BP 116/74
[2021-02-10 08:21] VITALS: BP 126/72
[2021-02-10] MEDS: LITHIUM CARBONATE 300 MG CAPSULE PO SCH ×2 (08:22→16:17)
[2021-02-10] MEDS: OMEGA-3/DHA/EPA/FISH OIL 1,000 MG CAPSULE PO SCH (08:22)
[2021-02-10] MEDS: BuPROPion HCL XL 150 MG ER TABLET PO SCH (08:22)
[2021-02-10] MEDS: HALOPERIDOL 5 MG TABLET PO PRN ×2 (08:33→12:42)
[2021-02-10] MEDS: LORazepam 2 MG TABLET PO PRN ×2 (08:33→12:42)
[2021-02-10 16:17] VITALS: BP 127/77
[2021-02-10] MEDS: SIMVASTATIN 10 MG TABLET PO SCH (20:15)
[2021-02-10] MEDS: PARoxetine HCL 20 MG TABLET PO SCH (20:16)
[2021-02-10] MEDS: ZOLPIDEM TARTRATE 10 MG TABLET PO PRN (20:16)
[2021-02-11 03:44] VITALS: BP 117/65
[2021-02-11 08:13] VITALS: BP 119/72
[2021-02-11] MEDS: OMEGA-3/DHA/EPA/FISH OIL 1,000 MG CAPSULE PO SCH (08:21)
[2021-02-11] MEDS: LITHIUM CARBONATE 300 MG CAPSULE PO SCH ×2 (08:21→16:08)
[2021-02-11] MEDS: BuPROPion HCL XL 150 MG ER TABLET PO SCH (08:21)
[2021-02-11] MEDS: LORazepam 2 MG TABLET PO PRN ×2 (08:30→15:46)
[2021-02-11] MEDS: HALOPERIDOL 5 MG TABLET PO PRN (08:30)
[2021-02-11 08:31] LABS: GLUCOMETER DEV NAME(LOC) POC.BV
[2021-02-11 16:08] VITALS: BP 118/76
[2021-02-11] MEDS: PARoxetine HCL 20 MG TABLET PO SCH (20:12)
[2021-02-11] MEDS: SIMVASTATIN 10 MG TABLET PO SCH (20:12)
[2021-02-11] MEDS: ZOLPIDEM TARTRATE 10 MG TABLET PO PRN (20:12)
[2021-02-12 02:44] VITALS: BP 114/68
[2021-02-12 08:19] VITALS: BP 116/74
[2021-02-12] MEDS: HALOPERIDOL 5 MG TABLET PO PRN (09:00)
[2021-02-12] MEDS: LORazepam 2 MG TABLET PO PRN ×3 (09:00→20:40)
[2021-02-12] MEDS: OMEGA-3/DHA/EPA/FISH OIL 1,000 MG CAPSULE PO SCH (09:35)
[2021-02-12] MEDS: BuPROPion HCL XL 150 MG ER TABLET PO SCH (09:35)
[2021-02-12] MEDS: LITHIUM CARBONATE 300 MG CAPSULE PO SCH ×2 (09:35→16:10)
[2021-02-12 16:06] VITALS: BP 116/72
[2021-02-12] MEDS: ZOLPIDEM TARTRATE 10 MG TABLET PO PRN (20:28)
[2021-02-12] MEDS: PARoxetine HCL 20 MG TABLET PO SCH (20:38)
[2021-02-12] MEDS: SIMVASTATIN 10 MG TABLET PO SCH (20:39)
[2021-02-13 00:53] VITALS: BP 110/76
[2021-02-13 08:38] VITALS: BP 112/66
[2021-02-13] MEDS: BuPROPion HCL XL 150 MG ER TABLET PO SCH (09:01)
[2021-02-13] MEDS: LITHIUM CARBONATE 300 MG CAPSULE PO SCH ×2 (09:01→16:03)
[2021-02-13] MEDS: LORazepam 2 MG TABLET PO PRN ×2 (09:02→16:00)
[2021-02-13] MEDS: OMEGA-3/DHA/EPA/FISH OIL 1,000 MG CAPSULE PO SCH (09:02)
[2021-02-13 16:04] VITALS: BP 100/60
[2021-02-13] MEDS: PARoxetine HCL 20 MG TABLET PO SCH (20:04)
[2021-02-13] MEDS: SIMVASTATIN 10 MG TABLET PO SCH (20:05)
[2021-02-13] MEDS: ZOLPIDEM TARTRATE 10 MG TABLET PO PRN (20:05)
[2021-02-14 00:50] VITALS: BP 110/66
[2021-02-14 08:10] VITALS: BP 118/74
[2021-02-14] MEDS: LITHIUM CARBONATE 300 MG CAPSULE PO SCH ×2 (08:31→16:08)
[2021-02-14] MEDS: OMEGA-3/DHA/EPA/FISH OIL 1,000 MG CAPSULE PO SCH (08:31)
[2021-02-14] MEDS: BuPROPion HCL XL 150 MG ER TABLET PO SCH (08:32)
[2021-02-14] MEDS: LORazepam 2 MG TABLET PO PRN ×2 (11:00→16:08)
[2021-02-14 16:04] VITALS: BP 112/68
[2021-02-14] MEDS: SIMVASTATIN 10 MG TABLET PO SCH (20:08)
[2021-02-14] MEDS: PARoxetine HCL 20 MG TABLET PO SCH (20:08)
[2021-02-14] MEDS: ZOLPIDEM TARTRATE 10 MG TABLET PO PRN (20:09)
[2021-02-15 00:02] VITALS: BP 110/78
[2021-02-15] MEDS: BuPROPion HCL XL 150 MG ER TABLET PO SCH (08:15)
[2021-02-15] MEDS: LITHIUM CARBONATE 300 MG CAPSULE PO SCH ×2 (08:15→16:06)
[2021-02-15] MEDS: OMEGA-3/DHA/EPA/FISH OIL 1,000 MG CAPSULE PO SCH (08:15)
[2021-02-15 08:25] VITALS: BP 103/52
[2021-02-15] MEDS: HALOPERIDOL 5 MG TABLET PO PRN ×2 (09:12→14:36)
[2021-02-15] MEDS: LORazepam 2 MG TABLET PO PRN ×3 (09:14→18:29)
[2021-02-15 16:13] VITALS: BP 115/89
[2021-02-15] MEDS: SIMVASTATIN 10 MG TABLET PO SCH (20:14)
[2021-02-15] MEDS: ZOLPIDEM TARTRATE 10 MG TABLET PO PRN (20:14)
[2021-02-15] MEDS: PARoxetine HCL 20 MG TABLET PO SCH (20:14)
[2021-02-16 04:00] VITALS: BP 108/72
[2021-02-16] MEDS: OMEGA-3/DHA/EPA/FISH OIL 1,000 MG CAPSULE PO SCH (08:38)
[2021-02-16] MEDS: BuPROPion HCL XL 150 MG ER TABLET PO SCH (08:38)
[2021-02-16] MEDS: LORazepam 2 MG TABLET PO PRN ×2 (08:39→13:33)
[2021-02-16] MEDS: LITHIUM CARBONATE 300 MG CAPSULE PO SCH ×2 (08:39→16:23)
[2021-02-16] MEDS: HALOPERIDOL 5 MG TABLET PO PRN (13:33)
[2021-02-16 16:04] VITALS: BP 120/52
[2021-02-16] MEDS: PARoxetine HCL 20 MG TABLET PO SCH (20:46)
[2021-02-16] MEDS: SIMVASTATIN 10 MG TABLET PO SCH (20:46)
[2021-02-17 06:03] VITALS: BP 116/62
[2021-02-17 08:12] VITALS: BP 100/70
[2021-02-17] MEDS: HALOPERIDOL 5 MG TABLET PO PRN ×2 (09:01→13:03)
[2021-02-17] MEDS: LORazepam 2 MG TABLET PO PRN ×3 (09:01→17:03)
[2021-02-17] MEDS: OMEGA-3/DHA/EPA/FISH OIL 1,000 MG CAPSULE PO SCH (09:01)
[2021-02-17] MEDS: LITHIUM CARBONATE 300 MG CAPSULE PO SCH ×2 (09:01→16:49)
[2021-02-17] MEDS: BuPROPion HCL XL 150 MG ER TABLET PO SCH (09:02)
[2021-02-17 16:22] VITALS: BP 100/73
[2021-02-17 17:58] VITALS: BP 111/72
[2021-02-17] MEDS: SIMVASTATIN 10 MG TABLET PO SCH (20:19)
[2021-02-17] MEDS: PARoxetine HCL 20 MG TABLET PO SCH (20:19)
[2021-02-18 01:07] VITALS: BP 116/68
[2021-02-18 08:13] VITALS: BP 113/67
[2021-02-18 08:21] LABS: GLUCOMETER DEV NAME(LOC) POC.BV
[2021-02-18] MEDS: LITHIUM CARBONATE 300 MG CAPSULE PO SCH ×2 (08:23→16:06)
[2021-02-18] MEDS: BuPROPion HCL XL 150 MG ER TABLET PO SCH (08:23)
[2021-02-18] MEDS: HALOPERIDOL 5 MG TABLET PO PRN (08:24)
[2021-02-18] MEDS: OMEGA-3/DHA/EPA/FISH OIL 1,000 MG CAPSULE PO SCH (08:24)
[2021-02-18] MEDS: LORazepam 2 MG TABLET PO PRN ×2 (08:24→13:48)
[2021-02-18 16:16] VITALS: BP 109/74
[2021-02-18] MEDS: PARoxetine HCL 20 MG TABLET PO SCH (20:14)
[2021-02-18] MEDS: SIMVASTATIN 10 MG TABLET PO SCH (20:14)
[2021-02-18] MEDS: ZOLPIDEM TARTRATE 10 MG TABLET PO PRN (20:15)
[2021-02-19 00:15] VITALS: BP 114/65
[2021-02-19] MEDS: BuPROPion HCL XL 150 MG ER TABLET PO SCH (08:45)
[2021-02-19] MEDS: LITHIUM CARBONATE 300 MG CAPSULE PO SCH (08:45)
[2021-02-19] MEDS: OMEGA-3/DHA/EPA/FISH OIL 1,000 MG CAPSULE PO SCH (08:46)
[2021-02-19] MEDS: LORazepam 2 MG TABLET PO PRN (08:46)
[2021-02-19 09:01] LABS: GLUCOMETER DEV NAME(LOC) POC.BV
[2021-02-19] MEDS ORDERED: BUPR-93 PO (10:18)
[2021-02-19] MEDS ORDERED: SIMV-259 PO (10:18)
[2021-02-19] MEDS ORDERED: OMEG-135 PO (10:18)
[2021-03-06] MEDS ORDERED: ARIPiprazole LAUROXIL ER SUSPENSION 882 MG/3.2 ML SYRINGE IM SCH (09:00)
== END 2021-02-19 13:43 | disposition home or self-care (01) | DRG 750 ==
LOC: EMS 14:34 → B3A 20:08
PROVIDERS: ADMIT Psychiatry & Neurology Child & Adolescent Psychiatry; ATTEND Psychiatry & Neurology Child & Adolescent Psychiatry
DX: F25.1 Schizoaffective disorder, depressive type (principal); R45.850 Homicidal ideations; R45.851 Suicidal ideations; G40.909 Epilepsy, unspecified, not intractable, without status epilepticus; E03.9 Hypothyroidism, unspecified; Z20.822 Contact with and (suspected) exposure to COVID-19; E78.00 Pure hypercholesterolemia, unspecified; E78.5 Hyperlipidemia, unspecified; F10.10 Alcohol abuse, uncomplicated; I10 Essential (primary) hypertension; F17.210 Nicotine dependence, cigarettes, uncomplicated; J44.9 Chronic obstructive pulmonary disease, unspecified; Z59.00 Homelessness unspecified; Z91.14 Patient's other noncompliance with medication regimen; Z71.41 Alcohol abuse counseling and surveillance of alcoholic
CPT/HCPCS: 80053; 80061; 80178; 83036; 84439; 84443; 85025; 87081; 99285; Q9967

== ENCOUNTER 2021-05-09 13:41 | Inpatient (IN) | payer MEDICAID ==
[~2021-05-09] VITALS: Ht 177.8 cm; Wt 81.4 kg
[~2021-05-09 13:41] MED LIST changes: +AMLO-257 PO; -ARIP882S IM; +ARIP882S2 IM; -BUPR-93 PO; +OMEG-108 PO; +SIMV-259 PO; +[UNRECOGNIZED DRUG - CODE] PO
[2021-05-09 15:06] LABS: GLUCOMETER DEV NAME(LOC) POC.BV
[2021-05-09 23:21] VITALS: BP 127/71
[2021-05-10 01:24] VITALS: BP 101/61
[2021-05-10 08:05] VITALS: BP 119/74
[2021-05-10] MEDS: LORazepam 2 MG TABLET PO PRN ×2 (08:20→15:51)
[2021-05-10] MEDS ORDERED: CloNIDine HCL 0.1 MG TABLET PO PRN ×2 (11:15→12:15)
[2021-05-10] MEDS ORDERED: MAGNESIUM HYDROXIDE SUSPENSION 30 ML UDCUP PO PRN (11:15)
[2021-05-10] MEDS ORDERED: MAG HYDROX/AL HYDROX/SIMETH ES 30 ML SUSPENSION UDCUP PO PRN ×2 (11:15→12:15)
[2021-05-10] MEDS ORDERED: ACETAMINOPHEN 325 MG TABLET PO PRN ×2 (11:15→12:15)
[2021-05-10] MEDS ORDERED: PETROLATUM,WHITE 28 GM JELLY TP PRN ×2 (11:15→12:15)
[2021-05-10] MEDS ORDERED: DOCUSATE SODIUM 100 MG CAPSULE PO PRN ×2 (11:15→12:15)
[2021-05-10] MEDS ORDERED: ALBUTEROL SULFATE HFA 90 MCG/PUFF 8 GM INHALER IH PRN ×2 (11:15→12:15)
[2021-05-10] MEDS ORDERED: LOPERAMIDE HCL 2 MG CAPSULE PO PRN (11:15)
[2021-05-10] MEDS ORDERED: ONDANSETRON HCL 4 MG TABLET PO PRN ×2 (11:15→12:15)
[2021-05-10] MEDS ORDERED: IBUPROFEN 600 MG TABLET PO PRN ×2 (11:15→12:15)
[2021-05-10] MEDS ORDERED: BACITRACIN 28 GM OINTMENT TP PRN ×2 (11:15→12:15)
[2021-05-10] MEDS ORDERED: BENZOCAINE/MENTHOL LOZENGE PO PRN ×2 (11:15→12:15)
[2021-05-10] MEDS ORDERED: OMEPRAZOLE 20 MG CAPSULE PO PRN ×2 (11:15→12:15)
[2021-05-10] MEDS: MAGNESIUM HYDROXIDE SUSPENSION 30 ML UDCUP PO PRN (13:30)
[2021-05-10] MEDS: GABAPENTIN 400 MG CAPSULE PO SCH (16:04)
[2021-05-10] MEDS: BuPROPion HCL 75 MG TABLET PO SCH (16:04)
[2021-05-10 16:05] VITALS: BP 110/63
[2021-05-10] MEDS: DIVALPROEX SODIUM 500 MG DR TABLET PO SCH (20:37)
[2021-05-10] MEDS: SIMVASTATIN 10 MG TABLET PO SCH (20:37)
[2021-05-10] MEDS: TraZODone HCL 100 MG TABLET PO SCH (20:37)
[2021-05-11 04:57] VITALS: BP 109/68
[2021-05-11] MEDS: LEVOTHYROXINE SODIUM 75 MCG TABLET PO SCH (06:54)
[2021-05-11] MEDS: LORazepam 2 MG TABLET PO PRN ×2 (07:06→16:01)
[2021-05-11 08:06] VITALS: BP 105/65
[2021-05-11] MEDS: AmLODIPine BESYLATE 5 MG TABLET PO SCH (08:44)
[2021-05-11] MEDS: GABAPENTIN 400 MG CAPSULE PO SCH ×2 (08:44→16:01)
[2021-05-11] MEDS: OMEGA-3/DHA/EPA/FISH OIL 1,000 MG CAPSULE PO SCH (08:45)
[2021-05-11] MEDS: BuPROPion HCL 75 MG TABLET PO SCH ×2 (08:45→16:01)
[2021-05-11 16:04] VITALS: BP 136/70
[2021-05-11] MEDS: DIVALPROEX SODIUM 500 MG DR TABLET PO SCH (20:10)
[2021-05-11] MEDS: SIMVASTATIN 10 MG TABLET PO SCH (20:10)
[2021-05-11] MEDS: TraZODone HCL 100 MG TABLET PO SCH (20:10)
[2021-05-12 05:35] VITALS: BP 116/62
[2021-05-12] MEDS: LEVOTHYROXINE SODIUM 75 MCG TABLET PO SCH (06:55)
[2021-05-12 07:54] LABS: BASOPHILS % (AUTO) 0.6 % (0.0-2.0); EOSINOPHILS % (AUTO) 2.8 % (1.0-6.0); HEMATOCRIT 39.9 % (36-46); HEMOGLOBIN 13.4 g/dL (12.0-16.0); LYMPHOCYTES # (AUTO) 2.3 K/uL (1.0-4.8); MEAN CORPUSCULAR HEMOGLOBIN 31.5 pg (26.0-34.0); MEAN CORPUSCULAR HGB CONC 33.6 G/dL (31.0-37.0); MEAN CORPUSCULAR VOLUME 94 fL (80-100); MONOCYTES # (AUTO) 0.4 K/uL (0.1-1.0); NEUTROPHILS # (AUTO) 2.7 K/uL (1.8-7.7); NEUTROPHILS % (AUTO) 48.6 % (40.0-70.0); PLATELET COUNT (AUTO) 327 K/uL (150-450); RED BLOOD CELL COUNT(AUTO) 4.25 MIL/uL (4.00-5.20)
[2021-05-12 08:08] VITALS: BP 104/66
[2021-05-12 08:16] LABS: ALANINE AMINOTRANSFERASE 7 U/L (12-78); ALBUMIN 2.9 g/dL (3.4-5.0); ALKALINE PHOSPHATASE 104 U/L (46-116); ANION GAP 4 mmol/L (8-16); ASPARTATE AMINOTRANSFERASE 11 U/L (15-37); BILIRUBIN,TOTAL 0.2 mg/dL (0.1-1.0); CALCIUM, TOTAL 8.8 mg/dL (8.8-10.5); CARBON DIOXIDE 32 mmol/L (22-29); CHLORIDE 103 mmol/L (98-107); GLOMERULAR FILTR. RATE CALC > 60 mL/min (>60); GLUCOSE,RANDOM 92 mg/dL (70-110); POTASSIUM 4.2 mmol/L (3.5-5.1); SODIUM SERUM 139 mmol/L (136-145); TOTAL PROTEIN, SERUM 6.8 g/dL (6.4-8.2); UREA NITROGEN, BLOOD 15 mg/dL (7-18)
[2021-05-12] MEDS: OMEGA-3/DHA/EPA/FISH OIL 1,000 MG CAPSULE PO SCH (08:50)
[2021-05-12] MEDS: BuPROPion HCL 75 MG TABLET PO SCH ×2 (08:50→16:12)
[2021-05-12] MEDS: GABAPENTIN 400 MG CAPSULE PO SCH ×2 (08:51→16:13)
[2021-05-12] MEDS: AmLODIPine BESYLATE 5 MG TABLET PO SCH (09:00)
[2021-05-12 09:40] VITALS: BP 108/70
[2021-05-12] MEDS: LORazepam 2 MG TABLET PO PRN (09:42)
[2021-05-12 16:27] VITALS: BP 116/67
[2021-05-12] MEDS: SIMVASTATIN 10 MG TABLET PO SCH (20:15)
[2021-05-12] MEDS: DIVALPROEX SODIUM 500 MG DR TABLET PO SCH (20:16)
[2021-05-12] MEDS: TraZODone HCL 100 MG TABLET PO SCH (20:16)
[2021-05-13] MEDS: LEVOTHYROXINE SODIUM 75 MCG TABLET PO SCH (06:37)
[2021-05-13 06:43] VITALS: BP 97/54
[2021-05-13 08:06] VITALS: BP 113/76
[2021-05-13] MEDS: GABAPENTIN 400 MG CAPSULE PO SCH ×2 (08:25→16:11)
[2021-05-13] MEDS: BuPROPion HCL 75 MG TABLET PO SCH ×2 (08:26→16:11)
[2021-05-13] MEDS: OMEGA-3/DHA/EPA/FISH OIL 1,000 MG CAPSULE PO SCH (08:26)
[2021-05-13] MEDS: AmLODIPine BESYLATE 5 MG TABLET PO SCH (08:28)
[2021-05-13] MEDS: LORazepam 2 MG TABLET PO PRN (08:28)
[2021-05-13 16:52] VITALS: BP 109/70
[2021-05-13] MEDS: TraZODone HCL 100 MG TABLET PO SCH (20:12)
[2021-05-13] MEDS: DIVALPROEX SODIUM 500 MG DR TABLET PO SCH (20:12)
[2021-05-13] MEDS: SIMVASTATIN 10 MG TABLET PO SCH (20:16)
[2021-05-14 00:52] VITALS: BP 112/68
[2021-05-14] MEDS: LEVOTHYROXINE SODIUM 75 MCG TABLET PO SCH (07:02)
[2021-05-14] MEDS: GABAPENTIN 400 MG CAPSULE PO SCH ×2 (08:10→16:03)
[2021-05-14] MEDS: OMEGA-3/DHA/EPA/FISH OIL 1,000 MG CAPSULE PO SCH (08:10)
[2021-05-14] MEDS: LORazepam 2 MG TABLET PO PRN ×2 (08:11→14:47)
[2021-05-14] MEDS: AmLODIPine BESYLATE 5 MG TABLET PO SCH (08:11)
[2021-05-14] MEDS: BuPROPion HCL 75 MG TABLET PO SCH ×2 (08:11→16:03)
[2021-05-14 08:13] VITALS: BP 119/78
[2021-05-14] MEDS: HALOPERIDOL 5 MG TABLET PO PRN (10:09)
[2021-05-14] MEDS: METHOCARBAMOL 500 MG TABLET PO PRN (11:01)
[2021-05-14 16:18] VITALS: BP 101/63
[2021-05-14] MEDS: TraZODone HCL 100 MG TABLET PO SCH (20:01)
[2021-05-14] MEDS: DIVALPROEX SODIUM 500 MG DR TABLET PO SCH (20:01)
[2021-05-14] MEDS: SIMVASTATIN 10 MG TABLET PO SCH (20:02)
[2021-05-15 01:15] VITALS: BP 117/72
[2021-05-15] MEDS: LEVOTHYROXINE SODIUM 75 MCG TABLET PO SCH (07:22)
[2021-05-15 08:32] VITALS: BP 112/72
[2021-05-15] MEDS: GABAPENTIN 400 MG CAPSULE PO SCH ×2 (08:33→16:09)
[2021-05-15] MEDS: OMEGA-3/DHA/EPA/FISH OIL 1,000 MG CAPSULE PO SCH (08:35)
[2021-05-15] MEDS: BuPROPion HCL 75 MG TABLET PO SCH ×2 (08:35→16:09)
[2021-05-15] MEDS: LORazepam 2 MG TABLET PO PRN ×2 (08:37→18:30)
[2021-05-15] MEDS: AmLODIPine BESYLATE 5 MG TABLET PO SCH (08:37)
[2021-05-15] MEDS: LOPERAMIDE HCL 2 MG CAPSULE PO PRN (14:05)
[2021-05-15] MEDS ORDERED: ONDANSETRON HCL 4 MG TABLET PO PRN (14:15)
[2021-05-15 16:13] VITALS: BP 110/67
[2021-05-15] MEDS: TraZODone HCL 100 MG TABLET PO SCH (20:06)
[2021-05-15] MEDS: DIVALPROEX SODIUM 500 MG DR TABLET PO SCH (20:06)
[2021-05-15] MEDS: SIMVASTATIN 10 MG TABLET PO SCH (20:09)
[2021-05-16 06:29] VITALS: BP 111/71
[2021-05-16] MEDS: LEVOTHYROXINE SODIUM 75 MCG TABLET PO SCH (06:55)
[2021-05-16] MEDS: AmLODIPine BESYLATE 5 MG TABLET PO SCH (08:22)
[2021-05-16] MEDS: GABAPENTIN 400 MG CAPSULE PO SCH ×2 (08:22→16:08)
[2021-05-16] MEDS: BuPROPion HCL 75 MG TABLET PO SCH ×2 (08:22→16:08)
[2021-05-16] MEDS: OMEGA-3/DHA/EPA/FISH OIL 1,000 MG CAPSULE PO SCH (08:22)
[2021-05-16] MEDS: LORazepam 2 MG TABLET PO PRN (08:23)
[2021-05-16] MEDS: LOPERAMIDE HCL 2 MG CAPSULE PO PRN (11:52)
[2021-05-16 16:15] VITALS: BP 107/54
[2021-05-16] MEDS: DIVALPROEX SODIUM 500 MG DR TABLET PO SCH (20:09)
[2021-05-16] MEDS: TraZODone HCL 100 MG TABLET PO SCH (20:09)
[2021-05-16] MEDS: SIMVASTATIN 10 MG TABLET PO SCH (20:09)
[2021-05-17] VITALS: BP 116/63
[2021-05-17] MEDS: LEVOTHYROXINE SODIUM 75 MCG TABLET PO SCH (06:41)
[2021-05-17 07:48] LABS: BASOPHILS % (AUTO) 0.3 % (0.0-2.0); EOSINOPHILS % (AUTO) 1.8 % (1.0-6.0); HEMATOCRIT 40.9 % (36-46); HEMOGLOBIN 13.6 g/dL (12.0-16.0); LYMPHOCYTES # (AUTO) 1.4 K/uL (1.0-4.8); LYMPHOCYTES % (AUTO) 34.8 % (22.0-44.0); MEAN CORPUSCULAR HEMOGLOBIN 30.9 pg (26.0-34.0); MEAN CORPUSCULAR HGB CONC 33.2 G/dL (31.0-37.0); MEAN CORPUSCULAR VOLUME 93 fL (80-100); MONOCYTES # (AUTO) 0.5 K/uL (0.1-1.0); MONOCYTES % (AUTO) 10.9 % (2.0-9.0); NEUTROPHILS # (AUTO) 2.2 K/uL (1.8-7.7); NEUTROPHILS % (AUTO) 52.2 % (40.0-70.0); PLATELET COUNT (AUTO) 236 K/uL (150-450); RED BLOOD CELL COUNT(AUTO) 4.39 MIL/uL (4.00-5.20); RED CELL DISTRIBUTION WIDTH 12.9 % (11.5-14.5)
[2021-05-17 08:02] LABS: ALANINE AMINOTRANSFERASE 146 U/L (12-78); ALBUMIN 2.7 g/dL (3.4-5.0); ALKALINE PHOSPHATASE 122 U/L (46-116); ANION GAP 4 mmol/L (8-16); ASPARTATE AMINOTRANSFERASE 59 U/L (15-37); BILIRUBIN,TOTAL 0.2 mg/dL (0.1-1.0); CALCIUM, TOTAL 8.2 mg/dL (8.8-10.5); CARBON DIOXIDE 33 mmol/L (22-29); CHLORIDE 101 mmol/L (98-107); CREATININE 0.72 mg/dL (0.60-1.30); GLOMERULAR FILTR. RATE CALC > 60 mL/min (>60); GLUCOSE,RANDOM 90 mg/dL (70-110); POTASSIUM 3.6 mmol/L (3.5-5.1); SODIUM SERUM 138 mmol/L (136-145); TOTAL PROTEIN, SERUM 6.5 g/dL (6.4-8.2); UREA NITROGEN, BLOOD 12 mg/dL (7-18)
[2021-05-17 08:23] VITALS: BP 110/66
[2021-05-17] MEDS: LORazepam 2 MG TABLET PO PRN (08:47)
[2021-05-17] MEDS: AmLODIPine BESYLATE 5 MG TABLET PO SCH (08:47)
[2021-05-17] MEDS: OMEGA-3/DHA/EPA/FISH OIL 1,000 MG CAPSULE PO SCH (08:47)
[2021-05-17] MEDS: GABAPENTIN 400 MG CAPSULE PO SCH ×2 (08:47→17:17)
[2021-05-17] MEDS: BuPROPion HCL 75 MG TABLET PO SCH ×2 (08:47→17:16)
[2021-05-17] MEDS: HALOPERIDOL 5 MG TABLET PO PRN (08:47)
[2021-05-17 16:21] VITALS: BP 98/65
[2021-05-17] MEDS: TraZODone HCL 100 MG TABLET PO SCH (20:06)
[2021-05-17] MEDS: DIVALPROEX SODIUM 500 MG DR TABLET PO SCH (20:06)
[2021-05-17] MEDS: SIMVASTATIN 10 MG TABLET PO SCH (20:06)
[2021-05-18 05:25] VITALS: BP 115/67
[2021-05-18] MEDS: LEVOTHYROXINE SODIUM 75 MCG TABLET PO SCH (06:30)
[2021-05-18 08:15] VITALS: BP 110/79
[2021-05-18] MEDS: GABAPENTIN 400 MG CAPSULE PO SCH ×2 (09:03→16:59)
[2021-05-18] MEDS: OMEGA-3/DHA/EPA/FISH OIL 1,000 MG CAPSULE PO SCH (09:03)
[2021-05-18] MEDS: BuPROPion HCL 75 MG TABLET PO SCH ×2 (09:03→17:00)
[2021-05-18] MEDS: AmLODIPine BESYLATE 5 MG TABLET PO SCH (09:03)
[2021-05-18 16:16] VITALS: BP 102/63
[2021-05-18] MEDS: TraZODone HCL 100 MG TABLET PO SCH (20:47)
[2021-05-18] MEDS: SIMVASTATIN 10 MG TABLET PO SCH (20:47)
[2021-05-18] MEDS: DIVALPROEX SODIUM 500 MG DR TABLET PO SCH (20:47)
[2021-05-19 05:28] VITALS: BP 105/68
[2021-05-19] MEDS: LEVOTHYROXINE SODIUM 75 MCG TABLET PO SCH (06:37)
[2021-05-19 08:12] VITALS: BP 100/65
[2021-05-19 08:56] LABS: GLUCOMETER DEV NAME(LOC) POC.BV
[2021-05-19] MEDS: GABAPENTIN 400 MG CAPSULE PO SCH ×2 (09:00→16:15)
[2021-05-19] MEDS: OMEGA-3/DHA/EPA/FISH OIL 1,000 MG CAPSULE PO SCH (09:00)
[2021-05-19] MEDS: BuPROPion HCL 75 MG TABLET PO SCH ×2 (09:01→16:15)
[2021-05-19] MEDS: AmLODIPine BESYLATE 5 MG TABLET PO SCH (09:01)
[2021-05-19] MEDS: LORazepam 2 MG TABLET PO PRN ×2 (13:54→19:30)
[2021-05-19] MEDS: MAGNESIUM HYDROXIDE SUSPENSION 30 ML UDCUP PO PRN (14:07)
[2021-05-19 16:21] VITALS: BP 112/73
[2021-05-19] MEDS: METHOCARBAMOL 500 MG TABLET PO PRN (19:30)
[2021-05-19] MEDS: SIMVASTATIN 10 MG TABLET PO SCH (20:41)
[2021-05-19] MEDS: DIVALPROEX SODIUM 500 MG DR TABLET PO SCH (20:41)
[2021-05-19] MEDS: ZOLPIDEM TARTRATE 10 MG TABLET PO PRN (20:41)
[2021-05-19] MEDS: TraZODone HCL 100 MG TABLET PO SCH (20:41)
[2021-05-20 06:51] VITALS: BP 110/68
[2021-05-20] MEDS: LEVOTHYROXINE SODIUM 75 MCG TABLET PO SCH (07:01)
[2021-05-20] MEDS: GABAPENTIN 400 MG CAPSULE PO SCH ×2 (08:48→16:01)
[2021-05-20] MEDS: AmLODIPine BESYLATE 5 MG TABLET PO SCH (08:48)
[2021-05-20] MEDS: OMEGA-3/DHA/EPA/FISH OIL 1,000 MG CAPSULE PO SCH (08:48)
[2021-05-20] MEDS: BuPROPion HCL 75 MG TABLET PO SCH ×2 (08:58→16:02)
[2021-05-20] MEDS: LORazepam 2 MG TABLET PO PRN ×2 (09:10→16:22)
[2021-05-20 10:26] VITALS: BP 107/47
[2021-05-20 16:14] VITALS: BP 105/65
[2021-05-20] MEDS: SIMVASTATIN 10 MG TABLET PO SCH (20:31)
[2021-05-20] MEDS: TraZODone HCL 100 MG TABLET PO SCH (20:32)
[2021-05-20] MEDS: DIVALPROEX SODIUM 500 MG DR TABLET PO SCH (20:32)
[2021-05-21 05:39] VITALS: BP 110/68
[2021-05-21] MEDS: LEVOTHYROXINE SODIUM 75 MCG TABLET PO SCH (06:51)
[2021-05-21 08:23] VITALS: BP 127/57
[2021-05-21] MEDS: AmLODIPine BESYLATE 5 MG TABLET PO SCH (08:38)
[2021-05-21] MEDS: BuPROPion HCL 75 MG TABLET PO SCH ×2 (08:38→16:40)
[2021-05-21] MEDS: GABAPENTIN 400 MG CAPSULE PO SCH ×2 (08:38→16:41)
[2021-05-21] MEDS: OMEGA-3/DHA/EPA/FISH OIL 1,000 MG CAPSULE PO SCH (08:39)
[2021-05-21] MEDS: LORazepam 2 MG TABLET PO PRN ×2 (08:39→14:53)
[2021-05-21 16:07] VITALS: BP 103/61
[2021-05-21] MEDS: DIVALPROEX SODIUM 500 MG DR TABLET PO SCH (20:06)
[2021-05-21] MEDS: SIMVASTATIN 10 MG TABLET PO SCH (20:06)
[2021-05-21] MEDS: TraZODone HCL 100 MG TABLET PO SCH (20:07)
[2021-05-22 02:18] VITALS: BP 114/62
[2021-05-22] MEDS: LEVOTHYROXINE SODIUM 75 MCG TABLET PO SCH (06:54)
[2021-05-22 08:07] VITALS: BP 100/63
[2021-05-22] MEDS: BuPROPion HCL 75 MG TABLET PO SCH ×2 (08:19→16:03)
[2021-05-22] MEDS: OMEGA-3/DHA/EPA/FISH OIL 1,000 MG CAPSULE PO SCH (08:19)
[2021-05-22] MEDS: GABAPENTIN 400 MG CAPSULE PO SCH ×2 (08:19→16:03)
[2021-05-22 08:20] VITALS: BP 110/68
[2021-05-22] MEDS: AmLODIPine BESYLATE 5 MG TABLET PO SCH (08:20)
[2021-05-22] MEDS: LORazepam 2 MG TABLET PO PRN ×2 (09:42→16:11)
[2021-05-22 16:03] VITALS: BP 106/64
[2021-05-22] MEDS: DIVALPROEX SODIUM 500 MG DR TABLET PO SCH (20:07)
[2021-05-22] MEDS: SIMVASTATIN 10 MG TABLET PO SCH (20:07)
[2021-05-22] MEDS: TraZODone HCL 100 MG TABLET PO SCH (20:07)
[2021-05-23 05:14] VITALS: BP 118/69
[2021-05-23] MEDS: LEVOTHYROXINE SODIUM 75 MCG TABLET PO SCH (06:57)
[2021-05-23 08:10] VITALS: BP 100/66
[2021-05-23] MEDS: BuPROPion HCL 75 MG TABLET PO SCH ×2 (08:44→16:02)
[2021-05-23] MEDS: AmLODIPine BESYLATE 5 MG TABLET PO SCH (08:44)
[2021-05-23] MEDS: GABAPENTIN 400 MG CAPSULE PO SCH ×2 (08:44→16:02)
[2021-05-23] MEDS: OMEGA-3/DHA/EPA/FISH OIL 1,000 MG CAPSULE PO SCH (08:44)
[2021-05-23 11:00] VITALS: BP 108/70
[2021-05-23] MEDS: LORazepam 2 MG TABLET PO PRN ×2 (14:37→20:03)
[2021-05-23 16:13] VITALS: BP 107/63
[2021-05-23] MEDS: HALOPERIDOL 5 MG TABLET PO PRN (18:27)
[2021-05-23] MEDS: TraZODone HCL 100 MG TABLET PO SCH (20:02)
[2021-05-23] MEDS: SIMVASTATIN 10 MG TABLET PO SCH (20:02)
[2021-05-23] MEDS: DIVALPROEX SODIUM 500 MG DR TABLET PO SCH (20:03)
[2021-05-24 03:37] VITALS: BP 114/65
[2021-05-24] MEDS: LEVOTHYROXINE SODIUM 75 MCG TABLET PO SCH (06:33)
[2021-05-24] MEDS: BuPROPion HCL 75 MG TABLET PO SCH ×2 (08:09→16:05)
[2021-05-24] MEDS: AmLODIPine BESYLATE 5 MG TABLET PO SCH (08:09)
[2021-05-24] MEDS: OMEGA-3/DHA/EPA/FISH OIL 1,000 MG CAPSULE PO SCH (08:09)
[2021-05-24] MEDS: GABAPENTIN 400 MG CAPSULE PO SCH ×2 (08:09→16:05)
[2021-05-24 08:19] VITALS: BP 121/69
[2021-05-24 16:13] VITALS: BP 100/61
[2021-05-24] MEDS: TraZODone HCL 100 MG TABLET PO SCH (20:03)
[2021-05-24] MEDS: DIVALPROEX SODIUM 500 MG DR TABLET PO SCH (20:03)
[2021-05-24] MEDS: SIMVASTATIN 10 MG TABLET PO SCH (20:03)
[2021-05-25 00:40] VITALS: BP 142/84
[2021-05-25] MEDS: ZOLPIDEM TARTRATE 10 MG TABLET PO PRN ×2 (00:58→20:21)
[2021-05-25] MEDS: LEVOTHYROXINE SODIUM 75 MCG TABLET PO SCH (06:50)
[2021-05-25] MEDS: OMEGA-3/DHA/EPA/FISH OIL 1,000 MG CAPSULE PO SCH (08:08)
[2021-05-25] MEDS: GABAPENTIN 400 MG CAPSULE PO SCH ×2 (08:08→16:36)
[2021-05-25] MEDS: BuPROPion HCL 75 MG TABLET PO SCH ×2 (08:08→16:36)
[2021-05-25] MEDS: AmLODIPine BESYLATE 5 MG TABLET PO SCH (08:08)
[2021-05-25 08:45] VITALS: BP 98/62
[2021-05-25] MEDS: LORazepam 2 MG TABLET PO PRN ×2 (12:20→16:36)
[2021-05-25 16:18] VITALS: BP 103/65
[2021-05-25] MEDS: SIMVASTATIN 10 MG TABLET PO SCH (20:21)
[2021-05-25] MEDS: DIVALPROEX SODIUM 500 MG DR TABLET PO SCH (20:21)
[2021-05-25] MEDS: TraZODone HCL 100 MG TABLET PO SCH (20:21)
[2021-05-26 05:35] VITALS: BP 107/69
[2021-05-26] MEDS: LEVOTHYROXINE SODIUM 75 MCG TABLET PO SCH (06:18)
[2021-05-26] MEDS: GABAPENTIN 400 MG CAPSULE PO SCH ×2 (08:07→16:19)
[2021-05-26] MEDS: BuPROPion HCL 75 MG TABLET PO SCH ×2 (08:08→16:19)
[2021-05-26] MEDS: OMEGA-3/DHA/EPA/FISH OIL 1,000 MG CAPSULE PO SCH (08:08)
[2021-05-26 08:38] VITALS: BP 105/68
[2021-05-26] MEDS: AmLODIPine BESYLATE 5 MG TABLET PO SCH (08:48)
[2021-05-26] MEDS: METHOCARBAMOL 500 MG TABLET PO PRN (12:10)
[2021-05-26] MEDS: LORazepam 2 MG TABLET PO PRN ×2 (12:21→19:40)
[2021-05-26 16:26] VITALS: BP 111/81
[2021-05-26] MEDS: DIVALPROEX SODIUM 500 MG DR TABLET PO SCH (20:38)
[2021-05-26] MEDS: SIMVASTATIN 10 MG TABLET PO SCH (20:38)
[2021-05-26] MEDS: TraZODone HCL 100 MG TABLET PO SCH (20:38)
[2021-05-27 01:20] VITALS: BP 110/68
[2021-05-27] MEDS: ZOLPIDEM TARTRATE 10 MG TABLET PO PRN (01:24)
[2021-05-27] MEDS: LORazepam 2 MG TABLET PO PRN (01:24)
[2021-05-27] MEDS: LEVOTHYROXINE SODIUM 75 MCG TABLET PO SCH (06:52)
[2021-05-27 08:30] VITALS: BP 112/72
[2021-05-27] MEDS: AmLODIPine BESYLATE 5 MG TABLET PO SCH (08:33)
[2021-05-27] MEDS: GABAPENTIN 400 MG CAPSULE PO SCH (08:33)
[2021-05-27] MEDS: OMEGA-3/DHA/EPA/FISH OIL 1,000 MG CAPSULE PO SCH (08:33)
[2021-05-27] MEDS: BuPROPion HCL 75 MG TABLET PO SCH (08:33)
[2021-05-27] MEDS ORDERED: DIVA-112 PO (10:00)
[2021-05-27] MEDS ORDERED: TRAZ-257 PO (10:00)
[2021-05-27] MEDS ORDERED: BUPR-344 PO (10:00)
[2021-05-27] MEDS ORDERED: GABA-1201 PO (10:00)
[2021-05-27] MEDS ORDERED: LEVO75 PO (10:46)
[2021-05-27] MEDS ORDERED: AMLO-257 PO (10:47)
[2021-05-27] MEDS ORDERED: OMEG-108 PO (10:47)
[2021-05-27] MEDS ORDERED: SIMV-259 PO (10:47)
== END 2021-05-27 13:20 | disposition home or self-care (01) | DRG 753 ==
LOC: B3A 23:15
PROVIDERS: ADMIT Psychiatry & Neurology Psychiatry; ATTEND Psychiatry & Neurology Psychiatry
DX: F31.9 Bipolar disorder, unspecified (principal); G40.909 Epilepsy, unspecified, not intractable, without status epilepticus; E03.9 Hypothyroidism, unspecified; E78.5 Hyperlipidemia, unspecified; I10 Essential (primary) hypertension; J44.9 Chronic obstructive pulmonary disease, unspecified; E78.00 Pure hypercholesterolemia, unspecified; G47.00 Insomnia, unspecified; F41.9 Anxiety disorder, unspecified; F19.10 Other psychoactive substance abuse, uncomplicated; K59.00 Constipation, unspecified; Z72.0 Tobacco use; Z71.6 Tobacco abuse counseling; Z88.8 Allergy status to other drugs, medicaments and biological substances
CPT/HCPCS: 80053; 84439; 85025; Q0162

== ENCOUNTER 2021-05-09 17:09 | Emergency (ER) | payer MEDICAID, OTHER ==
[~2021-05-09] VITALS: Ht 177.8 cm; Wt 80.0 kg
[~2021-05-09 17:09] MED LIST changes: +BUPR-93 PO; -[UNRECOGNIZED DRUG - CODE] PO
[2021-05-09 19:02] LABS: BASOPHILS % (AUTO) 0.8 % (0.0-2.0); EOSINOPHILS % (AUTO) 1.6 % (1.0-6.0); HEMATOCRIT 38.4 % (36-46); LYMPHOCYTES % (AUTO) 37.4 % (22.0-44.0); MEAN CORPUSCULAR HEMOGLOBIN 31.6 pg (26.0-34.0); MEAN CORPUSCULAR HGB CONC 33.9 G/dL (31.0-37.0); MEAN CORPUSCULAR VOLUME 93 fL (80-100); MONOCYTES # (AUTO) 0.6 K/uL (0.1-1.0); MONOCYTES % (AUTO) 7.9 % (2.0-9.0); NEUTROPHILS # (AUTO) 4.2 K/uL (1.8-7.7); NEUTROPHILS % (AUTO) 52.3 % (40.0-70.0); PLATELET COUNT (AUTO) 379 K/uL (150-450); RED BLOOD CELL COUNT(AUTO) 4.12 MIL/uL (4.00-5.20); RED CELL DISTRIBUTION WIDTH 13.2 % (11.5-14.5)
[2021-05-09 19:10] LABS: ANION GAP 6 mmol/L (8-16); CALCIUM, TOTAL 8.5 mg/dL (8.8-10.5); CARBON DIOXIDE 29 mmol/L (22-29); CHLORIDE 101 mmol/L (98-107); CREATININE 0.67 mg/dL (0.60-1.30); GLOMERULAR FILTR. RATE CALC > 60 mL/min (>60); GLUCOSE,RANDOM 90 mg/dL (70-110); POTASSIUM 3.4 mmol/L (3.5-5.1); SODIUM SERUM 136 mmol/L (136-145); UREA NITROGEN, BLOOD 11 mg/dL (7-18)
[2021-05-09 19:23] LABS: ALANINE AMINOTRANSFERASE 13 U/L (12-78); ALBUMIN 3.3 g/dL (3.4-5.0); ALKALINE PHOSPHATASE 110 U/L (46-116); ASPARTATE AMINOTRANSFERASE 15 U/L (15-37); BILIRUBIN,TOTAL 0.2 mg/dL (0.1-1.0); HCG,QUANTITATIVE < 1 mIU/mL (0-6)
[2021-05-09 19:25] LABS: ACETAMINOPHEN < 2 mcg/mL (10-30)
[2021-05-09] MEDS ORDERED: POTASSIUM CHLORIDE 20 MEQ ER TABLET PO ONE (19:45)
[2021-05-09 19:50] LABS: LITHIUM 0.24 mmol/L (0.60-1.20); SALICYLATE 3.8 mg/dL (2.8-20.0)
[2021-05-09 21:00] VITALS: BP 147/85
[2021-05-09 21:01] LABS: APPEARANCE,URINE CLEAR (CLEAR); BILIRUBIN,URINE NEGATIVE (NEGATIVE); GLUCOSE, URINE (UA) NEGATIVE (NEGATIVE); KETONES,URINE NEGATIVE (NEGATIVE); LEUKOCYTE ESTERASE ,URINE SMALL (NEGATIVE); NITRATE,URINE NEGATIVE (NEGATIVE); OCCULT BLOOD,URINE NEGATIVE (NEGATIVE); PH,URINE 6.5 (5.0-8.0); PROTEIN,URINE NEGATIVE (NEGATIVE); SPECIFIC GRAVITIY, URINE 1.015 (1.003-1.030); UROBILINOGEN,URINE <=1.0 mg/dL (<=1.0)
[2021-05-09 21:08] LABS: AMPHET/METH SCREEN,URINE POSITIVE (NEGATIVE); BARBITURATE SCREEN, URINE NEGATIVE (NEGATIVE); BENZODIAZEPINES SCREEN,URINE NEGATIVE (NEGATIVE); CANNABINOID SCREEN,URINE NEGATIVE (NEGATIVE); COCAINE SCREEN,URINE NEGATIVE (NEGATIVE); METHADONE SCREEN, URINE NEGATIVE (NEGATIVE); OPIATE SCREEN,URINE NEGATIVE (NEGATIVE)
[2021-05-09 21:10] LABS: PHENCYCLIDINE SCREEN,URINE NEGATIVE (NEGATIVE)
[2021-05-09 21:32] LABS: BACTERIA,URINE Few /HPF (None Seen); RBC,URINE 0-2 /HPF (0-2); SQUAMOUS EPITHELIAL CELL,UR Few /LPF (None Seen)
== END 2021-05-09 22:25 | disposition home or self-care (01) ==
LOC: EMS 17:48
DX: F25.1 Schizoaffective disorder, depressive type (principal); F11.10 Opioid abuse, uncomplicated; F12.10 Cannabis abuse, uncomplicated; F15.10 Other stimulant abuse, uncomplicated; F31.9 Bipolar disorder, unspecified; E78.00 Pure hypercholesterolemia, unspecified; F17.210 Nicotine dependence, cigarettes, uncomplicated; Z88.8 Allergy status to other drugs, medicaments and biological substances; Z79.899 Other long term (current) drug therapy
CPT/HCPCS: 36415; 80053; 80178; 80307; 81001; 84702; 85025; 99284; G0480; G0481

== ENCOUNTER 2021-06-15 12:14 | Inpatient (IN) | payer MEDICAID, OTHER ==
[~2021-06-15] VITALS: Ht 177.8 cm; Wt 85.5 kg
[~2021-06-15 12:14] MED LIST changes: -ARIP882S2 IM; +BUPR-344 PO; -BUPR-93 PO; +DIVA-112 PO; +GABA-1201 PO; +LEVO75 PO; -LITH300C3 PO; -PARO-38 PO; +TRAZ-257 PO
[2021-06-15 13:53] LABS: BASOPHILS % (AUTO) 1.2 % (0.0-2.0); HEMOGLOBIN 12.5 g/dL (12.0-16.0); LYMPHOCYTES # (AUTO) 2.1 K/uL (1.0-4.8); MEAN CORPUSCULAR HGB CONC 33.9 G/dL (31.0-37.0); MEAN CORPUSCULAR VOLUME 91 fL (80-100); MONOCYTES # (AUTO) 0.4 K/uL (0.1-1.0); MONOCYTES % (AUTO) 8.3 % (2.0-9.0); NEUTROPHILS # (AUTO) 2.3 K/uL (1.8-7.7); NEUTROPHILS % (AUTO) 42.5 % (40.0-70.0); PLATELET COUNT (AUTO) 297 K/uL (150-450); RED BLOOD CELL COUNT(AUTO) 4.04 MIL/uL (4.00-5.20); RED CELL DISTRIBUTION WIDTH 13.6 % (11.5-14.5)
[2021-06-15 14:12] LABS: ANION GAP 10 mmol/L (8-16); CALCIUM, TOTAL 8.9 mg/dL (8.8-10.5); CARBON DIOXIDE 29 mmol/L (22-29); CHLORIDE 106 mmol/L (98-107); CREATININE 0.76 mg/dL (0.60-1.30); GLOMERULAR FILTR. RATE CALC > 60 mL/min (>60); GLUCOSE,RANDOM 92 mg/dL (70-110); SODIUM SERUM 145 mmol/L (136-145); UREA NITROGEN, BLOOD 6 mg/dL (7-18)
[2021-06-15 14:24] LABS: ALANINE AMINOTRANSFERASE 18 U/L (12-78); ALBUMIN 3.3 g/dL (3.4-5.0); ALKALINE PHOSPHATASE 100 U/L (46-116); ASPARTATE AMINOTRANSFERASE 17 U/L (15-37); BILIRUBIN,TOTAL 0.1 mg/dL (0.1-1.0); HCG,QUANTITATIVE 2 mIU/mL (0-6); THYROID STIMULATING HORMONE 0.54 uIU/mL (0.36-3.74)
[2021-06-15 14:26] LABS: VALPROIC ACID < 3 mcg/mL (50-100)
[2021-06-15] MEDS ORDERED: POTASSIUM CHLORIDE 20 MEQ ER TABLET PO ONE (14:30)
[2021-06-15] MEDS ORDERED: ACETAMINOPHEN 500 MG TABLET PO ONE (15:45)
[2021-06-15] MEDS: LORazepam 2 MG TABLET PO PRN (15:47)
[2021-06-15] MEDS: HALOPERIDOL 5 MG TABLET PO PRN (15:47)
[2021-06-15 16:47] LABS: COVID AG,FIA SOURCE NASAL SWAB
[2021-06-16 05:46] VITALS: BP 110/60
[2021-06-16] MEDS: LORazepam 2 MG TABLET PO PRN ×2 (06:26→12:06)
[2021-06-16] MEDS ORDERED: PETROLATUM,WHITE 28 GM JELLY TP PRN (08:00)
[2021-06-16] MEDS ORDERED: BENZOCAINE/MENTHOL LOZENGE PO PRN (08:00)
[2021-06-16] MEDS ORDERED: ONDANSETRON HCL 4 MG TABLET PO PRN (08:00)
[2021-06-16] MEDS ORDERED: CloNIDine HCL 0.1 MG TABLET PO PRN (08:00)
[2021-06-16] MEDS ORDERED: OMEPRAZOLE 20 MG CAPSULE PO PRN (08:00)
[2021-06-16] MEDS ORDERED: ALBUTEROL SULFATE HFA 90 MCG/PUFF 8 GM INHALER IH PRN (08:00)
[2021-06-16] MEDS ORDERED: BACITRACIN 28 GM OINTMENT TP PRN (08:00)
[2021-06-16] MEDS ORDERED: MAGNESIUM HYDROXIDE SUSPENSION 30 ML UDCUP PO PRN (08:00)
[2021-06-16] MEDS ORDERED: DOCUSATE SODIUM 100 MG CAPSULE PO PRN (08:00)
[2021-06-16] MEDS ORDERED: LOPERAMIDE HCL 2 MG CAPSULE PO PRN (08:00)
[2021-06-16] MEDS ORDERED: MAG HYDROX/AL HYDROX/SIMETH ES 30 ML SUSPENSION UDCUP PO PRN (08:00)
[2021-06-16] MEDS: OMEGA-3/DHA/EPA/FISH OIL 1,000 MG CAPSULE PO SCH (09:00)
[2021-06-16] MEDS: AmLODIPine BESYLATE 5 MG TABLET PO SCH (09:00)
[2021-06-16 16:05] VITALS: BP 123/69
[2021-06-16] MEDS: GABAPENTIN 400 MG CAPSULE PO SCH (17:18)
[2021-06-16] MEDS: ZOLPIDEM TARTRATE 10 MG TABLET PO PRN (20:07)
[2021-06-16] MEDS: SIMVASTATIN 10 MG TABLET PO SCH (20:07)
[2021-06-16] MEDS: DIVALPROEX SODIUM 500 MG DR TABLET PO SCH (20:07)
[2021-06-17 04:58] VITALS: BP 108/72
[2021-06-17] MEDS: LORazepam 2 MG TABLET PO PRN ×4 (05:05→20:10)
[2021-06-17] MEDS: ACETAMINOPHEN 325 MG TABLET PO PRN (05:06)
[2021-06-17] MEDS: LEVOTHYROXINE SODIUM 75 MCG TABLET PO SCH (06:18)
[2021-06-17] MEDS: BuPROPion HCL 150 MG SR TABLET PO SCH (08:11)
[2021-06-17] MEDS: GABAPENTIN 400 MG CAPSULE PO SCH ×3 (08:11→16:09)
[2021-06-17] MEDS: THIAMINE 100 MG TABLET PO SCH (08:11)
[2021-06-17] MEDS: AmLODIPine BESYLATE 5 MG TABLET PO SCH (08:11)
[2021-06-17] MEDS: MULTIVITAMINS WITH MINERALS, THERAPEUTIC TABLET PO SCH (08:11)
[2021-06-17] MEDS: OMEGA-3/DHA/EPA/FISH OIL 1,000 MG CAPSULE PO SCH (08:12)
[2021-06-17] MEDS: FOLIC ACID 1 MG TABLET PO SCH (08:14)
[2021-06-17 09:07] VITALS: BP 130/82
[2021-06-17] MEDS: HALOPERIDOL 5 MG TABLET PO PRN (15:43)
[2021-06-17] MEDS: ZOLPIDEM TARTRATE 10 MG TABLET PO PRN (20:10)
[2021-06-17] MEDS: SIMVASTATIN 10 MG TABLET PO SCH (20:10)
[2021-06-17] MEDS: DIVALPROEX SODIUM 500 MG DR TABLET PO SCH (20:11)
[2021-06-17 22:49] VITALS: BP 110/67
[2021-06-18 00:33] VITALS: BP 112/62
[2021-06-18] MEDS: LEVOTHYROXINE SODIUM 75 MCG TABLET PO SCH (06:18)
[2021-06-18 08:12] VITALS: BP 103/64
[2021-06-18] MEDS: OMEGA-3/DHA/EPA/FISH OIL 1,000 MG CAPSULE PO SCH (08:13)
[2021-06-18] MEDS: FOLIC ACID 1 MG TABLET PO SCH (08:13)
[2021-06-18] MEDS: GABAPENTIN 400 MG CAPSULE PO SCH ×3 (08:13→16:22)
[2021-06-18] MEDS: THIAMINE 100 MG TABLET PO SCH (08:14)
[2021-06-18] MEDS: MULTIVITAMINS WITH MINERALS, THERAPEUTIC TABLET PO SCH (08:14)
[2021-06-18] MEDS: BuPROPion HCL 150 MG SR TABLET PO SCH (08:14)
[2021-06-18 08:15] VITALS: BP 108/74
[2021-06-18] MEDS: AmLODIPine BESYLATE 5 MG TABLET PO SCH (08:15)
[2021-06-18] MEDS: LORazepam 2 MG TABLET PO PRN ×3 (09:01→18:11)
[2021-06-18] MEDS: HALOPERIDOL 5 MG TABLET PO PRN (09:36)
[2021-06-18 16:07] VITALS: BP 104/64
[2021-06-18] MEDS: SIMVASTATIN 10 MG TABLET PO SCH (20:11)
[2021-06-18] MEDS: DIVALPROEX SODIUM 500 MG DR TABLET PO SCH (20:11)
[2021-06-18] MEDS: ZOLPIDEM TARTRATE 10 MG TABLET PO PRN (20:17)
[2021-06-19] MEDS: LEVOTHYROXINE SODIUM 75 MCG TABLET PO SCH (06:18)
[2021-06-19 07:03] VITALS: BP 105/69
[2021-06-19 08:17] VITALS: BP 103/64
[2021-06-19] MEDS: MULTIVITAMINS WITH MINERALS, THERAPEUTIC TABLET PO SCH (08:19)
[2021-06-19] MEDS: GABAPENTIN 400 MG CAPSULE PO SCH ×3 (08:19→16:10)
[2021-06-19] MEDS: THIAMINE 100 MG TABLET PO SCH (08:19)
[2021-06-19] MEDS: BuPROPion HCL 150 MG SR TABLET PO SCH (08:19)
[2021-06-19] MEDS: FOLIC ACID 1 MG TABLET PO SCH (08:19)
[2021-06-19] MEDS: OMEGA-3/DHA/EPA/FISH OIL 1,000 MG CAPSULE PO SCH (08:19)
[2021-06-19] MEDS: AmLODIPine BESYLATE 5 MG TABLET PO SCH (08:34)
[2021-06-19 08:35] VITALS: BP 112/78
[2021-06-19] MEDS: IBUPROFEN 600 MG TABLET PO PRN (08:36)
[2021-06-19] MEDS: LORazepam 2 MG TABLET PO PRN ×4 (08:43→21:56)
[2021-06-19] MEDS: HALOPERIDOL 5 MG TABLET PO PRN ×3 (09:11→21:56)
[2021-06-19 16:24] VITALS: BP 104/64
[2021-06-19] MEDS: SIMVASTATIN 10 MG TABLET PO SCH (20:59)
[2021-06-19] MEDS: ZOLPIDEM TARTRATE 10 MG TABLET PO PRN (20:59)
[2021-06-19] MEDS: DIVALPROEX SODIUM 500 MG DR TABLET PO SCH (20:59)
[2021-06-20 00:41] VITALS: BP 100/67
[2021-06-20] MEDS: LEVOTHYROXINE SODIUM 75 MCG TABLET PO SCH (06:28)
[2021-06-20] MEDS: HALOPERIDOL 5 MG TABLET PO PRN ×2 (06:40→12:08)
[2021-06-20] MEDS: IBUPROFEN 600 MG TABLET PO PRN (06:41)
[2021-06-20 08:09] VITALS: BP 105/65
[2021-06-20] MEDS: GABAPENTIN 400 MG CAPSULE PO SCH ×3 (08:09→16:12)
[2021-06-20] MEDS: MULTIVITAMINS WITH MINERALS, THERAPEUTIC TABLET PO SCH (08:09)
[2021-06-20] MEDS: FOLIC ACID 1 MG TABLET PO SCH (08:09)
[2021-06-20] MEDS: OMEGA-3/DHA/EPA/FISH OIL 1,000 MG CAPSULE PO SCH (08:09)
[2021-06-20] MEDS: AmLODIPine BESYLATE 5 MG TABLET PO SCH (08:09)
[2021-06-20] MEDS: THIAMINE 100 MG TABLET PO SCH (08:09)
[2021-06-20] MEDS: BuPROPion HCL 150 MG SR TABLET PO SCH (08:09)
[2021-06-20 09:15] VITALS: BP 110/76
[2021-06-20] MEDS: LORazepam 2 MG TABLET PO PRN ×3 (09:30→18:56)
[2021-06-20 16:10] VITALS: BP 101/63
[2021-06-20] MEDS: DIVALPROEX SODIUM 500 MG DR TABLET PO SCH (20:23)
[2021-06-20] MEDS: ZOLPIDEM TARTRATE 10 MG TABLET PO PRN (20:23)
[2021-06-20] MEDS: SIMVASTATIN 10 MG TABLET PO SCH (20:23)
[2021-06-20] MEDS: ACETAMINOPHEN 325 MG TABLET PO PRN (22:38)
[2021-06-21 03:19] VITALS: BP 96/56
[2021-06-21] MEDS: LORazepam 2 MG TABLET PO PRN ×4 (03:26→16:14)
[2021-06-21] MEDS: IBUPROFEN 600 MG TABLET PO PRN ×2 (03:28→14:13)
[2021-06-21] MEDS: LEVOTHYROXINE SODIUM 75 MCG TABLET PO SCH (06:19)
[2021-06-21] MEDS: FOLIC ACID 1 MG TABLET PO SCH (08:01)
[2021-06-21] MEDS: GABAPENTIN 400 MG CAPSULE PO SCH ×3 (08:01→16:06)
[2021-06-21] MEDS: AmLODIPine BESYLATE 5 MG TABLET PO SCH (08:01)
[2021-06-21] MEDS: THIAMINE 100 MG TABLET PO SCH (08:01)
[2021-06-21] MEDS: MULTIVITAMINS WITH MINERALS, THERAPEUTIC TABLET PO SCH (08:01)
[2021-06-21] MEDS: OMEGA-3/DHA/EPA/FISH OIL 1,000 MG CAPSULE PO SCH (08:01)
[2021-06-21] MEDS: BuPROPion HCL 150 MG SR TABLET PO SCH (08:01)
[2021-06-21] MEDS: HALOPERIDOL 5 MG TABLET PO PRN ×2 (08:02→18:22)
[2021-06-21 08:15] VITALS: BP 101/63
[2021-06-21] MEDS: ACETAMINOPHEN 325 MG TABLET PO PRN (09:02)
[2021-06-21] MEDS: DIVALPROEX SODIUM 500 MG DR TABLET PO SCH (20:46)
[2021-06-21] MEDS: SIMVASTATIN 10 MG TABLET PO SCH (20:47)
[2021-06-22 03:24] VITALS: BP 107/64
[2021-06-22] MEDS: LORazepam 2 MG TABLET PO PRN ×4 (03:34→20:35)
[2021-06-22] MEDS: HALOPERIDOL 5 MG TABLET PO PRN ×3 (03:34→18:35)
[2021-06-22] MEDS: LEVOTHYROXINE SODIUM 75 MCG TABLET PO SCH (06:25)
[2021-06-22] MEDS: IBUPROFEN 600 MG TABLET PO PRN ×2 (07:09→17:02)
[2021-06-22 08:10] VITALS: BP 112/63
[2021-06-22] MEDS: THIAMINE 100 MG TABLET PO SCH (08:15)
[2021-06-22] MEDS: OMEGA-3/DHA/EPA/FISH OIL 1,000 MG CAPSULE PO SCH (08:15)
[2021-06-22] MEDS: BuPROPion HCL 150 MG SR TABLET PO SCH (08:15)
[2021-06-22] MEDS: MULTIVITAMINS WITH MINERALS, THERAPEUTIC TABLET PO SCH (08:15)
[2021-06-22] MEDS: GABAPENTIN 400 MG CAPSULE PO SCH ×3 (08:15→16:22)
[2021-06-22] MEDS: FOLIC ACID 1 MG TABLET PO SCH (08:16)
[2021-06-22] MEDS: AmLODIPine BESYLATE 5 MG TABLET PO SCH (08:16)
[2021-06-22] MEDS: ACETAMINOPHEN 325 MG TABLET PO PRN (13:43)
[2021-06-22 16:06] VITALS: BP 99/60
[2021-06-22] MEDS: SIMVASTATIN 10 MG TABLET PO SCH (20:34)
[2021-06-22] MEDS: DIVALPROEX SODIUM 500 MG DR TABLET PO SCH (20:34)
[2021-06-23 05:26] VITALS: BP 109/60
[2021-06-23] MEDS: LEVOTHYROXINE SODIUM 75 MCG TABLET PO SCH (06:51)
[2021-06-23 07:00] VITALS: BP 114/62
[2021-06-23] MEDS: IBUPROFEN 600 MG TABLET PO PRN (07:12)
[2021-06-23] MEDS: LORazepam 2 MG TABLET PO PRN ×3 (07:12→17:44)
[2021-06-23 08:07] VITALS: BP 106/69
[2021-06-23] MEDS: OMEGA-3/DHA/EPA/FISH OIL 1,000 MG CAPSULE PO SCH (08:23)
[2021-06-23] MEDS: BuPROPion HCL 150 MG SR TABLET PO SCH (08:23)
[2021-06-23] MEDS: MULTIVITAMINS WITH MINERALS, THERAPEUTIC TABLET PO SCH (08:23)
[2021-06-23] MEDS: GABAPENTIN 400 MG CAPSULE PO SCH ×3 (08:23→16:32)
[2021-06-23] MEDS: THIAMINE 100 MG TABLET PO SCH (08:23)
[2021-06-23] MEDS: FOLIC ACID 1 MG TABLET PO SCH (08:23)
[2021-06-23] MEDS: AmLODIPine BESYLATE 5 MG TABLET PO SCH (08:23)
[2021-06-23] MEDS: HALOPERIDOL 5 MG TABLET PO PRN ×2 (09:25→17:44)
[2021-06-23 12:51] LABS: GLUCOMETER DEV NAME(LOC) POC.BV
[2021-06-23 16:30] VITALS: BP 116/80
[2021-06-23] MEDS ORDERED: DIVA-112 PO (20:29)
[2021-06-23] MEDS ORDERED: BUPR-290 PO (20:29)
[2021-06-23] MEDS ORDERED: GABA-1201 PO (20:29)
[2021-06-23] MEDS: SIMVASTATIN 10 MG TABLET PO SCH (20:50)
[2021-06-23] MEDS: DIVALPROEX SODIUM 500 MG DR TABLET PO SCH (20:50)
[2021-06-24 00:27] VITALS: BP 110/76
[2021-06-24] MEDS: LEVOTHYROXINE SODIUM 75 MCG TABLET PO SCH (06:49)
[2021-06-24] MEDS: IBUPROFEN 600 MG TABLET PO PRN (07:09)
[2021-06-24] MEDS: LORazepam 2 MG TABLET PO PRN (07:10)
[2021-06-24 07:11] VITALS: BP 116/90
[2021-06-24] MEDS: THIAMINE 100 MG TABLET PO SCH (08:12)
[2021-06-24] MEDS: OMEGA-3/DHA/EPA/FISH OIL 1,000 MG CAPSULE PO SCH (08:13)
[2021-06-24] MEDS: GABAPENTIN 400 MG CAPSULE PO SCH ×2 (08:13→12:05)
[2021-06-24] MEDS: BuPROPion HCL 150 MG SR TABLET PO SCH (08:13)
[2021-06-24] MEDS: MULTIVITAMINS WITH MINERALS, THERAPEUTIC TABLET PO SCH (08:13)
[2021-06-24] MEDS: FOLIC ACID 1 MG TABLET PO SCH (08:13)
[2021-06-24] MEDS: HALOPERIDOL 5 MG TABLET PO PRN (08:19)
[2021-06-24 08:24] VITALS: BP 106/58
[2021-06-24] MEDS: AmLODIPine BESYLATE 5 MG TABLET PO SCH (08:51)
[2021-06-24] MEDS: ACETAMINOPHEN 325 MG TABLET PO PRN (09:47)
== END 2021-06-24 13:30 | disposition home or self-care (01) | DRG 750 ==
LOC: EMS 12:14 → B3A 06-16 01:15
PROVIDERS: ADMIT Psychiatry & Neurology Psychiatry; ATTEND Psychiatry & Neurology Psychiatry
DX: F25.1 Schizoaffective disorder, depressive type (principal); R45.851 Suicidal ideations; G40.909 Epilepsy, unspecified, not intractable, without status epilepticus; E03.9 Hypothyroidism, unspecified; E78.00 Pure hypercholesterolemia, unspecified; E78.5 Hyperlipidemia, unspecified; E87.6 Hypokalemia; I10 Essential (primary) hypertension; J44.9 Chronic obstructive pulmonary disease, unspecified; S00.83XA Contusion of other part of head, initial encounter; Y90.3 Blood alcohol level of 60-79 mg/100 ml; F10.20 Alcohol dependence, uncomplicated; F17.210 Nicotine dependence, cigarettes, uncomplicated; Z20.822 Contact with and (suspected) exposure to COVID-19; F11.10 Opioid abuse, uncomplicated; X58.XXXA Exposure to other specified factors, initial encounter; F15.10 Other stimulant abuse, uncomplicated; G47.00 Insomnia, unspecified; K59.00 Constipation, unspecified; F41.9 Anxiety disorder, unspecified; Z88.2 Allergy status to sulfonamides; Y93.89 Activity, other specified; Y92.89 Other specified places as the place of occurrence of the external cause; Y99.8 Other external cause status; Z91.14 Patient's other noncompliance with medication regimen; Z88.8 Allergy status to other drugs, medicaments and biological substances; Z71.41 Alcohol abuse counseling and surveillance of alcoholic; Z71.51 Drug abuse counseling and surveillance of drug abuser; Z71.6 Tobacco abuse counseling
CPT/HCPCS: 80053; 80164; 84443; 84702; 85025; 99285; G0480

== ENCOUNTER 2021-07-04 18:47 | Inpatient (IN) | payer MEDICAID ==
[~2021-07-04] VITALS: Ht 177.8 cm; Wt 81.7 kg
[~2021-07-04 18:47] MED LIST changes: +BUPR-290 PO
[2021-07-04 20:46] LABS: GLUCOMETER DEV NAME(LOC) POC.BV
[2021-07-04 22:54] VITALS: BP 120/73
[2021-07-05 00:51] VITALS: BP 114/69
[2021-07-05] MEDS: HALOPERIDOL 5 MG TABLET PO PRN ×2 (06:17→10:47)
[2021-07-05] MEDS: LORazepam 2 MG TABLET PO PRN ×3 (06:17→21:12)
[2021-07-05] MEDS: LEVOTHYROXINE SODIUM 75 MCG TABLET PO SCH (06:24)
[2021-07-05 08:40] VITALS: BP 115/48
[2021-07-05] MEDS: AmLODIPine BESYLATE 5 MG TABLET PO SCH (08:43)
[2021-07-05] MEDS ORDERED: MAGNESIUM HYDROXIDE SUSPENSION 30 ML UDCUP PO PRN (14:15)
[2021-07-05] MEDS ORDERED: ONDANSETRON HCL 4 MG TABLET PO PRN (14:15)
[2021-07-05] MEDS ORDERED: OMEPRAZOLE 20 MG CAPSULE PO PRN (14:15)
[2021-07-05] MEDS ORDERED: DOCUSATE SODIUM 100 MG CAPSULE PO PRN (14:15)
[2021-07-05] MEDS ORDERED: LOPERAMIDE HCL 2 MG CAPSULE PO PRN (14:15)
[2021-07-05] MEDS ORDERED: CloNIDine HCL 0.1 MG TABLET PO PRN (14:15)
[2021-07-05] MEDS ORDERED: BENZOCAINE/MENTHOL LOZENGE PO PRN (14:15)
[2021-07-05] MEDS ORDERED: PETROLATUM,WHITE 28 GM JELLY TP PRN (14:15)
[2021-07-05] MEDS ORDERED: MAG HYDROX/AL HYDROX/SIMETH ES 30 ML SUSPENSION UDCUP PO PRN (14:15)
[2021-07-05] MEDS ORDERED: ALBUTEROL SULFATE HFA 90 MCG/PUFF 8 GM INHALER IH PRN (14:15)
[2021-07-05] MEDS ORDERED: BACITRACIN 28 GM OINTMENT TP PRN (14:15)
[2021-07-05 16:29] VITALS: BP 97/63
[2021-07-05] MEDS: SIMVASTATIN 10 MG TABLET PO SCH (20:31)
[2021-07-06] MEDS: LORazepam 2 MG TABLET PO PRN ×3 (06:39→17:05)
[2021-07-06] MEDS: LEVOTHYROXINE SODIUM 75 MCG TABLET PO SCH (06:40)
[2021-07-06] MEDS: ACETAMINOPHEN 325 MG TABLET PO PRN (06:40)
[2021-07-06 07:19] LABS: BASOPHILS % (AUTO) 1.1 % (0.0-2.0); EOSINOPHILS % (AUTO) 2.3 % (1.0-6.0); HEMATOCRIT 37.5 % (36-46); HEMOGLOBIN 12.8 g/dL (12.0-16.0); LYMPHOCYTES # (AUTO) 2.2 K/uL (1.0-4.8); LYMPHOCYTES % (AUTO) 39.2 % (22.0-44.0); MEAN CORPUSCULAR HEMOGLOBIN 31.1 pg (26.0-34.0); MEAN CORPUSCULAR HGB CONC 34.1 G/dL (31.0-37.0); MEAN CORPUSCULAR VOLUME 91 fL (80-100); MONOCYTES # (AUTO) 0.6 K/uL (0.1-1.0); MONOCYTES % (AUTO) 11.1 % (2.0-9.0); NEUTROPHILS # (AUTO) 2.6 K/uL (1.8-7.7); NEUTROPHILS % (AUTO) 46.3 % (40.0-70.0); PLATELET COUNT (AUTO) 366 K/uL (150-450); RED BLOOD CELL COUNT(AUTO) 4.12 MIL/uL (4.00-5.20); RED CELL DISTRIBUTION WIDTH 13.6 % (11.5-14.5)
[2021-07-06 07:26] LABS: HEMOGLOBIN A1C 5.5 % (3.8-5.6)
[2021-07-06 07:41] LABS: ALANINE AMINOTRANSFERASE 18 U/L (12-78); ALBUMIN 2.9 g/dL (3.4-5.0); ALKALINE PHOSPHATASE 89 U/L (46-116); ANION GAP 9 mmol/L (8-16); ASPARTATE AMINOTRANSFERASE 12 U/L (15-37); BILIRUBIN,TOTAL 0.4 mg/dL (0.1-1.0); CALCIUM, TOTAL 8.2 mg/dL (8.8-10.5); CARBON DIOXIDE 28 mmol/L (22-29); CHLORIDE 104 mmol/L (98-107); CHOL/HDL RATIO 4.9 (3.9-5.7); CHOLESTEROL 178 mg/dL (131-200); GLOMERULAR FILTR. RATE CALC > 60 mL/min (>60); GLUCOSE,RANDOM 97 mg/dL (70-110); HCG,QUANTITATIVE < 1 mIU/mL (0-6); HDL CHOLESTEROL 36 mg/dL (40-60); LDL CHOL (CALC.) 103 mg/dL (0-130); POTASSIUM 3.7 mmol/L (3.5-5.1); SODIUM SERUM 141 mmol/L (136-145); THYROID STIMULATING HORMONE 1.52 uIU/mL (0.36-3.74); TOTAL PROTEIN, SERUM 6.4 g/dL (6.4-8.2); TRIGLYCERIDES 197 mg/dL (15-150); UREA NITROGEN, BLOOD 14 mg/dL (7-18)
[2021-07-06] MEDS: AmLODIPine BESYLATE 5 MG TABLET PO SCH (08:11)
[2021-07-06 08:15] VITALS: BP 115/72
[2021-07-06] MEDS: IBUPROFEN 600 MG TABLET PO PRN ×2 (11:00→17:05)
[2021-07-06] MEDS: HALOPERIDOL 5 MG TABLET PO PRN ×2 (11:01→17:05)
[2021-07-06 16:26] VITALS: BP 120/74
[2021-07-06] MEDS: SIMVASTATIN 10 MG TABLET PO SCH (20:16)
[2021-07-07] MEDS: LORazepam 2 MG TABLET PO PRN ×4 (05:56→18:54)
[2021-07-07] MEDS: IBUPROFEN 600 MG TABLET PO PRN ×3 (05:57→18:54)
[2021-07-07 05:59] VITALS: BP 103/64
[2021-07-07] MEDS: LEVOTHYROXINE SODIUM 75 MCG TABLET PO SCH (06:43)
[2021-07-07] MEDS: AmLODIPine BESYLATE 5 MG TABLET PO SCH (08:08)
[2021-07-07 08:16] VITALS: BP 100/66
[2021-07-07 09:45] VITALS: BP 106/68
[2021-07-07] MEDS: HALOPERIDOL 5 MG TABLET PO PRN ×2 (10:24→18:54)
[2021-07-07 16:30] VITALS: BP 102/62
[2021-07-07] MEDS: SIMVASTATIN 10 MG TABLET PO SCH (20:06)
[2021-07-07] MEDS: ZOLPIDEM TARTRATE 10 MG TABLET PO PRN (20:07)
[2021-07-08 01:15] VITALS: BP 108/66
[2021-07-08] MEDS: LORazepam 2 MG TABLET PO PRN ×4 (04:47→18:38)
[2021-07-08] MEDS: LEVOTHYROXINE SODIUM 75 MCG TABLET PO SCH (06:46)
[2021-07-08 08:14] VITALS: BP 116/68
[2021-07-08] MEDS: AmLODIPine BESYLATE 5 MG TABLET PO SCH (08:36)
[2021-07-08] MEDS: IBUPROFEN 600 MG TABLET PO PRN (08:58)
[2021-07-08] MEDS: HALOPERIDOL 5 MG TABLET PO PRN ×2 (08:59→14:27)
[2021-07-08] MEDS: ACETAMINOPHEN 325 MG TABLET PO PRN (11:56)
[2021-07-08 16:08] VITALS: BP 120/73
[2021-07-08] MEDS: SIMVASTATIN 10 MG TABLET PO SCH (20:31)
[2021-07-08] MEDS: ZOLPIDEM TARTRATE 10 MG TABLET PO PRN (20:31)
[2021-07-09 00:56] VITALS: BP 110/68
[2021-07-09] MEDS: IBUPROFEN 600 MG TABLET PO PRN ×2 (05:13→12:00)
[2021-07-09] MEDS: LEVOTHYROXINE SODIUM 75 MCG TABLET PO SCH (06:37)
[2021-07-09] MEDS: AmLODIPine BESYLATE 5 MG TABLET PO SCH (08:06)
[2021-07-09] MEDS: BuPROPion HCL 150 MG SR TABLET PO SCH (08:06)
[2021-07-09] MEDS: ACETAMINOPHEN 325 MG TABLET PO PRN (08:06)
[2021-07-09] MEDS: LORazepam 2 MG TABLET PO PRN ×2 (08:07→13:54)
[2021-07-09 08:09] VITALS: BP 108/70
[2021-07-09] MEDS: HALOPERIDOL 5 MG TABLET PO PRN ×2 (08:24→14:05)
[2021-07-09 16:30] VITALS: BP 127/80
[2021-07-09] MEDS: SIMVASTATIN 10 MG TABLET PO SCH (20:05)
[2021-07-09] MEDS: ZOLPIDEM TARTRATE 10 MG TABLET PO PRN (20:05)
[2021-07-10 00:11] VITALS: BP 116/76
[2021-07-10] MEDS: LORazepam 2 MG TABLET PO PRN ×4 (03:56→18:17)
[2021-07-10] MEDS: LEVOTHYROXINE SODIUM 75 MCG TABLET PO SCH (06:51)
[2021-07-10 08:07] VITALS: BP 110/71
[2021-07-10] MEDS: BuPROPion HCL 150 MG SR TABLET PO SCH (08:16)
[2021-07-10] MEDS: OMEGA-3/DHA/EPA/FISH OIL 1,000 MG CAPSULE PO SCH (08:16)
[2021-07-10] MEDS: AmLODIPine BESYLATE 5 MG TABLET PO SCH (08:16)
[2021-07-10] MEDS: IBUPROFEN 600 MG TABLET PO PRN ×2 (09:03→17:40)
[2021-07-10] MEDS: ACETAMINOPHEN 325 MG TABLET PO PRN (10:07)
[2021-07-10] MEDS: HALOPERIDOL 5 MG TABLET PO PRN ×2 (10:07→15:04)
[2021-07-10 17:14] VITALS: BP 113/65
[2021-07-10] MEDS: SIMVASTATIN 10 MG TABLET PO SCH (20:47)
[2021-07-10] MEDS: ZOLPIDEM TARTRATE 10 MG TABLET PO PRN (20:47)
[2021-07-11 01:25] VITALS: BP 111/69
[2021-07-11] MEDS: LORazepam 2 MG TABLET PO PRN ×4 (01:47→17:27)
[2021-07-11] MEDS: ACETAMINOPHEN 325 MG TABLET PO PRN (01:48)
[2021-07-11] MEDS: LEVOTHYROXINE SODIUM 75 MCG TABLET PO SCH (06:32)
[2021-07-11] MEDS: IBUPROFEN 600 MG TABLET PO PRN ×2 (07:06→16:50)
[2021-07-11 08:19] VITALS: BP 100/60
[2021-07-11] MEDS: BuPROPion HCL 150 MG SR TABLET PO SCH (08:51)
[2021-07-11] MEDS: AmLODIPine BESYLATE 5 MG TABLET PO SCH (08:51)
[2021-07-11] MEDS: OMEGA-3/DHA/EPA/FISH OIL 1,000 MG CAPSULE PO SCH (08:51)
[2021-07-11] MEDS: HALOPERIDOL 5 MG TABLET PO PRN ×3 (08:57→17:28)
[2021-07-11 16:09] VITALS: BP 109/69
[2021-07-11] MEDS: ZOLPIDEM TARTRATE 10 MG TABLET PO PRN (20:09)
[2021-07-11] MEDS: SIMVASTATIN 10 MG TABLET PO SCH (20:09)
[2021-07-12 00:16] VITALS: BP 104/64
[2021-07-12] MEDS: LORazepam 2 MG TABLET PO PRN ×3 (06:50→15:40)
[2021-07-12] MEDS: LEVOTHYROXINE SODIUM 75 MCG TABLET PO SCH (06:50)
[2021-07-12] MEDS: BuPROPion HCL 150 MG SR TABLET PO SCH (08:28)
[2021-07-12] MEDS: AmLODIPine BESYLATE 5 MG TABLET PO SCH (08:28)
[2021-07-12] MEDS: OMEGA-3/DHA/EPA/FISH OIL 1,000 MG CAPSULE PO SCH (08:28)
[2021-07-12 08:44] VITALS: BP 117/69
[2021-07-12] MEDS: HALOPERIDOL 5 MG TABLET PO PRN ×2 (09:10→16:04)
[2021-07-12] MEDS: IBUPROFEN 600 MG TABLET PO PRN (09:11)
[2021-07-12] MEDS: NICOTINE 21 MG/24 HOUR PATCH TD SCH (13:14)
[2021-07-12 16:28] VITALS: BP 121/69
[2021-07-12 19:56] LABS: GLUCOMETER DEV NAME(LOC) POC.BV
[2021-07-12] MEDS: SIMVASTATIN 10 MG TABLET PO SCH (21:18)
[2021-07-13 02:18] VITALS: BP 118/73
[2021-07-13] MEDS: IBUPROFEN 600 MG TABLET PO PRN ×2 (02:20→10:04)
[2021-07-13] MEDS: ZOLPIDEM TARTRATE 10 MG TABLET PO PRN ×2 (02:20→20:13)
[2021-07-13] MEDS: LEVOTHYROXINE SODIUM 75 MCG TABLET PO SCH (06:21)
[2021-07-13] MEDS: LORazepam 2 MG TABLET PO PRN ×3 (07:16→16:01)
[2021-07-13 08:24] VITALS: BP 104/60
[2021-07-13] MEDS: AmLODIPine BESYLATE 5 MG TABLET PO SCH (09:00)
[2021-07-13] MEDS: NICOTINE 21 MG/24 HOUR PATCH TD SCH (09:12)
[2021-07-13] MEDS: BuPROPion HCL 150 MG SR TABLET PO SCH (09:12)
[2021-07-13] MEDS: OMEGA-3/DHA/EPA/FISH OIL 1,000 MG CAPSULE PO SCH (09:12)
[2021-07-13] MEDS: HALOPERIDOL 5 MG TABLET PO PRN (09:53)
[2021-07-13 10:04] VITALS: BP 107/70
[2021-07-13 16:15] VITALS: BP 101/61
[2021-07-13] MEDS: SIMVASTATIN 10 MG TABLET PO SCH (20:14)
[2021-07-14 03:03] VITALS: BP 108/68
[2021-07-14] MEDS: LEVOTHYROXINE SODIUM 75 MCG TABLET PO SCH (06:29)
[2021-07-14] MEDS: LORazepam 2 MG TABLET PO PRN ×3 (07:02→17:12)
[2021-07-14] MEDS: IBUPROFEN 600 MG TABLET PO PRN ×2 (07:02→18:09)
[2021-07-14 08:08] VITALS: BP 111/61
[2021-07-14] MEDS: OMEGA-3/DHA/EPA/FISH OIL 1,000 MG CAPSULE PO SCH (08:16)
[2021-07-14] MEDS: AmLODIPine BESYLATE 5 MG TABLET PO SCH (08:17)
[2021-07-14] MEDS: BuPROPion HCL 150 MG SR TABLET PO SCH (08:17)
[2021-07-14] MEDS: NICOTINE 21 MG/24 HOUR PATCH TD SCH (08:17)
[2021-07-14] MEDS: HALOPERIDOL 5 MG TABLET PO PRN (09:14)
[2021-07-14 16:02] VITALS: BP 102/67
[2021-07-14] MEDS: SIMVASTATIN 10 MG TABLET PO SCH (20:32)
[2021-07-14] MEDS: ZOLPIDEM TARTRATE 10 MG TABLET PO PRN (20:36)
[2021-07-15 00:38] VITALS: BP 110/63
[2021-07-15] MEDS: LEVOTHYROXINE SODIUM 75 MCG TABLET PO SCH (06:27)
[2021-07-15] MEDS: HALOPERIDOL 5 MG TABLET PO PRN ×2 (07:40→12:47)
[2021-07-15] MEDS: LORazepam 2 MG TABLET PO PRN ×3 (07:40→17:13)
[2021-07-15] MEDS: IBUPROFEN 600 MG TABLET PO PRN (07:40)
[2021-07-15] MEDS: BuPROPion HCL 150 MG SR TABLET PO SCH (08:11)
[2021-07-15] MEDS: OMEGA-3/DHA/EPA/FISH OIL 1,000 MG CAPSULE PO SCH (08:11)
[2021-07-15] MEDS: AmLODIPine BESYLATE 5 MG TABLET PO SCH (08:11)
[2021-07-15 08:12] VITALS: BP 103/65
[2021-07-15] MEDS: NICOTINE 21 MG/24 HOUR PATCH TD SCH (08:12)
[2021-07-15] MEDS: DICLOFENAC SODIUM 1% 100 GM GEL [2GM] TP PRN (09:22)
[2021-07-15 17:17] VITALS: BP 93/56
[2021-07-15] MEDS: SIMVASTATIN 10 MG TABLET PO SCH (20:45)
[2021-07-15] MEDS: ZOLPIDEM TARTRATE 10 MG TABLET PO PRN (20:45)
[2021-07-16 00:51] VITALS: BP 100/64
[2021-07-16] MEDS: LEVOTHYROXINE SODIUM 75 MCG TABLET PO SCH (06:26)
[2021-07-16] MEDS: OMEGA-3/DHA/EPA/FISH OIL 1,000 MG CAPSULE PO SCH (07:57)
[2021-07-16] MEDS: IBUPROFEN 600 MG TABLET PO PRN (07:57)
[2021-07-16] MEDS: BuPROPion HCL 150 MG SR TABLET PO SCH (07:57)
[2021-07-16] MEDS: NICOTINE 21 MG/24 HOUR PATCH TD SCH (08:05)
[2021-07-16] MEDS: AmLODIPine BESYLATE 5 MG TABLET PO SCH (08:06)
[2021-07-16 08:22] VITALS: BP 101/60
[2021-07-16 08:30] VITALS: BP 106/70
[2021-07-16] MEDS: LORazepam 2 MG TABLET PO PRN ×3 (08:38→16:48)
[2021-07-16] MEDS: HALOPERIDOL 5 MG TABLET PO PRN ×2 (10:16→15:37)
[2021-07-16 16:16] VITALS: BP 106/72
[2021-07-16] MEDS: SIMVASTATIN 10 MG TABLET PO SCH (20:06)
[2021-07-16] MEDS: ZOLPIDEM TARTRATE 10 MG TABLET PO PRN (20:06)
[2021-07-17 01:07] VITALS: BP 106/71
[2021-07-17] MEDS: LEVOTHYROXINE SODIUM 75 MCG TABLET PO SCH (06:37)
[2021-07-17] MEDS: AmLODIPine BESYLATE 5 MG TABLET PO SCH (08:16)
[2021-07-17] MEDS: LORazepam 2 MG TABLET PO PRN ×2 (08:17→14:32)
[2021-07-17] MEDS: BuPROPion HCL 150 MG SR TABLET PO SCH (08:17)
[2021-07-17] MEDS: IBUPROFEN 600 MG TABLET PO PRN (08:17)
[2021-07-17] MEDS: HALOPERIDOL 5 MG TABLET PO PRN ×2 (08:17→20:11)
[2021-07-17] MEDS: OMEGA-3/DHA/EPA/FISH OIL 1,000 MG CAPSULE PO SCH (08:17)
[2021-07-17] MEDS: NICOTINE 21 MG/24 HOUR PATCH TD SCH (08:18)
[2021-07-17 08:21] VITALS: BP 102/60
[2021-07-17 17:34] VITALS: BP 103/67
[2021-07-17] MEDS: SIMVASTATIN 10 MG TABLET PO SCH (20:11)
[2021-07-17] MEDS: ZOLPIDEM TARTRATE 10 MG TABLET PO PRN (20:11)
[2021-07-18 00:48] VITALS: BP 101/63
[2021-07-18] MEDS: LEVOTHYROXINE SODIUM 75 MCG TABLET PO SCH (06:43)
[2021-07-18] MEDS: HALOPERIDOL 5 MG TABLET PO PRN ×2 (06:57→12:56)
[2021-07-18] MEDS: LORazepam 2 MG TABLET PO PRN ×2 (06:57→12:55)
[2021-07-18] MEDS: AmLODIPine BESYLATE 5 MG TABLET PO SCH (08:06)
[2021-07-18] MEDS: OMEGA-3/DHA/EPA/FISH OIL 1,000 MG CAPSULE PO SCH (08:06)
[2021-07-18] MEDS: BuPROPion HCL 150 MG SR TABLET PO SCH (08:06)
[2021-07-18] MEDS: NICOTINE 21 MG/24 HOUR PATCH TD SCH (08:07)
[2021-07-18 08:10] VITALS: BP 100/62
[2021-07-18] MEDS: DICLOFENAC SODIUM 1% 100 GM GEL [2GM] TP PRN (09:38)
[2021-07-18 10:00] VITALS: BP 106/70
[2021-07-18] MEDS: IBUPROFEN 600 MG TABLET PO PRN (10:01)
[2021-07-18 16:39] VITALS: BP 106/59
[2021-07-18] MEDS: SIMVASTATIN 10 MG TABLET PO SCH (20:14)
[2021-07-18] MEDS: ZOLPIDEM TARTRATE 10 MG TABLET PO PRN (20:14)
[2021-07-19 06:25] VITALS: BP 119/81
[2021-07-19] MEDS: LORazepam 2 MG TABLET PO PRN ×3 (06:26→17:26)
[2021-07-19] MEDS: LEVOTHYROXINE SODIUM 75 MCG TABLET PO SCH (06:26)
[2021-07-19] MEDS: OMEGA-3/DHA/EPA/FISH OIL 1,000 MG CAPSULE PO SCH (08:22)
[2021-07-19] MEDS: BuPROPion HCL 150 MG SR TABLET PO SCH (08:22)
[2021-07-19] MEDS: AmLODIPine BESYLATE 5 MG TABLET PO SCH (08:22)
[2021-07-19] MEDS: NICOTINE 21 MG/24 HOUR PATCH TD SCH (08:23)
[2021-07-19 08:55] VITALS: BP 102/64
[2021-07-19] MEDS: HALOPERIDOL 5 MG TABLET PO PRN ×2 (09:52→15:11)
[2021-07-19] MEDS: IBUPROFEN 600 MG TABLET PO PRN (13:07)
[2021-07-19 16:26] VITALS: BP 140/88
[2021-07-19] MEDS: ZOLPIDEM TARTRATE 10 MG TABLET PO PRN (20:11)
[2021-07-19] MEDS: SIMVASTATIN 10 MG TABLET PO SCH (20:12)
[2021-07-20 00:11] VITALS: BP 132/80
[2021-07-20] MEDS: LEVOTHYROXINE SODIUM 75 MCG TABLET PO SCH (06:55)
[2021-07-20 08:12] VITALS: BP 109/59
[2021-07-20] MEDS: NICOTINE 21 MG/24 HOUR PATCH TD SCH (08:18)
[2021-07-20] MEDS: AmLODIPine BESYLATE 5 MG TABLET PO SCH (08:19)
[2021-07-20] MEDS: OMEGA-3/DHA/EPA/FISH OIL 1,000 MG CAPSULE PO SCH (08:19)
[2021-07-20] MEDS: BuPROPion HCL 150 MG SR TABLET PO SCH (08:19)
[2021-07-20] MEDS: LORazepam 2 MG TABLET PO PRN ×2 (08:26→13:43)
[2021-07-20] MEDS: HALOPERIDOL 5 MG TABLET PO PRN ×2 (08:26→13:43)
[2021-07-20 16:17] VITALS: BP 100/59
[2021-07-20] MEDS: DICLOFENAC SODIUM 1% 100 GM GEL [2GM] TP PRN (16:28)
[2021-07-20] MEDS: SIMVASTATIN 10 MG TABLET PO SCH (20:10)
[2021-07-20] MEDS: ZOLPIDEM TARTRATE 10 MG TABLET PO PRN (20:11)
[2021-07-21 00:25] VITALS: BP 102/63
[2021-07-21] MEDS: LEVOTHYROXINE SODIUM 75 MCG TABLET PO SCH (06:46)
[2021-07-21] MEDS: HALOPERIDOL 5 MG TABLET PO PRN (06:49)
[2021-07-21] MEDS: LORazepam 2 MG TABLET PO PRN (06:49)
[2021-07-21 08:20] VITALS: BP 100/68
[2021-07-21] MEDS: OMEGA-3/DHA/EPA/FISH OIL 1,000 MG CAPSULE PO SCH (08:20)
[2021-07-21] MEDS: BuPROPion HCL 150 MG SR TABLET PO SCH (08:20)
[2021-07-21] MEDS: IBUPROFEN 600 MG TABLET PO PRN (08:21)
[2021-07-21] MEDS: NICOTINE 21 MG/24 HOUR PATCH TD SCH (08:21)
[2021-07-21] MEDS: AmLODIPine BESYLATE 5 MG TABLET PO SCH (08:21)
[2021-07-21] MEDS ORDERED: LEVO125T95 PO (09:20)
[2021-07-21 10:26] LABS: GLUCOMETER DEV NAME(LOC) POC.BV
[2021-07-22 12:06] LABS: GLUCOMETER DEV NAME(LOC) POC.BV
== END 2021-07-21 12:00 | disposition home or self-care (01) | DRG 750 ==
LOC: B3A 21:45
PROVIDERS: ADMIT Psychiatry & Neurology Psychiatry; ATTEND Psychiatry & Neurology Psychiatry
DX: F25.9 Schizoaffective disorder, unspecified (principal); G40.909 Epilepsy, unspecified, not intractable, without status epilepticus; E03.9 Hypothyroidism, unspecified; E78.5 Hyperlipidemia, unspecified; I10 Essential (primary) hypertension; J44.9 Chronic obstructive pulmonary disease, unspecified; F19.10 Other psychoactive substance abuse, uncomplicated; F41.9 Anxiety disorder, unspecified; E78.00 Pure hypercholesterolemia, unspecified; M25.511 Pain in right shoulder; M25.512 Pain in left shoulder; Z20.822 Contact with and (suspected) exposure to COVID-19; G47.00 Insomnia, unspecified; K59.00 Constipation, unspecified; Z71.51 Drug abuse counseling and surveillance of drug abuser; Z71.6 Tobacco abuse counseling; Z88.8 Allergy status to other drugs, medicaments and biological substances
CPT/HCPCS: 80053; 80061; 83036; 84439; 84443; 84702; 85025; 87081

== ENCOUNTER 2021-07-28 07:04 | Inpatient (IN) | payer MEDICAID, OTHER ==
[~2021-07-28] VITALS: Ht 177.8 cm; Wt 77.3 kg
[~2021-07-28 07:04] MED LIST changes: -BUPR-290 PO; -DIVA-112 PO; -GABA-1201 PO; +LEVO125T95 PO; -LEVO75 PO; -OMEG-108 PO; -TRAZ-257 PO
[2021-07-28 07:49] LABS: BASOPHILS % (AUTO) 0.9 % (0.0-2.0); EOSINOPHILS % (AUTO) 0.3 % (1.0-6.0); HEMATOCRIT 43.6 % (36-46); HEMOGLOBIN 14.7 g/dL (12.0-16.0); LYMPHOCYTES # (AUTO) 1.1 K/uL (1.0-4.8); LYMPHOCYTES % (AUTO) 32.8 % (22.0-44.0); MEAN CORPUSCULAR HEMOGLOBIN 31.1 pg (26.0-34.0); MEAN CORPUSCULAR HGB CONC 33.8 G/dL (31.0-37.0); MEAN CORPUSCULAR VOLUME 92 fL (80-100); MONOCYTES # (AUTO) 0.6 K/uL (0.1-1.0); MONOCYTES % (AUTO) 17.4 % (2.0-9.0); NEUTROPHILS # (AUTO) 1.6 K/uL (1.8-7.7); NEUTROPHILS % (AUTO) 48.6 % (40.0-70.0); PLATELET COUNT (AUTO) 315 K/uL (150-450); RED BLOOD CELL COUNT(AUTO) 4.73 MIL/uL (4.00-5.20); RED CELL DISTRIBUTION WIDTH 13.3 % (11.5-14.5)
[2021-07-28 07:55] LABS: ANION GAP 11 mmol/L (8-16); CALCIUM, TOTAL 9.5 mg/dL (8.8-10.5); CARBON DIOXIDE 26 mmol/L (22-29); CHLORIDE 104 mmol/L (98-107); CREATININE 0.89 mg/dL (0.60-1.30); GLOMERULAR FILTR. RATE CALC > 60 mL/min (>60); GLUCOSE,RANDOM 102 mg/dL (70-110); POTASSIUM 3.1 mmol/L (3.5-5.1); SODIUM SERUM 141 mmol/L (136-145); UREA NITROGEN, BLOOD 6 mg/dL (7-18)
[2021-07-28 07:56] LABS: COVID AG,FIA SOURCE NASOPHARYNGEAL
[2021-07-28 08:07] LABS: ALANINE AMINOTRANSFERASE 21 U/L (12-78); ALKALINE PHOSPHATASE 111 U/L (46-116); ASPARTATE AMINOTRANSFERASE 20 U/L (15-37); BILIRUBIN,TOTAL 0.1 mg/dL (0.1-1.0); HCG,QUANTITATIVE 3 mIU/mL (0-6); TOTAL PROTEIN, SERUM 8.2 g/dL (6.4-8.2)
[2021-07-28] MEDS ORDERED: POTASSIUM CHLORIDE 20 MEQ ER TABLET PO ONE (08:45)
[2021-07-28 09:32] LABS: AMPHET/METH SCREEN,URINE POSITIVE (NEGATIVE); BARBITURATE SCREEN, URINE NEGATIVE (NEGATIVE); BENZODIAZEPINES SCREEN,URINE NEGATIVE (NEGATIVE); CANNABINOID SCREEN,URINE NEGATIVE (NEGATIVE); COCAINE SCREEN,URINE NEGATIVE (NEGATIVE); METHADONE SCREEN, URINE NEGATIVE (NEGATIVE); OPIATE SCREEN,URINE NEGATIVE (NEGATIVE); PHENCYCLIDINE SCREEN,URINE NEGATIVE (NEGATIVE)
[2021-07-28] MEDS ORDERED: QUET25TA PO (09:34)
[2021-07-28] MEDS ORDERED: PARO10TA89 PO (09:34)
[2021-07-28] MEDS ORDERED: LITH300C3 PO (09:34)
[2021-07-28] MEDS ORDERED: ALBUTEROL SULFATE 2.5 MG/0.5 ML NEB SOLUTION NEB PRN (10:15)
[2021-07-28] MEDS ORDERED: POTASSIUM CHLORIDE 20 MEQ ER TABLET PO PRN (10:15)
[2021-07-28] MEDS ORDERED: POTASSIUM CHL 10 MEQ/WATER 50 ML IV PRN (10:15)
[2021-07-28] MEDS ORDERED: SODIUM CHLORIDE 0.9% 1,000 ML IV ONE (10:30)
[2021-07-28] MEDS: LORazepam 2 MG/ML VIAL IVP PRN ×3 (11:24→21:05)
[2021-07-28 11:25] LABS: LITHIUM < 0.20 mmol/L (0.60-1.20)
[2021-07-28 11:36] LABS: THYROID STIMULATING HORMONE 0.69 uIU/mL (0.36-3.74)
[2021-07-28 15:38] VITALS: BP 135/93
[2021-07-28] MEDS: HEPARIN SODIUM,PORCINE 5,000 UNITS/ML VIAL SQ SCH ×2 (15:46→23:21)
[2021-07-28] MEDS: ACETAMINOPHEN 325 MG TABLET PO PRN ×2 (15:46→21:05)
[2021-07-28 16:00] VITALS: BP 135/98
[2021-07-28 20:15] VITALS: BP 118/72
[2021-07-28] MEDS: DOCUSATE SODIUM 100 MG CAPSULE PO SCH (21:05)
[2021-07-29] MEDS: LORazepam 2 MG/ML VIAL IVP PRN ×5 (03:09→21:47)
[2021-07-29 04:30] VITALS: BP 106/68
[2021-07-29] MEDS: ACETAMINOPHEN 325 MG TABLET PO PRN ×3 (06:41→21:47)
[2021-07-29] MEDS: FAMOTIDINE 20 MG TABLET PO SCH (09:23)
[2021-07-29] MEDS: DOCUSATE SODIUM 100 MG CAPSULE PO SCH ×2 (09:23→21:47)
[2021-07-29] MEDS: HEPARIN SODIUM,PORCINE 5,000 UNITS/ML VIAL SQ SCH ×3 (09:23→23:22)
[2021-07-29 12:02] VITALS: BP 122/81
[2021-07-29 13:07] LABS: ANION GAP 11 mmol/L (8-16); CALCIUM, TOTAL 8.7 mg/dL (8.8-10.5); CARBON DIOXIDE 25 mmol/L (22-29); CHLORIDE 106 mmol/L (98-107); CREATININE 0.87 mg/dL (0.60-1.30); GLOMERULAR FILTR. RATE CALC > 60 mL/min (>60); GLUCOSE,RANDOM 104 mg/dL (70-110); POTASSIUM 3.5 mmol/L (3.5-5.1); SODIUM SERUM 142 mmol/L (136-145); UREA NITROGEN, BLOOD 8 mg/dL (7-18)
[2021-07-29 16:26] VITALS: BP 117/89
[2021-07-29 19:57] VITALS: BP 115/65
[2021-07-30 03:15] VITALS: BP 114/71
[2021-07-30] MEDS: ACETAMINOPHEN 325 MG TABLET PO PRN ×2 (05:52→21:20)
[2021-07-30] MEDS: LORazepam 2 MG/ML VIAL IVP PRN ×3 (06:02→21:20)
[2021-07-30 07:48] VITALS: BP 139/86
[2021-07-30] MEDS: HEPARIN SODIUM,PORCINE 5,000 UNITS/ML VIAL SQ SCH ×3 (08:00→15:26)
[2021-07-30] MEDS: FAMOTIDINE 20 MG TABLET PO SCH (08:37)
[2021-07-30] MEDS: MULTIVITAMINS WITH MINERALS, THERAPEUTIC TABLET PO SCH (08:37)
[2021-07-30] MEDS: DOCUSATE SODIUM 100 MG CAPSULE PO SCH ×3 (08:37→21:00)
[2021-07-30] MEDS ORDERED: HALOPERIDOL LACTATE 5 MG/ML VIAL IM ONE (10:00)
[2021-07-30] MEDS ORDERED: DiphenhydrAMINE HCL 50 MG/ML VIAL IM ONE (10:00)
[2021-07-30] MEDS ORDERED: LORazepam 2 MG/ML VIAL IM ONE (10:00)
[2021-07-30 15:17] VITALS: BP 121/80
[2021-07-30 20:12] VITALS: BP 125/65
[2021-07-31] MEDS: LORazepam 2 MG/ML VIAL IVP PRN ×3 (01:55→10:15)
[2021-07-31] MEDS: ACETAMINOPHEN 325 MG TABLET PO PRN ×3 (02:00→15:48)
[2021-07-31 04:02] VITALS: BP 115/74
[2021-07-31 08:00] VITALS: BP 128/93
[2021-07-31] MEDS: HEPARIN SODIUM,PORCINE 5,000 UNITS/ML VIAL SQ SCH ×4 (08:00→22:53)
[2021-07-31] MEDS: FAMOTIDINE 20 MG TABLET PO SCH (08:55)
[2021-07-31] MEDS: MULTIVITAMINS WITH MINERALS, THERAPEUTIC TABLET PO SCH (08:55)
[2021-07-31] MEDS: DOCUSATE SODIUM 100 MG CAPSULE PO SCH ×2 (08:56→21:39)
[2021-07-31] MEDS ORDERED: HALOPERIDOL LACTATE 5 MG/ML VIAL ONE (11:23)
[2021-07-31] MEDS ORDERED: DiphenhydrAMINE HCL 50 MG/ML VIAL ONE (11:23)
[2021-07-31] MEDS ORDERED: LORazepam 2 MG/ML VIAL IM ONE (11:30)
[2021-07-31] MEDS ORDERED: HALOPERIDOL LACTATE 5 MG/ML VIAL IM ONE (11:30)
[2021-07-31] MEDS ORDERED: DiphenhydrAMINE HCL 50 MG/ML VIAL IM ONE (11:30)
[2021-07-31 12:12] VITALS: BP 124/78
[2021-07-31] MEDS: ARIPiprazole 15 MG TABLET PO SCH (15:49)
[2021-07-31] MEDS: GABAPENTIN 400 MG CAPSULE PO SCH ×2 (15:49→21:39)
[2021-07-31] MEDS: BuPROPion HCL 75 MG TABLET PO SCH ×2 (15:49→21:40)
[2021-07-31 16:00] VITALS: BP 112/74
[2021-07-31 20:05] VITALS: BP 130/65
[2021-07-31] MEDS: DIVALPROEX SODIUM 500 MG DR TABLET PO SCH (21:39)
[2021-07-31] MEDS: TraZODone HCL 100 MG TABLET PO SCH (21:39)
[2021-08-01] MEDS: ACETAMINOPHEN 325 MG TABLET PO PRN ×4 (01:40→20:07)
[2021-08-01 06:00] VITALS: BP 113/86
[2021-08-01] MEDS: HEPARIN SODIUM,PORCINE 5,000 UNITS/ML VIAL SQ SCH ×3 (08:00→14:34)
[2021-08-01] MEDS: BuPROPion HCL 75 MG TABLET PO SCH ×2 (08:39→20:04)
[2021-08-01] MEDS: DIVALPROEX SODIUM 500 MG DR TABLET PO SCH ×2 (08:39→20:03)
[2021-08-01] MEDS: ARIPiprazole 15 MG TABLET PO SCH (08:39)
[2021-08-01] MEDS: DOCUSATE SODIUM 100 MG CAPSULE PO SCH ×2 (08:39→20:04)
[2021-08-01] MEDS: GABAPENTIN 400 MG CAPSULE PO SCH ×2 (08:39→20:04)
[2021-08-01] MEDS: MULTIVITAMINS WITH MINERALS, THERAPEUTIC TABLET PO SCH (08:40)
[2021-08-01] MEDS: FAMOTIDINE 20 MG TABLET PO SCH (08:40)
[2021-08-01 09:45] VITALS: BP 115/78
[2021-08-01] MEDS: LORazepam 2 MG/ML VIAL IVP PRN ×2 (10:01→15:58)
[2021-08-01 16:39] VITALS: BP 103/55
[2021-08-01 20:00] VITALS: BP 116/70
[2021-08-01] MEDS: TraZODone HCL 100 MG TABLET PO SCH (20:03)
[2021-08-02 04:00] VITALS: BP 112/79
[2021-08-02] MEDS: LORazepam 2 MG/ML VIAL IVP PRN ×3 (06:14→16:48)
[2021-08-02 07:39] VITALS: BP 100/73
[2021-08-02] MEDS: HEPARIN SODIUM,PORCINE 5,000 UNITS/ML VIAL SQ SCH ×4 (08:00→23:25)
[2021-08-02] MEDS: FAMOTIDINE 20 MG TABLET PO SCH (08:55)
[2021-08-02] MEDS: DIVALPROEX SODIUM 500 MG DR TABLET PO SCH ×2 (08:57→20:35)
[2021-08-02] MEDS: GABAPENTIN 400 MG CAPSULE PO SCH ×2 (08:57→20:36)
[2021-08-02] MEDS: BuPROPion HCL 75 MG TABLET PO SCH ×2 (08:57→20:38)
[2021-08-02] MEDS: MULTIVITAMINS WITH MINERALS, THERAPEUTIC TABLET PO SCH (08:57)
[2021-08-02] MEDS: ARIPiprazole 15 MG TABLET PO SCH (08:57)
[2021-08-02] MEDS: ACETAMINOPHEN 325 MG TABLET PO PRN ×3 (09:00→20:46)
[2021-08-02] MEDS: DOCUSATE SODIUM 100 MG CAPSULE PO SCH ×2 (09:00→20:42)
[2021-08-02 13:06] LABS: COVID AG,FIA SOURCE NASAL SWAB
[2021-08-02 15:08] VITALS: BP 112/74
[2021-08-02 20:22] VITALS: BP 103/65
[2021-08-02] MEDS: TraZODone HCL 100 MG TABLET PO SCH (20:36)
[2021-08-03 04:15] VITALS: BP 106/71
[2021-08-03] MEDS: ACETAMINOPHEN 325 MG TABLET PO PRN ×3 (04:41→16:30)
[2021-08-03] MEDS: LORazepam 2 MG/ML VIAL IVP PRN ×2 (04:42→08:55)
[2021-08-03 07:32] VITALS: BP 117/66
[2021-08-03] MEDS: HEPARIN SODIUM,PORCINE 5,000 UNITS/ML VIAL SQ SCH ×3 (08:00→23:41)
[2021-08-03] MEDS: GABAPENTIN 400 MG CAPSULE PO SCH ×2 (08:55→20:18)
[2021-08-03] MEDS: ARIPiprazole 15 MG TABLET PO SCH (08:55)
[2021-08-03] MEDS: FAMOTIDINE 20 MG TABLET PO SCH (08:56)
[2021-08-03] MEDS: DOCUSATE SODIUM 100 MG CAPSULE PO SCH ×2 (08:56→20:15)
[2021-08-03] MEDS: BuPROPion HCL 75 MG TABLET PO SCH ×2 (08:56→20:18)
[2021-08-03] MEDS: DIVALPROEX SODIUM 500 MG DR TABLET PO SCH ×2 (08:56→20:16)
[2021-08-03] MEDS: MULTIVITAMINS WITH MINERALS, THERAPEUTIC TABLET PO SCH (08:56)
[2021-08-03 16:14] VITALS: BP 105/64
[2021-08-03 20:17] VITALS: BP 119/78
[2021-08-03] MEDS: TraZODone HCL 100 MG TABLET PO SCH (20:17)
[2021-08-04 04:00] VITALS: BP 121/72
[2021-08-04 07:31] VITALS: BP 120/74
[2021-08-04] MEDS: HEPARIN SODIUM,PORCINE 5,000 UNITS/ML VIAL SQ SCH (08:00)
[2021-08-04] MEDS: DOCUSATE SODIUM 100 MG CAPSULE PO SCH (08:02)
[2021-08-04] MEDS: ACETAMINOPHEN 325 MG TABLET PO PRN (08:03)
[2021-08-04] MEDS: FAMOTIDINE 20 MG TABLET PO SCH (08:03)
[2021-08-04] MEDS: GABAPENTIN 400 MG CAPSULE PO SCH (08:03)
[2021-08-04] MEDS: ARIPiprazole 15 MG TABLET PO SCH (08:03)
[2021-08-04] MEDS: DIVALPROEX SODIUM 500 MG DR TABLET PO SCH (08:03)
[2021-08-04] MEDS: MULTIVITAMINS WITH MINERALS, THERAPEUTIC TABLET PO SCH (08:03)
[2021-08-04] MEDS: BuPROPion HCL 75 MG TABLET PO SCH (08:03)
[2021-08-04] MEDS: LORazepam 2 MG/ML VIAL IVP PRN (08:04)
[2021-08-04] MEDS ORDERED: AMLO-257 PO (10:03)
[2021-08-04] MEDS ORDERED: GABA-1201 PO (10:03)
[2021-08-04] MEDS ORDERED: TRAZ-257 PO (10:03)
[2021-08-04] MEDS ORDERED: DIVA-112 PO (10:03)
[2021-08-04] MEDS ORDERED: BUPR-344 PO (10:03)
[2021-08-04] MEDS ORDERED: ARIP15TA27 PO (10:03)
== END 2021-08-04 12:10 | disposition home or self-care (01) | DRG 137 ==
LOC: EMS 07:05 → 6N 13:55
PROVIDERS: ADMIT Internal Medicine; ATTEND Internal Medicine
DX: U07.1 COVID-19 (principal); F25.9 Schizoaffective disorder, unspecified; R45.851 Suicidal ideations; F19.10 Other psychoactive substance abuse, uncomplicated; E03.9 Hypothyroidism, unspecified; E78.00 Pure hypercholesterolemia, unspecified; F15.90 Other stimulant use, unspecified, uncomplicated; M54.50 Low back pain, unspecified; E87.6 Hypokalemia; F31.9 Bipolar disorder, unspecified; Z78.9 Other specified health status; Z91.19 Patient's noncompliance with other medical treatment and regimen; Z79.899 Other long term (current) drug therapy; Z87.891 Personal history of nicotine dependence; Z88.8 Allergy status to other drugs, medicaments and biological substances; Z90.49 Acquired absence of other specified parts of digestive tract
CPT/HCPCS: 80048; 80053; 80164; 80178; 84443; 84702; 85025; 99285; G0480; J1200; J1630; J1644; J2060

== ENCOUNTER 2021-08-13 16:17 | Inpatient (IN) | payer MEDICAID, OTHER ==
[~2021-08-13] VITALS: Ht 177.8 cm; Wt 86.0 kg
[~2021-08-13 16:17] MED LIST changes: +ARIP15TA27 PO; +DIVA-112 PO; +GABA-1201 PO; +TRAZ-257 PO
[2021-08-13 17:11] LABS: GLUCOMETER DEV NAME(LOC) POC.BV
[2021-08-13] MEDS ORDERED: -PHARMACY VACCINE NOTE- MISC ONE (18:00)
[2021-08-13] MEDS: LORazepam 2 MG TABLET PO PRN (18:06)
[2021-08-13] MEDS: HALOPERIDOL 5 MG TABLET PO PRN (18:06)
[2021-08-13] MEDS ORDERED: SIMVASTATIN 10 MG TABLET PO SCH (21:00)
[2021-08-14] MEDS: LEVOTHYROXINE SODIUM 125 MCG TABLET PO SCH (06:40)
[2021-08-14 06:46] VITALS: BP 126/72
[2021-08-14] MEDS: LORazepam 2 MG TABLET PO PRN ×3 (06:59→18:14)
[2021-08-14] MEDS: HALOPERIDOL 5 MG TABLET PO PRN ×2 (07:02→19:00)
[2021-08-14 08:18] LABS: BASOPHILS % (AUTO) 0.6 % (0.0-2.0); EOSINOPHILS % (AUTO) 1.9 % (1.0-6.0); HEMATOCRIT 37.2 % (36-46); HEMOGLOBIN 12.6 g/dL (12.0-16.0); LYMPHOCYTES # (AUTO) 1.3 K/uL (1.0-4.8); LYMPHOCYTES % (AUTO) 29.5 % (22.0-44.0); MEAN CORPUSCULAR HEMOGLOBIN 31.1 pg (26.0-34.0); MEAN CORPUSCULAR HGB CONC 33.8 G/dL (31.0-37.0); MEAN CORPUSCULAR VOLUME 92 fL (80-100); MONOCYTES # (AUTO) 0.5 K/uL (0.1-1.0); MONOCYTES % (AUTO) 12.4 % (2.0-9.0); NEUTROPHILS # (AUTO) 2.4 K/uL (1.8-7.7); NEUTROPHILS % (AUTO) 55.6 % (40.0-70.0); PLATELET COUNT (AUTO) 364 K/uL (150-450); RED BLOOD CELL COUNT(AUTO) 4.04 MIL/uL (4.00-5.20); RED CELL DISTRIBUTION WIDTH 13.1 % (11.5-14.5)
[2021-08-14 08:25] LABS: HEMOGLOBIN A1C 5.4 % (3.8-5.6)
[2021-08-14 08:43] LABS: ALANINE AMINOTRANSFERASE 17 U/L (12-78); ALBUMIN 2.9 g/dL (3.4-5.0); ALKALINE PHOSPHATASE 81 U/L (46-116); ANION GAP 8 mmol/L (8-16); ASPARTATE AMINOTRANSFERASE 9 U/L (15-37); BILIRUBIN,TOTAL 0.4 mg/dL (0.1-1.0); CALCIUM, TOTAL 8.8 mg/dL (8.8-10.5); CARBON DIOXIDE 29 mmol/L (22-29); CHLORIDE 107 mmol/L (98-107); CHOL/HDL RATIO 4.2 (3.9-5.7); CHOLESTEROL 181 mg/dL (131-200); CREATININE 0.71 mg/dL (0.60-1.30); FREE T4 (FREE THYROXINE) 1.21 ng/dL (0.76-1.46); GLUCOSE,RANDOM 87 mg/dL (70-110); HDL CHOLESTEROL 43 mg/dL (40-60); LDL CHOL (CALC.) 116 mg/dL (0-130); POTASSIUM 3.5 mmol/L (3.5-5.1); SODIUM SERUM 144 mmol/L (136-145); THYROID STIMULATING HORMONE 1.69 uIU/mL (0.36-3.74); TOTAL PROTEIN, SERUM 6.4 g/dL (6.4-8.2); TRIGLYCERIDES 109 mg/dL (15-150); UREA NITROGEN, BLOOD 8 mg/dL (7-18)
[2021-08-14 08:45] VITALS: BP 108/65
[2021-08-14] MEDS: AmLODIPine BESYLATE 5 MG TABLET PO SCH (08:46)
[2021-08-14 09:26] LABS: GLOMERULAR FILTR. RATE CALC > 60 mL/min (>60)
[2021-08-14] MEDS ORDERED: ALBUTEROL SULFATE HFA 90 MCG/PUFF 8 GM INHALER IH PRN (10:30)
[2021-08-14] MEDS ORDERED: LOPERAMIDE HCL 2 MG CAPSULE PO PRN (10:30)
[2021-08-14] MEDS ORDERED: BENZOCAINE/MENTHOL LOZENGE PO PRN (10:30)
[2021-08-14] MEDS ORDERED: MAG HYDROX/AL HYDROX/SIMETH ES 30 ML SUSPENSION UDCUP PO PRN (10:30)
[2021-08-14] MEDS ORDERED: PETROLATUM,WHITE 28 GM JELLY TP PRN (10:30)
[2021-08-14] MEDS ORDERED: ONDANSETRON HCL 4 MG TABLET PO PRN (10:30)
[2021-08-14] MEDS ORDERED: DOCUSATE SODIUM 100 MG CAPSULE PO PRN (10:30)
[2021-08-14] MEDS ORDERED: MAGNESIUM HYDROXIDE SUSPENSION 30 ML UDCUP PO PRN (10:30)
[2021-08-14] MEDS ORDERED: BACITRACIN 28 GM OINTMENT TP PRN (10:30)
[2021-08-14] MEDS ORDERED: OMEPRAZOLE 20 MG CAPSULE PO PRN (10:30)
[2021-08-14] MEDS ORDERED: CloNIDine HCL 0.1 MG TABLET PO PRN (10:30)
[2021-08-14 10:44] LABS: APPEARANCE,URINE HAZY (CLEAR); BILIRUBIN,URINE NEGATIVE (NEGATIVE); GLUCOSE, URINE (UA) NEGATIVE (NEGATIVE); KETONES,URINE NEGATIVE (NEGATIVE); LEUKOCYTE ESTERASE ,URINE LARGE (NEGATIVE); NITRATE,URINE NEGATIVE (NEGATIVE); OCCULT BLOOD,URINE TRACE (NEGATIVE); PH,URINE 6.5 (5.0-8.0); PROTEIN,URINE TRACE mg/dL (NEGATIVE); SPECIFIC GRAVITIY, URINE 1.006 (1.003-1.030); UROBILINOGEN,URINE <=1.0 mg/dL (<=1.0)
[2021-08-14 10:51] LABS: AMPHET/METH SCREEN,URINE POSITIVE (NEGATIVE); BARBITURATE SCREEN, URINE NEGATIVE (NEGATIVE); BENZODIAZEPINES SCREEN,URINE NEGATIVE (NEGATIVE); CANNABINOID SCREEN,URINE NEGATIVE (NEGATIVE); COCAINE SCREEN,URINE NEGATIVE (NEGATIVE); METHADONE SCREEN, URINE NEGATIVE (NEGATIVE); OPIATE SCREEN,URINE NEGATIVE (NEGATIVE)
[2021-08-14 10:53] LABS: PHENCYCLIDINE SCREEN,URINE NEGATIVE (NEGATIVE)
[2021-08-14 11:14] LABS: SQUAMOUS EPITHELIAL CELL,UR Moderate /LPF (None Seen)
[2021-08-14 11:15] LABS: RBC,URINE 0-2 /HPF (0-2); WBC,URINE 51-100 /HPF (0-5)
[2021-08-14 11:16] LABS: BACTERIA,URINE Many /HPF (None Seen)
[2021-08-14] MEDS: DIVALPROEX SODIUM 500 MG DR TABLET PO SCH ×2 (12:54→16:48)
[2021-08-14] MEDS: ARIPiprazole 15 MG TABLET PO SCH (12:54)
[2021-08-14] MEDS: GABAPENTIN 400 MG CAPSULE PO SCH ×2 (12:54→20:59)
[2021-08-14] MEDS: BuPROPion HCL 75 MG TABLET PO SCH (12:54)
[2021-08-14] MEDS: PHENAZOPYRIDINE HCL 100 MG TABLET PO SCH (16:48)
[2021-08-14 16:57] VITALS: BP 102/64
[2021-08-14] MEDS: ACETAMINOPHEN 325 MG TABLET PO PRN (18:14)
[2021-08-14] MEDS: SIMVASTATIN 10 MG TABLET PO SCH (20:59)
[2021-08-14] MEDS: TraZODone HCL 100 MG TABLET PO SCH (20:59)
[2021-08-15 00:12] VITALS: BP 108/68
[2021-08-15] MEDS: IBUPROFEN 600 MG TABLET PO PRN ×2 (01:28→18:06)
[2021-08-15] MEDS: LORazepam 2 MG TABLET PO PRN ×3 (02:11→16:34)
[2021-08-15] MEDS: ZOLPIDEM TARTRATE 10 MG TABLET PO PRN ×2 (02:11→20:25)
[2021-08-15] MEDS: ACETAMINOPHEN 325 MG TABLET PO PRN (02:14)
[2021-08-15] MEDS: LEVOTHYROXINE SODIUM 125 MCG TABLET PO SCH (06:55)
[2021-08-15] MEDS: GABAPENTIN 400 MG CAPSULE PO SCH ×2 (08:10→20:25)
[2021-08-15] MEDS: HALOPERIDOL 5 MG TABLET PO PRN ×2 (08:10→16:34)
[2021-08-15] MEDS: ARIPiprazole 15 MG TABLET PO SCH (08:10)
[2021-08-15] MEDS: BuPROPion HCL 75 MG TABLET PO SCH (08:10)
[2021-08-15] MEDS: PHENAZOPYRIDINE HCL 100 MG TABLET PO SCH ×2 (08:11→16:04)
[2021-08-15] MEDS: AmLODIPine BESYLATE 5 MG TABLET PO SCH (08:11)
[2021-08-15] MEDS: DIVALPROEX SODIUM 500 MG DR TABLET PO SCH ×2 (08:11→16:04)
[2021-08-15 08:30] VITALS: BP 137/84
[2021-08-15] MEDS: BENZOCAINE/MENTHOL/ZINC CL 20% 11.9 GM GEL TP PRN (08:32)
[2021-08-15 16:55] VITALS: BP 118/60
[2021-08-15 18:00] VITALS: BP 114/72
[2021-08-15] MEDS: SIMVASTATIN 10 MG TABLET PO SCH (20:25)
[2021-08-15] MEDS: TraZODone HCL 100 MG TABLET PO SCH (20:54)
[2021-08-16 00:37] VITALS: BP 110/64
[2021-08-16] MEDS: LEVOTHYROXINE SODIUM 125 MCG TABLET PO SCH (06:30)
[2021-08-16 08:11] VITALS: BP 104/61
[2021-08-16] MEDS: ARIPiprazole 15 MG TABLET PO SCH (08:49)
[2021-08-16] MEDS: GABAPENTIN 400 MG CAPSULE PO SCH ×2 (08:50→20:10)
[2021-08-16] MEDS: DIVALPROEX SODIUM 500 MG DR TABLET PO SCH ×2 (08:50→16:13)
[2021-08-16] MEDS: BuPROPion HCL 75 MG TABLET PO SCH (08:50)
[2021-08-16] MEDS: PHENAZOPYRIDINE HCL 100 MG TABLET PO SCH ×2 (08:50→16:12)
[2021-08-16] MEDS: AmLODIPine BESYLATE 5 MG TABLET PO SCH (08:50)
[2021-08-16] MEDS: LORazepam 2 MG TABLET PO PRN ×2 (11:19→16:12)
[2021-08-16] MEDS: HALOPERIDOL 5 MG TABLET PO PRN ×2 (11:19→16:12)
[2021-08-16] MEDS: IBUPROFEN 600 MG TABLET PO PRN (16:12)
[2021-08-16 16:13] VITALS: BP 100/61
[2021-08-16 16:14] VITALS: BP 112/69
[2021-08-16] MEDS: SIMVASTATIN 10 MG TABLET PO SCH (20:11)
[2021-08-16] MEDS: ZOLPIDEM TARTRATE 10 MG TABLET PO PRN (20:11)
[2021-08-16] MEDS: TraZODone HCL 100 MG TABLET PO SCH (20:12)
[2021-08-17 00:08] VITALS: BP 108/67
[2021-08-17] MEDS: LORazepam 2 MG TABLET PO PRN ×3 (03:55→16:09)
[2021-08-17] MEDS: LEVOTHYROXINE SODIUM 125 MCG TABLET PO SCH (06:16)
[2021-08-17 08:12] VITALS: BP 127/64
[2021-08-17] MEDS: ARIPiprazole 15 MG TABLET PO SCH (09:02)
[2021-08-17] MEDS: CEPHALEXIN MONOHYDRATE 500 MG CAPSULE PO SCH ×3 (09:02→16:09)
[2021-08-17] MEDS: DIVALPROEX SODIUM 500 MG DR TABLET PO SCH ×2 (09:02→16:09)
[2021-08-17] MEDS: GABAPENTIN 400 MG CAPSULE PO SCH ×2 (09:03→20:06)
[2021-08-17] MEDS: PHENAZOPYRIDINE HCL 100 MG TABLET PO SCH ×2 (09:04→16:08)
[2021-08-17] MEDS: AmLODIPine BESYLATE 5 MG TABLET PO SCH (09:07)
[2021-08-17] MEDS: BuPROPion HCL 75 MG TABLET PO SCH (09:12)
[2021-08-17] MEDS: HALOPERIDOL 5 MG TABLET PO PRN ×2 (10:48→16:09)
[2021-08-17] MEDS: ACETAMINOPHEN 325 MG TABLET PO PRN (10:48)
[2021-08-17 16:00] VITALS: BP 110/70
[2021-08-17] MEDS: ZOLPIDEM TARTRATE 10 MG TABLET PO PRN (20:06)
[2021-08-17] MEDS: SIMVASTATIN 10 MG TABLET PO SCH (20:06)
[2021-08-17] MEDS: TraZODone HCL 100 MG TABLET PO SCH (20:07)
[2021-08-18] MEDS: IBUPROFEN 600 MG TABLET PO PRN (01:17)
[2021-08-18] MEDS: LEVOTHYROXINE SODIUM 125 MCG TABLET PO SCH (06:17)
[2021-08-18 08:15] VITALS: BP 109/62
[2021-08-18] MEDS: GABAPENTIN 400 MG CAPSULE PO SCH ×2 (08:17→20:36)
[2021-08-18] MEDS: AmLODIPine BESYLATE 5 MG TABLET PO SCH (08:17)
[2021-08-18] MEDS: DIVALPROEX SODIUM 500 MG DR TABLET PO SCH ×2 (08:17→16:38)
[2021-08-18] MEDS: PHENAZOPYRIDINE HCL 100 MG TABLET PO SCH ×2 (08:18→16:38)
[2021-08-18] MEDS: BuPROPion HCL 75 MG TABLET PO SCH (08:18)
[2021-08-18] MEDS: ARIPiprazole 15 MG TABLET PO SCH (08:29)
[2021-08-18] MEDS: CEPHALEXIN MONOHYDRATE 500 MG CAPSULE PO SCH ×3 (08:29→16:38)
[2021-08-18] MEDS: LORazepam 2 MG TABLET PO PRN (08:31)
[2021-08-18] MEDS ORDERED: LORazepam 2 MG/ML VIAL ONE (10:37)
[2021-08-18] MEDS ORDERED: DiphenhydrAMINE HCL 50 MG/ML VIAL ONE (10:37)
[2021-08-18] MEDS ORDERED: HALOPERIDOL LACTATE 5 MG/ML VIAL ONE (10:37)
[2021-08-18] MEDS ORDERED: LORazepam 2 MG/ML VIAL IM ONE (10:45)
[2021-08-18] MEDS ORDERED: DiphenhydrAMINE HCL 50 MG/ML VIAL IM ONE (10:45)
[2021-08-18] MEDS ORDERED: HALOPERIDOL LACTATE 5 MG/ML VIAL IM ONE (10:45)
[2021-08-18 16:42] VITALS: BP 106/66
[2021-08-18] MEDS: ACETAMINOPHEN 325 MG TABLET PO PRN (16:48)
[2021-08-18] MEDS: SIMVASTATIN 10 MG TABLET PO SCH (20:36)
[2021-08-18] MEDS: TraZODone HCL 100 MG TABLET PO SCH (20:36)
[2021-08-19] MEDS: ZOLPIDEM TARTRATE 10 MG TABLET PO PRN ×2 (00:01→20:22)
[2021-08-19] MEDS: LORazepam 2 MG TABLET PO PRN ×3 (00:03→14:46)
[2021-08-19] MEDS: IBUPROFEN 600 MG TABLET PO PRN ×2 (00:03→11:51)
[2021-08-19] MEDS: HALOPERIDOL 5 MG TABLET PO PRN ×2 (00:03→14:47)
[2021-08-19 00:16] VITALS: BP 106/74
[2021-08-19] MEDS: LEVOTHYROXINE SODIUM 125 MCG TABLET PO SCH (06:31)
[2021-08-19 08:10] VITALS: BP 99/59
[2021-08-19] MEDS: AmLODIPine BESYLATE 5 MG TABLET PO SCH (09:00)
[2021-08-19 09:30] VITALS: BP 104/66
[2021-08-19] MEDS: BuPROPion HCL 75 MG TABLET PO SCH (09:38)
[2021-08-19] MEDS: ARIPiprazole 15 MG TABLET PO SCH (09:39)
[2021-08-19] MEDS: CEPHALEXIN MONOHYDRATE 500 MG CAPSULE PO SCH ×3 (09:39→17:20)
[2021-08-19] MEDS: GABAPENTIN 400 MG CAPSULE PO SCH ×2 (09:39→20:07)
[2021-08-19] MEDS: DIVALPROEX SODIUM 500 MG DR TABLET PO SCH ×2 (09:39→17:20)
[2021-08-19] MEDS: PHENAZOPYRIDINE HCL 100 MG TABLET PO SCH ×2 (09:40→17:19)
[2021-08-19] MEDS: BENZOCAINE/MENTHOL/ZINC CL 20% 11.9 GM GEL TP PRN (09:42)
[2021-08-19 14:47] VITALS: BP 106/70
[2021-08-19 16:13] VITALS: BP 103/61
[2021-08-19] MEDS: TraZODone HCL 100 MG TABLET PO SCH (20:07)
[2021-08-19] MEDS: SIMVASTATIN 10 MG TABLET PO SCH (20:07)
[2021-08-20] MEDS: BENZOCAINE/MENTHOL/ZINC CL 20% 11.9 GM GEL TP PRN (00:11)
[2021-08-20 00:35] VITALS: BP 125/85
[2021-08-20] MEDS: LEVOTHYROXINE SODIUM 125 MCG TABLET PO SCH (06:16)
[2021-08-20 08:20] VITALS: BP 115/69
[2021-08-20] MEDS: PHENAZOPYRIDINE HCL 100 MG TABLET PO SCH ×2 (09:33→16:16)
[2021-08-20] MEDS: ARIPiprazole 15 MG TABLET PO SCH (09:34)
[2021-08-20] MEDS: GABAPENTIN 400 MG CAPSULE PO SCH ×2 (09:34→20:23)
[2021-08-20] MEDS: AmLODIPine BESYLATE 5 MG TABLET PO SCH (09:34)
[2021-08-20] MEDS: LORazepam 2 MG TABLET PO PRN (09:34)
[2021-08-20] MEDS: CEPHALEXIN MONOHYDRATE 500 MG CAPSULE PO SCH ×3 (09:34→16:16)
[2021-08-20] MEDS: DIVALPROEX SODIUM 500 MG DR TABLET PO SCH ×2 (09:34→16:16)
[2021-08-20] MEDS: BuPROPion HCL 75 MG TABLET PO SCH (09:41)
[2021-08-20] MEDS: HALOPERIDOL 5 MG TABLET PO PRN (10:34)
[2021-08-20 16:18] VITALS: BP 110/70
[2021-08-20] MEDS: IBUPROFEN 600 MG TABLET PO PRN (16:54)
[2021-08-20] MEDS: TraZODone HCL 100 MG TABLET PO SCH (20:23)
[2021-08-20] MEDS: SIMVASTATIN 10 MG TABLET PO SCH (20:24)
[2021-08-21 01:33] VITALS: BP 108/68
[2021-08-21] MEDS: LEVOTHYROXINE SODIUM 125 MCG TABLET PO SCH (06:44)
[2021-08-21] MEDS: LORazepam 2 MG TABLET PO PRN ×3 (06:51→18:12)
[2021-08-21] MEDS: HALOPERIDOL 5 MG TABLET PO PRN ×3 (06:51→16:46)
[2021-08-21] MEDS: BuPROPion HCL 75 MG TABLET PO SCH (08:29)
[2021-08-21] MEDS: ARIPiprazole 15 MG TABLET PO SCH (08:29)
[2021-08-21] MEDS: CEPHALEXIN MONOHYDRATE 500 MG CAPSULE PO SCH ×3 (08:29→16:46)
[2021-08-21] MEDS: DIVALPROEX SODIUM 500 MG DR TABLET PO SCH ×2 (08:30→16:45)
[2021-08-21] MEDS: PHENAZOPYRIDINE HCL 100 MG TABLET PO SCH ×2 (08:30→16:46)
[2021-08-21] MEDS: GABAPENTIN 400 MG CAPSULE PO SCH ×2 (08:30→20:21)
[2021-08-21 08:37] VITALS: BP 102/65
[2021-08-21 09:25] VITALS: BP 108/77
[2021-08-21] MEDS: AmLODIPine BESYLATE 5 MG TABLET PO SCH (09:30)
[2021-08-21 16:13] VITALS: BP 99/62
[2021-08-21 18:12] VITALS: BP 107/70
[2021-08-21] MEDS: TraZODone HCL 100 MG TABLET PO SCH (20:21)
[2021-08-21] MEDS: SIMVASTATIN 10 MG TABLET PO SCH (20:22)
[2021-08-22 00:15] VITALS: BP 104/68
[2021-08-22] MEDS: LEVOTHYROXINE SODIUM 125 MCG TABLET PO SCH (06:47)
[2021-08-22] MEDS: BENZOCAINE/MENTHOL/ZINC CL 20% 11.9 GM GEL TP PRN (07:00)
[2021-08-22 08:28] VITALS: BP 113/63
[2021-08-22] MEDS: ARIPiprazole 15 MG TABLET PO SCH (08:31)
[2021-08-22] MEDS: PHENAZOPYRIDINE HCL 100 MG TABLET PO SCH ×2 (08:32→16:16)
[2021-08-22] MEDS: DIVALPROEX SODIUM 500 MG DR TABLET PO SCH ×2 (08:32→16:16)
[2021-08-22] MEDS: AmLODIPine BESYLATE 5 MG TABLET PO SCH (08:32)
[2021-08-22] MEDS: CEPHALEXIN MONOHYDRATE 500 MG CAPSULE PO SCH ×3 (08:32→16:16)
[2021-08-22] MEDS: BuPROPion HCL 75 MG TABLET PO SCH (08:32)
[2021-08-22] MEDS: GABAPENTIN 400 MG CAPSULE PO SCH ×2 (08:32→20:03)
[2021-08-22] MEDS: HALOPERIDOL 5 MG TABLET PO PRN (08:33)
[2021-08-22] MEDS: LORazepam 2 MG TABLET PO PRN ×2 (08:33→13:21)
[2021-08-22] MEDS: IBUPROFEN 600 MG TABLET PO PRN (10:06)
[2021-08-22] MEDS: TraZODone HCL 100 MG TABLET PO SCH (20:03)
[2021-08-22] MEDS: SIMVASTATIN 10 MG TABLET PO SCH (20:03)
[2021-08-22 20:09] VITALS: BP 129/78
[2021-08-23] MEDS: LEVOTHYROXINE SODIUM 125 MCG TABLET PO SCH (06:13)
[2021-08-23] MEDS: IBUPROFEN 600 MG TABLET PO PRN ×2 (06:24→19:18)
[2021-08-23] MEDS: LORazepam 2 MG TABLET PO PRN ×2 (06:24→14:19)
[2021-08-23] MEDS: HALOPERIDOL 5 MG TABLET PO PRN (06:24)
[2021-08-23] MEDS: BENZOCAINE/MENTHOL/ZINC CL 20% 11.9 GM GEL TP PRN (06:24)
[2021-08-23 08:24] VITALS: BP 106/63
[2021-08-23] MEDS: PHENAZOPYRIDINE HCL 100 MG TABLET PO SCH ×2 (09:19→16:36)
[2021-08-23] MEDS: GABAPENTIN 400 MG CAPSULE PO SCH ×2 (09:19→20:35)
[2021-08-23] MEDS: DIVALPROEX SODIUM 500 MG DR TABLET PO SCH ×2 (09:19→16:36)
[2021-08-23] MEDS: AmLODIPine BESYLATE 5 MG TABLET PO SCH (09:19)
[2021-08-23] MEDS: ARIPiprazole 15 MG TABLET PO SCH (09:19)
[2021-08-23] MEDS: CEPHALEXIN MONOHYDRATE 500 MG CAPSULE PO SCH ×3 (09:19→16:36)
[2021-08-23] MEDS: BuPROPion HCL 75 MG TABLET PO SCH (09:20)
[2021-08-23 17:19] VITALS: BP 108/64
[2021-08-23 19:19] VITALS: BP 114/67
[2021-08-23] MEDS: SIMVASTATIN 10 MG TABLET PO SCH (20:34)
[2021-08-23] MEDS: TraZODone HCL 100 MG TABLET PO SCH (20:34)
[2021-08-24 01:41] VITALS: BP 110/64
[2021-08-24] MEDS: LEVOTHYROXINE SODIUM 125 MCG TABLET PO SCH (06:30)
[2021-08-24] MEDS: IBUPROFEN 600 MG TABLET PO PRN (06:31)
[2021-08-24] MEDS: HALOPERIDOL 5 MG TABLET PO PRN (06:31)
[2021-08-24 08:15] VITALS: BP 100/59
[2021-08-24] MEDS: PHENAZOPYRIDINE HCL 100 MG TABLET PO SCH ×2 (08:30→16:31)
[2021-08-24] MEDS: ARIPiprazole 15 MG TABLET PO SCH (08:30)
[2021-08-24] MEDS: BuPROPion HCL 75 MG TABLET PO SCH (08:30)
[2021-08-24] MEDS: DIVALPROEX SODIUM 500 MG DR TABLET PO SCH ×2 (08:30→16:31)
[2021-08-24] MEDS: AmLODIPine BESYLATE 5 MG TABLET PO SCH (08:30)
[2021-08-24] MEDS: GABAPENTIN 400 MG CAPSULE PO SCH ×2 (08:31→20:40)
[2021-08-24] MEDS: LORazepam 1 MG TABLET PO PRN ×2 (10:25→16:46)
[2021-08-24 16:14] VITALS: BP 112/70
[2021-08-24] MEDS: TraZODone HCL 100 MG TABLET PO SCH (20:40)
[2021-08-24] MEDS: SIMVASTATIN 10 MG TABLET PO SCH (20:40)
[2021-08-24 20:49] VITALS: BP 110/68
[2021-08-25 05:25] VITALS: BP 118/79
[2021-08-25] MEDS: LEVOTHYROXINE SODIUM 125 MCG TABLET PO SCH (06:42)
[2021-08-25 09:10] VITALS: BP 110/68
[2021-08-25] MEDS: LORazepam 1 MG TABLET PO PRN ×2 (09:13→15:03)
[2021-08-25] MEDS: DIVALPROEX SODIUM 500 MG DR TABLET PO SCH ×2 (09:13→16:07)
[2021-08-25] MEDS: ARIPiprazole 15 MG TABLET PO SCH (09:13)
[2021-08-25] MEDS: AmLODIPine BESYLATE 5 MG TABLET PO SCH (09:13)
[2021-08-25] MEDS: PHENAZOPYRIDINE HCL 100 MG TABLET PO SCH ×2 (09:14→16:07)
[2021-08-25] MEDS: IBUPROFEN 600 MG TABLET PO PRN ×2 (09:14→16:33)
[2021-08-25] MEDS: BuPROPion HCL 75 MG TABLET PO SCH (09:14)
[2021-08-25] MEDS: GABAPENTIN 400 MG CAPSULE PO SCH ×2 (09:14→20:06)
[2021-08-25 16:30] VITALS: BP 115/72
[2021-08-25] MEDS: SIMVASTATIN 10 MG TABLET PO SCH (20:06)
[2021-08-25] MEDS: TraZODone HCL 100 MG TABLET PO SCH (20:06)
[2021-08-25 20:19] VITALS: BP 109/64
[2021-08-26] MEDS: LEVOTHYROXINE SODIUM 125 MCG TABLET PO SCH (06:37)
[2021-08-26] MEDS: ARIPiprazole 15 MG TABLET PO SCH (08:06)
[2021-08-26] MEDS: PHENAZOPYRIDINE HCL 100 MG TABLET PO SCH ×2 (08:06→16:58)
[2021-08-26] MEDS: DIVALPROEX SODIUM 500 MG DR TABLET PO SCH ×2 (08:06→16:58)
[2021-08-26] MEDS: BuPROPion HCL 75 MG TABLET PO SCH (08:06)
[2021-08-26] MEDS: GABAPENTIN 400 MG CAPSULE PO SCH ×2 (08:06→20:50)
[2021-08-26] MEDS: LORazepam 1 MG TABLET PO PRN (08:07)
[2021-08-26] MEDS: IBUPROFEN 600 MG TABLET PO PRN (08:07)
[2021-08-26] MEDS: AmLODIPine BESYLATE 5 MG TABLET PO SCH (08:07)
[2021-08-26 12:30] VITALS: BP 117/73
[2021-08-26 20:24] VITALS: BP 112/66
[2021-08-26] MEDS: TraZODone HCL 100 MG TABLET PO SCH (20:50)
[2021-08-26] MEDS: SIMVASTATIN 10 MG TABLET PO SCH (20:50)
[2021-08-27 05:26] VITALS: BP 106/64
[2021-08-27] MEDS: LEVOTHYROXINE SODIUM 125 MCG TABLET PO SCH (06:19)
[2021-08-27 06:45] VITALS: BP 101/66
[2021-08-27] MEDS: LORazepam 1 MG TABLET PO PRN ×2 (06:47→13:54)
[2021-08-27] MEDS: IBUPROFEN 600 MG TABLET PO PRN ×2 (06:48→13:54)
[2021-08-27 08:07] VITALS: BP 109/60
[2021-08-27] MEDS: DIVALPROEX SODIUM 500 MG DR TABLET PO SCH ×2 (09:02→16:16)
[2021-08-27] MEDS: BuPROPion HCL 75 MG TABLET PO SCH (09:02)
[2021-08-27] MEDS: GABAPENTIN 400 MG CAPSULE PO SCH ×2 (09:02→20:40)
[2021-08-27] MEDS: ARIPiprazole 15 MG TABLET PO SCH (09:02)
[2021-08-27] MEDS: AmLODIPine BESYLATE 5 MG TABLET PO SCH (09:03)
[2021-08-27] MEDS: PHENAZOPYRIDINE HCL 100 MG TABLET PO SCH ×2 (09:07→16:16)
[2021-08-27] MEDS: HALOPERIDOL 5 MG TABLET PO PRN (10:00)
[2021-08-27 17:18] VITALS: BP_SYST 107; BP_SYST 110; BP_DIAS 62
[2021-08-27] MEDS: ACETAMINOPHEN 325 MG TABLET PO PRN (17:18)
[2021-08-27 20:03] VITALS: BP 107/54
[2021-08-27] MEDS: TraZODone HCL 100 MG TABLET PO SCH (20:40)
[2021-08-27] MEDS: SIMVASTATIN 10 MG TABLET PO SCH (20:40)
[2021-08-28 01:01] VITALS: BP 120/64
[2021-08-28] MEDS: LEVOTHYROXINE SODIUM 125 MCG TABLET PO SCH (06:27)
[2021-08-28 09:00] VITALS: BP 112/70
[2021-08-28] MEDS: ARIPiprazole 15 MG TABLET PO SCH (09:01)
[2021-08-28] MEDS: DIVALPROEX SODIUM 500 MG DR TABLET PO SCH ×2 (09:01→17:25)
[2021-08-28] MEDS: IBUPROFEN 600 MG TABLET PO PRN ×2 (09:01→17:26)
[2021-08-28] MEDS: BuPROPion HCL 75 MG TABLET PO SCH (09:02)
[2021-08-28] MEDS: AmLODIPine BESYLATE 5 MG TABLET PO SCH (09:02)
[2021-08-28] MEDS: GABAPENTIN 400 MG CAPSULE PO SCH ×2 (09:02→21:13)
[2021-08-28] MEDS: PHENAZOPYRIDINE HCL 100 MG TABLET PO SCH ×2 (09:06→17:25)
[2021-08-28] MEDS: LORazepam 1 MG TABLET PO PRN ×2 (09:30→14:36)
[2021-08-28 09:46] LABS: GLUCOMETER DEV NAME(LOC) POC.BV
[2021-08-28] MEDS: HALOPERIDOL 5 MG TABLET PO PRN (10:32)
[2021-08-28 16:06] VITALS: BP 100/63
[2021-08-28 17:26] VITALS: BP 100/63
[2021-08-28 20:28] VITALS: BP 105/60
[2021-08-28] MEDS: TraZODone HCL 100 MG TABLET PO SCH (21:12)
[2021-08-28] MEDS: SIMVASTATIN 10 MG TABLET PO SCH (21:12)
[2021-08-29] MEDS: LEVOTHYROXINE SODIUM 125 MCG TABLET PO SCH (06:05)
[2021-08-29] MEDS: GABAPENTIN 400 MG CAPSULE PO SCH ×2 (08:01→20:11)
[2021-08-29] MEDS: DIVALPROEX SODIUM 500 MG DR TABLET PO SCH ×2 (08:01→16:10)
[2021-08-29] MEDS: ARIPiprazole 15 MG TABLET PO SCH (08:01)
[2021-08-29] MEDS: BuPROPion HCL 75 MG TABLET PO SCH (08:01)
[2021-08-29] MEDS: AmLODIPine BESYLATE 5 MG TABLET PO SCH (08:01)
[2021-08-29] MEDS: LORazepam 1 MG TABLET PO PRN ×2 (08:02→12:26)
[2021-08-29] MEDS: PHENAZOPYRIDINE HCL 100 MG TABLET PO SCH ×2 (08:02→16:10)
[2021-08-29] MEDS: IBUPROFEN 600 MG TABLET PO PRN ×2 (08:02→14:21)
[2021-08-29 08:11] VITALS: BP 113/70
[2021-08-29] MEDS: HALOPERIDOL 5 MG TABLET PO PRN ×2 (08:53→14:21)
[2021-08-29] MEDS: TraZODone HCL 100 MG TABLET PO SCH (20:11)
[2021-08-29] MEDS: SIMVASTATIN 10 MG TABLET PO SCH (20:11)
[2021-08-29 20:54] VITALS: BP 107/63
[2021-08-30] MEDS: LEVOTHYROXINE SODIUM 125 MCG TABLET PO SCH (06:33)
[2021-08-30] MEDS: BuPROPion HCL 75 MG TABLET PO SCH (08:57)
[2021-08-30] MEDS: AmLODIPine BESYLATE 5 MG TABLET PO SCH (09:02)
[2021-08-30] MEDS: DIVALPROEX SODIUM 500 MG DR TABLET PO SCH ×2 (09:03→16:06)
[2021-08-30] MEDS: PHENAZOPYRIDINE HCL 100 MG TABLET PO SCH ×2 (09:03→16:06)
[2021-08-30] MEDS: GABAPENTIN 400 MG CAPSULE PO SCH ×2 (09:03→20:09)
[2021-08-30] MEDS: ARIPiprazole 15 MG TABLET PO SCH (09:03)
[2021-08-30 09:07] VITALS: BP 105/60
[2021-08-30] MEDS: ACETAMINOPHEN 325 MG TABLET PO PRN (09:46)
[2021-08-30] MEDS: HALOPERIDOL 5 MG TABLET PO PRN (14:36)
[2021-08-30] MEDS: LORazepam 1 MG TABLET PO PRN (14:36)
[2021-08-30] MEDS: IBUPROFEN 600 MG TABLET PO PRN (14:36)
[2021-08-30] MEDS: TraZODone HCL 100 MG TABLET PO SCH (20:08)
[2021-08-30] MEDS: SIMVASTATIN 10 MG TABLET PO SCH (20:09)
[2021-08-30 22:08] VITALS: BP 90/61
[2021-08-31 05:32] VITALS: BP 101/59
[2021-08-31] MEDS: LEVOTHYROXINE SODIUM 125 MCG TABLET PO SCH (06:23)
[2021-08-31] MEDS: DIVALPROEX SODIUM 500 MG DR TABLET PO SCH ×2 (08:16→16:06)
[2021-08-31] MEDS: PHENAZOPYRIDINE HCL 100 MG TABLET PO SCH ×2 (08:16→16:06)
[2021-08-31] MEDS: ARIPiprazole 15 MG TABLET PO SCH (08:16)
[2021-08-31] MEDS: BuPROPion HCL 75 MG TABLET PO SCH (08:16)
[2021-08-31] MEDS: AmLODIPine BESYLATE 5 MG TABLET PO SCH (08:17)
[2021-08-31] MEDS: GABAPENTIN 400 MG CAPSULE PO SCH ×2 (08:17→20:08)
[2021-08-31 10:00] VITALS: BP 109/66
[2021-08-31] MEDS: HALOPERIDOL 5 MG TABLET PO PRN (10:01)
[2021-08-31] MEDS: IBUPROFEN 600 MG TABLET PO PRN (10:01)
[2021-08-31] MEDS: LORazepam 1 MG TABLET PO PRN (10:01)
[2021-08-31] MEDS: SIMVASTATIN 10 MG TABLET PO SCH (20:08)
[2021-08-31] MEDS: TraZODone HCL 100 MG TABLET PO SCH (20:08)
[2021-09-01 06:16] VITALS: BP 104/65
[2021-09-01] MEDS: LEVOTHYROXINE SODIUM 125 MCG TABLET PO SCH (06:32)
[2021-09-01] MEDS: HALOPERIDOL 5 MG TABLET PO PRN ×2 (07:11→19:29)
[2021-09-01] MEDS: LORazepam 1 MG TABLET PO PRN ×2 (07:11→19:29)
[2021-09-01] MEDS: IBUPROFEN 600 MG TABLET PO PRN ×2 (07:11→22:15)
[2021-09-01] MEDS: GABAPENTIN 400 MG CAPSULE PO SCH ×2 (09:28→20:42)
[2021-09-01] MEDS: AmLODIPine BESYLATE 5 MG TABLET PO SCH (09:28)
[2021-09-01] MEDS: ARIPiprazole 15 MG TABLET PO SCH (09:28)
[2021-09-01] MEDS: DIVALPROEX SODIUM 500 MG DR TABLET PO SCH ×2 (09:28→16:35)
[2021-09-01] MEDS: PHENAZOPYRIDINE HCL 100 MG TABLET PO SCH ×2 (09:28→16:35)
[2021-09-01] MEDS: BuPROPion HCL 75 MG TABLET PO SCH (09:29)
[2021-09-01 09:57] VITALS: BP 107/64
[2021-09-01] MEDS: ACETAMINOPHEN 325 MG TABLET PO PRN (16:22)
[2021-09-01 16:23] VITALS: BP 112/63
[2021-09-01 20:19] VITALS: BP 136/83
[2021-09-01] MEDS: TraZODone HCL 100 MG TABLET PO SCH (20:43)
[2021-09-01] MEDS: SIMVASTATIN 10 MG TABLET PO SCH (20:53)
[2021-09-01 22:15] VITALS: BP 124/71
[2021-09-02] MEDS: HALOPERIDOL 5 MG TABLET PO PRN ×2 (01:33→06:26)
[2021-09-02] MEDS: LORazepam 1 MG TABLET PO PRN ×2 (01:35→06:25)
[2021-09-02] MEDS: LEVOTHYROXINE SODIUM 125 MCG TABLET PO SCH (06:25)
[2021-09-02] MEDS: IBUPROFEN 600 MG TABLET PO PRN (06:26)
[2021-09-02 08:09] VITALS: BP 100/61
[2021-09-02] MEDS: ARIPiprazole 15 MG TABLET PO SCH (08:35)
[2021-09-02] MEDS: PHENAZOPYRIDINE HCL 100 MG TABLET PO SCH (08:35)
[2021-09-02] MEDS: DIVALPROEX SODIUM 500 MG DR TABLET PO SCH (08:36)
[2021-09-02] MEDS: AmLODIPine BESYLATE 5 MG TABLET PO SCH (08:36)
[2021-09-02] MEDS: GABAPENTIN 400 MG CAPSULE PO SCH (08:36)
[2021-09-02] MEDS: BuPROPion HCL 75 MG TABLET PO SCH (08:37)
[2021-09-02] MEDS ORDERED: DIVA-112 PO (22:29)
[2021-09-02] MEDS ORDERED: LEVO125T95 PO (22:29)
[2021-09-02] MEDS ORDERED: SIMV-259 PO (22:29)
[2021-09-02] MEDS ORDERED: AMLO-257 PO (22:29)
== END 2021-09-02 14:15 | disposition home or self-care (01) | DRG 750 ==
LOC: B3A 17:23
PROVIDERS: ADMIT Psychiatry & Neurology Psychiatry; ATTEND Psychiatry & Neurology Psychiatry
DX: F25.9 Schizoaffective disorder, unspecified (principal); R45.851 Suicidal ideations; G40.909 Epilepsy, unspecified, not intractable, without status epilepticus; E78.5 Hyperlipidemia, unspecified; I10 Essential (primary) hypertension; E03.9 Hypothyroidism, unspecified; J44.9 Chronic obstructive pulmonary disease, unspecified; N39.0 Urinary tract infection, site not specified; F15.90 Other stimulant use, unspecified, uncomplicated; Z20.822 Contact with and (suspected) exposure to COVID-19; E78.00 Pure hypercholesterolemia, unspecified; G47.00 Insomnia, unspecified; K59.00 Constipation, unspecified; F41.9 Anxiety disorder, unspecified; F17.210 Nicotine dependence, cigarettes, uncomplicated; Z71.51 Drug abuse counseling and surveillance of drug abuser; Z91.14 Patient's other noncompliance with medication regimen; Z79.899 Other long term (current) drug therapy; Z88.8 Allergy status to other drugs, medicaments and biological substances
CPT/HCPCS: 80053; 80061; 80307; 81001; 83036; 84439; 84443; 85025; 87086; J1200; J1630; J2060

== ENCOUNTER 2021-09-07 13:52 | Inpatient (IN) | payer MEDICAID ==
[~2021-09-07] VITALS: Ht 177.8 cm; Wt 84.8 kg
[~2021-09-07 13:52] MED LIST changes: -LEVO125T95 PO; +LEVO75 PO
[2021-09-07 16:25] VITALS: BP 114/70
[2021-09-07] MEDS ORDERED: -PHARMACY VACCINE NOTE- MISC ONE (16:45)
[2021-09-07] MEDS: LORazepam 2 MG TABLET PO PRN (18:22)
[2021-09-07] MEDS: NICOTINE 21 MG/24 HOUR PATCH TD SCH (19:30)
[2021-09-07 20:34] VITALS: BP 120/76
[2021-09-07 20:50] VITALS: BP 102/60
[2021-09-08] MEDS ORDERED: BACITRACIN 28 GM OINTMENT TP PRN (07:45)
[2021-09-08] MEDS ORDERED: LOPERAMIDE HCL 2 MG CAPSULE PO PRN (07:45)
[2021-09-08] MEDS ORDERED: BENZOCAINE/MENTHOL LOZENGE PO PRN (07:45)
[2021-09-08] MEDS ORDERED: MAG HYDROX/AL HYDROX/SIMETH ES 30 ML SUSPENSION UDCUP PO PRN (07:45)
[2021-09-08] MEDS ORDERED: OMEPRAZOLE 20 MG CAPSULE PO PRN (07:45)
[2021-09-08] MEDS ORDERED: ALBUTEROL SULFATE HFA 90 MCG/PUFF 8 GM INHALER IH PRN (07:45)
[2021-09-08] MEDS ORDERED: CloNIDine HCL 0.1 MG TABLET PO PRN (07:45)
[2021-09-08] MEDS ORDERED: PETROLATUM,WHITE 28 GM JELLY TP PRN (07:45)
[2021-09-08] MEDS ORDERED: DOCUSATE SODIUM 100 MG CAPSULE PO PRN (07:45)
[2021-09-08] MEDS: NICOTINE 21 MG/24 HOUR PATCH TD SCH (08:44)
[2021-09-08] MEDS: GABAPENTIN 400 MG CAPSULE PO SCH ×2 (08:44→20:30)
[2021-09-08] MEDS: LORazepam 2 MG TABLET PO PRN ×3 (08:55→19:33)
[2021-09-08 09:15] VITALS: BP 102/58
[2021-09-08] MEDS: AmLODIPine BESYLATE 5 MG TABLET PO SCH (12:55)
[2021-09-08] MEDS: HALOPERIDOL 5 MG TABLET PO PRN (14:01)
[2021-09-08] MEDS: DIVALPROEX SODIUM 500 MG DR TABLET PO SCH (16:47)
[2021-09-08 20:06] VITALS: BP 107/62
[2021-09-08] MEDS: ARIPiprazole 15 MG TABLET PO SCH (20:29)
[2021-09-08] MEDS: SIMVASTATIN 10 MG TABLET PO SCH (20:29)
[2021-09-09 03:42] VITALS: BP 101/60
[2021-09-09] MEDS: LEVOTHYROXINE SODIUM 75 MCG TABLET PO SCH (06:31)
[2021-09-09 07:12] LABS: HEMATOCRIT 37.8 % (36-46); HEMOGLOBIN 12.8 g/dL (12.0-16.0); LYMPHOCYTES # (AUTO) 2.6 K/uL (1.0-4.8); LYMPHOCYTES % (AUTO) 45.2 % (22.0-44.0); MEAN CORPUSCULAR VOLUME 91 fL (80-100); MONOCYTES # (AUTO) 0.5 K/uL (0.1-1.0); MONOCYTES % (AUTO) 8.5 % (2.0-9.0); NEUTROPHILS # (AUTO) 2.4 K/uL (1.8-7.7); NEUTROPHILS % (AUTO) 42.3 % (40.0-70.0); PLATELET COUNT (AUTO) 328 K/uL (150-450); RED BLOOD CELL COUNT(AUTO) 4.14 MIL/uL (4.00-5.20); RED CELL DISTRIBUTION WIDTH 12.9 % (11.5-14.5)
[2021-09-09 07:34] LABS: HEMOGLOBIN A1C 4.9 % (3.8-5.6)
[2021-09-09 07:36] LABS: ALANINE AMINOTRANSFERASE 17 U/L (12-78); ALBUMIN 3.1 g/dL (3.4-5.0); ALKALINE PHOSPHATASE 66 U/L (46-116); ANION GAP 8 mmol/L (8-16); ASPARTATE AMINOTRANSFERASE 9 U/L (15-37); BILIRUBIN,TOTAL 0.1 mg/dL (0.1-1.0); CALCIUM, TOTAL 8.6 mg/dL (8.8-10.5); CARBON DIOXIDE 27 mmol/L (22-29); CHLORIDE 105 mmol/L (98-107); CHOL/HDL RATIO 4.1 (3.9-5.7); CHOLESTEROL 185 mg/dL (131-200); CREATININE 0.72 mg/dL (0.60-1.30); FREE T4 (FREE THYROXINE) 0.92 ng/dL (0.76-1.46); GLUCOSE,RANDOM 93 mg/dL (70-110); HDL CHOLESTEROL 45 mg/dL (40-60); LDL CHOL (CALC.) 116 mg/dL (0-130); POTASSIUM 3.8 mmol/L (3.5-5.1); SODIUM SERUM 140 mmol/L (136-145); THYROID STIMULATING HORMONE 1.35 uIU/mL (0.36-3.74); TOTAL PROTEIN, SERUM 6.5 g/dL (6.4-8.2); TRIGLYCERIDES 118 mg/dL (15-150); UREA NITROGEN, BLOOD 17 mg/dL (7-18)
[2021-09-09 07:47] LABS: GLOMERULAR FILTR. RATE CALC > 60 mL/min (>60)
[2021-09-09] MEDS: AmLODIPine BESYLATE 5 MG TABLET PO SCH (08:46)
[2021-09-09] MEDS: BuPROPion HCL 75 MG TABLET PO SCH (08:46)
[2021-09-09] MEDS: NICOTINE 21 MG/24 HOUR PATCH TD SCH (08:46)
[2021-09-09] MEDS: DIVALPROEX SODIUM 500 MG DR TABLET PO SCH ×2 (08:46→16:08)
[2021-09-09] MEDS: GABAPENTIN 400 MG CAPSULE PO SCH ×2 (08:47→20:32)
[2021-09-09] MEDS: LORazepam 2 MG TABLET PO PRN ×2 (08:47→16:08)
[2021-09-09 10:28] VITALS: BP 107/67
[2021-09-09] MEDS: HALOPERIDOL 5 MG TABLET PO PRN (17:11)
[2021-09-09] MEDS: SIMVASTATIN 10 MG TABLET PO SCH (20:32)
[2021-09-09] MEDS: ARIPiprazole 15 MG TABLET PO SCH (20:32)
[2021-09-09 21:54] VITALS: BP 110/65
[2021-09-09] MEDS: ZOLPIDEM TARTRATE 10 MG TABLET PO PRN (23:50)
[2021-09-10] MEDS: LEVOTHYROXINE SODIUM 75 MCG TABLET PO SCH (06:28)
[2021-09-10 08:00] VITALS: BP 108/75
[2021-09-10] MEDS: NICOTINE 21 MG/24 HOUR PATCH TD SCH (08:27)
[2021-09-10] MEDS: DIVALPROEX SODIUM 500 MG DR TABLET PO SCH ×2 (08:27→16:08)
[2021-09-10] MEDS: AmLODIPine BESYLATE 5 MG TABLET PO SCH (08:27)
[2021-09-10] MEDS: GABAPENTIN 400 MG CAPSULE PO SCH ×2 (08:27→20:08)
[2021-09-10] MEDS: LORazepam 2 MG TABLET PO PRN ×3 (08:28→20:09)
[2021-09-10] MEDS: BuPROPion HCL 75 MG TABLET PO SCH (08:28)
[2021-09-10] MEDS: HALOPERIDOL 5 MG TABLET PO PRN ×2 (10:28→20:09)
[2021-09-10] MEDS: SIMVASTATIN 10 MG TABLET PO SCH (20:08)
[2021-09-10] MEDS: ARIPiprazole 15 MG TABLET PO SCH (20:09)
[2021-09-10 20:29] VITALS: BP 119/72
[2021-09-11] MEDS: LEVOTHYROXINE SODIUM 75 MCG TABLET PO SCH (06:27)
[2021-09-11] MEDS: DIVALPROEX SODIUM 500 MG DR TABLET PO SCH ×2 (08:09→16:11)
[2021-09-11] MEDS: BuPROPion HCL 75 MG TABLET PO SCH (08:10)
[2021-09-11] MEDS: NICOTINE 21 MG/24 HOUR PATCH TD SCH (08:10)
[2021-09-11] MEDS: AmLODIPine BESYLATE 5 MG TABLET PO SCH (08:10)
[2021-09-11] MEDS: GABAPENTIN 400 MG CAPSULE PO SCH ×2 (08:10→21:01)
[2021-09-11 08:32] VITALS: BP 106/61
[2021-09-11] MEDS: LORazepam 2 MG TABLET PO PRN ×2 (09:14→16:11)
[2021-09-11 09:32] LABS: GLUCOMETER DEV NAME(LOC) POC.BV
[2021-09-11] MEDS: ACETAMINOPHEN 325 MG TABLET PO PRN ×2 (10:40→16:12)
[2021-09-11 20:08] VITALS: BP 99/60
[2021-09-11] MEDS: ARIPiprazole 15 MG TABLET PO SCH (21:01)
[2021-09-11] MEDS: SIMVASTATIN 10 MG TABLET PO SCH (21:02)
[2021-09-11] MEDS: ZOLPIDEM TARTRATE 10 MG TABLET PO PRN (21:41)
[2021-09-12] MEDS: LEVOTHYROXINE SODIUM 75 MCG TABLET PO SCH (06:19)
[2021-09-12] MEDS: LORazepam 2 MG TABLET PO PRN ×2 (06:55→15:02)
[2021-09-12 08:16] VITALS: BP 102/62
[2021-09-12] MEDS: DIVALPROEX SODIUM 500 MG DR TABLET PO SCH ×2 (08:19→17:16)
[2021-09-12] MEDS: NICOTINE 21 MG/24 HOUR PATCH TD SCH (08:20)
[2021-09-12] MEDS: GABAPENTIN 400 MG CAPSULE PO SCH ×2 (08:20→21:26)
[2021-09-12] MEDS: BuPROPion HCL 75 MG TABLET PO SCH (08:20)
[2021-09-12] MEDS: AmLODIPine BESYLATE 5 MG TABLET PO SCH (08:20)
[2021-09-12] MEDS: IBUPROFEN 600 MG TABLET PO PRN (09:27)
[2021-09-12] MEDS: HALOPERIDOL 5 MG TABLET PO PRN (15:03)
[2021-09-12] MEDS: ARIPiprazole 15 MG TABLET PO SCH (21:26)
[2021-09-12] MEDS: SIMVASTATIN 10 MG TABLET PO SCH (21:26)
[2021-09-12] MEDS: ZOLPIDEM TARTRATE 10 MG TABLET PO PRN (22:29)
[2021-09-13] MEDS: LEVOTHYROXINE SODIUM 75 MCG TABLET PO SCH (06:22)
[2021-09-13] MEDS: GABAPENTIN 400 MG CAPSULE PO SCH ×2 (08:03→20:01)
[2021-09-13] MEDS: DIVALPROEX SODIUM 500 MG DR TABLET PO SCH ×2 (08:03→16:01)
[2021-09-13] MEDS: BuPROPion HCL 75 MG TABLET PO SCH (08:03)
[2021-09-13] MEDS: NICOTINE 21 MG/24 HOUR PATCH TD SCH (08:03)
[2021-09-13] MEDS: AmLODIPine BESYLATE 5 MG TABLET PO SCH (08:04)
[2021-09-13 08:07] VITALS: BP 115/64
[2021-09-13] MEDS: LORazepam 2 MG TABLET PO PRN ×3 (09:14→20:02)
[2021-09-13] MEDS: HALOPERIDOL 5 MG TABLET PO PRN (16:01)
[2021-09-13 16:32] VITALS: BP 106/66
[2021-09-13] MEDS: IBUPROFEN 600 MG TABLET PO PRN (16:33)
[2021-09-13] MEDS: SIMVASTATIN 10 MG TABLET PO SCH (20:01)
[2021-09-13] MEDS: ARIPiprazole 15 MG TABLET PO SCH (20:01)
[2021-09-13 21:53] VITALS: BP 110/71
[2021-09-14] MEDS: LEVOTHYROXINE SODIUM 75 MCG TABLET PO SCH (06:32)
[2021-09-14] MEDS: NICOTINE 21 MG/24 HOUR PATCH TD SCH (08:19)
[2021-09-14] MEDS: GABAPENTIN 400 MG CAPSULE PO SCH ×2 (08:19→20:12)
[2021-09-14] MEDS: BuPROPion HCL 75 MG TABLET PO SCH (08:19)
[2021-09-14] MEDS: DIVALPROEX SODIUM 500 MG DR TABLET PO SCH ×2 (08:19→16:00)
[2021-09-14] MEDS: AmLODIPine BESYLATE 5 MG TABLET PO SCH (08:24)
[2021-09-14 08:37] VITALS: BP 99/60
[2021-09-14] MEDS: LORazepam 2 MG TABLET PO PRN ×2 (09:14→15:59)
[2021-09-14 15:58] VITALS: BP 108/76
[2021-09-14] MEDS: HALOPERIDOL 5 MG TABLET PO PRN (15:59)
[2021-09-14] MEDS: IBUPROFEN 600 MG TABLET PO PRN (16:00)
[2021-09-14] MEDS: ARIPiprazole 15 MG TABLET PO SCH (20:12)
[2021-09-14] MEDS: SIMVASTATIN 10 MG TABLET PO SCH (20:12)
[2021-09-14] MEDS: ZOLPIDEM TARTRATE 10 MG TABLET PO PRN (20:12)
[2021-09-14 21:40] VITALS: BP 101/61
[2021-09-15] MEDS: LEVOTHYROXINE SODIUM 75 MCG TABLET PO SCH (06:11)
[2021-09-15 08:07] VITALS: BP 100/62
[2021-09-15] MEDS: GABAPENTIN 400 MG CAPSULE PO SCH ×2 (08:54→21:13)
[2021-09-15] MEDS: LORazepam 2 MG TABLET PO PRN ×2 (08:55→14:37)
[2021-09-15] MEDS: NICOTINE 21 MG/24 HOUR PATCH TD SCH (08:55)
[2021-09-15] MEDS: BuPROPion HCL 75 MG TABLET PO SCH (08:55)
[2021-09-15] MEDS: AmLODIPine BESYLATE 5 MG TABLET PO SCH (08:55)
[2021-09-15] MEDS: DIVALPROEX SODIUM 500 MG DR TABLET PO SCH ×2 (08:55→16:46)
[2021-09-15] MEDS: HALOPERIDOL 5 MG TABLET PO PRN (09:52)
[2021-09-15] MEDS: IBUPROFEN 600 MG TABLET PO PRN (16:12)
[2021-09-15] MEDS: SIMVASTATIN 10 MG TABLET PO SCH (21:13)
[2021-09-15] MEDS: ARIPiprazole 15 MG TABLET PO SCH (21:13)
[2021-09-16 03:29] VITALS: BP 100/65
[2021-09-16] MEDS: LEVOTHYROXINE SODIUM 75 MCG TABLET PO SCH (06:14)
[2021-09-16] MEDS: LORazepam 2 MG TABLET PO PRN ×2 (08:13→14:18)
[2021-09-16] MEDS: HALOPERIDOL 5 MG TABLET PO PRN ×2 (08:13→14:18)
[2021-09-16] MEDS: BuPROPion HCL 75 MG TABLET PO SCH (08:14)
[2021-09-16] MEDS: NICOTINE 21 MG/24 HOUR PATCH TD SCH (08:14)
[2021-09-16] MEDS: DIVALPROEX SODIUM 500 MG DR TABLET PO SCH ×2 (08:14→17:33)
[2021-09-16] MEDS: AmLODIPine BESYLATE 5 MG TABLET PO SCH (08:15)
[2021-09-16] MEDS: GABAPENTIN 400 MG CAPSULE PO SCH ×2 (08:15→20:15)
[2021-09-16 08:22] VITALS: BP 100/63
[2021-09-16] MEDS: IBUPROFEN 600 MG TABLET PO PRN (17:46)
[2021-09-16] MEDS: ARIPiprazole 15 MG TABLET PO SCH (20:15)
[2021-09-16] MEDS: SIMVASTATIN 10 MG TABLET PO SCH (20:17)
[2021-09-17 05:52] VITALS: BP 101/62
[2021-09-17] MEDS: LEVOTHYROXINE SODIUM 75 MCG TABLET PO SCH (06:35)
[2021-09-17 08:00] VITALS: BP 108/70
[2021-09-17] MEDS: LORazepam 2 MG TABLET PO PRN ×2 (08:08→13:57)
[2021-09-17] MEDS: AmLODIPine BESYLATE 5 MG TABLET PO SCH (08:08)
[2021-09-17] MEDS: GABAPENTIN 400 MG CAPSULE PO SCH ×2 (08:08→20:46)
[2021-09-17] MEDS: DIVALPROEX SODIUM 500 MG DR TABLET PO SCH ×2 (08:08→17:14)
[2021-09-17] MEDS: BuPROPion HCL 75 MG TABLET PO SCH (08:08)
[2021-09-17] MEDS: NICOTINE 21 MG/24 HOUR PATCH TD SCH (08:09)
[2021-09-17] MEDS: HALOPERIDOL 5 MG TABLET PO PRN ×2 (08:45→13:56)
[2021-09-17 08:55] VITALS: BP 102/63
[2021-09-17 16:35] VITALS: BP 97/63
[2021-09-17] MEDS: IBUPROFEN 600 MG TABLET PO PRN (17:14)
[2021-09-17] MEDS: ARIPiprazole 15 MG TABLET PO SCH (20:45)
[2021-09-17] MEDS: SIMVASTATIN 10 MG TABLET PO SCH (20:46)
[2021-09-17 22:00] VITALS: BP 110/86
[2021-09-18] MEDS: LEVOTHYROXINE SODIUM 75 MCG TABLET PO SCH (05:46)
[2021-09-18 08:13] VITALS: BP 100/60
[2021-09-18] MEDS: GABAPENTIN 400 MG CAPSULE PO SCH ×2 (08:18→20:13)
[2021-09-18] MEDS: DIVALPROEX SODIUM 500 MG DR TABLET PO SCH ×2 (08:19→16:05)
[2021-09-18] MEDS: NICOTINE 21 MG/24 HOUR PATCH TD SCH (08:19)
[2021-09-18] MEDS: BuPROPion HCL 75 MG TABLET PO SCH (08:19)
[2021-09-18] MEDS: AmLODIPine BESYLATE 5 MG TABLET PO SCH (08:19)
[2021-09-18] MEDS: HALOPERIDOL 5 MG TABLET PO PRN ×2 (08:24→15:50)
[2021-09-18] MEDS: LORazepam 2 MG TABLET PO PRN ×2 (08:24→15:49)
[2021-09-18] MEDS: IBUPROFEN 600 MG TABLET PO PRN (09:22)
[2021-09-18] MEDS: ARIPiprazole 15 MG TABLET PO SCH (20:13)
[2021-09-18] MEDS: SIMVASTATIN 10 MG TABLET PO SCH (20:17)
[2021-09-19 02:00] VITALS: BP 116/74
[2021-09-19] MEDS: LEVOTHYROXINE SODIUM 75 MCG TABLET PO SCH (06:30)
[2021-09-19 08:13] VITALS: BP 102/66
[2021-09-19] MEDS: AmLODIPine BESYLATE 5 MG TABLET PO SCH (09:15)
[2021-09-19] MEDS: DIVALPROEX SODIUM 500 MG DR TABLET PO SCH ×2 (09:15→16:00)
[2021-09-19] MEDS: BuPROPion HCL 75 MG TABLET PO SCH (09:15)
[2021-09-19] MEDS: NICOTINE 21 MG/24 HOUR PATCH TD SCH (09:15)
[2021-09-19] MEDS: GABAPENTIN 400 MG CAPSULE PO SCH ×2 (09:15→20:18)
[2021-09-19] MEDS: LORazepam 2 MG TABLET PO PRN ×2 (09:46→15:33)
[2021-09-19] MEDS: HALOPERIDOL 5 MG TABLET PO PRN ×2 (09:46→15:33)
[2021-09-19 15:30] VITALS: BP 111/70
[2021-09-19] MEDS: IBUPROFEN 600 MG TABLET PO PRN (15:34)
[2021-09-19] MEDS: ZOLPIDEM TARTRATE 10 MG TABLET PO PRN (20:19)
[2021-09-19] MEDS: ARIPiprazole 15 MG TABLET PO SCH (20:19)
[2021-09-19] MEDS: SIMVASTATIN 10 MG TABLET PO SCH (20:19)
[2021-09-19 21:18] VITALS: BP 107/69
[2021-09-20] MEDS: LEVOTHYROXINE SODIUM 75 MCG TABLET PO SCH (06:05)
[2021-09-20] MEDS: GABAPENTIN 400 MG CAPSULE PO SCH ×2 (08:55→20:18)
[2021-09-20] MEDS: AmLODIPine BESYLATE 5 MG TABLET PO SCH (08:55)
[2021-09-20] MEDS: DIVALPROEX SODIUM 500 MG DR TABLET PO SCH ×2 (08:55→16:29)
[2021-09-20] MEDS: BuPROPion HCL 75 MG TABLET PO SCH (08:56)
[2021-09-20] MEDS: NICOTINE 21 MG/24 HOUR PATCH TD SCH (08:56)
[2021-09-20] MEDS: HALOPERIDOL 5 MG TABLET PO PRN ×2 (08:58→15:06)
[2021-09-20] MEDS: LORazepam 2 MG TABLET PO PRN ×2 (08:58→15:06)
[2021-09-20] MEDS: IBUPROFEN 600 MG TABLET PO PRN (08:59)
[2021-09-20 10:56] LABS: GLUCOMETER DEV NAME(LOC) POC.BV
[2021-09-20 20:07] VITALS: BP 107/62
[2021-09-20] MEDS: SIMVASTATIN 10 MG TABLET PO SCH (20:18)
[2021-09-20] MEDS: ARIPiprazole 15 MG TABLET PO SCH (20:18)
[2021-09-20] MEDS: ZOLPIDEM TARTRATE 10 MG TABLET PO PRN (20:18)
[2021-09-21] MEDS: LEVOTHYROXINE SODIUM 75 MCG TABLET PO SCH (06:12)
[2021-09-21 08:30] VITALS: BP 112/74
[2021-09-21] MEDS: GABAPENTIN 400 MG CAPSULE PO SCH ×2 (08:42→20:06)
[2021-09-21] MEDS: BuPROPion HCL 75 MG TABLET PO SCH (08:42)
[2021-09-21] MEDS: DIVALPROEX SODIUM 500 MG DR TABLET PO SCH ×2 (08:42→16:33)
[2021-09-21] MEDS: AmLODIPine BESYLATE 5 MG TABLET PO SCH (08:42)
[2021-09-21] MEDS: NICOTINE 21 MG/24 HOUR PATCH TD SCH (08:43)
[2021-09-21] MEDS: IBUPROFEN 600 MG TABLET PO PRN ×2 (08:58→16:32)
[2021-09-21] MEDS: LORazepam 2 MG TABLET PO PRN ×2 (08:59→14:03)
[2021-09-21 09:05] VITALS: BP 102/66
[2021-09-21] MEDS: MAGNESIUM HYDROXIDE SUSPENSION 30 ML UDCUP PO PRN (10:11)
[2021-09-21] MEDS: HALOPERIDOL 5 MG TABLET PO PRN (16:32)
[2021-09-21] MEDS: ARIPiprazole 15 MG TABLET PO SCH (20:05)
[2021-09-21] MEDS: SIMVASTATIN 10 MG TABLET PO SCH (20:06)
[2021-09-21] MEDS: ZOLPIDEM TARTRATE 10 MG TABLET PO PRN (20:07)
[2021-09-21 20:16] VITALS: BP 101/63
[2021-09-22 01:45] VITALS: BP 143/89
[2021-09-22] MEDS: IBUPROFEN 600 MG TABLET PO PRN ×2 (01:56→14:11)
[2021-09-22] MEDS: LEVOTHYROXINE SODIUM 75 MCG TABLET PO SCH (06:05)
[2021-09-22 08:29] VITALS: BP 103/60
[2021-09-22 08:50] VITALS: BP 108/72
[2021-09-22] MEDS: DIVALPROEX SODIUM 500 MG DR TABLET PO SCH ×2 (08:52→16:04)
[2021-09-22] MEDS: BuPROPion HCL 75 MG TABLET PO SCH (08:52)
[2021-09-22] MEDS: GABAPENTIN 400 MG CAPSULE PO SCH ×2 (08:52→20:12)
[2021-09-22] MEDS: AmLODIPine BESYLATE 5 MG TABLET PO SCH (08:53)
[2021-09-22] MEDS: NICOTINE 21 MG/24 HOUR PATCH TD SCH (08:54)
[2021-09-22] MEDS: LORazepam 2 MG TABLET PO PRN ×3 (09:00→20:12)
[2021-09-22] MEDS: SIMVASTATIN 10 MG TABLET PO SCH (20:12)
[2021-09-22] MEDS: ZOLPIDEM TARTRATE 10 MG TABLET PO PRN (20:12)
[2021-09-22] MEDS: HALOPERIDOL 5 MG TABLET PO PRN (20:12)
[2021-09-22] MEDS: ARIPiprazole 15 MG TABLET PO SCH (20:12)
[2021-09-22 20:25] VITALS: BP 102/68
[2021-09-23] MEDS: LEVOTHYROXINE SODIUM 75 MCG TABLET PO SCH (05:58)
[2021-09-23 08:48] VITALS: BP 117/72
[2021-09-23] MEDS: NICOTINE 21 MG/24 HOUR PATCH TD SCH (09:04)
[2021-09-23] MEDS: DIVALPROEX SODIUM 500 MG DR TABLET PO SCH ×2 (09:04→16:02)
[2021-09-23] MEDS: GABAPENTIN 400 MG CAPSULE PO SCH ×2 (09:04→20:03)
[2021-09-23] MEDS: AmLODIPine BESYLATE 5 MG TABLET PO SCH (09:04)
[2021-09-23] MEDS: HALOPERIDOL 5 MG TABLET PO PRN ×2 (09:04→16:02)
[2021-09-23] MEDS: LORazepam 2 MG TABLET PO PRN ×2 (09:05→16:02)
[2021-09-23] MEDS: IBUPROFEN 600 MG TABLET PO PRN (09:05)
[2021-09-23] MEDS: BuPROPion HCL 75 MG TABLET PO SCH (09:06)
[2021-09-23] MEDS: MAGNESIUM HYDROXIDE SUSPENSION 30 ML UDCUP PO PRN (09:34)
[2021-09-23] MEDS: SIMVASTATIN 10 MG TABLET PO SCH (20:03)
[2021-09-23] MEDS: ZOLPIDEM TARTRATE 10 MG TABLET PO PRN (20:03)
[2021-09-23] MEDS: ARIPiprazole 15 MG TABLET PO SCH (20:03)
[2021-09-23 20:16] VITALS: BP 110/77
[2021-09-24] MEDS: LEVOTHYROXINE SODIUM 75 MCG TABLET PO SCH (06:02)
[2021-09-24 08:03] VITALS: BP 100/61
[2021-09-24 09:00] VITALS: BP 110/70
[2021-09-24] MEDS: GABAPENTIN 400 MG CAPSULE PO SCH ×2 (09:07→20:21)
[2021-09-24] MEDS: BuPROPion HCL 75 MG TABLET PO SCH (09:07)
[2021-09-24] MEDS: AmLODIPine BESYLATE 5 MG TABLET PO SCH (09:07)
[2021-09-24] MEDS: NICOTINE 21 MG/24 HOUR PATCH TD SCH (09:08)
[2021-09-24] MEDS: DIVALPROEX SODIUM 500 MG DR TABLET PO SCH ×2 (09:10→16:18)
[2021-09-24] MEDS: LORazepam 2 MG TABLET PO PRN ×3 (09:11→20:21)
[2021-09-24] MEDS: IBUPROFEN 600 MG TABLET PO PRN (09:11)
[2021-09-24] MEDS: HALOPERIDOL 5 MG TABLET PO PRN ×3 (10:10→20:21)
[2021-09-24 20:08] VITALS: BP 100/60
[2021-09-24] MEDS: ARIPiprazole 15 MG TABLET PO SCH (20:20)
[2021-09-24] MEDS: SIMVASTATIN 10 MG TABLET PO SCH (20:20)
[2021-09-25] MEDS: LEVOTHYROXINE SODIUM 75 MCG TABLET PO SCH (06:31)
[2021-09-25 08:00] VITALS: BP 109/63
[2021-09-25] MEDS: AmLODIPine BESYLATE 5 MG TABLET PO SCH (08:09)
[2021-09-25] MEDS: BuPROPion HCL 75 MG TABLET PO SCH (08:09)
[2021-09-25] MEDS: GABAPENTIN 400 MG CAPSULE PO SCH ×2 (08:09→20:12)
[2021-09-25] MEDS: DIVALPROEX SODIUM 500 MG DR TABLET PO SCH ×2 (08:09→16:55)
[2021-09-25] MEDS: NICOTINE 21 MG/24 HOUR PATCH TD SCH (08:09)
[2021-09-25] MEDS: LORazepam 2 MG TABLET PO PRN ×2 (09:06→16:55)
[2021-09-25] MEDS: IBUPROFEN 600 MG TABLET PO PRN ×2 (09:36→17:14)
[2021-09-25 17:14] VITALS: BP 108/62
[2021-09-25 18:14] VITALS: BP 110/65
[2021-09-25 20:06] VITALS: BP 101/60
[2021-09-25] MEDS: ARIPiprazole 15 MG TABLET PO SCH (20:11)
[2021-09-25] MEDS: SIMVASTATIN 10 MG TABLET PO SCH (20:12)
[2021-09-26] MEDS: IBUPROFEN 600 MG TABLET PO PRN ×3 (04:02→16:13)
[2021-09-26 04:03] VITALS: BP 123/78
[2021-09-26] MEDS: ACETAMINOPHEN 325 MG TABLET PO PRN ×4 (04:49→18:40)
[2021-09-26] MEDS: LEVOTHYROXINE SODIUM 75 MCG TABLET PO SCH (06:09)
[2021-09-26 08:20] VITALS: BP 101/60
[2021-09-26 08:23] VITALS: BP 111/78
[2021-09-26] MEDS: LORazepam 2 MG TABLET PO PRN ×3 (08:23→18:41)
[2021-09-26] MEDS: DIVALPROEX SODIUM 500 MG DR TABLET PO SCH ×2 (08:23→16:14)
[2021-09-26] MEDS: GABAPENTIN 400 MG CAPSULE PO SCH ×2 (08:23→21:30)
[2021-09-26] MEDS: AmLODIPine BESYLATE 5 MG TABLET PO SCH (08:23)
[2021-09-26] MEDS: BuPROPion HCL 75 MG TABLET PO SCH (08:24)
[2021-09-26] MEDS: NICOTINE 21 MG/24 HOUR PATCH TD SCH (08:25)
[2021-09-26] MEDS: HALOPERIDOL 5 MG TABLET PO PRN ×3 (09:07→18:41)
[2021-09-26] MEDS: MAGNESIUM SULFATE 454 GM BAG PO SCH ×3 (12:12→21:30)
[2021-09-26] MEDS: BENZOCAINE 10% 7 GM GEL TP PRN ×2 (12:23→18:02)
[2021-09-26] MEDS: ERYTHROMYCIN BASE 500 MG TABLET PO SCH ×2 (15:44→21:31)
[2021-09-26 16:13] VITALS: BP 135/80
[2021-09-26 20:17] VITALS: BP 130/83
[2021-09-26] MEDS: SIMVASTATIN 10 MG TABLET PO SCH (21:30)
[2021-09-26] MEDS: ARIPiprazole 15 MG TABLET PO SCH (21:30)
[2021-09-26] MEDS: HYDROCODONE/ACETAMINOPHEN 5-325 MG TABLET PO PRN (21:36)
[2021-09-26] MEDS: ZOLPIDEM TARTRATE 10 MG TABLET PO PRN (21:39)
[2021-09-27 05:32] VITALS: BP 133/84
[2021-09-27] MEDS: HYDROCODONE/ACETAMINOPHEN 5-325 MG TABLET PO PRN ×3 (05:39→19:37)
[2021-09-27] MEDS: LEVOTHYROXINE SODIUM 75 MCG TABLET PO SCH (06:32)
[2021-09-27] MEDS: MAGNESIUM SULFATE 454 GM BAG PO SCH ×4 (07:04→20:06)
[2021-09-27] MEDS: NICOTINE 21 MG/24 HOUR PATCH TD SCH (08:14)
[2021-09-27] MEDS: DIVALPROEX SODIUM 500 MG DR TABLET PO SCH ×2 (08:14→17:31)
[2021-09-27] MEDS: GABAPENTIN 400 MG CAPSULE PO SCH ×2 (08:14→20:03)
[2021-09-27] MEDS: BuPROPion HCL 75 MG TABLET PO SCH (08:15)
[2021-09-27] MEDS: ERYTHROMYCIN BASE 500 MG TABLET PO SCH ×2 (08:15→20:03)
[2021-09-27] MEDS: AmLODIPine BESYLATE 5 MG TABLET PO SCH (08:19)
[2021-09-27 09:25] VITALS: BP 110/71
[2021-09-27] MEDS: LORazepam 2 MG TABLET PO PRN (19:15)
[2021-09-27] MEDS: HALOPERIDOL 5 MG TABLET PO PRN (19:15)
[2021-09-27] MEDS: ARIPiprazole 15 MG TABLET PO SCH (20:03)
[2021-09-27] MEDS: SIMVASTATIN 10 MG TABLET PO SCH (20:03)
[2021-09-27 20:29] VITALS: BP 122/75
[2021-09-27] MEDS: ZOLPIDEM TARTRATE 10 MG TABLET PO PRN (21:23)
[2021-09-28] MEDS: HYDROCODONE/ACETAMINOPHEN 5-325 MG TABLET PO PRN ×3 (06:33→21:43)
[2021-09-28] MEDS: LEVOTHYROXINE SODIUM 75 MCG TABLET PO SCH (06:33)
[2021-09-28] MEDS: MAGNESIUM SULFATE 454 GM BAG PO SCH ×4 (06:49→21:41)
[2021-09-28] MEDS: DIVALPROEX SODIUM 500 MG DR TABLET PO SCH ×2 (08:43→17:02)
[2021-09-28] MEDS: LORazepam 2 MG TABLET PO PRN (08:43)
[2021-09-28] MEDS: BuPROPion HCL 75 MG TABLET PO SCH (08:43)
[2021-09-28] MEDS: AmLODIPine BESYLATE 5 MG TABLET PO SCH (08:43)
[2021-09-28] MEDS: GABAPENTIN 400 MG CAPSULE PO SCH ×2 (08:43→21:42)
[2021-09-28] MEDS: NICOTINE 21 MG/24 HOUR PATCH TD SCH (08:45)
[2021-09-28] MEDS: ERYTHROMYCIN BASE 500 MG TABLET PO SCH ×2 (08:49→21:41)
[2021-09-28 09:21] VITALS: BP 115/57
[2021-09-28 20:21] VITALS: BP 102/66
[2021-09-28] MEDS: ARIPiprazole 15 MG TABLET PO SCH (21:41)
[2021-09-28] MEDS: SIMVASTATIN 10 MG TABLET PO SCH (21:42)
[2021-09-28] MEDS: ZOLPIDEM TARTRATE 10 MG TABLET PO PRN (21:43)
[2021-09-29] MEDS: LEVOTHYROXINE SODIUM 75 MCG TABLET PO SCH (06:24)
[2021-09-29 06:25] VITALS: BP 104/63
[2021-09-29] MEDS: HYDROCODONE/ACETAMINOPHEN 5-325 MG TABLET PO PRN ×4 (06:25→18:58)
[2021-09-29] MEDS: MAGNESIUM SULFATE 454 GM BAG PO SCH ×4 (06:54→20:55)
[2021-09-29] MEDS: DIVALPROEX SODIUM 500 MG DR TABLET PO SCH ×2 (08:16→17:20)
[2021-09-29] MEDS: BuPROPion HCL 75 MG TABLET PO SCH (08:17)
[2021-09-29] MEDS: AmLODIPine BESYLATE 5 MG TABLET PO SCH (08:17)
[2021-09-29] MEDS: ERYTHROMYCIN BASE 500 MG TABLET PO SCH ×2 (08:17→20:54)
[2021-09-29] MEDS: GABAPENTIN 400 MG CAPSULE PO SCH ×2 (08:17→20:55)
[2021-09-29] MEDS: NICOTINE 21 MG/24 HOUR PATCH TD SCH (08:18)
[2021-09-29 12:57] VITALS: BP 123/76
[2021-09-29] MEDS: HALOPERIDOL 5 MG TABLET PO PRN (13:46)
[2021-09-29] MEDS: LORazepam 2 MG TABLET PO PRN (13:47)
[2021-09-29 20:20] VITALS: BP 109/61
[2021-09-29] MEDS: SIMVASTATIN 10 MG TABLET PO SCH (20:55)
[2021-09-29] MEDS: ARIPiprazole 15 MG TABLET PO SCH (20:55)
[2021-09-29] MEDS: ZOLPIDEM TARTRATE 10 MG TABLET PO PRN (20:55)
[2021-09-30] MEDS: HYDROCODONE/ACETAMINOPHEN 5-325 MG TABLET PO PRN ×4 (06:26→21:42)
[2021-09-30] MEDS: LEVOTHYROXINE SODIUM 75 MCG TABLET PO SCH (06:26)
[2021-09-30] MEDS: LORazepam 2 MG TABLET PO PRN ×2 (06:33→13:50)
[2021-09-30] MEDS: MAGNESIUM SULFATE 454 GM BAG PO SCH ×4 (07:06→21:16)
[2021-09-30 07:52] VITALS: BP 100/66
[2021-09-30] MEDS: BuPROPion HCL 75 MG TABLET PO SCH (09:24)
[2021-09-30] MEDS: AmLODIPine BESYLATE 5 MG TABLET PO SCH (09:24)
[2021-09-30] MEDS: GABAPENTIN 400 MG CAPSULE PO SCH ×2 (09:24→21:13)
[2021-09-30] MEDS: ERYTHROMYCIN BASE 500 MG TABLET PO SCH ×2 (09:25→21:13)
[2021-09-30] MEDS: NICOTINE 21 MG/24 HOUR PATCH TD SCH (09:30)
[2021-09-30 09:32] VITALS: BP 130/90
[2021-09-30] MEDS: DIVALPROEX SODIUM 500 MG DR TABLET PO SCH ×2 (09:32→17:06)
[2021-09-30 14:37] VITALS: BP 112/74
[2021-09-30] MEDS ORDERED: TUBERCULIN, PURIFIED PROTEIN DERIVATIVE 5 TU/0.1 ML SYRINGE ID ONE (19:30)
[2021-09-30 20:15] VITALS: BP 101/64
[2021-09-30] MEDS: ARIPiprazole 15 MG TABLET PO SCH (21:13)
[2021-09-30] MEDS: SIMVASTATIN 10 MG TABLET PO SCH (21:13)
[2021-09-30 21:40] VITALS: BP 106/68
[2021-10-01 03:45] VITALS: BP 112/64
[2021-10-01] MEDS: HYDROCODONE/ACETAMINOPHEN 5-325 MG TABLET PO PRN ×3 (03:51→14:07)
[2021-10-01] MEDS: LEVOTHYROXINE SODIUM 75 MCG TABLET PO SCH (06:45)
[2021-10-01] MEDS: MAGNESIUM SULFATE 454 GM BAG PO SCH (06:47)
[2021-10-01 08:25] VITALS: BP 100/66
[2021-10-01 09:00] VITALS: BP 112/68
[2021-10-01] MEDS: GABAPENTIN 400 MG CAPSULE PO SCH ×2 (09:08→20:40)
[2021-10-01] MEDS: BuPROPion HCL 75 MG TABLET PO SCH (09:08)
[2021-10-01] MEDS: DIVALPROEX SODIUM 500 MG DR TABLET PO SCH ×2 (09:08→16:24)
[2021-10-01] MEDS: AmLODIPine BESYLATE 5 MG TABLET PO SCH (09:08)
[2021-10-01] MEDS: ERYTHROMYCIN BASE 500 MG TABLET PO SCH ×2 (09:10→20:46)
[2021-10-01] MEDS: NICOTINE 21 MG/24 HOUR PATCH TD SCH (09:11)
[2021-10-01] MEDS: LORazepam 2 MG TABLET PO PRN (09:47)
[2021-10-01] MEDS: HALOPERIDOL 5 MG TABLET PO PRN (11:44)
[2021-10-01 14:51] LABS: GLUCOMETER DEV NAME(LOC) POC.BV
[2021-10-01] MEDS: BENZOCAINE 10% 7 GM GEL TP PRN (16:23)
[2021-10-01 20:15] VITALS: BP 103/63
[2021-10-01] MEDS: ARIPiprazole 15 MG TABLET PO SCH (20:39)
[2021-10-01] MEDS: ZOLPIDEM TARTRATE 10 MG TABLET PO PRN (20:40)
[2021-10-01] MEDS: SIMVASTATIN 10 MG TABLET PO SCH (20:46)
[2021-10-02] MEDS: LEVOTHYROXINE SODIUM 75 MCG TABLET PO SCH (06:38)
[2021-10-02] MEDS: IBUPROFEN 600 MG TABLET PO PRN (07:08)
[2021-10-02] MEDS: ERYTHROMYCIN BASE 500 MG TABLET PO SCH ×2 (08:05→20:16)
[2021-10-02] MEDS: DIVALPROEX SODIUM 500 MG DR TABLET PO SCH ×2 (08:05→16:16)
[2021-10-02] MEDS: BuPROPion HCL 75 MG TABLET PO SCH (08:06)
[2021-10-02] MEDS: NICOTINE 21 MG/24 HOUR PATCH TD SCH (08:06)
[2021-10-02] MEDS: AmLODIPine BESYLATE 5 MG TABLET PO SCH (08:06)
[2021-10-02] MEDS: GABAPENTIN 400 MG CAPSULE PO SCH ×2 (08:07→20:09)
[2021-10-02 08:08] VITALS: BP 106/65
[2021-10-02] MEDS: HYDROCODONE/ACETAMINOPHEN 5-325 MG TABLET PO PRN ×3 (08:09→20:10)
[2021-10-02] MEDS: LORazepam 2 MG TABLET PO PRN (09:55)
[2021-10-02] MEDS: HALOPERIDOL 5 MG TABLET PO PRN (09:55)
[2021-10-02] MEDS: ONDANSETRON HCL 4 MG TABLET PO PRN ×2 (10:56→17:19)
[2021-10-02 20:05] VITALS: BP 105/68
[2021-10-02] MEDS: ARIPiprazole 15 MG TABLET PO SCH (20:09)
[2021-10-02 20:10] VITALS: BP 105/68
[2021-10-02] MEDS: SIMVASTATIN 10 MG TABLET PO SCH (20:10)
[2021-10-03] MEDS: LORazepam 2 MG TABLET PO PRN ×3 (02:26→15:36)
[2021-10-03] MEDS: HALOPERIDOL 5 MG TABLET PO PRN (02:26)
[2021-10-03] MEDS: LEVOTHYROXINE SODIUM 75 MCG TABLET PO SCH (06:28)
[2021-10-03] MEDS: NICOTINE 21 MG/24 HOUR PATCH TD SCH (08:06)
[2021-10-03] MEDS: ERYTHROMYCIN BASE 500 MG TABLET PO SCH ×2 (08:06→21:29)
[2021-10-03] MEDS: AmLODIPine BESYLATE 5 MG TABLET PO SCH (08:07)
[2021-10-03] MEDS: BuPROPion HCL 75 MG TABLET PO SCH (08:07)
[2021-10-03] MEDS: GABAPENTIN 400 MG CAPSULE PO SCH ×2 (08:07→21:28)
[2021-10-03] MEDS: HYDROCODONE/ACETAMINOPHEN 5-325 MG TABLET PO PRN ×2 (08:08→14:42)
[2021-10-03] MEDS: DIVALPROEX SODIUM 500 MG DR TABLET PO SCH ×2 (08:08→16:12)
[2021-10-03 18:10] VITALS: BP 98/59
[2021-10-03] MEDS: ARIPiprazole 15 MG TABLET PO SCH (21:28)
[2021-10-03] MEDS: SIMVASTATIN 10 MG TABLET PO SCH (21:29)
[2021-10-04 05:46] VITALS: BP 108/65
[2021-10-04] MEDS: HYDROCODONE/ACETAMINOPHEN 5-325 MG TABLET PO PRN ×2 (05:48→14:58)
[2021-10-04] MEDS: LEVOTHYROXINE SODIUM 75 MCG TABLET PO SCH (06:25)
[2021-10-04] MEDS: AmLODIPine BESYLATE 5 MG TABLET PO SCH (08:26)
[2021-10-04] MEDS: BuPROPion HCL 75 MG TABLET PO SCH (08:26)
[2021-10-04] MEDS: ERYTHROMYCIN BASE 500 MG TABLET PO SCH ×2 (08:26→21:53)
[2021-10-04] MEDS: DIVALPROEX SODIUM 500 MG DR TABLET PO SCH ×2 (08:26→16:27)
[2021-10-04] MEDS: GABAPENTIN 400 MG CAPSULE PO SCH ×2 (08:26→21:54)
[2021-10-04] MEDS: NICOTINE 21 MG/24 HOUR PATCH TD SCH (08:27)
[2021-10-04 08:34] VITALS: BP 102/62
[2021-10-04] MEDS: LORazepam 2 MG TABLET PO PRN (10:20)
[2021-10-04] MEDS: HALOPERIDOL 5 MG TABLET PO PRN (10:20)
[2021-10-04] MEDS: MAGNESIUM HYDROXIDE SUSPENSION 30 ML UDCUP PO PRN (10:20)
[2021-10-04] MEDS: ONDANSETRON HCL 4 MG TABLET PO PRN (10:20)
[2021-10-04] MEDS: ARIPiprazole 15 MG TABLET PO SCH (21:54)
[2021-10-04] MEDS: SIMVASTATIN 10 MG TABLET PO SCH (21:54)
[2021-10-04] MEDS: ZOLPIDEM TARTRATE 10 MG TABLET PO PRN (22:00)
[2021-10-05] MEDS: LEVOTHYROXINE SODIUM 75 MCG TABLET PO SCH (06:25)
[2021-10-05] MEDS: HYDROCODONE/ACETAMINOPHEN 5-325 MG TABLET PO PRN ×2 (06:40→14:24)
[2021-10-05 08:30] VITALS: BP 107/65
[2021-10-05] MEDS: DIVALPROEX SODIUM 500 MG DR TABLET PO SCH ×2 (08:39→17:13)
[2021-10-05] MEDS: AmLODIPine BESYLATE 5 MG TABLET PO SCH (08:40)
[2021-10-05] MEDS: GABAPENTIN 400 MG CAPSULE PO SCH ×2 (08:40→20:39)
[2021-10-05] MEDS: ERYTHROMYCIN BASE 500 MG TABLET PO SCH ×2 (08:40→21:00)
[2021-10-05] MEDS: NICOTINE 21 MG/24 HOUR PATCH TD SCH (08:41)
[2021-10-05] MEDS: BuPROPion HCL 75 MG TABLET PO SCH (08:41)
[2021-10-05] MEDS: MAGNESIUM HYDROXIDE SUSPENSION 30 ML UDCUP PO PRN (10:03)
[2021-10-05] MEDS: HALOPERIDOL 5 MG TABLET PO PRN (10:49)
[2021-10-05] MEDS: LORazepam 2 MG TABLET PO PRN (10:49)
[2021-10-05 16:11] VITALS: BP 102/59
[2021-10-05] MEDS: ONDANSETRON HCL 4 MG TABLET PO PRN (16:15)
[2021-10-05 20:21] VITALS: BP 105/61
[2021-10-05] MEDS: SIMVASTATIN 10 MG TABLET PO SCH (20:39)
[2021-10-05] MEDS: ARIPiprazole 15 MG TABLET PO SCH (20:39)
[2021-10-05] MEDS: ZOLPIDEM TARTRATE 10 MG TABLET PO PRN (20:44)
[2021-10-06] MEDS: LEVOTHYROXINE SODIUM 75 MCG TABLET PO SCH (06:27)
[2021-10-06] MEDS: HYDROCODONE/ACETAMINOPHEN 5-325 MG TABLET PO PRN ×2 (06:27→14:53)
[2021-10-06 08:24] VITALS: BP 109/68
[2021-10-06] MEDS: ERYTHROMYCIN BASE 500 MG TABLET PO SCH (08:43)
[2021-10-06] MEDS: BuPROPion HCL 75 MG TABLET PO SCH (08:43)
[2021-10-06] MEDS: GABAPENTIN 400 MG CAPSULE PO SCH ×2 (08:43→20:12)
[2021-10-06] MEDS: AmLODIPine BESYLATE 5 MG TABLET PO SCH (08:44)
[2021-10-06] MEDS: DIVALPROEX SODIUM 500 MG DR TABLET PO SCH ×2 (08:44→16:17)
[2021-10-06] MEDS: NICOTINE 21 MG/24 HOUR PATCH TD SCH (08:48)
[2021-10-06] MEDS: LORazepam 2 MG TABLET PO PRN ×2 (09:25→16:18)
[2021-10-06] MEDS: HALOPERIDOL 5 MG TABLET PO PRN ×2 (09:26→16:18)
[2021-10-06] MEDS: MAGNESIUM HYDROXIDE SUSPENSION 30 ML UDCUP PO PRN (09:26)
[2021-10-06] MEDS: ONDANSETRON HCL 4 MG TABLET PO PRN (10:15)
[2021-10-06] MEDS ORDERED: ARIP15TA27 PO (12:53)
[2021-10-06] MEDS ORDERED: GABA-1201 PO (12:53)
[2021-10-06] MEDS ORDERED: DIVA-112 PO (12:53)
[2021-10-06] MEDS ORDERED: BUPR-344 PO (12:53)
[2021-10-06 16:18] VITALS: BP 108/60
[2021-10-06] MEDS: ARIPiprazole 15 MG TABLET PO SCH (20:12)
[2021-10-06] MEDS: SIMVASTATIN 10 MG TABLET PO SCH (20:12)
[2021-10-06 20:44] VITALS: BP 100/60
[2021-10-07] MEDS: HYDROCODONE/ACETAMINOPHEN 5-325 MG TABLET PO PRN (05:15)
[2021-10-07] MEDS: LEVOTHYROXINE SODIUM 75 MCG TABLET PO SCH (06:29)
[2021-10-07] MEDS: NICOTINE 21 MG/24 HOUR PATCH TD SCH (07:46)
[2021-10-07] MEDS: AmLODIPine BESYLATE 5 MG TABLET PO SCH (07:46)
[2021-10-07] MEDS: GABAPENTIN 400 MG CAPSULE PO SCH (07:46)
[2021-10-07] MEDS: DIVALPROEX SODIUM 500 MG DR TABLET PO SCH (07:47)
[2021-10-07] MEDS: BuPROPion HCL 75 MG TABLET PO SCH (08:47)
[2021-10-07 09:36] VITALS: BP 129/83
[2021-10-07] MEDS: IBUPROFEN 600 MG TABLET PO PRN (11:41)
== END 2021-10-07 13:36 | disposition home or self-care (01) | DRG 750 ==
LOC: B3A 15:20
PROVIDERS: ADMIT Psychiatry & Neurology Psychiatry; ATTEND Psychiatry & Neurology Psychiatry
DX: F25.9 Schizoaffective disorder, unspecified (principal); R45.851 Suicidal ideations; G40.909 Epilepsy, unspecified, not intractable, without status epilepticus; E03.9 Hypothyroidism, unspecified; E78.5 Hyperlipidemia, unspecified; I10 Essential (primary) hypertension; J44.9 Chronic obstructive pulmonary disease, unspecified; K59.00 Constipation, unspecified; F41.9 Anxiety disorder, unspecified; E78.00 Pure hypercholesterolemia, unspecified; Z20.822 Contact with and (suspected) exposure to COVID-19; F17.200 Nicotine dependence, unspecified, uncomplicated; G47.00 Insomnia, unspecified; F19.10 Other psychoactive substance abuse, uncomplicated; Z71.51 Drug abuse counseling and surveillance of drug abuser; Z71.6 Tobacco abuse counseling
CPT/HCPCS: 80053; 80061; 80164; 83036; 84439; 84443; 85025; 87081; J3535; Q0162